=== PATIENT | female | born 1955 | race Caucasian/White ===

== ENCOUNTER → 2023-05-03 15:06 | Outpatient (CLI) | payer MEDICARE, SELFPAY ==
[2023-05-03 15:32] LABS: Microscopic, Urine URINE MICROSCOPIC (MICROSCOPIC)
[2023-05-03 16:07] LABS: Appearance,Urine SL CLOUDY (Clear); Bilirubin,Urine Negative (Negative); Blood, Urine TRACE-I (Negative); Color,Urine YELLOW (Yellow); Glucose,Urine (UA) 3+ (Negative); Ketones,Urine Negative (Negative); Leukocyte Esterase,Urine TRACE (Negative); Nitrate,Urine Negative (Negative); Protein,Urine Negative (Negative); Urobilinogen,Urine 0.2 EU/dl (0.2)
[2023-05-03 17:35] LABS: Bacteria,Urine Trace /lpf; RBC,Urine Occasional #/hpf (0-3); WBC,Urine TNTC #/hpf (0-3); Yeast,Urine 3+ /lpf
== END ==
PROVIDERS: PCP Internal Medicine Adolescent Medicine; Visit Provider Nurse Practitioner Family
DX: M54.50 Low back pain, unspecified (principal); R30.9 Painful micturition, unspecified
CPT/HCPCS: 81001; 87086

== ENCOUNTER 2023-05-29 10:37 | Outpatient (CLI) | payer MEDICARE, SELFPAY ==
[2023-05-29 10:52] LABS: Basophils # 0.1 K/mm3 (0-0.2); Basophils % 0.7 % (0.1-2.0); Eosinophils # 0.6 K/mm3 (0.0-0.4); Eosinophils % 3.4 % (0.1-12.0); Hematocrit 42.4 % (37.0-47.0); Lymphocytes # 2.3 K/mm3 (0.7-4.5); Lymphocytes % 14.4 % (10-50); Mean Corpuscular HGB Conc 30.7 g/dL (31.8-35.4); Mean Corpuscular Hemoglobin 28.4 pg (27.0-31.2); Mean Corpuscular Volume 92.5 fl (81-99); Mean Platelet Volume 8.5 fl (7.4-10.4); Monocytes # 0.7 K/mm3 (0.1-1.0); Monocytes % 4.4 % (1.7-9.3); Neutrophils # 12.5 K/mm3 (1.8-7.8); Neutrophils % 77.1 % (37.0-80.0); Platelet Count 310 K/mm3 (142-424); Red Blood Count 4.58 M/mm3 (4.20-5.40); Red Cell Distribution Width 15.4 % (11.5-17.5); White Blood Count 16.3 K/mm3 (4.8-10.8)
[2023-05-29 11:18] LABS: MANUAL DIFFERENTIAL MANUAL DIFFERENTIAL (MANUAL DIFF)
[2023-05-29 11:46] LABS: Chloride 103 mmol/L (98-107); Potassium 4.9 mmoL/L (3.5-5.1); Sodium 142 mmol/L (136-145)
[2023-05-29 11:49] LABS: Anion Gap 14.9 mEq/L (5-15); Blood Urea Nitrogen 24 mg/dl (7-17); Carbon Dioxide 29 mmol/L (22.0-30.0); Estimated Glomerular Filt Rate 55 ml/min (>60); GFR (African American) 67 ML/MIN (>60)
[2023-05-29 11:50] LABS: Calcium 8.7 mg/dl (8.4-10.2); Glucose 160 mg/dl (74-100)
[2023-05-29 13:44] LABS: Eosinophils % 3 % (0-3); Lymphocytes % 15 % (10-50); Monocytes % 3 % (2-9); Neutrophils % 77 % (42-76); Total Cells Counted 100
[2023-05-29 13:46] LABS: Platelet Estimate Normal; RBC Morphology Normal
== END 2023-05-29 23:59 ==
LOC: LAB.DROPOF 10:39
PROVIDERS: PCP Internal Medicine Adolescent Medicine; Visit Provider Internal Medicine Adolescent Medicine
DX: J44.1 Chronic obstructive pulmonary disease with (acute) exacerbation; I50.32 Chronic diastolic (congestive) heart failure
CPT/HCPCS: 80048; 85007; 85025

== ENCOUNTER 2023-08-01 15:20 | Emergency (ER) | payer MEDICARE, SELFPAY ==
[2023-08-01 15:21] VITALS: BP 128/86; PULSE 86; RESP 22; TEMP 36.9; O2SAT 97; BMI 56.6
--- NOTE | 2023-08-01 15:28 | ED_ITS ---
<Statement entered by Jefferson Prescott MD - 08/01/23 23:02> I was consulted by the J[facility], and we discussed the complexity of the problems being addressed. I approved the treatment and management plan for this patient's care in the emergency department, thus performing a substantive portion of the medical decision making. Jefferson Prescott MD, DANI, FACEP Discharge Plan Disposition Chief Complaint: Fall Referrals Follow up/Referrals: Provider,Referral, [Primary Care Provider] - See instructions Clinical Impressions Clinical Impression: Femur fracture, right Discharge ED Provider: Jefferson Prescott General Adult HPI General Chief complaint: Fall Stated complaint: fall Time Seen by Provider: 08/01/23 15:28 History of Present Illness HPI narrative: Patient presents after suffering a fall at her home. Patient was in her wheelchair trying to transition to her bed when she fell landing with her right leg and her hurdler's position underneath her. She could not arise. EMS was called to assist. Patient denies loss of consciousness trauma to the head chest pain chills hemoptysis hematochezia melena nausea vomit diarrhea however she does endorse increasing shortness of breath. Patient does have a history of COPD chronically on oxygen of 2 L. Related Data Allergies Allergy/AdvReac Type Severity Reaction Status Date / Time Penicillins Allergy Intermediate Verified 08/01/23 16:12 Sulfa (Sulfonamide Allergy Intermediate Verified 08/01/23 16:13 Antibiotics) [facility] Disclaimer: The information contained in this section may have been updated after the patient was seen, as this information can be updated by other users. Social History Smoking Status: Unknown if ever smoked alcohol intake: never current occupational status: retired Travel in the last 8 weeks: None ROS Obtained: Yes Systems reviewed as appropriate & no additional complaints except as documented Physical Exam General General appearance: alert and in no apparent distress Head Head exam: atraumatic and normal inspection Eye Eye exam: Present normal appearance, PERRL and EOMI ENT ENT exam: Present normal exam, normal oropharynx and mucous membranes moist Neck Neck exam: Present normal inspection, full ROM and trachea midline; Absent lymphadenopathy Chest Chest inspection: Present normal inspection and symmetric chest wall rise Respiratory Respiratory exam: Present normal lung sounds bilaterally; Absent accessory muscle use Cardiovascular Cardiovascular exam: Present regular rate, normal rhythm, normal heart sounds, +S1 and +S2 Abdominal Exam Abdominal exam: Present soft and normal bowel sounds; Absent tenderness, guarding or rebound Extremities Exam Extremities exam: Present normal inspection and full ROM Neurological Exam Neurological exam: Present alert, oriented X3 and CN II-XII intact Psychiatric Psychiatric exam: Present normal affect and normal mood Skin Skin exam: Present warm, dry and normal color Lymphatic Lymphatic Findings: no adenopathy Medical Decision Making Medical Records Medical records reviewed: Yes I reviewed the patient's medical records. Miguel Inquiry Pt receiving controlled substance: No Vital Signs: 08/01/23 15:21 08/01/23 16:00 Temperature 98.4 F Temperature Source Oral Pulse Rate 88 Pulse Rate [Right] 86 Respiratory Rate 22 20 Blood Pressure 111/62 Blood Pressure [Right Arm] 128/86 Blood Pressure Mean 75 Blood Pressure Mean [Right Arm] 100 02 Sat by Pulse Oximetry 97 94 L Oxygen Delivery Method Nasal Cannula Oxygen Flow Rate (LPM) 2 Lab Data Lab results reviewed: Yes I reviewed the patient's lab results. Lab Results 08/01/23 15:33: VBG pH 7.28 L, VBG pCO2 56.9 H, VBG pO2 37.5, VBG HCO3 26.3, VBG Total CO2 28.0 H, VBG O2 Saturation 65.0, VBG Base Excess -0.5, VBG Lactic Acid 2.5 H 08/01/23 15:40: Urine Color Yellow, Urine Appearance Clear, Urine pH 5.5, Ur Specific [place] 1.020, Urine Protein Negative, Urine Glucose (UA) 3+, Urine Ketones Negative, Urine Blood Negative, Urine Nitrate Negative, Urine Bilirubin Negative, Urine Urobilinogen 0.2, Ur Leukocyte Esterase Negative 08/01/23 15:45: WBC 15.8 H, RBC 4.44, Hgb 12.5, Hct 40.4, MCV 90.9, MCH 28.3, M CHC 31.1 L, RDW 15.0, Plt Count 356, MPV 9.3, Neut % (Auto) 88.9 H, Lymph % (Auto) 6.5 L, [place] % (Auto) 2.8, Eos % (Auto) 1.2, Baso % (Auto) 0.5, Neut # (Auto) 14.1 H, Lymph # (Auto) 1.0, [place] # (Auto) 0.4, Eos # (Auto) 0.2, Baso # (Auto) 0.1, Total Counted 100, Neutrophils % (Manual) 90 H, Lymphocytes % (Manual) 4 L, Monocytes % (Manual) 6, Platelet Estimate Normal, RBC Morphology Normal, PT 11.1, INR 1.03, D-Dimer 5.81 H, Sodium 138, Potassium 5.4 H, Chloride 103, Carbon Dioxide 29, Anion Gap 11.4, BUN 24 H, Creatinine 0.90, Estimated GFR 62, Est GFR ( Amer) 75, Glucose 122 H, Calcium 8.3 L, Total Bilirubin 0.7, AST 38 H, ALT 27, Alkaline Phosphatase 47, Total Protein 7.3, Albumin 3.7, Globulin 3.6 H, Albumin/Globulin Ratio 1.0 L 08/01/23 15:45 08/01/23 15:45 Orders (Tests/Meds): ED MEDICATIONS Discontinued Medications Generic Name Dose Route Start Last Admin Trade Name Freq PRN Reason Stop Dose Admin Acetaminophen 1,000 mg 08/01/23 15:29 08/01/23 16:25 Acetaminophen 1,000mg/100ml Vial IV 08/01/23 15:30 1,000 mg ONCE ONE Administration Albuterol/Ipratropium 3 ml 08/01/23 15:46 08/01/23 16:25 Ipratropium/Albuterol 3 Ml Neb IH 08/01/23 15:47 3 ml ONCE ONE Administration Ketorolac Tromethamine 15 mg 08/01/23 15:29 08/01/23 16:25 Ketorolac 30mg/Ml Vial IV 08/01/23 15:30 15 mg ONCE ONE Administration ORDERS Category Date Time Status CT abdomen pelvis wo con Stat Cat Scan 08/01/23 15:[address] femur RT wo con Stat Cat Scan 08/01/23 16:32 Completed CBC w/Auto Diff [Complete Blood Count Auto Diff] Stat Lab 08/01/23 15:45 Completed CMP [Comprehensive Metabolic Panel] Stat Lab 08/01/23 15:45 Completed D-Dimer Stat Lab 08/01/23 15:45 Completed INR [Prothrombin Time INR] Stat Lab 08/01/23 15:45 Completed Urinalysis-Acute [Urinalysis and Microscopic] Stat Lab 08/01/23 15:40 Results VBG [Venous Blood Gas] Stat RT 08/01/23 15:33 Completed Medical Decision Narrative: In summary patient is a 68-year-old female who presents to the emergency department for evaluation of a fall. Patient is hemodynamically stable upon arrival, afebrile satting at 93% on 2 L by nasal cannula. Physical exam is remarkable for a patient that is grossly obese with a BMI of 56 appears to be dyspneic however breath sounds are clear to auscultation bilaterally good air entry to the bases, chronic venous stasis changes to the distal bilateral lower extremities along with paronychial chronic infections around the toenails and tenderness to palpation and compression of the pelvis but no deformity noted. No deformity noted of the right lower extremity and she has good pulses and is neurovascularly intact distally. Differential diagnosis includes femur fracture, pelvic fracture, soft tissue or ligamentous injury, contusion etc. Initial workup will be conducted with hematologic labs CT scan of the pelvis and right femur. Initial interventions include lactated Ringer's, Toradol Tylenol. Initial workup reviewed by me shows a white count of 15.8 with an absolute neutrophil count of 14.1 and a platelet count of 356, INR of 1.03 with a D-dimer of 5.81, VBG of of pH of 7.28, and the remainder of her laboratory investigations are nonactionable. CT scan abdomen pelvis shows a displaced overriding distal femur fracture on the right. Given that the patient has a significant traumatic long bone fracture I discussed patient management with Dr. Myles at the [facility] who is graciously accepted the patient to the ER. Critical Care Critical Care Time Critical Care Time: Yes Attestation: On 08/01/23, the high probability of a clinically significant, sudden or life threatening deterioration of the following system(s) required my full and direct attention, intervention and personal management. The time I documented below is in addition to time spent performing reported procedures but includes the following listed in this critical care notation. Total Time Total Critical Care Time: 30
--- NOTE | 2023-08-01 15:29 | CT_ITS ---
PROCEDURE INFORMATION: Exam: CT Abdomen And Pelvis Without Contrast Exam date and time: 08/01/2023 3:44 PM Age: 68 years old Clinical indication: Other: Diarrhea; Additional info: Fall right hip pain, please scan to distal thigh TECHNIQUE: Imaging protocol: Computed tomography of the abdomen and pelvis without contrast. Radiation optimization: All CT scans at this facility use at least one of these dose optimization techniques: automated exposure control; mA and/or kV adjustment per patient size (includes targeted exams where dose is matched to clinical indication); or iterative reconstruction. COMPARISON: No relevant prior studies available. FINDINGS: Liver: Normal. No mass. Gallbladder and bile ducts: Gallbladder is surgically absent. Pancreas: Normal. No ductal dilation. Spleen: Normal. No splenomegaly. Adrenal glands: Normal. No mass. Kidneys and ureters: Small parenchymal stone in the right kidney. Single small calyceal stone in the left kidney. No obstructing ureteral stone or hydronephrosis. Stomach and bowel: Unremarkable. No obstruction. No mucosal thickening. Appendix: No evidence of appendicitis. Intraperitoneal space: Unremarkable. No free air. No significant fluid collection. Vasculature: Moderate atherosclerotic calcification throughout the aorta and iliac arteries. No evidence of aneurysm. Lymph nodes: Unremarkable. No enlarged lymph nodes. Urinary bladder: Hutchins catheter is present in the urinary bladder. Reproductive: Unremarkable as visualized. Bones/joints: Severe degenerative disc changes throughout the lower spine. Significant multilevel facet arthropathy. Grade 1 anterolisthesis of L4. No vertebral body compression or acute fracture. Mild degenerative changes of the sacroiliac joints. Soft tissues: Unremarkable. IMPRESSION: No acute abnormality evident. Chronic appearing findings as noted.
--- NOTE | 2023-08-01 15:44 | ECG_ITS ---
APPROVED REPORT Exam: Resting ECG HR:85 bpm ECG Measurements Heart Rate 85 AXES HI 168 P 55 QRSd 126 QRS -63 QT 364 T 81 QTc 406 Conclusion SINUS RHYTHM LEFT AXIS DEVIATION [QRS AXIS < -30] LEFT BUNDLE BRANCH BLOCK [120+ ms QRS DURATION, 80+ ms Q/S IN V1/V2, 85+ ms R IN I/aVL/V5/V6] Electronically signed by : TG TRUJILLO, 08/02/2023 03:26:04
[2023-08-01 16:00] VITALS: BP 111/62; PULSE 88; RESP 20; O2SAT 94
[2023-08-01 16:02] LABS: Basophils # 0.1 K/mm3 (0-0.2); Basophils % 0.5 % (0.1-2.0); Eosinophils # 0.2 K/mm3 (0.0-0.4); Eosinophils % 1.2 % (0.1-12.0); Hematocrit 40.4 % (37.0-47.0); Hemoglobin 12.5 g/dL (12.2-16.2); Lymphocytes % 6.5 % (10-50); Mean Corpuscular HGB Conc 31.1 g/dL (31.8-35.4); Mean Corpuscular Hemoglobin 28.3 pg (27.0-31.2); Mean Corpuscular Volume 90.9 fl (81-99); Mean Platelet Volume 9.3 fl (7.4-10.4); Monocytes # 0.4 K/mm3 (0.1-1.0); Monocytes % 2.8 % (1.7-9.3); Neutrophils # 14.1 K/mm3 (1.8-7.8); Neutrophils % 88.9 % (37.0-80.0); Platelet Count 356 K/mm3 (142-424); Red Blood Count 4.44 M/mm3 (4.20-5.40); White Blood Count 15.8 K/mm3 (4.8-10.8)
[2023-08-01 16:06] LABS: MANUAL DIFFERENTIAL MANUAL DIFFERENTIAL (MANUAL DIFF)
[2023-08-01 16:12] LABS: Lymphocytes % 4 % (10-50); Monocytes % 6 % (2-9); Neutrophils % 90 % (42-76); Total Cells Counted 100
[2023-08-01 16:13] LABS: Platelet Estimate Normal; RBC Morphology Normal
[2023-08-01 16:14] LABS: Alanine Aminotransferase 27 U/L (12-78); Albumin Level 3.7 g/dl (3.5-5.0); Alkaline Phosphatase 47 U/L (38-126); Anion Gap 11.4 mEq/L (5-15); Aspartate Amino Transferase 38 U/L (14-36); Bilirubin,Total 0.7 mg/dl (0.2-1.3); Blood Urea Nitrogen 24 mg/dl (7-17); Calcium 8.3 mg/dl (8.4-10.2); Carbon Dioxide 29 mmol/L (22.0-30.0); Chloride 103 mmol/L (98-107); Estimated Glomerular Filt Rate 62 ml/min (>60); GFR (African American) 75 ML/MIN (>60); Globulin 3.6 g/dL (1.3-3.2); Glucose 122 mg/dl (74-100); INR 1.03 (0.9-1.1); Potassium 5.4 mmoL/L (3.5-5.1); Prothrombin Time 11.1 seconds (10.1-12.5); Sodium 138 mmol/L (136-145); Total Protein,Serum 7.3 g/dl (6.3-8.2)
[2023-08-01 16:16] LABS: VBG Base Excess -0.5 mmol/L (-2.4-2.3); VBG HCO3 26.3 mmol/L (23-30); VBG PH 7.28 mmol/L (7.31-7.41); VBG PO2 37.5 mmol/L (28-40)
[2023-08-01 16:21] LABS: Lactate Venous 2.5 mmol/L (0.4-2.0); VBG PCO2 56.9 mmol/L (35-51)
[2023-08-01] MEDS: ACETAMINOPHEN 1,000MG/100ML VIAL 1000 MG IV (16:25)
[2023-08-01] MEDS: KETOROLAC 30MG/ML VIAL 15 MG IV (16:25)
[2023-08-01] MEDS: IPRATROPIUM/ALBUTEROL 3 ML NEB IH (16:25)
[2023-08-01 16:31] LABS: D-Dimer 5.81 ug/mL (0.0-0.5)
--- NOTE | 2023-08-01 16:32 | CT_ITS ---
PROCEDURE INFORMATION: Exam: CT Right Lower Extremity Without Contrast; Thigh Exam date and time: 08/01/2023 4:34 PM Age: 68 years old Clinical indication: Injury or trauma; Fall; Blunt trauma; Thigh or upper leg; Right TECHNIQUE: Imaging protocol: CT of the right lower extremity without contrast was performed. Exam focused on the thigh. Radiation optimization: All CT scans at this facility use at least one of these dose optimization techniques: automated exposure control; mA and/or kV adjustment per patient size (includes targeted exams where dose is matched to clinical indication); or iterative reconstruction. COMPARISON: CT ABDOMEN PELVIS WO CON 08/01/2023 3:44 PM FINDINGS: Bones/joints: There is an oblique fracture of the distal femoral diaphysis with posterior displacement of the distal fragment by approximately 1/2 shaft width as well as overriding fragments by approximately 5 cm. Fracture appears mildly comminuted. No intra-articular extension. No other acute fracture. Moderate tricompartmental osteoarthritis of the right knee noted. Soft tissues: Moderate deep soft tissue swelling about the fracture site. No significant masslike hematoma evident. Vasculature: Moderate atherosclerotic calcification throughout the femoral/popliteal artery. IMPRESSION: Displaced and overriding fracture of the distal right femoral diaphysis as described.
--- NOTE | 2023-08-01 16:39 | PC.NURSE ---
pt back from ct
[2023-08-01 17:05] LABS: Microscopic, Urine URINE MICROSCOPIC (MICROSCOPIC)
[2023-08-01 17:07] LABS: Appearance,Urine CLEAR (Clear); Bilirubin,Urine Negative (Negative); Blood, Urine Negative (Negative); Color,Urine YELLOW (Yellow); Glucose,Urine (UA) 3+ (Negative); Ketones,Urine Negative (Negative); Leukocyte Esterase,Urine Negative (Negative); Nitrate,Urine Negative (Negative); PH,Urine 5.5 (5.0-8.5); Protein,Urine Negative (Negative); Urobilinogen,Urine 0.2 EU/dl (0.2)
--- NOTE | 2023-08-01 17:17 | PC.NURSE ---
placed call to [facility] for transfer
--- NOTE | 2023-08-01 17:21 | PC.NURSE ---
[facility]
[2023-08-01 17:42] VITALS: BP 146/78; PULSE 76; RESP 20; TEMP 36.5; O2SAT 98
[2023-08-01 17:51] LABS: Squamous Epithelial Cell,Urine Occasional #/hpf (0-5)
[2023-08-01 20:20] LABS: Reflex Lactic Add Lactic Reflex
== END 2023-08-01 19:50 | disposition short-term general hospital (02) ==
PROVIDERS: Physician Assistant; Emergency Provider Student in an Organized Health Care Education/Training Program
DX: S72.351A Displaced comminuted fracture of shaft of right femur, initial encounter for closed fracture (principal); J44.9 Chronic obstructive pulmonary disease, unspecified; R06.02 Shortness of breath; W18.30XA Fall on same level, unspecified, initial encounter
CPT/HCPCS: 73700; 74176; 80053; 81001; 82803; 85007; 85025; 85378; 85610; 93005; 96374; 96375; 99285; J0131

== ENCOUNTER 2023-10-11 01:32 | Outpatient (CLI) | payer MEDICARE, SELFPAY ==
[2023-10-11 01:59] LABS: Microscopic, Urine URINE MICROSCOPIC (MICROSCOPIC)
[2023-10-11 02:02] LABS: Appearance,Urine CLEAR (Clear); Bilirubin,Urine Negative (Negative); Blood, Urine TRACE-I (Negative); Color,Urine YELLOW (Yellow); Glucose,Urine (UA) 3+ (Negative); Ketones,Urine TRACE (Negative); Leukocyte Esterase,Urine TRACE (Negative); Nitrate,Urine POSITIVE (Negative); Protein,Urine TRACE (Negative); Specific Gravity, Urine 1.015 (1.005-1.030); Urobilinogen,Urine 0.2 EU/dl (0.2)
[2023-10-11 02:14] LABS: Bacteria,Urine 1+ /lpf; WBC,Urine 50-100 #/hpf (0-3)
== END 2023-10-11 23:59 | disposition home or self-care (01) ==
LOC: LAB.DROPOF 01:36
PROVIDERS: PCP Internal Medicine Adolescent Medicine; Visit Provider Nurse Practitioner Family
DX: N39.0 Urinary tract infection, site not specified (principal); B96.89 Other specified bacterial agents as the cause of diseases classified elsewhere
CPT/HCPCS: 81001; 87086; 87088; 87186

== ENCOUNTER 2024-01-25 02:57 | Outpatient (CLI) | payer MEDICARE, SELFPAY ==
[2024-01-25 06:20] LABS: Microscopic, Urine URINE MICROSCOPIC (MICROSCOPIC)
[2024-01-25 06:26] LABS: Appearance,Urine CLEAR (Clear); Bilirubin,Urine Negative (Negative); Blood, Urine Negative (Negative); Color,Urine YELLOW (Yellow); Glucose,Urine (UA) 2+ (Negative); Ketones,Urine Negative (Negative); Leukocyte Esterase,Urine Negative (Negative); Nitrate,Urine POSITIVE (Negative); Protein,Urine Negative (Negative); Urobilinogen,Urine 0.2 EU/dl (0.2)
[2024-01-25 06:46] LABS: Bacteria,Urine 3+ /lpf; Squamous Epithelial Cell,Urine Occasional #/hpf (0-5)
== END 2024-01-25 23:59 | disposition home or self-care (01) ==
PROVIDERS: PCP Internal Medicine Adolescent Medicine; Visit Provider Nurse Practitioner Family
DX: R41.0 Disorientation, unspecified (principal); J44.9 Chronic obstructive pulmonary disease, unspecified; R13.10 Dysphagia, unspecified; N32.81 Overactive bladder; I10 Essential (primary) hypertension; R48.8 Other symbolic dysfunctions; E08.9 Diabetes mellitus due to underlying condition without complications; I50.32 Chronic diastolic (congestive) heart failure; I73.9 Peripheral vascular disease, unspecified; I87.2 Venous insufficiency (chronic) (peripheral)
CPT/HCPCS: 81001; 87086; 87088; 87186

== ENCOUNTER 2024-02-25 10:24 | Inpatient (IN) | payer MEDICARE, SELFPAY ==
[2024-02-25] VITALS (33 sets, daily range): BP systolic 65–141; BP diastolic 28–97; PULSE 55–105; RESP 16–24; TEMP 36.9–38.2; O2SAT 94–100; BMI 41.6; BMI 54.8; BMI 14.5; BMI 45.7
--- NOTE | 2024-02-25 10:28 | ECG_ITS ---
APPROVED REPORT Exam: Resting ECG HR:106 bpm ECG Measurements Heart Rate 106 AXES [place] 173 P 32 QRSd 119 QRS 270 QT 346 T 20 QTc 408 Conclusion SINUS TACHYCARDIA POSSIBLE RIGHT VENTRICULAR HYPERTROPHY [SOME/ALL OF: PROMINENT R IN V1, LATE TRANSITION, RAD, PETROS, SSS] POSSIBLE ANTERIOR MYOCARDIAL INFARCTION , OF INDETERMINATE AGE [30 ms Q WAVE IN V3/V4, OR R < 0.2 mV IN V4] Electronically signed by : ROSA MARIA MATUTE, 02/26/2024 23:01:30
[2024-02-25] MEDS: LACTATED RINGERS 1000ML 1,000 ML 999 ML IV ×2 (10:35→11:17)
--- NOTE | 2024-02-25 10:39 | HMH.EDGENADL ---
Discharge Plan Disposition Patient Disposition: Admitted Discharge ED Provider: John Silveira General Adult HPI General Chief complaint: Altered Mental Status Stated complaint: AMS Time Seen by Provider: 02/25/24 10:39 History of Present Illness HPI narrative: Patient is a 68-year-old female with reported history of COPD, presents altered, reportedly acutely, starting today. She was reportedly in her normal state of health prior to onset of symptoms. She woke up this morning reportedly in her normal state of health. Previous therapies prior to arrival included supplemental oxygen for hypoxemia and hypercarbia on end-tidal monitoring which were administered by EMS. No reported fall. Patient reportedly occasionally wear supplemental oxygen. Later history obtained by son over the phone who reports that she was short of breath and febrile yesterday. She was denying any chest pain, headache, or abdominal pain at that time. She does have reported history of DVT per son. Please note that above description of symptoms, in this electronic medical record under categorization of recalled from ER triage doctor by RN are reflective of an initial nursing assessment, however, is not reflective of my full history and physical exam that was personally taken and clarified. Consequentially, this preceding description of symptoms, which may include the patient's categorized chief complaint in the EMR, do not reflect my personal clinical impression, and the ultimate description of history of present illness and patient stated complaints should be deferred to this section of the note. Unless stated otherwise or congruent with this section of the note, additional signs, symptoms, or incongruence should be interpreted as inaccurate with my clinical impression. Related Data Home Medications ?Medication ?Instructions ?Recorded ?Confirmed acetaminophen 500 mg tablet 1,000 mg PO Q6H PRN PAIN/FEVER 02/25/24 02/25/24 albuterol sulfate 90 mcg/actuation 2 inh inhalation QID PRN SOA 02/25/24 02/25/24 breath activated powder inhaler apixaban 5 mg tablet (Eliquis) 5 mg PO BID HX EMBOLISM & 02/25/24 02/25/24 THROMBOSIS ascorbic acid (vitamin C) 500 mg 500 mg PO DAILY Supplement 02/25/24 02/25/24 tablet aspirin 81 mg chewable tablet 81 mg PO DAILY PVD 02/25/24 02/25/24 carvedilol 25 mg tablet 25 mg PO BID HTN 02/25/24 02/25/24 clonidine HCl 0.2 mg tablet 0.2 mg PO BID 02/25/24 02/25/24 cyanocobalamin (vitamin B-12) 100 100 mcg PO DAILY DEFICIENCY 02/25/24 02/25/24 mcg tablet dextran 70-hypromellose (PF) 0.1 1 drp ophthalmic (eye) QID 02/25/24 02/25/24 %-0.3 % eye drops in a dropperette SUPERIOR LIMBIC KARATITIS (Artificial Tears (PF)) docusate sodium 100 mg capsule 100 mg PO HS Constipation 02/25/24 02/25/24 empagliflozin 10 mg tablet 10 mg PO DAILY DM 02/25/24 02/25/24 (Jardiance) ergocalciferol (vitamin D2) 1,250 1,250 mcg PO WEEKLY 02/25/24 02/25/24 mcg (50,000 unit) capsule fluticasone 250 mcg-salmeterol 50 1 inh inhalation BID Copd 02/25/24 02/25/24 mcg/dose blistr powdr for inhalation (Wixela Inhub) furosemide 40 mg tablet 40 mg PO DAILY 02/25/24 02/25/24 ipratropium 0.5 mg-albuterol 3 mg 3 ml inhalation Q8H PRN 02/25/24 02/25/24 (2.5 mg base)/3 mL nebulization SOA/WHEEZING soln metformin 1,000 mg tablet 1,000 mg PO BID DM 02/25/24 02/25/24 omeprazole 20 mg capsule,delayed 20 mg PO DAILY GERD 02/25/24 02/25/24 release ondansetron HCl 4 mg tablet 4 mg PO Q6H PRN Nausea 02/25/24 02/25/24 sacubitril 24 mg-valsartan 26 mg 1 tab PO BID CHF 02/25/24 02/25/24 tablet (Entresto) spironolactone 50 mg tablet 50 mg PO DAILY CHF 02/25/24 02/25/24 tizanidine 2 mg capsule 2 mg PO Q8H PRN MUSCLE SPASMS 02/25/24 02/25/24 vibegron 75 mg tablet 75 mg PO DAILY OVERACTIVE BLADDER 02/25/24 02/25/24 Allergies Allergy/AdvReac Type Severity Reaction Status Date / Time Penicillins Allergy Intermediate Verified 08/01/23 16:12 Sulfa (Sulfonamide Allergy Intermediate Verified 08/01/23 16:13 Antibiotics) [facility] Disclaimer: The information contained in this section may have been updated after the patient was seen, as this information can be updated by other users. Medical History (Updated 02/25/24 @ 14:45 by Elis Mcgill, RN) Overactive bladder Morbid obesity due to excess calories Diabetes mellitus Congestive heart failure PVD (peripheral vascular disease) History of thrombosis History of embolism Venous insufficiency (chronic) (peripheral) Functional quadriplegia HTN (hypertension) Vitamin D deficiency COPD (chronic obstructive pulmonary disease) Shock On mechanically assisted ventilation Acute hypercapnic respiratory failure Family History (Updated 02/25/24 @ 14:46 by Elis Mcgill, RN) Other Unknown family medical history Social History (Updated 02/25/24 @ 14:50 by Elis Mcgill, PROSPER) Smoking Status: Unknown if ever smoked alcohol intake: never current occupational status: retired Travel in the last 8 weeks: None ROS Obtained: Yes other As per HPI Physical Exam General General appearance: lethargic Head Head exam: atraumatic and normocephalic Eye Eye exam: Present normal appearance Neck Neck exam: Present normal inspection Chest Chest inspection: Present normal inspection and symmetric chest wall rise Respiratory Respiratory exam: Present other (Hypoventilation, tachypnea) Cardiovascular Cardiovascular exam: Present normal rhythm and tachycardia Abdominal Exam Abdominal exam: Present soft Neurological Exam Neurological exam: Present alert and oriented X3 Psychiatric Psychiatric exam: Present other (Unable to assess) Skin Skin exam: Present warm and diaphoresis Medical Decision Making Medical Records Medical records reviewed: Yes I reviewed the patient's medical records. Screening: Per USPSTF and CDC recommendations, given the prevalence of disease in our region, it is our hospital?s policy to screen for HIV and viral Hepatitis for all patients aged 18 and over and those with ongoing risk factors. Miguel Inquiry Pt receiving controlled substance: No Vital Signs: 02/25/24 10:24 02/25/24 10:49 02/25/24 10:49 Temperature 100.8 F H Temperature Source Rectal Pulse Rate 97 H 97 H Pulse Rate [Apical] 105 H Respiratory Rate 16 Blood Pressure Blood Pressure [Right Arm] 102/58 L Blood Pressure Mean Blood Pressure Mean [Right Arm] 72 Blood Pressure Source [Right Arm] Automatic Cuff Blood Pressure Position [Right Arm] Sitting 02 Sat by Pulse Oximetry 94 L Oxygen Delivery Method Non-Rebreather 02/25/24 10:52 02/25/24 10:53 02/25/24 10:55 Temperature Temperature Source Pulse Rate 103 H 94 H 96 H Pulse Rate [Apical] Respiratory Rate 23 22 24 Blood Pressure 65/28 L 69/36 L 86/52 L Blood Pressure [Right Arm] Blood Pressure Mean 40 49 58 Blood Pressure Mean [Right Arm] Blood Pressure Source [Right Arm] Blood Pressure Position [Right Arm] 02 Sat by Pulse Oximetry Oxygen Delivery Method BiPAP BiPAP BiPAP 02/25/24 11:00 02/25/24 11:21 02/25/24 11:50 Temperature Temperature Source Pulse Rate 96 H 99 H Pulse Rate [Apical] Respiratory Rate 20 18 Blood Pressure 77/52 L 100/59 L Blood Pressure [Right Arm] Blood Pressure Mean 57 67 Blood Pressure Mean [Right Arm] Blood Pressure Source [Right Arm] Blood Pressure Position [Right Arm] 02 Sat by Pulse Oximetry 98 99 Oxygen Delivery Method BiPAP 02/25/24 12:01 02/25/24 12:31 02/25/24 13:00 Temperature Temperature Source Pulse Rate 100 H 99 H 86 Pulse Rate [Apical] Respiratory Rate Blood Pressure 99/46 L 90/55 L 96/60 L Blood Pressure [Right Arm] Blood Pressure Mean 59 66 70 Blood Pressure Mean [Right Arm] Blood Pressure Source [Right Arm] Blood Pressure Position [Right Arm] 02 Sat by Pulse Oximetry 98 100 Oxygen Delivery Method 02/25/24 13:15 02/25/24 13:30 Temperature Temperature Source Pulse Rate 78 Pulse Rate [Apical] Respiratory Rate 19 Blood Pressure 93/65 L Blood Pressure [Right Arm] Blood Pressure Mean 72 Blood Pressure Mean [Right Arm] Blood Pressure Source [Right Arm] Blood Pressure Position [Right Arm] 02 Sat by Pulse Oximetry 96 99 Oxygen Delivery Method Lab Data Lab Results 02/25/24 10:30: WBC 21.6 H*, RBC 4.76, Hgb 12.0 L, Hct 41.2, MCV 86.6, MCH 25.3 L, MCHC 29.2 L, RDW 17.2, Plt Count 466 H, MPV 8.0, Neut % (Auto) 90.8 H, Lymph % (Auto) 4.0 L, [place] % (Auto) 3.4, Eos % (Auto) 0.6, Baso % (Auto) 1.1, Neut # (Auto) 19.6 H, Lymph # (Auto) 0.9, [place] # (Auto) 0.7, Eos # (Auto) 0.1, Baso # (Auto) 0.2, Total Counted 100, Neutrophils % (Manual) 90 H, Lymphocytes % (Manual) 8 L, Monocytes % (Manual) 2, Platelet Estimate Slight increase, Hypochromasia 1+, PT 11.4, INR 1.02, Sodium 141, Potassium 4.8, Chloride 100, Carbon Dioxide 34 H, Anion Gap 11.8, BUN 17, Creatinine 1.00, Estimated Creat Clear 52, Estimated GFR 55 L, Est GFR ( Amer) 67, Glucose 262 H, Lactate 2.5 H, Calcium 8.9, Phosphorus 5.4 H, Magnesium 1.6, Total Bilirubin 0.4, AST 28, ALT 33, Alkaline Phosphatase 74, Total Creatine Kinase 46, Troponin I 0.03, NT-Pro-B Natriuret Pep 365 H, Total Protein 8.0, Albumin 3.8, Globulin 4.2 H, Albumin/Globulin Ratio 0.9 L, Salicylates < 1.0 L, Acetaminophen < 10 L, Plasma/Serum Alcohol < 10, Acetone Level None detected, HIV 1&2 Antibody Rapid Nonreactive 02/25/24 10:31: VBG pH 7.29 L, VBG pCO2 62.4 H, VBG pO2 167.4 H, VBG HCO3 29.3, VBG Total CO2 31.2 H, VBG O2 Saturation 99.2 H, VBG Base Excess 2.7 H, VBG Lactic Acid 3.4 H 02/25/24 10:42: Urine Color Yellow, Urine Appearance Clear, Urine pH 6.0, Ur Specific [place] 1.015, Urine Protein 1+ A, Urine Glucose (UA) Negative, Urine Ketones Negative, Urine Blood Negative, Urine Nitrate Negative, Urine Bilirubin Negative, Urine Urobilinogen 0.2, Ur Leukocyte Esterase Negative, Urine RBC Occasional, Urine WBC Occasional, Ur Squamous Epith Cells Occasional, Urine Bacteria 1+, Urine Opiates Screen Negative, Urine Methadone Screen Negative, Ur Barbituates Screen Negative, Ur Phencyclidine Scrn Negative, Ur Amphetamines Screen Negative, U Benzodiazepines Scrn Negative, Urine Cocaine Screen Negative, U Marijuana (THC) Screen Negative, SARS-CoV-2 (PCR) Not detected, Influenza A Untype (PCR) Not detected, Influenza Type B (PCR) Not detected 02/25/24 11:00: Blood Type O Positive, Antibody Screen Negative 02/25/24 11:18: Specimen Source A line, O2 % 50%, ABG pH 7.19 L*, ABG pCO2 88.6 H, ABG pO2 88.1, ABG HCO3 32.8 H, ABG Total CO2 35.5 H, ABG O2 Saturation 95, ABG Base Excess 4.5 H, Tidal Volume 20/8 02/25/24 10:30 02/25/24 10:30 Orders (Tests/Meds): ED MEDICATIONS Generic Name Dose Route Start Last Admin Trade Name Freq PRN Reason Stop Dose Admin Albuterol/Ipratropium 3 ml 02/25/24 18:00 Ipratropium/Albuterol 3 Ml Neb IH 03/26/24 17:59 Q6RT BOGDAN Docusate Sodium 10 ml 02/25/24 21:00 Docusate Sodium 10 Ml/Udc Udc PO 03/26/24 20:59 BID BOGDAN Fentanyl Citrate 12.5 mcg 02/25/24 14:00 Fentanyl 12.5mcg/0.25ml IV 03/26/24 13:59 [id number] PRN Achieve CPOT Score < 3 Norepinephrine/Dextrose 8 mg in 250 mls @ 3.75 mls/hr 02/25/24 12:15 02/25/24 13:28 Norepinephrine 8mg/250ml-D5w Premix IV 02/26/24 12:14 22 mcg/min .Q24H BOGDAN 41.25 mls/hr Infusion Protocol 2 MCG/MIN Fentanyl Citrate 1,000 mcg/ 100 mls @ 2 mls/hr 02/25/24 12:10 02/25/24 12:31 Sodium Chloride IV 02/26/24 12:09 20 mcg/hr .Q24H BOGDAN 2 mls/hr Titration Protocol 20 MCG/HR Norepinephrine Bitartrate 8 mg 252 mls @ 3.78 mls/hr 02/26/24 08:00 / Dextrose IV 03/27/24 07:59 .Q25H BOGDAN Protocol 2 MCG/MIN Propofol 100 mls @ 3.51 mls/hr 02/25/24 14:00 02/25/24 14:00 Diprivan 10mg/Ml 100ml Bottle IV 03/26/24 13:59 5 mcg/kg/min .Q24H BOGDAN 3.51 mls/hr Administration Protocol 5 MCG/KG/MIN Fentanyl Citrate 1,000 mcg/ 100 mls @ 2.5 mls/hr 02/25/24 21:00 Sodium Chloride IV 03/26/24 20:59 .Q24H BOGDAN Protocol 25 MCG/HR Cefepime HCl 2 gm/ Sodium 100 mls @ 200 mls/hr 02/25/24 14:15 02/25/24 14:39 Chloride IV 03/06/24 14:14 200 mls/hr Q12 BOGDAN Administration Insulin Human Lispro 0 unit 02/25/24 16:30 Humalog 100 Units/Ml 10ml Vial (Ssi) SQ 03/26/24 16:29 ACHS BOGDAN Protocol Pantoprazole Sodium 40 mg 02/25/24 21:00 Pantoprazole 40mg Vial IV 03/26/24 20:59 HS BOGDAN Sodium Chloride 10 ml 02/25/24 13:56 Sodium Chloride 0.9% 10ml Vial IV 03/26/24 13:55 NEEDED PRN dilute protonix Discontinued Medications Generic Name Dose Route Start Last Admin Trade Name Freq PRN Reason Stop Dose Admin Albuterol/Ipratropium 9 ml 02/25/24 10:35 02/25/24 10:40 Ipratropium/Albuterol 3 Ml Neb IH 02/25/24 10:36 9 ml ONCE ONE Administration Etomidate 35 mg 02/25/24 11:58 02/25/24 11:58 Etomidate 40mg/20ml Vial IV 02/25/24 11:59 35 mg ONCE ONE Administration Piperacillin Sod/Tazobactam 100 mls @ 200 mls/hr 02/25/24 11:30 02/25/24 14:30 Sod 4.5 gm/ Sodium Chloride IV 02/25/24 11:59 Not Given Q6H BOGDAN Lactated Ringer's 1,000 mls @ 999 mls/hr 02/25/24 11:17 02/25/24 11:17 Lactated Ringer's 1000 Ml Bag IV 02/25/24 12:17 999 mls/hr .Q1H1M ONE Administration Midazolam/Sodium Chloride 50 mg in 50 mls @ 3.175 mls/hr 02/25/24 12:15 02/25/24 12:36 Midazolam 50 Mg/50 Ml-0.9%Nacl IV 03/26/24 12:14 0.1 mg/kg/hr .[id number] BOGDAN 15.88 mls/hr Titration Protocol 0.02 MG/KG/HR Lactated Ringer's 1,000 mls @ 999 mls/hr 02/25/24 10:30 02/25/24 10:35 Lactated Ringer's 1000 Ml Bag IV 02/25/24 11:30 999 mls/hr .Q1H1M ONE Administration Iopamidol 150 ml 02/25/24 11:51 02/25/24 11:54 Iopamidol-370 (76%);100ml Bottle IV 02/25/24 11:52 150 ml ONCE ONE Administration Methylprednisolone Sodium Succinate 125 mg 02/25/24 12:19 02/25/24 12:55 Methylprednisolone Sod Succ 125mg Vial IV 02/25/24 12:20 125 mg ONCE ONE Administration Naloxone HCl 2 mg 02/25/24 10:37 02/25/24 10:40 Naloxone 2mg/2ml Syringe IV 02/25/24 10:38 2 mg ONCE ONE Administration Sodium Chloride 10 ml 02/25/24 11:51 02/25/24 11:54 Sodium Chloride 0.9% 10ml Syr (Rad Only) IV 02/25/24 11:52 10 ml ONCE ONE Administration Sodium Chloride 50 ml 02/25/24 11:51 02/25/24 11:53 0.9 % Sodium Chloride 50 Ml Vial IV 02/25/24 11:52 50 ml ONCE ONE Administration Succinylcholine Chloride 170 mg 02/25/24 11:59 02/25/24 11:59 Succinylcholine 20mg/Ml 10 Ml Mdv IV 02/25/24 12:00 170 mg ONCE ONE Administration ORDERS Category Date Time Status Type and Screen Stat BBK 02/25/24 11:[address] angio head Stat Cat Scan 02/25/24 10:[address] angio neck Stat Cat Scan 02/25/24 10:[address] head/brain wo con Stat Cat Scan 02/25/24 10:40 Completed CTA Chest [CT angio chest PE protocol] Stat Cat Scan 02/25/24 10:40 Completed Pulmonology Consult [Consult to Pulmonology] [CONS] Cons 02/25/24 12:47 Active Routine CXR --portable [XR chest portable] Stat Exams 02/25/24 12:02 Completed Chest XR -- portable [XR chest portable] Stat Exams 02/25/24 11:24 Completed Acetaminophen Stat Lab 02/25/24 10:30 Completed Acetone, Serum (Rapid) Stat Lab 02/25/24 10:30 Completed BNP [NT Pro Brain Natriuretic Pep.] Stat Lab 02/25/24 10:30 Completed CK [Creatine Kinase] Stat Lab 02/25/24 10:30 Completed CMP [Comprehensive Metabolic Panel] Stat Lab 02/25/24 10:30 Completed Complete Blood Count Auto Diff AMLAB Lab 02/26/24 06:00 Ordered Complete Blood Count Auto Diff Stat Lab 02/25/24 10:30 Completed Comprehensive Metabolic Panel AMLAB Lab 02/26/24 06:00 Ordered Drug Screen,Urine Stat Lab 02/25/24 10:42 Completed Ethanol [Ethyl Alcohol] Stat Lab 02/25/24 10:30 Completed HIV (1&2) Antibody Rapid Stat Lab 02/25/24 10:30 Completed Hep C Ab with Reflex to RNA Stat Lab 02/25/24 10:30 Received Lactic Acid Stat Lab 02/25/24 10:30 Completed MAG [Magnesium] Stat Lab 02/25/24 10:30 Completed Magnesium AMLAB Lab 02/26/24 06:00 Ordered PHOS [Phosphorous] Stat Lab 02/25/24 10:30 Completed PT INR [Prothrombin Time INR] Stat Lab 02/25/24 10:30 Completed Rapid PCR Covid and Flu A/B Stat Lab 02/25/24 10:42 Completed Salicylate Stat Lab 02/25/24 10:30 Completed Troponin I Q3H Lab 02/25/24 10:30 Completed Troponin I Q3H Lab 02/25/24 14:20 Completed Urinalysis and Microscopic Stat Lab 02/25/24 10:42 Completed Blood Culture Stat Micro 02/25/24 10:45 Received Sputum Culture & Gram Stain Stat Micro 02/25/24 12:05 Received Urine Culture Stat Micro 02/25/24 10:42 Received Arterial Blood Gas Routine RT 02/25/24 11:18 Completed VBG [Venous Blood Gas] Stat RT 02/25/24 10:31 Completed Medical Decision Narrative: Patient with history and exam per above presenting for evaluation of altered mental status Diagnoses considered include intracranial hemorrhage, stroke, sepsis, pulmonary embolism, bacteremia, no clinical evidence to suggest trauma, differential also includes ACS, symptomatic hypercarbia, among others ED workup and treatment included: ED MEDICATIONS Generic Name Dose Route Start Last Admin Trade Name Freq PRN Reason Stop Dose Admin Albuterol/Ipratropium 3 ml 02/25/24 18:00 Ipratropium/Albuterol 3 Ml Neb IH 03/26/24 17:59 Q6RT BOGDAN Docusate Sodium 10 ml 02/25/24 21:00 Docusate Sodium 10 Ml/Udc Udc PO 03/26/24 20:59 BID BOGDAN Fentanyl Citrate 12.5 mcg 02/25/24 14:00 Fentanyl 12.5mcg/0.25ml IV 03/26/24 13:59 [id number] PRN Achieve CPOT Score < 3 Norepinephrine/Dextrose 8 mg in 250 mls @ 3.75 mls/hr 02/25/24 12:15 02/25/24 13:28 Norepinephrine 8mg/250ml-D5w Premix IV 02/26/24 12:14 22 mcg/min .Q24H BOGDAN 41.25 mls/hr Infusion Protocol 2 MCG/MIN Fentanyl Citrate 1,000 mcg/ 100 mls @ 2 mls/hr 02/25/24 12:10 02/25/24 12:31 Sodium Chloride IV 02/26/24 12:09 20 mcg/hr .Q24H BOGDAN 2 mls/hr Titration Protocol 20 MCG/HR Norepinephrine Bitartrate 8 mg 252 mls @ 3.78 mls/hr 02/26/24 08:00 / Dextrose IV 03/27/24 07:59 .Q25H BOGDAN Protocol 2 MCG/MIN Propofol 100 mls @ 3.51 mls/hr 02/25/24 14:00 02/25/24 14:00 Diprivan 10mg/Ml 100ml Bottle IV 03/26/24 13:59 5 mcg/kg/min .Q24H BOGDAN 3.51 mls/hr Administration Protocol 5 MCG/KG/MIN Fentanyl Citrate 1,000 mcg/ 100 mls @ 2.5 mls/hr 02/25/24 21:00 Sodium Chloride IV 03/26/24 20:59 .Q24H BOGDAN Protocol 25 MCG/HR Cefepime HCl 2 gm/ Sodium 100 mls @ 200 mls/hr 02/25/24 14:15 02/25/24 14:39 Chloride IV 03/06/24 14:14 200 mls/hr Q12 BOGDAN Administration Insulin Human Lispro 0 unit 02/25/24 16:30 02/25/24 15:47 Humalog 100 Units/Ml 10ml Vial (Ssi) SQ 03/26/24 16:29 Not Given ACHS BOGDAN Protocol Pantoprazole Sodium 40 mg 02/25/24 21:00 Pantoprazole 40mg Vial IV 03/26/24 20:59 HS BOGDAN Sodium Chloride 10 ml 02/25/24 13:56 Sodium Chloride 0.9% 10ml Vial IV 03/26/24 13:55 NEEDED PRN dilute protonix Discontinued Medications Generic Name Dose Route Start Last Admin Trade Name Freq PRN Reason Stop Dose Admin Albuterol/Ipratropium 9 ml 02/25/24 10:35 02/25/24 10:40 Ipratropium/Albuterol 3 Ml Neb IH 02/25/24 10:36 9 ml ONCE ONE Administration Etomidate 35 mg 02/25/24 11:58 02/25/24 11:58 Etomidate 40mg/20ml Vial IV 02/25/24 11:59 35 mg ONCE ONE Administration Piperacillin Sod/Tazobactam 100 mls @ 200 mls/hr 02/25/24 11:30 02/25/24 14:30 Sod 4.5 gm/ Sodium Chloride IV 02/25/24 11:59 Not Given Q6H [facility] Lactated Ringer's 1,000 mls @ 999 mls/hr 02/25/24 11:17 02/25/24 11:17 Lactated Ringer's 1000 Ml Bag IV 02/25/24 12:17 999 mls/hr .Q1H1M ONE Administration Midazolam/Sodium Chloride 50 mg in 50 mls @ 3.175 mls/hr 02/25/24 12:15 02/25/24 12:36 Midazolam 50 Mg/50 Ml-0.9%Nacl IV 03/26/24 12:14 0.1 mg/kg/hr .[id number] [facility] 15.88 mls/hr Titration Protocol 0.02 MG/KG/HR Lactated Ringer's 1,000 mls @ 999 mls/hr 02/25/24 10:30 02/25/24 10:35 Lactated Ringer's 1000 Ml Bag IV 02/25/24 11:30 999 mls/hr .Q1H1M ONE Administration Iopamidol 150 ml 02/25/24 11:51 02/25/24 11:54 Iopamidol-370 (76%);100ml Bottle IV 02/25/24 11:52 150 ml ONCE ONE Administration Methylprednisolone Sodium Succinate 125 mg 02/25/24 12:19 02/25/24 12:55 Methylprednisolone Sod Succ 125mg Vial IV 02/25/24 12:20 125 mg ONCE ONE Administration Naloxone HCl 2 mg 02/25/24 10:37 02/25/24 10:40 Naloxone 2mg/2ml Syringe IV 02/25/24 10:38 2 mg ONCE ONE Administration Sodium Chloride 10 ml 02/25/24 11:51 02/25/24 11:54 Sodium Chloride 0.9% 10ml Syr (Rad Only) IV 02/25/24 11:52 10 ml ONCE ONE Administration Sodium Chloride 50 ml 02/25/24 11:51 02/25/24 11:53 0.9 % Sodium Chloride 50 Ml Vial IV 02/25/24 11:52 50 ml ONCE ONE Administration Succinylcholine Chloride 170 mg 02/25/24 11:59 02/25/24 11:59 Succinylcholine 20mg/Ml 10 Ml Mdv IV 02/25/24 12:00 170 mg ONCE ONE Administration ORDERS Category Date Time Status Type and Screen Stat BBK 02/25/24 11:[address] angio head Stat Cat Scan 02/25/24 10:[address] angio neck Stat Cat Scan 02/25/24 10:[address] head/brain wo con Stat Cat Scan 02/25/24 10:40 Completed CTA Chest [CT angio chest PE protocol] Stat Cat Scan 02/25/24 10:40 Completed Pulmonology Consult [Consult to Pulmonology] [CONS] Cons 02/25/24 12:47 Active Routine CXR --portable [XR chest portable] Stat Exams 02/25/24 12:02 Completed Chest XR -- portable [XR chest portable] Stat Exams 02/25/24 11:24 Completed Acetaminophen Stat Lab 02/25/24 10:30 Completed Acetone, Serum (Rapid) Stat Lab 02/25/24 10:30 Completed BNP [NT Pro Brain Natriuretic Pep.] Stat Lab 02/25/24 10:30 Completed CK [Creatine Kinase] Stat Lab 02/25/24 10:30 Completed CMP [Comprehensive Metabolic Panel] Stat Lab 02/25/24 10:30 Completed Complete Blood Count Auto Diff AMLAB Lab 02/26/24 06:00 Ordered Complete Blood Count Auto Diff Stat Lab 02/25/24 10:30 Completed Comprehensive Metabolic Panel AMLAB Lab 02/26/24 06:00 Ordered Drug Screen,Urine Stat Lab 02/25/24 10:42 Completed Ethanol [Ethyl Alcohol] Stat Lab 02/25/24 10:30 Completed HIV (1&2) Antibody Rapid Stat Lab 02/25/24 10:30 Completed Hep C Ab with Reflex to RNA Stat Lab 02/25/24 10:30 Received Lactic Acid Stat Lab 02/25/24 10:30 Completed MAG [Magnesium] Stat Lab 02/25/24 10:30 Completed Magnesium AMLAB Lab 02/26/24 06:00 Ordered PHOS [Phosphorous] Stat Lab 02/25/24 10:30 Completed PT INR [Prothrombin Time INR] Stat Lab 02/25/24 10:30 Completed Rapid PCR Covid and Flu A/B Stat Lab 02/25/24 10:42 Completed Salicylate Stat Lab 02/25/24 10:30 Completed Troponin I Q3H Lab 02/25/24 10:30 Completed Troponin I Q3H Lab 02/25/24 14:20 Completed Urinalysis and Microscopic Stat Lab 02/25/24 10:42 Completed Blood Culture Stat Micro 02/25/24 10:45 Received Sputum Culture & Gram Stain Stat Micro 02/25/24 12:05 Received Urine Culture Stat Micro 02/25/24 10:42 Received Arterial Blood Gas Routine RT 02/25/24 11:18 Completed VBG [Venous Blood Gas] Stat RT 02/25/24 10:31 Completed Labs were independently interpreted by me, significant for leukocytosis, respiratory acidosis, other labs pending at this time Imaging was independently visualized and interpreted by me, significant for findings suggestive of pneumonia Please refer to radiology report for full details. Patient was intubated for airway protection, difficulty ventilating, arterial line was placed. She will be admitted for further management she was accepted for admission by hospitalist. Procedures Intubation Mallampati Score:: Class II Time out performed: Yes sedative: Etomidate paralytic: Succinylcholine Laryngoscope: Chikis ET Tube Size: 7.5 ET Tube Uncuffed: No Tube Secured Location: lips Tube Placement Confirmation: visualized tube passing through cords and equal breath sounds bilaterally Patient Tolerated Procedure: no complications Arterial Line Time Out Performed: Yes Size (Gauge): 22 Technique Used: guide wire technique Post-Procedure: line sutured into place Patient Tolerated Procedure: well Complications: none Site: left Critical Care Critical Care Time Critical Care Time: Yes Attestation: On 02/25/24, the high probability of a clinically significant, sudden or life threatening deterioration of the following system(s) required my full and direct attention, intervention and personal management. The time I documented below is in addition to time spent performing reported procedures but includes the following listed in this critical care notation. Total Time Total Critical Care Time: 60
[2024-02-25] MEDS: IPRATROPIUM/ALBUTEROL 3 ML NEB 9 ML IH (10:40)
[2024-02-25] MEDS: NALOXONE 2MG/2ML SYRINGE 2 MG IV (10:40)
--- NOTE | 2024-02-25 10:40 | PC.NURSE ---
RT at BS to place pt on Bipap
--- NOTE | 2024-02-25 10:40 | CT_ITS ---
FINAL REPORT CLINICAL HISTORY: ams, respiratory failure FINDINGS: Axial images of the head were obtained without contrast. Coronal reformatted images were also obtained. This study was performed with techniques to keep radiation doses as low as reasonably achievable (ALARA). Individualized dose reduction techniques using automated exposure control or adjustment of mA and/or kV according to the patient''s size were employed. There is generalized age-appropriate atrophy. Periventricular low-attenuation areas are seen consistent with moderate chronic ischemic changes. There is no evidence of intracranial hemorrhage or mass. There is no evidence of acute infarct. There is no evidence of shift of the midline structures. No skull abnormality is seen on the bone window images. IMPRESSION: Atrophy and moderate periventricular chronic ischemic changes. No acute intracranial abnormality identified. Authenticated and ERN
--- NOTE | 2024-02-25 10:40 | CT_ITS ---
FINAL REPORT CLINICAL HISTORY: acute respiratory failure FINDINGS: Thin section axial CT images of the chest were obtained with contrast. 3D reformatted images were also obtained. This study was performed with techniques to keep radiation doses as low as reasonably achievable (ALARA). Individualized dose reduction techniques using automated exposure control or adjustment of mA and/or kV according to the patient''s size were employed. Many of the images are degraded by motion artifact. There is no evidence of pulmonary embolism. There is no evidence of thoracic aortic aneurysm or dissection. There is no evidence of mediastinal or hilar mass or adenopathy. Cardiomegaly is noted. Bilateral lower lobe pulmonary opacities are seen, favor atelectasis over pneumonia. Note is made of multiple small bilateral pulmonary nodules with a nonspecific appearance. There is a part solid nodule in the posterior left upper lobe that measures 5 mm. No significant pleural effusion is identified. The bony thorax appears intact. Limited images of the upper abdomen reveal bilateral adrenal gland enlargement which may represent adenomas or hyperplasia. Postoperative changes are seen from cholecystectomy. A small bilateral renal cysts are present. IMPRESSION: No evidence of pulmonary embolism. Bilateral lower lobe pulmonary opacities, favor atelectasis over pneumonia. Small nonspecific pulmonary nodules which may be inflammatory or neoplastic. These could be further evaluated with follow-up CT in 6 months. Authenticated and ERN
[2024-02-25 10:41] LABS: Basophils # 0.2 K/mm3 (0-0.2); Basophils % 1.1 % (0.1-2.0); Eosinophils # 0.1 K/mm3 (0.0-0.4); Eosinophils % 0.6 % (0.1-12.0); Hematocrit 41.2 % (37.0-47.0); Lymphocytes # 0.9 K/mm3 (0.7-4.5); Mean Corpuscular HGB Conc 29.2 g/dL (31.8-35.4); Mean Corpuscular Hemoglobin 25.3 pg (27.0-31.2); Mean Corpuscular Volume 86.6 fl (81-99); Monocytes # 0.7 K/mm3 (0.1-1.0); Monocytes % 3.4 % (1.7-9.3); Neutrophils # 19.6 K/mm3 (1.8-7.8); Neutrophils % 90.8 % (37.0-80.0); Platelet Count 466 K/mm3 (142-424); Red Blood Count 4.76 M/mm3 (4.20-5.40); Red Cell Distribution Width 17.2 % (11.5-17.5); White Blood Count 21.6 K/mm3 (4.8-10.8)
--- NOTE | 2024-02-25 10:41 | CT_ITS ---
FINAL REPORT TECHNIQUE: Thin section axial CT with IV contrast supplemented with multiplanar reconstruction under CT angiogram protocol. 3-D reconstructions were performed. This study was performed with techniques to keep radiation doses as low as reasonably achievable (ALARA). Individualized dose reduction techniques using automated exposure control or adjustment of mA and/or kV according to the patient''s size were employed. CLINICAL HISTORY: ams FINDINGS: No aneurysm is seen. Major intracranial vessels are patent without significant stenosis. No major branch occlusion is identified. IMPRESSION: No evidence of significant stenosis or major branch occlusion. Authenticated and ERN
--- NOTE | 2024-02-25 10:41 | CT_ITS ---
FINAL REPORT TECHNIQUE: Thin section axial CT with IV contrast supplemented with multiplanar reconstruction under CT angiogram protocol. This study was performed with techniques to keep radiation doses as low as reasonably achievable (ALARA). Individualized dose reduction techniques using automated exposure control or adjustment of mA and/or kV according to the patient''s size were employed. NASCET criteria was utilized during interpretation. CLINICAL HISTORY: ams FINDINGS: Aortic arch: Arch shows no significant narrowing. Great vessel origins are widely patent. Right carotid: No significant stenosis is seen of the cervical common or internal carotid artery. Mild calcified plaque is seen at the carotid bulb. Left carotid: No significant stenosis is seen of the cervical common or internal carotid artery. Mild calcified plaque is seen at the carotid bulb. Vertebral: The vertebral arteries are codominant. No significant stenosis is present. Note is made of bilateral thyroid nodules. IMPRESSION: No evidence of significant stenosis or major branch occlusion. Authenticated and ERN
[2024-02-25 10:44] LABS: MANUAL DIFFERENTIAL MANUAL DIFFERENTIAL (MANUAL DIFF)
[2024-02-25 10:45] LABS: VBG Base Excess 2.7 mmol/L (-2.4-2.3); VBG HCO3 29.3 mmol/L (23-30); VBG Oxygen Saturation 99.2 % (50-70); VBG PH 7.29 mmol/L (7.31-7.41); VBG PO2 167.4 mmol/L (28-40); VBG Total CO2 31.2 mmol/L (23-27)
[2024-02-25 10:47] LABS: Lactate Venous 3.4 mmol/L (0.4-2.0); VBG PCO2 62.4 mmol/L (35-51)
[2024-02-25 10:49] LABS: Albumin Level 3.8 g/dl (3.5-5.0); Chloride 100 mmol/L (98-107); Potassium 4.8 mmoL/L (3.5-5.1); Sodium 141 mmol/L (136-145)
[2024-02-25 10:50] LABS: Coronavirus 19, PCR Not Detected (NotDetected); Influenza A, PCR Not Detected (NotDetected); Influenza B, PCR Not Detected (NotDetected); Microscopic, Urine URINE MICROSCOPIC (MICROSCOPIC)
--- NOTE | 2024-02-25 10:50 | PC.NURSE ---
Martha from [facility] called VBG results. Reported to Dr. Silveira.
[2024-02-25 10:52] LABS: Alanine Aminotransferase 33 U/L (12-78); Albumin/Globulin Ratio 0.9 (1.1-1.8); Alkaline Phosphatase 74 U/L (38-126); Anion Gap 11.8 mEq/L (5-15); Aspartate Amino Transferase 28 U/L (14-36); Bilirubin,Total 0.4 mg/dl (0.2-1.3); Blood Urea Nitrogen 17 mg/dl (7-17); Carbon Dioxide 34 mmol/L (22.0-30.0); Creatinine Clearance Estimated 52 mL/min (50-200); Estimated Glomerular Filt Rate 55 ml/min (>60); GFR (African American) 67 ML/MIN (>60); Globulin 4.2 g/dL (1.3-3.2)
[2024-02-25 10:53] LABS: Calcium 8.9 mg/dl (8.4-10.2); Glucose 262 mg/dl (74-100)
[2024-02-25 10:57] LABS: Lactic Acid 2.5 mmol/L (0.7-2.1)
[2024-02-25 11:01] LABS: INR 1.02 (0.9-1.1); Prothrombin Time 11.4 seconds (10.1-12.5)
[2024-02-25 11:02] LABS: Appearance,Urine CLEAR (Clear); Bilirubin,Urine Negative (Negative); Blood, Urine Negative (Negative); Color,Urine YELLOW (Yellow); Glucose,Urine (UA) Negative (Negative); Ketones,Urine Negative (Negative); Leukocyte Esterase,Urine Negative (Negative); Nitrate,Urine Negative (Negative); Protein,Urine 1+ (Negative); Specific Gravity, Urine 1.015 (1.005-1.030); Urobilinogen,Urine 0.2 EU/dl (0.2)
--- NOTE | 2024-02-25 11:03 | PC.NURSE ---
Dr. Silveira at to place art line
[2024-02-25 11:04] LABS: Creatine Kinase 46 U/L (30-135); Magnesium 1.6 mg/dl (1.6-2.3)
[2024-02-25 11:05] LABS: Phosphorous 5.4 mg/dl (2.5-4.5)
[2024-02-25 11:07] LABS: Acetaminophen < 10 ug/ml (10-30); Ethyl Alcohol < 10 mg/dl (0-10); Salicylate < 1.0 mg/dL (2.0-20.0)
[2024-02-25 11:15] LABS: NT Pro Brain Natriuretic Pep. 365 pg/mL (0-125)
[2024-02-25 11:16] LABS: Barbiturates Screen,Urine Negative ng/ml (<200)
[2024-02-25 11:17] LABS: Troponin I 0.03 ng/ml (0.00-0.034)
[2024-02-25 11:17] LABS: Amphetamine/Metha Screen,Urine Negative ng/ml (<1000); Benzodiazepines Screen,Urine Negative ng/ml (<200); RBC,Urine Occasional #/hpf (0-3); WBC,Urine Occasional #/hpf (0-3)
[2024-02-25 11:18] LABS: Bacteria,Urine 1+ /lpf; Cannabinoid Screen,Urine Negative ng/ml (<50); Cocaine Screen,Urine Negative ng/ml (<300); Squamous Epithelial Cell,Urine Occasional #/hpf (0-5)
[2024-02-25 11:19] LABS: Methadone Screen,Urine Negative ng/ml (<300)
[2024-02-25 11:20] LABS: ABG Base Excess 4.5 mmol/L (-2.4-2.3); ABG HCO3 32.8 mmhg (22.0-26.0); ABG Oxygen Saturation 95 % (90-100); ABG PO2 88.1 mmhg (80-100); ABG TCO2 35.5 mmhg (23-27)
[2024-02-25 11:20] LABS: Opiate Screen,Urine Negative ng/ml (<300); Phencyclidine Screen,Urine Negative ng/ml (<25)
[2024-02-25 11:21] LABS: Oxygen 50% %; Source A LINE; Tidal Volume 20/8
[2024-02-25 11:22] LABS: ABG PCO2 88.6 mmhg (35.0-45.0); ABG PH 7.19 mmol/L (7.35-7.45)
--- NOTE | 2024-02-25 11:24 | XR_ITS ---
FINAL REPORT CLINICAL HISTORY: unresponsive FINDINGS: A single portable view of the chest was obtained. Borderline cardiomegaly is noted. The pulmonary vascularity is within normal limits. There are mild bibasilar pulmonary opacities that may represent atelectasis or pneumonia. No significant pleural effusion is identified. The bony thorax is intact. IMPRESSION: Mild bibasilar pulmonary opacities may represent atelectasis or pneumonia. Authenticated and ERN
--- NOTE | 2024-02-25 11:25 | PC.NURSE ---
Spoke with pts son at this time. Pt son stated his mother doesnt have a DRN or living will and would want everything done as far as interventions.
--- NOTE | 2024-02-25 11:28 | PC.NURSE ---
speaking with pt son on the phone at this time
--- NOTE | 2024-02-25 11:32 | PC.NURSE ---
spoke with MD about zosyn order and pt allergies to PCN , wants to give the zosyn.
[2024-02-25 11:43] LABS: Hypochromasia 1+; Lymphocytes % 8 % (10-50); Monocytes % 2 % (2-9); Neutrophils % 90 % (42-76); Total Cells Counted 100
[2024-02-25 11:44] LABS: Platelet Estimate Slight Increase
[2024-02-25] MEDS: 0.9 % SODIUM CHLORIDE 50 ML VIAL IV (11:53)
[2024-02-25] MEDS: IOPAMIDOL-370 (76%);100ML BOTTLE 150 ML IV (11:54)
[2024-02-25] MEDS: SODIUM CHLORIDE 0.9% 10ML SYR (RAD ONLY) 10 ML IV (11:54)
[2024-02-25] MEDS: ETOMIDATE 40MG/20ML VIAL 35 MG IV (11:58)
[2024-02-25] MEDS: SUCCINYLCHOLINE 20MG/ML 10 ML MDV 170 MG IV (11:59)
--- NOTE | 2024-02-25 12:02 | XR_ITS ---
FINAL REPORT CLINICAL HISTORY: tube placement confirmation COMPARISON: 40 minutes prior FINDINGS: A single portable view of the chest was obtained. There has been interval placement of an endotracheal tube with its tip in the mid thoracic trachea. The heart is enlarged with mild pulmonary vascular congestion. The mediastinum is within normal limits. There are persistent bibasilar opacities which likely represent atelectasis or pneumonia. The bony thorax is intact. IMPRESSION: Endotracheal tube tip in the mid thoracic trachea. Persistent bibasilar opacities, likely atelectasis or pneumonia. Reviewed, Interpreted and Dictated by Joseph Lerma III, MD Transcribed by Era Jaramillo Authenticated and [facility]
[2024-02-25 12:05] LABS: Acetone, Serum (Rapid) None Detected (None Detect)
[2024-02-25] MEDS: MIDAZOLAM HCL IN 0.9 % NACL/PF 50 MG/50 ML PLAST..BAG IV (12:19)
[2024-02-25] MEDS: FENTANYL CITRATE/PF 1,000 MCG in 0.9 % SODIUM CHLORIDE 80 ML 1 MCG IV (12:20)
[2024-02-25] MEDS: NOREPINEPHRINE BITARTRATE/D5W 8 MG/250 ML PLAST..BAG 15 MG IV (12:24)
--- NOTE | 2024-02-25 12:44 | PC.NURSE ---
Dr. Silveira speaking with Dr. Green
--- NOTE | 2024-02-25 12:50 | P.HP_ITS ---
History of Present Illness *Admission Date: 02/25/24 *Reason for visit:: Unresponsive at long-term *History of present illness: Ms. Newton is a 68-year-old female who resides at [facility]. She is brought to the ER via EMS due to concern for being unresponsive at her nurs ing home. Patient has a history of COPD, hypertension, diabetes, blood clots. On arrival to the long-term, EMS stated the patient was unresponsive and had an elevated end-tidal CO2. Also found to be hypoxic. No reported trauma. Occasionally wears oxygen at the long-term per report. Unable to obtain any history from patient. On arrival to the ER, found to be in hypercapnic and hypoxemic respiratory failure. Blood pressure soft. Was unresponsive to BiPAP. Necessitated intubation due to inability to produce significant tidal volumes on noninvasive positive pressure ventilation. After intubation, patient became frankly hypotensive. Meeting criteria for septic shock with her leukocytosis, for possible pneumonia, tachycardia, hypotension not responsive to fluids. Initiated on norepinephrine. Medicine consulted for admission. Upon arrival to the floor, patient was evaluated. Had a bradycardic episode upon transfer from her stretcher to ICU bed. EKG obtained, personally reviewed showing sinus bradycardia with inferior lead T wave inversions. Initial troponin obtained, less than 0.03. Patient's blood pressure showing some improvement on norepinephrine. Currently sedated on fentanyl and Versed, will transition to propofol for ICU. Pulmonology consulted to assist with care. [facility] Disclaimer: The information contained in this section may have been updated after the patient was seen, as this information can be updated by other users. Medical History Overactive bladder Morbid obesity due to excess calories Diabetes mellitus Congestive heart failure PVD (peripheral vascular disease) History of thrombosis History of embolism Venous insufficiency (chronic) (peripheral) Functional quadriplegia HTN (hypertension) Vitamin D deficiency COPD (chronic obstructive pulmonary disease) Shock On mechanically assisted ventilation Acute hypercapnic respiratory failure Family History Other Unknown family medical history Social History Smoking Status: Unknown if ever smoked alcohol intake: never current occupational status: retired Travel in the last 8 weeks: None Review of Systems Review of Systems Review of systems:: unable to obtain Meds Home Medications and Allergies Home Medications ?Medication ?Instructions ?Recorded ?Confirmed ?Type acetaminophen 500 mg tablet 1,000 mg PO Q6H PRN PAIN/FEVER 02/25/24 02/25/24 History albuterol sulfate 90 mcg/actuation 2 inh inhalation QID PRN SOA 02/25/24 02/25/24 History breath activated powder inhaler apixaban 5 mg tablet (Eliquis) 5 mg PO BID HX EMBOLISM & 02/25/24 02/25/24 History THROMBOSIS ascorbic acid (vitamin C) 500 mg 500 mg PO DAILY Supplement 02/25/24 02/25/24 History tablet aspirin 81 mg chewable tablet 81 mg PO DAILY PVD 02/25/24 02/25/24 History carvedilol 25 mg tablet 25 mg PO BID HTN 02/25/24 02/25/24 History clonidine HCl 0.2 mg tablet 0.2 mg PO BID 02/25/24 02/25/24 History cyanocobalamin (vitamin B-12) 100 100 mcg PO DAILY DEFICIENCY 02/25/24 02/25/24 History mcg tablet dextran 70-hypromellose (PF) 0.1 1 drp ophthalmic (eye) QID 02/25/24 02/25/24 History %-0.3 % eye drops in a dropperette SUPERIOR LIMBIC KARATITIS (Artificial Tears (PF)) docusate sodium 100 mg capsule 100 mg PO HS Constipation 02/25/24 02/25/24 History empagliflozin 10 mg tablet 10 mg PO DAILY DM 02/25/24 02/25/24 History (Jardiance) ergocalciferol (vitamin D2) 1,250 1,250 mcg PO WEEKLY 02/25/24 02/25/24 History mcg (50,000 unit) capsule fluticasone 250 mcg-salmeterol 50 1 inh inhalation BID Copd 02/25/24 02/25/24 History mcg/dose blistr powdr for inhalation (Wixela Inhub) furosemide 40 mg tablet 40 mg PO DAILY 02/25/24 02/25/24 History ipratropium 0.5 mg-albuterol 3 mg 3 ml inhalation Q8H PRN 02/25/24 02/25/24 History (2.5 mg base)/3 mL nebulization SOA/WHEEZING soln metformin 1,000 mg tablet 1,000 mg PO BID DM 02/25/24 02/25/24 History omeprazole 20 mg capsule,delayed 20 mg PO DAILY GERD 02/25/24 02/25/24 History release ondansetron HCl 4 mg tablet 4 mg PO Q6H PRN Nausea 02/25/24 02/25/24 History sacubitril 24 mg-valsartan 26 mg 1 tab PO BID CHF 02/25/24 02/25/24 History tablet (Entresto) spironolactone 50 mg tablet 50 mg PO DAILY CHF 02/25/24 02/25/24 History tizanidine 2 mg capsule 2 mg PO Q8H PRN MUSCLE SPASMS 02/25/24 02/25/24 History vibegron 75 mg tablet 75 mg PO DAILY OVERACTIVE BLADDER 02/25/24 02/25/24 History New Prescriptions to Start Prescriptions: Allergies Allergy/AdvReac Type Severity Reaction Status Date / Time Penicillins Allergy Intermediate Verified 08/01/23 16:12 Sulfa (Sulfonamide Allergy Intermediate Verified 08/01/23 16:13 Antibiotics) Exam Data for Last 24 hours Vital signs and Labs for Last 24 Hours: Pulse Resp BP O2 Del Method FiO2 96 H 20 77/52 L BiPAP 50 02/25/24 11:00 02/25/24 11:00 02/25/24 11:00 02/25/24 11:00 02/25/24 10:49 Laboratory Results - last 24 hr 02/25/24 10:30: WBC 21.6 H*, RBC 4.76, Hgb 12.0 L, Hct 41.2, MCV 86.6, MCH 25.3 L, MCHC 29.2 L, RDW 17.2, Plt Count 466 H, MPV 8.0, Neut % (Auto) 90.8 H, Lymph % (Auto) 4.0 L, [place] % (Auto) 3.4, Eos % (Auto) 0.6, Baso % (Auto) 1.1, Neut # (Auto) 19.6 H, Lymph # (Auto) 0.9, [place] # (Auto) 0.7, Eos # (Auto) 0.1, Baso # (Auto) 0.2, Total Counted 100, Neutrophils % (Manual) 90 H, Lymphocytes % (Manual) 8 L, Monocytes % (Manual) 2, Platelet Estimate Slight increase, Hypochromasia 1+, PT 11.4, INR 1.02, Sodium 141, Potassium 4.8, Chloride 100, Carbon Dioxide 34 H, Anion Gap 11.8, BUN 17, Creatinine 1.00, Estimated Creat Clear 52, Estimated GFR 55 L, Est GFR ( Amer) 67, Glucose 262 H, Lactate 2.5 H, Calcium 8.9, Phosphorus 5.4 H, Magnesium 1.6, Total Bilirubin 0.4, AST 28, ALT 33, Alkaline Phosphatase 74, Total Creatine Kinase 46, Troponin I 0.03, NT-Pro-B Natriuret Pep 365 H, Total Protein 8.0, Albumin 3.8, Globulin 4.2 H, Albumin/Globulin Ratio 0.9 L, Salicylates < 1.0 L, Acetaminophen < 10 L, Plasma/Serum Alcohol < 10, Acetone Level None detected 02/25/24 10:31: VBG pH 7.29 L, VBG pCO2 62.4 H, VBG pO2 167.4 H, VBG HCO3 29.3, VBG Total CO2 31.2 H, VBG O2 Saturation 99.2 H, VBG Base Excess 2.7 H, VBG Lactic Acid 3.4 H 02/25/24 10:42: Urine Color Yellow, Urine Appearance Clear, Urine pH 6.0, Ur Specific [place] 1.015, Urine Protein 1+ A, Urine Glucose (UA) Negative, Urine Ketones Negative, Urine Blood Negative, Urine Nitrate Negative, Urine Bilirubin Negative, Urine Urobilinogen 0.2, Ur Leukocyte Esterase Negative, Urine RBC Occasional, Urine WBC Occasional, Ur Squamous Epith Cells Occasional, Urine Bacteria 1+, Urine Opiates Screen Negative, Urine Methadone Screen Negative, Ur Barbituates Screen Negative, Ur Phencyclidine Scrn Negative, Ur Amphetamines Screen Negative, U Benzodiazepines Scrn Negative, Urine Cocaine Screen Negative, U Marijuana (THC) Screen Negative, SARS-CoV-2 (PCR) Not detected, Influenza A Untype (PCR) Not detected, Influenza Type B (PCR) Not detected 02/25/24 11:00: Blood Type O Positive, Antibody Screen Negative 02/25/24 11:18: Specimen Source A line, O2 % 50%, ABG pH 7.19 L*, ABG pCO2 88.6 H, ABG pO2 88.1, ABG HCO3 32.8 H, ABG Total CO2 35.5 H, ABG O2 Saturation 95, ABG Base Excess 4.5 H, Tidal Volume 20/8 I & O for Last 24 hours: Intake & Output 02/22/24 02/23/24 02/24/24 02/25/24 23:59 23:59 23:59 23:59 Intake Total 4.575 / 4.575 Balance 4.575 / 4.575 Weight 117 kg Constitutional Constitutional: moderate distress, morbidly obese, chronically ill appearing and obtunded *Routine HEENT Exam Head: Present normocephalic Eye: Present EOMI ENT: Present mucous membranes moist Comments: ET tube in place *Routine Neck Exam Neck: Present supple; Absent lymphadenopathy *Routine Respiratory Exam Respiratory: Present patient mechanically ventilated; Absent crackles *Routine Cardiovascular Exam Cardiovascular: Present RRR *Routine Abdominal Exam Abdominal: Present soft and normoactive bowel sounds; Absent tenderness *Routine Rectal Exam Rectal:: deferred *Routine Genitalia Exam Genitalia:: normal female *Routine Extremities Exam Extremities: Present edema (Trace bilateral lower extremity); Absent cyanosis or clubbing Comments: Healing stasis ulcer right ramos *Routine Skin Exam Skin: Present intact, warm and wounds (See extremity exam); Absent rash *Routine Neurological Exam Neurological: Present altered mental status Comments: Patient sedated and intubated. Minor spontaneous movements. Assessment and Plan *Assessment and plan (1) Septic shock: Status: Acute Category: Medical Code(s): A41.9 - Sepsis, unspecified organism; R65.21 - Severe sepsis with septic shock (2) Acute hypercapnic respiratory failure: Status: Acute Category: Medical Code(s): J96.02 - Acute respiratory failure with hypercapnia (3) On mechanically assisted ventilation: Status: Acute Category: Medical Code(s): Z99.11 - Dependence on respirator [ventilator] status (4) COPD (chronic obstructive pulmonary disease): Status: Acute Category: Medical Code(s): J44.9 - Chronic obstructive pulmonary disease, unspecified (5) HTN (hypertension): Status: Acute Category: Medical Code(s): I10 - Essential (primary) hypertension (6) Congestive heart failure: Status: Acute Category: Medical Code(s): I50.9 - Heart failure, unspecified (7) Diabetes mellitus: Status: Acute Category: Medical Code(s): E11.9 - Type 2 diabetes mellitus without complications (8) Morbid obesity due to excess calories: Status: Acute Category: Medical Code(s): E66.01 - Morbid (severe) obesity due to excess calories (9) Overactive bladder: Status: Acute Category: Medical Code(s): N32.81 - Overactive bladder Plan 68-year-old female who presented to the ER from her long-term after being found unresponsive and hypoxic. On presentation, and hypercapnic respiratory failure with septic shock. Intubated in the ER. Admitted to the ICU for further management. Discussed case with ER physician, request admission for mechanical ventilation management, treatment of septic shock, continued hemodynamic stability support. I agreed to admit for further management. Patient's condition tenuous, necessitating ICU level of care. Problems addressed as follows: Septic shock -Blood pressure remained low with MAP less than 65 after receiving sepsis bolus (3 L). Initiated on norepinephrine with goal MAP greater than 65 -White count of 21,000, patient tachycardic, presumed pneumonia versus other infection. -Blood cultures and urine cultures pending - Initial lactate elevated at 3.4 -Urinalysis relatively unremarkable with negative nitrite, leuk esterase, 1+ bacteria. And only occasional white cells -Toxicology negative for Tylenol, opiates, benzos. -Negative for COVID and flu -Chest imaging with lower lobe consolidation concerning for atelectasis versus pneumonia - Kidney function normal at this time with BUN 17, creatinine 1. Glucose elevated on arrival at 262. Hypercapnic and hypoxemic respiratory failure -Necessitating enervation in the ER. Currently on assist-control with tidal volume of 440, PEEP of 12, respiratory rate 20, FiO2 35%. Showing some improvement in blood gas. Initial pCO2 of 88 with pH of 7.19. -Pulmonology consulted to assist with care. Discussed case with cover cutter, recommends continuing analgo-sedation with propofol and fentanyl -NG placed. -Pantoprazole 40 mg nightly for GI prophylaxis -Elevate head of bed greater than 30 degrees -Home apixaban 5 mg twice daily -DuoNebs every 6 hours scheduled -Will attempt spontaneous breathing trial in the morning. Daily x-ray. Morning ABG ordered - Initiate on empiric vancomycin and Zosyn. 4.5 gm every 6 hours for Zosyn Hypertension: In the setting of hypotension and shock, holding home clonidine, carvedilol, aspirin, Jardiance, Entresto, spironolactone Docusate liquid daily Diabetic: A1c pending. Continue sliding scale insulin with fingersticks every 6 hours Repeat CBC, CMP, magnesium ordered for this evening and in the morning. Electrolyte replacement per protocol. Full code ICU/Critical care attestation This patient is critically ill with 45 minutes devoted solely to this patient managing life/organ supporting interventions that required physician assessment. This includes time spent making adjustments in ventilator settings, IV fluid administration, titration of pressors, adjustments of medications, discussion of patient with consultants and other care providers as well as updating patient and/or family (if patient by virtue of his/her condition is unable to participate in decision making). This does not include time spent performing separately billed procedures. Time is not concurrent with that of other providers.
[2024-02-25] MEDS: METHYLPREDNISOLONE SOD SUCC 125MG VIAL 125 MG IV (12:55)
[2024-02-25] MEDS: NOREPINEPHRINE BITARTRATE/D5W 8 MG/250 ML PLAST..BAG 37.5 MG IV (12:59)
--- NOTE | 2024-02-25 13:08 | PC.NURSE ---
1040 PT PLACED ON BIPAP 1045 MOTA PLACED 1105 ART LINE TO LEFT WRIST BY DR MATUTE 1120 LR FLUID BOLUS STARTED PER VERBAL ORDER OF DR MATUTE FOR HYPOTENSION 1122 XR AT BEDSIDE [address] 1155 FAMILY, PT'S SON UPDATED ON PT BY PROSPER TANNER. SON STATES PT IS FULL CODE 1200 PT INTUBATED 22 AT TEETH, 7.5 ET TUBE 1206 CXR FOR ET TUBE PLACEMENT
--- NOTE | 2024-02-25 13:20 | PC.NURSE ---
REPORT CALLED TO PROSPER ANTONIO
[2024-02-25 13:24] LABS: ABG Base Excess 2.9 mmol/L (-2.4-2.3); ABG HCO3 30.1 mmhg (22.0-26.0); ABG Oxygen Saturation 99 % (90-100); ABG PH 7.26 mmol/L (7.35-7.45); ABG PO2 132.2 mmhg (80-100); ABG TCO2 32.2 mmhg (23-27)
--- NOTE | 2024-02-25 13:51 | ECG_ITS ---
APPROVED REPORT Exam: Resting ECG HR:54 bpm ECG Measurements Heart Rate 54 AXES FL 156 P 19 QRSd 115 QRS -60 QT 384 T -19 QTc 371 Conclusion SINUS BRADYCARDIA LOW QRS VOLTAGE IN PRECORDIAL LEADS [QRS DEFLECTION < 1.0 mV IN CHEST LEADS] INFERIOR MYOCARDIAL INFARCTION , OF INDETERMINATE AGE [40+ ms Q WAVE AND/OR ST/T ABNORMALITY IN II/aVF] ABNORMAL ECG INTERPRETATION BASED ON A DEFAULT AGE OF 40 YEARS UNCONFIRMED REPORT Electronically signed by : Joshua Don MD 02/26/2024 08:15:28
--- NOTE | 2024-02-25 13:54 | P.CONS_ITS ---
History of Present Illness History of present illness: Ms. Hurt is a 68-year-old female senior care resident presented with altered mentation admitted presented to the ER patient found to be in hypoxic hypercarbic respiratory failure and septic shock needing intubation mechanical ventilatory support on vasopressor support. Much of the history is obtained from chart review. [facility] Disclaimer: The information contained in this section may have been updated after the patient was seen, as this information can be updated by other users. Medical History (Updated 02/25/24 @ 14:45 by Elis Mcgill, PROSPER) Overactive bladder Morbid obesity due to excess calories Diabetes mellitus Congestive heart failure PVD (peripheral vascular disease) History of thrombosis History of embolism Venous insufficiency (chronic) (peripheral) Functional quadriplegia HTN (hypertension) Vitamin D deficiency COPD (chronic obstructive pulmonary disease) Shock On mechanically assisted ventilation Acute hypercapnic respiratory failure Family History (Updated 02/25/24 @ 14:46 by Elis Mcgill RN) Other Unknown family medical history Social History (Updated 02/25/24 @ 14:50 by Elis Mcgill RN) Smoking Status: Unknown if ever smoked alcohol intake: never current occupational status: retired Travel in the last 8 weeks: None Review of Systems Review of Systems Review of systems:: unable to obtain Review of systems (narrative): Intubated and sedated Pulmonology Exam Inpatient Vital signs and Labs for Last 24 Hours: Temp Pulse Resp BP Pulse Ox O2 Del Method FiO2 98.6 F 78 18 92/59 L 99 Mechanical Ventilation 100 02/25/24 13:33 02/25/24 13:33 02/25/24 13:33 02/25/24 13:33 02/25/24 13:30 02/25/24 13:33 02/25/24 11:50 Laboratory Results - last 24 hr 02/25/24 10:30: WBC 21.6 H*, RBC 4.76, Hgb 12.0 L, Hct 41.2, MCV 86.6, MCH 25.3 L, MCHC 29.2 L, RDW 17.2, Plt Count 466 H, MPV 8.0, Neut % (Auto) 90.8 H, Lymph % (Auto) 4.0 L, Hooker % (Auto) 3.4, Eos % (Auto) 0.6, Baso % (Auto) 1.1, Neut # (Auto) 19.6 H, Lymph # (Auto) 0.9, Hooker # (Auto) 0.7, Eos # (Auto) 0.1, Baso # (Auto) 0.2, Total Counted 100, Neutrophils % (Manual) 90 H, Lymphocytes % (Manual) 8 L, Monocytes % (Manual) 2, Platelet Estimate Slight increase, Hypochromasia 1+, PT 11.4, INR 1.02, Sodium 141, Potassium 4.8, Chloride 100, C arbon Dioxide 34 H, Anion Gap 11.8, BUN 17, Creatinine 1.00, Estimated Creat Clear 52, Estimated GFR 55 L, Est GFR ( Amer) 67, Glucose 262 H, Lactate 2.5 H, Calcium 8.9, Phosphorus 5.4 H, Magnesium 1.6, Total Bilirubin 0.4, AST 28, ALT 33, Alkaline Phosphatase 74, Total Creatine Kinase 46, Troponin I 0.03, NT-Pro-B Natriuret Pep 365 H, Total Protein 8.0, Albumin 3.8, Globulin 4.2 H, A lbumin/Globulin Ratio 0.9 L, Salicylates < 1.0 L, Acetaminophen < 10 L, Plasma/Serum Alcohol < 10, Acetone Level None detected 02/25/24 10:31: VBG pH 7.29 L, VBG pCO2 62.4 H, VBG pO2 167.4 H, VBG HCO3 29.3, VBG Total CO2 31.2 H, VBG O2 Saturation 99.2 H, VBG Base Excess 2.7 H, VBG Lactic Acid 3.4 H 02/25/24 10:42: Urine Color Yellow, Urine Appearance Clear, Urine pH 6.0, Ur Specific [place] 1.015, Urine Protein 1+ A, Urine Glucose (UA) Negative, Urine Ketones Negative, Urine Blood Negative, Urine Nitrate Negative, Urine Bilirubin Negative, Urine Urobilinogen 0.2, Ur Leukocyte Esterase Negative, Urine RBC Occasional, Urine WBC Occasional, Ur Squamous Epith Cells Occasional, Urine Bacteria 1+, Urine Opiates Screen Negative, Urine Methadone Screen Negative, Ur Barbituates Screen Negative, Ur Phencyclidine Scrn Negative, Ur Amphetamines Screen Negative, U Benzodiazepines Scrn Negative, Urine Cocaine Screen Negative, U Marijuana (THC) Screen Negative, SARS-CoV-2 (PCR) Not detected, Influenza A Untype (PCR) Not detected, Influenza Type B (PCR) Not detected 02/25/24 11:00: Blood Type O Positive, Antibody Screen Negative 02/25/24 11:18: Specimen Source A line, O2 % 50%, ABG pH 7.19 L*, ABG pCO2 88.6 H, ABG pO2 88.1, ABG HCO3 32.8 H, ABG Total CO2 35.5 H, ABG O2 Saturation 95, A BG Base Excess 4.5 H, Tidal Volume 20/8 I & O for Labs for Last 24 Hours: Intake & Output 02/22/24 02/23/24 02/24/24 02/25/24 23:59 23:59 23:59 23:59 Intake Total 30.200 / 30.200 Balance 30.200 / 30.200 Weight 257 lb 15.053 oz Constitutional: Present severe distress Comment:: Intubated and Sedated Head: Present normocephalic and atraumatic Neck: Present normal inspection and trachea midline Respiratory: Present patient mechanically ventilated, respiratory distress, rhonchi and diminished air movement; Absent wheezes or able to speak in complete sentences Cardiac: Present S1/S2 and Tachycardia GI: Present soft; Absent distention or tenderness Skin: Present intact; Absent cyanosis Neuro: Absent alert, awake or oriented x 3 Extremities: Present edema; Absent normal inspection, clubbing or cyanosis Comment:: RLE Ulcer Psychiatric: Present unable to assess Meds Home Medications and Allergies Home Medications ?Medication ?Instructions ?Recorded ?Confirmed ?Type acetaminophen 500 mg tablet 1,000 mg PO Q6H PRN PAIN/FEVER 02/25/24 02/25/24 History albuterol sulfate 90 mcg/actuation 2 inh inhalation QID PRN SOA 02/25/24 02/25/24 History breath activated powder inhaler apixaban 5 mg tablet (Eliquis) 5 mg PO BID HX EMBOLISM & 02/25/24 02/25/24 History THROMBOSIS ascorbic acid (vitamin C) 500 mg 500 mg PO DAILY Supplement 02/25/24 02/25/24 History tablet aspirin 81 mg chewable tablet 81 mg PO DAILY PVD 02/25/24 02/25/24 History carvedilol 25 mg tablet 25 mg PO BID HTN 02/25/24 02/25/24 History clonidine HCl 0.2 mg tablet 0.2 mg PO BID 02/25/24 02/25/24 History cyanocobalamin (vitamin B-12) 100 100 mcg PO DAILY DEFICIENCY 02/25/24 02/25/24 History mcg tablet dextran 70-hypromellose (PF) 0.1 1 drp ophthalmic (eye) QID 02/25/24 02/25/24 History %-0.3 % eye drops in a dropperette SUPERIOR LIMBIC KARATITIS (Artificial Tears (PF)) docusate sodium 100 mg capsule 100 mg PO HS Constipation 02/25/24 02/25/24 History empagliflozin 10 mg tablet 10 mg PO DAILY DM 02/25/24 02/25/24 History (Jardiance) ergocalciferol (vitamin D2) 1,250 1,250 mcg PO WEEKLY 02/25/24 02/25/24 History mcg (50,000 unit) capsule fluticasone 250 mcg-salmeterol 50 1 inh inhalation BID Copd 02/25/24 02/25/24 History mcg/dose blistr powdr for inhalation (Wixela Inhub) furosemide 40 mg tablet 40 mg PO DAILY 02/25/24 02/25/24 History ipratropium 0.5 mg-albuterol 3 mg 3 ml inhalation Q8H PRN 02/25/24 02/25/24 History (2.5 mg base)/3 mL nebulization SOA/WHEEZING soln metformin 1,000 mg tablet 1,000 mg PO BID DM 02/25/24 02/25/24 History omeprazole 20 mg capsule,delayed 20 mg PO DAILY GERD 02/25/24 02/25/24 History release ondansetron HCl 4 mg tablet 4 mg PO Q6H PRN Nausea 02/25/24 02/25/24 History sacubitril 24 mg-valsartan 26 mg 1 tab PO BID CHF 02/25/24 02/25/24 History tablet (Entresto) spironolactone 50 mg tablet 50 mg PO DAILY CHF 02/25/24 02/25/24 History tizanidine 2 mg capsule 2 mg PO Q8H PRN MUSCLE SPASMS 02/25/24 02/25/24 History vibegron 75 mg tablet 75 mg PO DAILY OVERACTIVE BLADDER 02/25/24 02/25/24 History New Prescriptions to Start Prescriptions: Allergies Allergy/AdvReac Type Severity Reaction Status Date / Time Penicillins Allergy Intermediate Verified 08/01/23 16:12 Sulfa (Sulfonamide Allergy Intermediate Verified 08/01/23 16:13 Antibiotics) Results Laboratory Findings 02/25/24 10:30 02/25/24 10:30 ABG ABG pH 7.19 mmol/L (7.35-7.45) L* 02/25/24 11:18 ABG pCO2 88.6 mmhg (35.0-45.0) H 02/25/24 11:18 ABG pO2 88.1 mmhg (80-100) 02/25/24 11:18 ABG O2 Saturation 95 % (90-100) 02/25/24 11:18 PT/INR, D-dimer PT 11.4 seconds (10.1-12.5) 02/25/24 10:30 INR 1.02 (0.9-1.1) 02/25/24 10:30 Abnormal lab findings: Abnormal Labs 02/25/24 02/25/24 02/25/24 10:30 10:31 10:42 WBC 21.6 H* Hgb 12.0 L MCH 25.3 L MCHC 29.2 L Plt Count 466 H Neut % (Auto) 90.8 H Lymph % (Auto) 4.0 L Neut # (Auto) 19.6 H Neutrophils % (Manual) 90 H Lymphocytes % (Manual) 8 L ABG pH ABG pCO2 ABG HCO3 ABG Total CO2 ABG Base Excess VBG pH 7.29 L VBG pCO2 62.4 H VBG pO2 167.4 H VBG Total CO2 31.2 H VBG O2 Saturation 99.2 H VBG Base Excess 2.7 H VBG Lactic Acid 3.4 H Carbon Dioxide 34 H Estimated GFR 55 L Glucose 262 H Lactate 2.5 H Phosphorus 5.4 H NT-Pro-B Natriuret Pep 365 H Globulin 4.2 H Albumin/Globulin Ratio 0.9 L Urine Protein 1+ A Salicylates < 1.0 L Acetaminophen < 10 L 02/25/24 11:18 WBC Hgb MCH MCHC Plt Count Neut % (Auto) Lymph % (Auto) Neut # (Auto) Neutrophils % (Manual) Lymphocytes % (Manual) ABG pH 7.19 L* ABG pCO2 88.6 H ABG HCO3 32.8 H ABG Total CO2 35.5 H ABG Base Excess 4.5 H VBG pH VBG pCO2 VBG pO2 VBG Total CO2 VBG O2 Saturation VBG Base Excess VBG Lactic Acid Carbon Dioxide Estimated GFR Glucose Lactate Phosphorus NT-Pro-B Natriuret Pep Globulin Albumin/Globulin Ratio Urine Protein Salicylates Acetaminophen Assessment and Plan *Assessment and plan (1) Acute hypercapnic respiratory failure: Status: Acute Category: Medical Code(s): J96.02 - Acute respiratory failure with hypercapnia (2) On mechanically assisted ventilation: Status: Acute Category: Medical Code(s): Z99.11 - Dependence on respirator [ventilator] status (3) Shock: Status: Acute Category: Medical Code(s): R57.9 - Shock, unspecified Plan Ms. Hurt is a 68-year-old female senior care resident presented with altered mentation admitted presented to the ER patient found to be in hypoxic hypercarbic respiratory failure and septic shock needing intubation mechanical ventilatory support on vasopressor support. Much of the history is obtained from chart review. Received 3 L sepsis bolus in the ER prior to initiation of vasopressors CTA upon admission no evidence of pulmonary embolism. Prominent mild right minimal airspace disease right greater than left likely from atelectasis. No dense consolidative changes noted. CT head upon admission no acute intracranial abnormality. ABG upon admission hypercarbic respiratory failure. Recent history of UTI secondary to E. coli, pansensitive. Plan: Continue on elbow sedation on propofol and fentanyl. Light sedation. Continue mechanical ventilatory support currently on PEEP of 12 FiO2 of 35%, tidal volume of 440 and a rate of 22. Follow-up with ABG in 2 hours. End-tidal recording at 38-42. DuoNebs every 6 hours scheduled Continue vancomycin and cefepime pending blood and tracheal aspirate culture results. Neutrophilic predominant leukocytosis. Low-grade temp 100.8 upon admission Nasal MRSA PCR and respiratory viral PCR Follow with echocardiogram. Continue vasopressor support to maintain MAP goal of 65 and above. Currently norepinephrine of 14 mcg Abdomen soft distended. Renally dose medications. Monitor urine output. MAP greater than 65 - Continue mechanical ventilatory support - Continue AnalgoSedation with Propofol and Fentanyl with CPOT gal less than or euqal to 2 and RASS goal of to 2 (No need for deep sedation) - VAP bundle Recommend elevate head of the bed at 30 to 45 degrees Recommend oral care with chlorhexidne Recommend GI ulcer prophylaxis - Famotidine 20mg IV BID Recommend chemical DVT prophylaxis Total critical care time spent on this patient is 35 minutes managing acute hypoxic respiratory failure needing mechanical ventilation. This time spent include reviewing test results including interpreting chest x-rays, labs and arterial blood gas, optimizing the ventilator settings,formulating plan of care, discussing the plan of care with the team and the nursing staff.
[2024-02-25] MEDS: propofoL 100 ML 3.51 MG IV (14:00)
--- NOTE | 2024-02-25 14:05 | CA_ITS ---
APPROVED REPORT EXAM: Comprehensive 2D, Doppler, and color-flow Echocardiogram Case Management Associate: JULIANNE Castillo, RVS Ht: 5 ft 3 in Wt: 257lbs BSA: 2.15 BP: 124/65 mmHg Rhythm: Bradycardia Indications: Septic shock, Repiratory failure, Anemia- Hgb 12 Echo Enhancing Agent Comments: Extremely limited apical windows. No contrast was available at time of exam. 2D Dimensions LVDd 4.99 cm LVEF (Visual) 39.10 % LVDs 4.04 cm M-Mode Dimensions RVDd 3.78 cm (0.9-2.6) LA Diam 4.72 cm (1.9-4.0) LVDd 4.26 cm (3.5-5.7) LVDs 3.17 cm (3.5-5.7) IVSd 1.13 cm (0.6-1.1) PWd 1.33 cm (0.6-1.1) EF (Teich) 50.80% EPSs 0.65 cm FS 25.60% EDV (Teich) 81.30 mL TAPSE 1.82 (<1.7) ESV (Teich) 40.00 mL LV Diastology E Decel Time 233 (160-240 msec) E/A Ratio 0.80 Aortic Valve AO Peak GR. 6.40 mmHg Mitral Valve MV A Velocity 79.0 (40-130 cm/s) E/A Ratio 0.80 Tricuspid Valve TR P. Velocity 213.00 cm/s RAP Estimate 10.00 mmHg RVSP 28.20 mmHg Left Ventricle The left ventricle is normal size. The left ventricular systolic function is normal. The left ventricular ejection fraction is within the normal range. There is increased LV wall thickness. There is normal LV segmental wall motion. Diastolic function is indeterminate. LVEF is 60%. Right Ventricle Right ventricle is moderately dilated. Right ventricle is moderately hypokinetic. Atria The left atrium size is normal. The right atrium size is normal. The interatrial septum is not well-visualized. Aortic Valve The aortic valve is mildly thickened. There is no aortic valvular stenosis. No aortic regurgitation is present. Mitral Valve The mitral valve is normal in structure. No evidence of mitral valve stenosis. Trace mitral regurgitation. Tricuspid Valve The tricuspid valve leaflets are thin and pliable. Mild tricuspid regurgitation. RVSP is 25-30 mmHg. Pulmonic Valve The pulmonary valve is normal in structure. Trace pulmonic regurgitation. Great Vessels The aortic root is normal in size. The ascending aorta is not well-visualized. IVC is normal in size and collapses >50% with inspiration. Pericardium There is no pericardial effusion. Other Information Study Quality: Technically Difficult Conclusion Technically difficult study due to poor acoustic windows. Normal LV systolic function. Moderate RV dilation with moderate reduction in RV function. Mild TR. Electronically signed by : Madeline Olivia MD 02/26/2024 00:04:31
[2024-02-25] MEDS: CEFEPIME HCL 2 GM in 0.9 % SODIUM CHLORIDE 100 ML IV ×2 (14:39→22:03)
[2024-02-25 14:42] LABS: Oxygen 75 %; PEEP 10; Source A-LINE; Tidal Volume 420; Vent Rate 18
[2024-02-25 14:43] LABS: ABG PCO2 69.2 mmhg (35.0-45.0); Lactate Arterial 2.9 mmol/L (0.4-2.0)
[2024-02-25 14:46] LABS: Reflex Lactic Add Lactic Reflex
[2024-02-25 14:53] LABS: HIV (1&2) Antibody Rapid NONREACTIVE (NONREACTIVE)
[2024-02-25 15:10] LABS: Lactic Acid Follow Up (RFLX 1) 2.1 mmol/L (0.7-2.1)
--- NOTE | 2024-02-25 15:14 | [facility].PHAINT1 ---
Pharmacy Intervention Comments: Home medications verified using MAR from [facility].
[2024-02-25 15:22] LABS: Troponin I 0.06 ng/ml (0.00-0.034)
[2024-02-25 16:06] LABS: POC Glucose,Bedside 193 (70-110)
--- NOTE | 2024-02-25 16:31 | PC.WOUNDNOTE ---
ulcer 2 in to RLE
[2024-02-25 17:10] LABS: Reflex Lactic (2 hrs) Add Lactic Reflex
[2024-02-25 17:14] LABS: Adenovirus,PCR Not Detected (NotDetected); Bordetella Pertussis Not Detected (NotDetected); Chlamydophila Pneumoniae, PCR Not Detected (NotDetected); Coronavirus 19, PCR Not Detected (NotDetected); Coronavirus 229E Not Detected (NotDetected); Coronavirus NL63 Not Detected (NotDetected); Coronavirus OC43 Not Detected (NotDetected); Coronovirus HKU1,PCR Not Detected (NotDetected); Human Metapneumovirus Not Detected (NotDetected); Influenza A, PCR Not Detected (NotDetected); Influenza AH1, 2009 Not Detected (NotDetected); Influenza AH1, PCR Not Detected (NotDetected); Influenza AH3,PCR Not Detected (NotDetected); Influenza B, PCR Not Detected (NotDetected); Mycoplasma Pneumoniae, PCR Not Detected (NotDetected); Parainfluenza 1, PCR Not Detected (NotDetected); Parainfluenza 2, PCR Not Detected (NotDetected); Parainfluenza 3, PCR Not Detected (NotDetected); Parainfluenza 4, PCR Not Detected (NotDetected); Respiratory Syncytial Virus Not Detected (NotDetected); Rhinovirus/Enterovirus Not Detected (NotDetected)
[2024-02-25 17:19] LABS: ABG Base Excess 3.5 mmol/L (-2.4-2.3); ABG HCO3 28.6 mmhg (22.0-26.0); ABG Oxygen Saturation 97 % (90-100); ABG PCO2 49.7 mmhg (35.0-45.0); ABG PH 7.38 mmol/L (7.35-7.45); ABG PO2 87.6 mmhg (80-100); ABG TCO2 30.1 mmhg (23-27)
[2024-02-25 17:20] LABS: Allen's Test Non Applicable; Oxygen 35 %; PEEP 12; Source ART LINE; Tidal Volume 440; Vent Rate 20
--- NOTE | 2024-02-25 17:21 | EXP.SEPSISRE ---
[facility] Tissue Perfusion Eval Sepsis Re-Evaluation Performed: Yes Date Performed: 02/25/24 Time Performed: 13:45
[2024-02-25 18:08] LABS: Albumin Level 3.8 g/dl (3.5-5.0); Chloride 102 mmol/L (98-107); Lactic Acid Follow up (RFLX 2) 1.5 mmol/L (0.7-2.1); Potassium 4.9 mmoL/L (3.5-5.1); Sodium 140 mmol/L (136-145)
[2024-02-25 18:11] LABS: Alanine Aminotransferase 26 U/L (12-78); Alkaline Phosphatase 69 U/L (38-126); Anion Gap 13.9 mEq/L (5-15); Aspartate Amino Transferase 28 U/L (14-36); Bilirubin,Total 0.5 mg/dl (0.2-1.3); Blood Urea Nitrogen 21 mg/dl (7-17); Carbon Dioxide 29 mmol/L (22.0-30.0); Creatinine Clearance Estimated 98 mL/min (50-200); Estimated Glomerular Filt Rate 62 ml/min (>60); GFR (African American) 75 ML/MIN (>60); Globulin 3.9 g/dL (1.3-3.2); Total Protein,Serum 7.7 g/dl (6.3-8.2)
[2024-02-25 18:12] LABS: Calcium 8.9 mg/dl (8.4-10.2); Glucose 200 mg/dl (74-100)
[2024-02-25] MEDS: IPRATROPIUM/ALBUTEROL 3 ML NEB IH ×2 (18:27→23:22)
[2024-02-25 18:28] LABS: Hemoglobin A1C 6.4 % (4.0-6.0)
[2024-02-25 18:40] LABS: Thyroid Stimulating Hormone 0.58 uIU/mL (0.465-4.68)
[2024-02-25] MEDS: PANTOPRAZOLE 40MG VIAL 40 MG IV (20:28)
[2024-02-25] MEDS: APIXABAN 5MG TABLET 5 MG PO (20:28)
[2024-02-25] MEDS: SODIUM CHLORIDE 0.9% 10ML VIAL 10 ML IV (20:28)
[2024-02-25] MEDS: NOREPINEPHRINE BITARTRATE 8 MG in DEXTROSE 5 % IN WATER 250 ML 3.78 MG IV (20:55)
[2024-02-25] MEDS: NOREPINEPHRINE BITARTRATE/D5W 8 MG/250 ML PLAST..BAG 18.75 MG IV (21:00)
--- NOTE | 2024-02-25 21:02 | PC.NURSE ---
Documenting RN went to hang new Norepi gtt; however, the gtt for titration was discontinued and a new Norepi order was placed. This new order was incorrect and did not allow for RN to document any titration. New and correct order placed for appropriate titration documentation.
[2024-02-25] MEDS: propofoL 100 ML 10.53 MG IV (21:20)
[2024-02-25] MEDS: DOCUSATE SODIUM 10 ML/UDC UDC PO (21:58)
[2024-02-26] VITALS (37 sets, daily range): BP systolic 102–141; BP diastolic 51–69; PULSE 68–100; RESP 14–30; TEMP 36.8–37.9; O2SAT 94–100; BMI 45.8
[2024-02-26 00:08] LABS: POC Glucose,Bedside 149 (70-110)
--- NOTE | 2024-02-26 01:12 | PC.NURSE ---
Patient noted to have 7-beat run of V-tach on tele. Strip printed and placed to paper chart. Night TITLE CURATOR notified. STAT BMP and Mag ordered. Patient NAD otherwise, VSS.
[2024-02-26 01:16] LABS: Anion Gap 7.4 mEq/L (5-15); Blood Urea Nitrogen 25 mg/dl (7-17); Calcium 8.6 mg/dl (8.4-10.2); Carbon Dioxide 32 mmol/L (22.0-30.0); Chloride 104 mmol/L (98-107); Creatinine Clearance Estimated 48 mL/min (50-200); Estimated Glomerular Filt Rate 62 ml/min (>60); GFR (African American) 75 ML/MIN (>60); Glucose 168 mg/dl (74-100); Magnesium 1.5 mg/dl (1.6-2.3); Potassium 4.4 mmoL/L (3.5-5.1); Sodium 139 mmol/L (136-145)
[2024-02-26] MEDS: MAGNESIUM SULFATE IN WATER 2 GM/50 ML PIGGYBACK IV ×2 (01:28→02:14)
--- NOTE | 2024-02-26 04:34 | PC.NURSE ---
Patient has no acute change since shift change. She remains on the vent at AC, tV440, RR 22, FiO2 35%, PEEP 12 and tolerating well. Her sedation medications and Norepi are infusing per MAR. The Arterial line placed to her left radial artery is patent and transparent dressing is c/d/i providing adequate wave form on the monitor. Oral care performed q2 hours. Turning performed q2 hours. Patient is scoring -3 to -2 on RASS with 0 for CPOTs. Adequate urinary output via grossman. Otherwise, patient is NAD, VSS. ICU care continued.
[2024-02-26] MEDS: propofoL 100 ML 10.53 MG IV (05:00)
[2024-02-26 05:32] LABS: POC Glucose,Bedside 139 (70-110)
--- NOTE | 2024-02-26 06:00 | XR_ITS ---
PROCEDURE INFORMATION: Exam: XR Chest Exam date and time: 02/26/2024 6:13 AM Age: 68 years old Clinical indication: Device placement; Ett placement (vent status); Additional info: Intubated TECHNIQUE: Imaging protocol: Radiologic exam of the chest. Views: 1 view. COMPARISON: CR XR CHEST PORTABLE 02/25/2024 11:59 AM FINDINGS: Tubes, catheters and devices: NG tube is noted at least to the level of the distal esophagus but not well visualized at the level of the stomach potentially related to superimposed soft tissues of the abdomen. Lungs: The patient is rotated. The endotracheal tube tip is 4.5 cm above the duane. Interval increased bibasilar airspace disease. Pleural spaces: No pleural effusion. No pneumothorax. Heart/Mediastinum: Cardiac silhouette enlargement. Bones/joints: Within normal limits. IMPRESSION: 1. Interval increased bibasilar airspace disease, atelectasis or infection. 2. Cardiac silhouette enlargement. 3. Suboptimal delineation of the distal segment of the NG tube. Correlation with an abdominal radiographs recommended to verify NG tube position.
[2024-02-26] MEDS: IPRATROPIUM/ALBUTEROL 3 ML NEB IH ×4 (06:10→23:41)
[2024-02-26] MEDS: NOREPINEPHRINE BITARTRATE/D5W 8 MG/250 ML PLAST..BAG 24.38 MG IV (06:23)
[2024-02-26 06:42] LABS: ABG Base Excess 2.6 mmol/L (-2.4-2.3); ABG Oxygen Saturation 96 % (90-100); ABG PCO2 42.4 mmhg (35.0-45.0); ABG PH 7.42 mmol/L (7.35-7.45); ABG PO2 79.7 mmhg (80-100); ABG TCO2 28.3 mmhg (23-27)
[2024-02-26 06:44] LABS: Albumin Level 3.5 g/dl (3.5-5.0); Chloride 101 mmol/L (98-107)
[2024-02-26 06:45] LABS: Potassium 4.2 mmoL/L (3.5-5.1); Sodium 141 mmol/L (136-145)
[2024-02-26 06:47] LABS: Alanine Aminotransferase 25 U/L (12-78); Albumin/Globulin Ratio 0.9 (1.1-1.8); Alkaline Phosphatase 65 U/L (38-126); Anion Gap 12.2 mEq/L (5-15); Aspartate Amino Transferase 23 U/L (14-36); Basophils # 0.1 K/mm3 (0-0.2); Basophils % 0.4 % (0.1-2.0); Bilirubin,Total 0.3 mg/dl (0.2-1.3); Blood Urea Nitrogen 26 mg/dl (7-17); Calcium 8.9 mg/dl (8.4-10.2); Carbon Dioxide 32 mmol/L (22.0-30.0); Creatinine Clearance Estimated 48 mL/min (50-200); Estimated Glomerular Filt Rate 55 ml/min (>60); GFR (African American) 67 ML/MIN (>60); Globulin 3.8 g/dL (1.3-3.2); Glucose 144 mg/dl (74-100); Hematocrit 36.8 % (37.0-47.0); Hemoglobin 11.7 g/dL (12.2-16.2); Lymphocytes # 1.9 K/mm3 (0.7-4.5); Lymphocytes % 10.6 % (10-50); Mean Corpuscular HGB Conc 31.8 g/dL (31.8-35.4); Mean Corpuscular Hemoglobin 25.9 pg (27.0-31.2); Mean Corpuscular Volume 81.6 fl (81-99); Mean Platelet Volume 8.6 fl (7.4-10.4); Monocytes # 1.4 K/mm3 (0.1-1.0); Monocytes % 8.1 % (1.7-9.3); Neutrophils # 14.4 K/mm3 (1.8-7.8); Neutrophils % 80.9 % (37.0-80.0); Platelet Count 497 K/mm3 (142-424); Red Blood Count 4.52 M/mm3 (4.20-5.40); Red Cell Distribution Width 17.2 % (11.5-17.5); Total Protein,Serum 7.3 g/dl (6.3-8.2); White Blood Count 17.8 K/mm3 (4.8-10.8)
[2024-02-26 06:47] LABS: Oxygen 35 %; PEEP 10; Tidal Volume 440; Vent Rate 20
[2024-02-26 06:48] LABS: Magnesium 2.9 mg/dl (1.6-2.3)
[2024-02-26 06:56] LABS: MANUAL DIFFERENTIAL MANUAL DIFFERENTIAL (MANUAL DIFF)
[2024-02-26 07:24] LABS: Lymphocytes % 13 % (10-50); Monocytes % 8 % (2-9); Neutrophils % 78 % (42-76); Total Cells Counted 100
[2024-02-26 07:25] LABS: Anisocytosis 1+; Hypochromasia 2+; Platelet Estimate Slight Increase; Polychromasia 1+
[2024-02-26] MEDS: propofoL 100 ML 35.1 MG IV (07:32)
--- NOTE | 2024-02-26 07:42 | SW/DCPLANNER ---
Addendum entered by Myesha Roberts 02/28/24 10:31: I have updated Amanda that patient will be ready for discharge over the weekend pending no setbacks. Addendum entered by Myesha Roberts 02/28/24 09:24: Updated patient information has been faxed to Amanda w/ [facility]. Original Note: Patient currently resides at [facility] level of care. I will continue to follow up w/ Amanda at [facility] until patient is medically stable for discharge. Discharge date is unknown at this time.
[2024-02-26] MEDS: CEFEPIME HCL 2 GM in 0.9 % SODIUM CHLORIDE 100 ML IV ×2 (09:18→20:54)
[2024-02-26] MEDS: APIXABAN 5MG TABLET 5 MG PO (09:18)
[2024-02-26] MEDS: DOCUSATE SODIUM 10 ML/UDC UDC PO (09:25)
--- NOTE | 2024-02-26 09:39 | P.PN_ITS ---
Subjective *Date: 02/28/24 *Time: 13:00 Interval history: No acute respiratory events overnight. Pulmonology Exam Inpatient Vital signs and Labs for Last 24 Hours: Temp Pulse Resp BP Pulse Ox O2 Del Method FiO2 99.1 F 74 20 124/64 97 Mechanical Ventilation 35 02/26/24 08:00 02/26/24 08:00 02/26/24 09:20 02/26/24 08:00 02/26/24 09:20 02/26/24 08:00 02/26/24 09:20 Laboratory Results - last 24 hr 02/25/24 10:30: WBC 21.6 H*, RBC 4.76, Hgb 12.0 L, Hct 41.2, MCV 86.6, MCH 25.3 L, MCHC 29.2 L, RDW 17.2, Plt Count 466 H, MPV 8.0, Neut % (Auto) 90.8 H, Lymph % (Auto) 4.0 L, [place] % (Auto) 3.4, Eos % (Auto) 0.6, Baso % (Auto) 1.1, Neut # (Auto) 19.6 H, Lymph # (Auto) 0.9, [place] # (Auto) 0.7, Eos # (Auto) 0.1, Baso # (Auto) 0.2, Total Counted 100, Neutrophils % (Manual) 90 H, Lymphocytes % (Manual) 8 L, Monocytes % (Manual) 2, Platelet Estimate Slight increase, Hypochromasia 1+, PT 11.4, INR 1.02, Sodium 141, Potassium 4.8, Chloride 100, Carbon Dioxide 34 H, Anion Gap 11.8, BUN 17, Creatinine 1.00, Estimated Creat Clear 52, Estimated GFR 55 L, Est GFR ( Amer) 67, Glucose 262 H, Lactate 2.5 H, Calcium 8.9, Phosphorus 5.4 H, Magnesium 1.6, Total Bilirubin 0.4, AST 28, ALT 33, Alkaline Phosphatase 74, Total Creatine Kinase 46, Troponin I 0.03, NT-Pro-B Natriuret Pep 365 H, Total Protein 8.0, Albumin 3.8, Globulin 4.2 H, Albumin/Globulin Ratio 0.9 L, Salicylates < 1.0 L, Acetaminophen < 10 L, Plasma/Serum Alcohol < 10, Acetone Level None detected, HIV 1&2 Antibody Rapid Nonreactive 02/25/24 10:31: VBG pH 7.29 L, VBG pCO2 62.4 H, VBG pO2 167.4 H, VBG HCO3 29.3, VBG Total CO2 31.2 H, VBG O2 Saturation 99.2 H, VBG Base Excess 2.7 H, VBG Lactic Acid 3.4 H 02/25/24 10:42: Urine Color Yellow, Urine Appearance Clear, Urine pH 6.0, Ur Specific [place] 1.015, Urine Protein 1+ A, Urine Glucose (UA) Negative, Urine Ketones Negative, Urine Blood Negative, Urine Nitrate Negative, Urine Bilirubin Negative, Urine Urobilinogen 0.2, Ur Leukocyte Esterase Negative, Urine RBC Occasional, Urine WBC Occasional, Ur Squamous Epith Cells Occasional, Urine Bacteria 1+, Urine Opiates Screen Negative, Urine Methadone Screen Negative, Ur Barbituates Screen Negative, Ur Phencyclidine Scrn Negative, Ur Amphetamines Screen Negative, U Benzodiazepines Scrn Negative, Urine Cocaine Screen Negative, U Marijuana (THC) Screen Negative, SARS-CoV-2 (PCR) Not detected, Influenza A Untype (PCR) Not detected, Influenza Type B (PCR) Not detected 02/25/24 11:00: Blood Type O Positive, Antibody Screen Negative 02/25/24 11:18: Specimen Source A line, O2 % 50%, ABG pH 7.19 L*, ABG pCO2 88.6 H, ABG pO2 88.1, ABG HCO3 32.8 H, ABG Total CO2 35.5 H, ABG O2 Saturation 95, ABG Base Excess 4.5 H, Tidal Volume 20/8 02/25/24 13:21: Specimen Source A-line, O2 % 75, ABG pH 7.26 L, ABG pCO2 69.2 H, ABG pO2 132.2 H, ABG HCO3 30.1 H, ABG Total CO2 32.2 H, ABG O2 Saturation 99, ABG Base Excess 2.9 H, Alberto Test N/a, ABG Lactate 2.9 H, Vent Rate 18, Tidal Volume 420, PEEP 10 02/25/24 14:20: Troponin I 0.06 H 02/25/24 15:45: POC Glucose 193 H 02/25/24 17:07: Chlamy pneumoniae PCR Not detected, Adenovirus (PCR) Not detected, B. pertussis DNA (PCR) Not detected, Coronavirus OC43 (PCR) Not detected, Coronavirus HKU1 (PCR) Not detected, Coronavirus 229E (PCR) Not detected, SARS-CoV-2 (PCR) Not detected, Coronavirus NL63 (PCR) Not detected, Human Metapneumovir PCR Not detected, Influenza A (H1) PCR Not detected, Influ A (H1N1/09) PCR Not detected, Influenza A (H3) PCR Not detected, Influenza Type A (PCR) Not detected, Influenza Type B (PCR) Not detected, M. pneumoniae (PCR) Not detected, Parainfluenza 1 (PCR) Not detected, Parainfluenza 2 (PCR) Not detected, Parainfluenza 3 (PCR) Not detected, Parainfluenza 4 (PCR) Not detected, RSV (PCR) Not detected, Entero/Rhino (PCR) Not detected 02/25/24 17:18: Specimen Source Art line, O2 % 35, ABG pH 7.38, ABG pCO2 49.7 H, ABG pO2 87.6, ABG HCO3 28.6 H, ABG Total CO2 30.1 H, ABG O2 Saturation 97, ABG Base Excess 3.5 H, Alberto Test Non applicable, Vent Rate 20, Tidal Volume 440, PEEP 12 02/25/24 17:37: Sodium 140, Potassium 4.9, Chloride 102, Carbon Dioxide 29, Anion Gap 13.9, BUN 21 H, Creatinine 0.90, Estimated Creat Clear 98, Estimated GFR 62, Est GFR ( Amer) 75, Glucose 200 H D, Hemoglobin A1c 6.4 H, Lactate 1.5, Calcium 8.9, Total Bilirubin 0.5, AST 28, ALT 26, Alkaline Phosphatase 69, Total Protein 7.7, Albumin 3.8, Globulin 3.9 H, Albumin/Globulin Ratio 1.0 L, TSH 0.58 02/25/24 20:23: POC Glucose 149 H 02/25/24 : Lactate 2.1 02/26/24 01:01: Sodium 139, Potassium 4.4, Chloride 104, Carbon Dioxide 32 H, Anion Gap 7.4, BUN 25 H, Creatinine 0.90, Estimated Creat Clear 48, Estimated GFR 62, Est GFR ( Amer) 75, Glucose 168 H, Calcium 8.6, Magnesium 1.5 L 02/26/24 05:20: WBC 17.8 H, RBC 4.52, Hgb 11.7 L, Hct 36.8 L, MCV 81.6, MCH 25.9 L, MCHC 31.8, RDW 17.2, Plt Count 497 H, MPV 8.6, Neut % (Auto) 80.9 H, Lymph % (Auto) 10.6, [place] % (Auto) 8.1, Eos % (Auto) 0.0 L, Baso % (Auto) 0.4, Neut # (Auto) 14.4 H, Lymph # (Auto) 1.9, [place] # (Auto) 1.4 H, Eos # (Auto) 0.0, Baso # (Auto) 0.1, Total Counted 100, Neutrophils % (Manual) 78 H, Lymphocytes % (Manual) 13, Monocytes % (Manual) 8, Basophils % (Manual) 1.0, Platelet Estimate Slight increase, Polychromasia 1+, Hypochromasia 2+, Anisocytosis 1+, Sodium 141, Potassium 4.2, Chloride 101, Carbon Dioxide 32 H, Anion Gap 12.2, BUN 26 H, Creatinine 1.00, Estimated Creat Clear 48, Estimated GFR 55 L, Est GFR ( Amer) 67, Glucose 144 H, Calcium 8.9, Magnesium 2.9 H D, Total Bilirubin 0.3, AST 23, ALT 25, Alkaline Phosphatase 65, Total Protein 7.3, Albumin 3.5, Globulin 3.8 H, Albumin/Globulin Ratio 0.9 L 02/26/24 05:24: POC Glucose 139 H 02/26/24 06:00: Specimen Source a line, O2 % 35, ABG pH 7.42, ABG pCO2 42.4, ABG pO2 79.7 L, ABG HCO3 27.0 H, ABG Total CO2 28.3 H, ABG O2 Saturation 96, ABG Base Excess 2.6 H, Vent Rate 20, Tidal Volume 440, PEEP 10 Temp Pulse Resp BP Pulse Ox O2 Del Method FiO2 98.6 F 78 18 92/59 L 99 Mechanical Ventilation 100 02/25/24 13:33 02/25/24 13:33 02/25/24 13:33 02/25/24 13:33 02/25/24 13:30 02/25/24 13:33 02/25/24 11:50 Laboratory Results - last 24 hr 02/25/24 10:30: WBC 21.6 H*, RBC 4.76, Hgb 12.0 L, Hct 41.2, MCV 86.6, MCH 25.3 L, MCHC 29.2 L, RDW 17.2, Plt Count 466 H, MPV 8.0, Neut % (Auto) 90.8 H, Lymph % (Auto) 4.0 L, [place] % (Auto) 3.4, Eos % (Auto) 0.6, Baso % (Auto) 1.1, Neut # (Auto) 19.6 H, Lymph # (Auto) 0.9, [place] # (Auto) 0.7, Eos # (Auto) 0.1, Baso # (Auto) 0.2, Total Counted 100, Neutrophils % (Manual) 90 H, Lymphocytes % (Manual) 8 L, Monocytes % (Manual) 2, Platelet Estimate Slight increase, Hypochromasia 1+, PT 11.4, INR 1.02, Sodium 141, Potassium 4.8, Chloride 100, Carbon Dioxide 34 H, Anion Gap 11.8, BUN 17, Creatinine 1.00, Estimated Creat Clear 52, Estimated GFR 55 L, Est GFR ( Amer) 67, Glucose 262 H, Lactate 2.5 H, Calcium 8.9, Phosphorus 5.4 H, Magnesium 1.6, Total Bilirubin 0.4, AST 28, ALT 33, Alkaline Phosphatase 74, Total Creatine Kinase 46, Troponin I 0.03, NT-Pro-B Natriuret Pep 365 H, Total Protein 8.0, Albumin 3.8, Globulin 4.2 H, Albumin/Globulin Ratio 0.9 L, Salicylates < 1.0 L, Acetaminophen < 10 L, Plasma/Serum Alcohol < 10, Acetone Level None detected 02/25/24 10:31: VBG pH 7.29 L, VBG pCO2 62.4 H, VBG pO2 167.4 H, VBG HCO3 29.3, VBG Total CO2 31.2 H, VBG O2 Saturation 99.2 H, VBG Base Excess 2.7 H, VBG Lactic Acid 3.4 H 02/25/24 10:42: Urine Color Yellow, Urine Appearance Clear, Urine pH 6.0, Ur Specific [place] 1.015, Urine Protein 1+ A, Urine Glucose (UA) Negative, Urine Ketones Negative, Urine Blood Negative, Urine Nitrate Negative, Urine Bilirubin Negative, Urine Urobilinogen 0.2, Ur Leukocyte Esterase Negative, Urine RBC Occasional, Urine WBC Occasional, Ur Squamous Epith Cells Occasional, Urine Bacteria 1+, Urine Opiates Screen Negative, Urine Methadone Screen Negative, Ur Barbituates Screen Negative, Ur Phencyclidine Scrn Negative, Ur Amphetamines Screen Negative, U Benzodiazepines Scrn Negative, Urine Cocaine Screen Negative, U Marijuana (THC) Screen Negative, SARS-CoV-2 (PCR) Not detected, Influenza A Untype (PCR) Not detected, Influenza Type B (PCR) Not detected 02/25/24 11:00: Blood Type O Positive, Antibody Screen Negative 02/25/24 11:18: Specimen Source A line, O2 % 50%, ABG pH 7.19 L*, ABG pCO2 88.6 H, ABG pO2 88.1, ABG HCO3 32.8 H, ABG Total CO2 35.5 H, ABG O2 Saturation 95, ABG Base Excess 4.5 H, Tidal Volume 20/8 I & O for Labs for Last 24 Hours: Intake & Output 02/23/24 02/24/24 02/25/24 02/26/24 23:59 23:59 23:59 23:59 Intake Total 2609.102 / 2609.102 457.708 / 457.708 Output Total 1040 / 1105 400 / 400 Balance 1569.102 / 1504.102 57.708 / 57.708 Weight 275 lb 275 lb 5.718 oz Intake & Output 02/22/24 02/23/24 02/24/24 02/25/24 23:59 23:59 23:59 23:59 Intake Total 30.200 / 30.200 Balance 30.200 / 30.200 Weight 257 lb 15.053 oz Microbiology Reports for the Last 24 Hours: Microbiology 02/25/24 10:42 Urine,Catheterized Urine Culture - Preliminary Gram Negative Rods 02/25/24 12:05 Sputum - Endotracheal Tube Aspirate Gram Stain - Final Constitutional: Present severe distress Comment:: Intubated and Sedated Head: Present normocephalic and atraumatic Neck: Present normal inspection and trachea midline Respiratory: Present patient mechanically ventilated, respiratory distress, rhonchi, diminished air movement and able to speak in complete sentences; Absent wheezes Cardiac: Present S1/S2 and Tachycardia GI: Present soft; Absent distention or tenderness Skin: Present intact; Absent cyanosis Neuro: Present awake; Absent alert or oriented x 3 Extremities: Present edema; Absent normal inspection, clubbing or cyanosis Comment:: RLE Ulcer Psychiatric: Present normal affect Assessment and Plan *Assessment and plan (1) Acute hypercapnic respiratory failure: Status: Acute Category: Medical Code(s): J96.02 - Acute respiratory failure with hypercapnia (2) On mechanically assisted ventilation: Status: Resolved Category: Medical Code(s): Z99.11 - Dependence on respirator [ventilator] status (3) Shock: Status: Acute Category: Medical Code(s): R57.9 - Shock, unspecified Plan Ms. Hurt is a 68-year-old female half-way resident presented with altered mentation admitted presented to the ER patient found to be in hypoxic hypercarbic respiratory failure and septic shock needing intubation mechanical ventilatory support on vasopressor support. Much of the history is obtained f rom chart review. Received 3 L sepsis bolus in the ER prior to initiation of vasopressors CTA upon admission no evidence of pulmonary embolism. Prominent mild right minimal airspace disease right greater than left likely from atelectasis. No dense consolidative changes noted. CT head upon admission no acute intracranial abnormality. ABG upon admission hypercarbic respiratory failure. Prior history of UTI secondary to E. coli and procidentia sensitive to cefepime Comprehensive respiratory viral PCR panel negative. Blood and sputum cultures pending. Urine culture showing gram-negative rods. Echocardiogram increased LV thickness. EF at 60%. RV moderately dilated and moderately hypokinetic. Improving vasopressor requirements. Extubated to BiPap 02/26/24 and eventually weaned to nasal cannula. Interval update: No acute respiratory vents overnight. Tolerating nasal cannula well. Continue to receive cefepime. Urine cultures growing E. coli sensitive to ceftriaxone. Blood cultures growing staph epi, Sommer gene positive. Repeat blood cultures no growth. Concern for aspiration/choking event this morning. Chest x-ray severely rotated however did not show any new airspace disease. Oxygen requirements temporarily increased however weaned back to 1 to 2 L. Plan: -Trelegy 100 inhaler. DuoNebs 4 times daily as needed. Will follow with an outpatient to perform PFT testing. Treatment possible pulmonary etiology on long-term inhaler therapy plan for next -Continue nasal cannula oxygen supplementation to maintain O2 saturation goal of 90% and above -Antibiotics can be weaned to cefdinir from pulmonary standpoint to complete a total of 5-day course. 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 Patient on BiPAP on 02/27/2024 night. No follow-up ABG noted for review. Will obtain daytime morning ABG off BiPAP before deciding on whether patient needing NIV or not upon discharge as patient noted to have hypercarbic respiratory failure needing extubation to BiPAP. She is also at high risk for sleep apnea. # Thank you for involving pulmonary in this patient care. Will continue to follow.
--- NOTE | 2024-02-26 09:42 | P.PN_ITS ---
Subjective *Date: 02/26/24 *Time: 11:07 Interval history: No acute respiratory vents overnight. Improving respiratory and hemodynamic status. Pulmonology Exam Inpatient Vital signs and Labs for Last 24 Hours: Temp Pulse Resp BP Pulse Ox O2 Del Method FiO2 99.1 F 74 20 124/64 97 Mechanical Ventilation 35 02/26/24 08:00 02/26/24 08:00 02/26/24 09:20 02/26/24 08:00 02/26/24 09:20 02/26/24 08:00 02/26/24 09:20 Laboratory Results - last 24 hr 02/25/24 10:30: WBC 21.6 H*, RBC 4.76, Hgb 12.0 L, Hct 41.2, MCV 86.6, MCH 25.3 L, MCHC 29.2 L, RDW 17.2, Plt Count 466 H, MPV 8.0, Neut % (Auto) 90.8 H, Lymph % (Auto) 4.0 L, [place] % (Auto) 3.4, Eos % (Auto) 0.6, Baso % (Auto) 1.1, Neut # (Auto) 19.6 H, Lymph # (Auto) 0.9, [place] # (Auto) 0.7, Eos # (Auto) 0.1, Baso # (Auto) 0.2, Total Counted 100, Neutrophils % (Manual) 90 H, Lymphocytes % (Manual) 8 L, Monocytes % (Manual) 2, Platelet Estimate Slight increase, Hypochromasia 1+, PT 11.4, INR 1.02, Sodium 141, Potassium 4.8, Chloride 100, Carbon Dioxide 34 H, Anion Gap 11.8, BUN 17, Creatinine 1.00, Estimated Creat Clear 52, Estimated GFR 55 L, Est GFR ( Amer) 67, Glucose 262 H, Lactate 2.5 H, Calcium 8.9, Phosphorus 5.4 H, Magnesium 1.6, Total Bilirubin 0.4, AST 28, ALT 33, Alkaline Phosphatase 74, Total Creatine Kinase 46, Troponin I 0.03, NT-Pro-B Natriuret Pep 365 H, Total Protein 8.0, Albumin 3.8, Globulin 4.2 H, Albumin/Globulin Ratio 0.9 L, Salicylates < 1.0 L, Acetaminophen < 10 L, Plasma/Serum Alcohol < 10, Acetone Level None detected, HIV 1&2 Antibody Rapid Nonreactive 02/25/24 10:31: VBG pH 7.29 L, VBG pCO2 62.4 H, VBG pO2 167.4 H, VBG HCO3 29.3, VBG Total CO2 31.2 H, VBG O2 Saturation 99.2 H, VBG Base Excess 2.7 H, VBG L actic Acid 3.4 H 02/25/24 10:42: Urine Color Yellow, Urine Appearance Clear, Urine pH 6.0, Ur Specific [place] 1.015, Urine Protein 1+ A, Urine Glucose (UA) Negative, Urine Ketones Negative, Urine Blood Negative, Urine Nitrate Negative, Urine Bilirubin Negative, Urine Urobilinogen 0.2, Ur Leukocyte Esterase Negative, Urine RBC Occasional, Urine WBC Occasional, Ur Squamous Epith Cells Occasional, Urine Bacteria 1+, Urine Opiates Screen Negative, Urine Methadone Screen Negative, Ur Barbituates Screen Negative, Ur Phencyclidine Scrn Negative, Ur Amphetamines Screen Negative, U Benzodiazepines Scrn Negative, Urine Cocaine Screen Negative, U Marijuana (THC) Screen Negative, SARS-CoV-2 (PCR) Not detected, Influenza A Untype (PCR) Not detected, Influenza Type B (PCR) Not detected 02/25/24 11:00: Blood Type O Positive, Antibody Screen Negative 02/25/24 11:18: Specimen Source A line, O2 % 50%, ABG pH 7.19 L*, ABG pCO2 88.6 H, ABG pO2 88.1, ABG HCO3 32.8 H, ABG Total CO2 35.5 H, ABG O2 Saturation 95, ABG Base Excess 4.5 H, Tidal Volume 20/8 02/25/24 13:21: Specimen Source A-line, O2 % 75, ABG pH 7.26 L, ABG pCO2 69.2 H, ABG pO2 132.2 H, ABG HCO3 30.1 H, ABG Total CO2 32.2 H, ABG O2 Saturation 99, ABG Base Excess 2.9 H, Alberto Test N/a, ABG Lactate 2.9 H, Vent Rate 18, Tidal Volume 420, PEEP 10 02/25/24 14:20: Troponin I 0.06 H 02/25/24 15:45: POC Glucose 193 H 02/25/24 17:07: Chlamy pneumoniae PCR Not detected, Adenovirus (PCR) Not detected, B. pertussis DNA (PCR) Not detected, Coronavirus OC43 (PCR) Not detected, Coronavirus HKU1 (PCR) Not detected, Coronavirus 229E (PCR) Not detected, SARS-CoV-2 (PCR) Not detected, Coronavirus NL63 (PCR) Not detected, Human Metapneumovir PCR Not detected, Influenza A (H1) PCR Not detected, Influ A (H1N1/09) PCR Not detected, Influenza A (H3) PCR Not detected, Influenza Type A (PCR) Not detected, Influenza Type B (PCR) Not detected, M. pneumoniae (PCR) Not detected, Parainfluenza 1 (PCR) Not detected, Parainfluenza 2 (PCR) Not detected, Parainfluenza 3 (PCR) Not detected, Parainfluenza 4 (PCR) Not detected, RSV (PCR) Not detected, Entero/Rhino (PCR) Not detected 02/25/24 17:18: Specimen Source Art line, O2 % 35, ABG pH 7.38, ABG pCO2 49.7 H, ABG pO2 87.6, ABG HCO3 28.6 H, ABG Total CO2 30.1 H, ABG O2 Saturation 97, ABG Base Excess 3.5 H, Alberto Test Non applicable, Vent Rate 20, Tidal Volume 440, PEEP 12 02/25/24 17:37: Sodium 140, Potassium 4.9, Chloride 102, Carbon Dioxide 29, Anion Gap 13.9, BUN 21 H, Creatinine 0.90, Estimated Creat Clear 98, Estimated GFR 62, Est GFR ( Amer) 75, Glucose 200 H D, Hemoglobin A1c 6.4 H, Lactate 1.5, Calcium 8.9, Total Bilirubin 0.5, AST 28, ALT 26, Alkaline Phosph atase 69, Total Protein 7.7, Albumin 3.8, Globulin 3.9 H, Albumin/Globulin Ratio 1.0 L, TSH 0.58 02/25/24 20:23: POC Glucose 149 H 02/25/24 : Lactate 2.1 02/26/24 01:01: Sodium 139, Potassium 4.4, Chloride 104, Carbon Dioxide 32 H, Anion Gap 7.4, BUN 25 H, Creatinine 0.90, Estimated Creat Clear 48, Estimated GFR 62, Est GFR ( Amer) 75, Glucose 168 H, Calcium 8.6, Magnesium 1.5 L 02/26/24 05:20: WBC 17.8 H, RBC 4.52, Hgb 11.7 L, Hct 36.8 L, MCV 81.6, MCH 25.9 L, MCHC 31.8, RDW 17.2, Plt Count 497 H, MPV 8.6, Neut % (Auto) 80.9 H, Lymph % (Auto) 10.6, [place] % (Auto) 8.1, Eos % (Auto) 0.0 L, Baso % (Auto) 0.4, Neut # (Auto) 14.4 H, Lymph # (Auto) 1.9, [place] # (Auto) 1.4 H, Eos # (Auto) 0.0, Baso # (Auto) 0.1, Total Counted 100, Neutrophils % (Manual) 78 H, Lymphocytes % (Manual) 13, Monocytes % (Manual) 8, Basophils % (Manual) 1.0, Platelet Estimate Slight increase, Polychromasia 1+, Hypochromasia 2+, Anisocytosis 1+, Sodium 141, Potassium 4.2, Chloride 101, Carbon Dioxide 32 H, Anion Gap 12.2, BUN 26 H, Creatinine 1.00, Estimated Creat Clear 48, Estimated GFR 55 L, Est GFR ( Amer) 67, Glucose 144 H, Calcium 8.9, Magnesium 2.9 H D, Total Bilirubin 0.3, AST 23, ALT 25, Alkaline Phosphatase 65, Total Protein 7.3, Albumin 3.5, Globulin 3.8 H, Albumin/Globulin Ratio 0.9 L 02/26/24 05:24: POC Glucose 139 H 02/26/24 06:00: Specimen Source a line, O2 % 35, ABG pH 7.42, ABG pCO2 42.4, ABG pO2 79.7 L, ABG HCO3 27.0 H, ABG Total CO2 28.3 H, ABG O2 Saturation 96, ABG Base Excess 2.6 H, Vent Rate 20, Tidal Volume 440, PEEP 10 Temp Pulse Resp BP Pulse Ox O2 Del Method FiO2 98.6 F 78 18 92/59 L 99 Mechanical Ventilation 100 02/25/24 13:33 02/25/24 13:33 02/25/24 13:33 02/25/24 13:33 02/25/24 13:30 02/25/24 13:33 02/25/24 11:50 Laboratory Results - last 24 hr 02/25/24 10:30: WBC 21.6 H*, RBC 4.76, Hgb 12.0 L, Hct 41.2, MCV 86.6, MCH 25.3 L, MCHC 29.2 L, RDW 17.2, Plt Count 466 H, MPV 8.0, Neut % (Auto) 90.8 H, Lymph % (Auto) 4.0 L, [place] % (Auto) 3.4, Eos % (Auto) 0.6, Baso % (Auto) 1.1, Neut # (Auto) 19.6 H, Lymph # (Auto) 0.9, [place] # (Auto) 0.7, Eos # (Auto) 0.1, Baso # (Auto) 0.2, Total Counted 100, Neutrophils % (Manual) 90 H, Lymphocytes % (Manual) 8 L, Monocytes % (Manual) 2, Platelet Estimate Slight increase, Hypochromasia 1+, PT 11.4, INR 1.02, Sodium 141, Potassium 4.8, Chloride 100, Carbon Dioxide 34 H, Anion Gap 11.8, BUN 17, Creatinine 1.00, Estimated Creat Clear 52, Estimated GFR 55 L, Est GFR ( Amer) 67, Glucose 262 H, Lactate 2.5 H, Calcium 8.9, Phosphorus 5.4 H, Magnesium 1.6, Total Bilirubin 0.4, AST 28, ALT 33, Alkaline Phosphatase 74, Total Creatine Kinase 46, Troponin I 0.03, NT-Pro-B Natriuret Pep 365 H, Total Protein 8.0, Albumin 3.8, Globulin 4.2 H, Albumin/Globulin Ratio 0.9 L, Salicylates < 1.0 L, Acetaminophen < 10 L, Plasma/Serum Alcohol < 10, Acetone Level None detected 02/25/24 10:31: VBG pH 7.29 L, VBG pCO2 62.4 H, VBG pO2 167.4 H, VBG HCO3 29.3, VBG Total CO2 31.2 H, VBG O2 Saturation 99.2 H, VBG Base Excess 2.7 H, VBG Lactic Acid 3.4 H 02/25/24 10:42: Urine Color Yellow, Urine Appearance Clear, Urine pH 6.0, Ur Specific [place] 1.015, Urine Protein 1+ A, Urine Glucose (UA) Negative, Urine Ketones Negative, Urine Blood Negative, Urine Nitrate Negative, Urine Bilirubin Negative, Urine Urobilinogen 0.2, Ur Leukocyte Esterase Negative, Urine RBC Occasional, Urine WBC Occasional, Ur Squamous Epith Cells Occasional, Urine B acteria 1+, Urine Opiates Screen Negative, Urine Methadone Screen Negative, Ur Barbituates Screen Negative, Ur Phencyclidine Scrn Negative, Ur Amphetamines Screen Negative, U Benzodiazepines Scrn Negative, Urine Cocaine Screen Negative, U Marijuana (THC) Screen Negative, SARS-CoV-2 (PCR) Not detected, Influenza A Untype (PCR) Not detected, Influenza Type B (PCR) Not detected 02/25/24 11:00: Blood Type O Positive, Antibody Screen Negative 02/25/24 11:18: Specimen Source A line, O2 % 50%, ABG pH 7.19 L*, ABG pCO2 88.6 H, ABG pO2 88.1, ABG HCO3 32.8 H, ABG Total CO2 35.5 H, ABG O2 Saturation 95, ABG Base Excess 4.5 H, Tidal Volume 20/8 I & O for Labs for Last 24 Hours: Intake & Output 02/23/24 02/24/24 02/25/24 02/26/24 23:59 23:59 23:59 23:59 Intake Total 2609.102 / 2609.102 457.708 / 457.708 Output Total 1040 / 1105 400 / 400 Balance 1569.102 / 1504.102 57.708 / 57.708 Weight 275 lb 275 lb 5.718 oz Intake & Output 02/22/24 02/23/24 02/24/24 02/25/24 23:59 23:59 23:59 23:59 Intake Total 30.200 / 30.200 Balance 30.200 / 30.200 Weight 257 lb 15.053 oz Microbiology Reports for the Last 24 Hours: Microbiology 02/25/24 10:42 Urine,Catheterized Urine Culture - Preliminary Gram Negative Rods 02/25/24 12:05 Sputum - Endotracheal Tube Aspirate Gram Stain - Final Constitutional: Present severe distress Comment:: Intubated and Sedated Head: Present normocephalic and atraumatic Neck: Present normal inspection and trachea midline Respiratory: Present patient mechanically ventilated, respiratory distress, rhonchi and diminished air movement; Absent wheezes or able to speak in complete sentences Cardiac: Present S1/S2 and Tachycardia GI: Present soft; Absent distention or tenderness Skin: Present intact; Absent cyanosis Neuro: Absent alert, awake or oriented x 3 Extremities: Present edema; Absent normal inspection, clubbing or cyanosis Comment:: RLE Ulcer Psychiatric: Present unable to assess Assessment and Plan *Assessment and plan (1) Acute hypercapnic respiratory failure: Status: Acute Category: Medical Code(s): J96.02 - Acute respiratory failure with hypercapnia (2) On mechanically assisted ventilation: Status: Acute Category: Medical Code(s): Z99.11 - Dependence on respirator [ventilator] status (3) Shock: Status: Acute Category: Medical Code(s): R57.9 - Shock, unspecified Plan Ms. Hurt is a 68-year-old female residential resident presented with altered mentation admitted presented to the ER patient found to be in hypoxic hypercarbic respiratory failure and septic shock needing intubation mechanical ventilatory support on vasopressor support. Much of the history is obtained from chart review. Received 3 L sepsis bolus in the ER prior to initiation of vasopressors CTA upon admission no evidence of pulmonary embolism. Prominent mild right minimal airspace disease right greater than left likely from atelectasis. No dense consolidative changes noted. CT head upon admission no acute intracranial abnormality. ABG upon admission hypercarbic respiratory failure. Prior history of UTI secondary to E. coli and procidentia sensitive to cefepime Interval update: No acute respiratory vents overnight. Improving leukocytosis. Improving vent support. Chest x-ray from today worsening vascular congestion. Acute consolidative changes. Concerning right lower lobe infiltrate. Comprehensive respiratory viral PCR panel negative. Blood and sputum cultures pending. Urine culture showing gram-negative rods. Echocardiogram increased LV thickness. EF at 60%. RV moderately dilated and moderately hypokinetic. Improving vasopressor requirements. Plan: Continue on elbow sedation on propofol and fentanyl. Wean sedation to facilitate SBT. Continue mechanical ventilatory support currently on PEEP of 10 FiO2 of 35%, tidal volume of 440 and a rate of 20. ABG from this morning reviewed no evidence of hypoxic/hypercarbic respiratory failure. Sedation and perform SBT Respiratory viral PCR panel negative DuoNebs every 6 hours scheduled Continue vancomycin and cefepime pending blood and tracheal aspirate culture results. Nasal MRSA PCR Follow with echocardiogram. Continue vasopressor support to maintain MAP goal of 65 and above. Abdomen soft distended. Renally dose medications. Monitor urine output. MAP greater than 65 - Continue mechanical ventilatory support - Continue AnalgoSedation with Propofol and Fentanyl with CPOT gal less than or euqal to 2 and RASS goal of to 2 (No need for deep sedation) - VAP bundle Recommend elevate head of the bed at 30 to 45 degrees Recommend oral care with chlorhexidne Recommend GI ulcer prophylaxis - Famotidine 20mg IV BID Recommend chemical DVT prophylaxis Total critical care time spent on this patient is 35 minutes managing acute hypoxic respiratory failure needing mechanical ventilation. This time spent include reviewing test results including interpreting chest x-rays, labs and arterial blood gas, optimizing the ventilator settings,formulating plan of care, discussing the plan of care with the team and the nursing staff.
[2024-02-26] MEDS: propofoL 100 ML 17.55 MG IV (10:01)
--- NOTE | 2024-02-26 10:13 | PC.NURSE ---
Sedation currently being weaned on pt for SBT trial.
[2024-02-26 10:14] LABS: HCV Ab Non Reactive (Non Reactive)
--- NOTE | 2024-02-26 10:57 | [facility].PTWOUND ---
Rehab Inpt Wound Evaluation Rehab IP Wound Evaluation Start: 02/25/24 17:21 Freq: ONCE Status: Active Protocol: Document 02/26/24 09:40 LASHELL (Rec: 02/26/24 10:56 PHOMIRLANDE [id number]) Rehab PT Wound Assessment Subjective Subjective 68-year-old female who resides at [facility]. She is brought to the ER via EMS due to concern for being unresponsive at her half-way. Patient has a history of COPD, hypertension, diabetes, blood clots, PVD. Found to be in septic shock and resp failure. She presents with a pre-existing wound to the R lateral lower leg upon adm. Wound Right Lower Lateral Leg Wound Type uhnknown etiology Is This a Chronic Wound Yes Wound Length (cm) 3.3 Wound Width (cm) 3.2 Wound Depth (cm) 0.1 Wound Bed Appearance Beefy Red,Yellow Wound Margins Description Well Defined Surrounding Tissue Appearance [place] Wound Drainage Description Serous Drainage Amount Small Drainage Odor No Odor Wound Topical Solution/Irrigant Saline Irrigant Primary Dressing Composite Comment bordered foam Wound Debridement Method Gauze,Mechanical Wound Debridement Amount of Tissue None Removed Dressing Change Patient Tolerance Tolerated Well Plan/Recommendation Comment Pt remains sedated at this time. Wound appears healthy and is appropriately covered. No current needs for sharp, selective debridement at this time. Eval Complexity Eval Charge Codes 16392 - High Complexity PHYSICIAN CERTIFICATION: I certify the specified therapy services for Gabriela Newton are required, authorized, and reviewed every 30 days.
[2024-02-26] MEDS: FUROSEMIDE 40MG/4ML VIAL 40 MG IV (11:38)
[2024-02-26 11:50] LABS: ABG Base Excess 2.9 mmol/L (-2.4-2.3); ABG HCO3 28.4 mmhg (22.0-26.0); ABG Oxygen Saturation 95 % (90-100); ABG PH 7.36 mmol/L (7.35-7.45); ABG PO2 81.5 mmhg (80-100); ABG TCO2 29.9 mmhg (23-27)
[2024-02-26 11:54] LABS: Oxygen 35 %; PEEP 5; Pressure Support 10; Source A-LINE
[2024-02-26 11:55] LABS: ABG PCO2 51.7 mmhg (35.0-45.0)
[2024-02-26 12:57] LABS: POC Glucose,Bedside 129 (70-110)
--- NOTE | 2024-02-26 13:43 | PC.NURSE ---
Pt extubated at 1325 and placed on Bipap 30% 02/01. Pt tolerating well. Pt remains off Levophed gtt. VS currently stable. Call light within reach. Safety measures in place.
[2024-02-26] MEDS: BACITRACIN ZINC OINT 30GM TUBE TP ×2 (14:41→20:54)
[2024-02-26 16:22] LABS: ABG Base Excess 7.2 mmol/L (-2.4-2.3); ABG Oxygen Saturation 94 % (90-100); ABG PCO2 44.6 mmhg (35.0-45.0); ABG PH 7.46 mmol/L (7.35-7.45); ABG PO2 72.3 mmhg (80-100); ABG TCO2 32.4 mmhg (23-27)
[2024-02-26 16:24] LABS: Oxygen 30 %; PEEP BIPAP 16/8; Source A-LINE; Vent Rate 20
[2024-02-26 18:31] LABS: POC Glucose,Bedside 107 (70-110)
--- NOTE | 2024-02-26 18:38 | EXP.ACUTE.PN ---
Subjective *Date: 02/26/24 *Time: 18:38 Interval history: Patient extubated this morning after rounds. Did well with weaning sedation. Extubated to BiPAP. Afebrile. Hemodynamically stable. Off of pressors. Appears to potentially be neurologically intact Medical Exam Vital signs and Labs for Last 24 Hours: Vital Signs Temp Pulse Pulse Resp BP Pulse Ox O2 Del Method 02/26/24 18:26 90 02/26/24 18:26 93 H 02/26/24 18:26 98 BiPAP 02/26/24 18:26 02/26/24 18:00 84 22 119/51 L 96 BiPAP 02/26/24 17:00 BiPAP 02/26/24 17:00 98 H 20 139/64 96 BiPAP 02/26/24 16:00 BiPAP 02/26/24 16:00 100 H 22 141/64 H 96 BiPAP 02/26/24 16:00 100 H 02/26/24 15:00 98 H 22 138/65 96 BiPAP 02/26/24 15:00 BiPAP 02/26/24 14:00 98 H 20 140/63 97 BiPAP 02/26/24 13:32 02/26/24 13:31 96 02/26/24 13:00 91 H 20 129/62 94 L Mechanical Ventilation 02/26/24 12:56 89 17 129/58 L 95 Mechanical Ventilation 02/26/24 12:53 Mechanical Ventilation 02/26/24 12:00 90 02/26/24 12:00 98.6 F 02/26/24 12:00 98.3 F 95 H 17 131/63 96 Mechanical Ventilation 02/26/24 11:58 95 Mechanical Ventilation 02/26/24 11:14 90 02/26/24 11:14 90 02/26/24 11:00 96 H 24 134/57 L 96 Mechanical Ventilation 02/26/24 10:55 Mechanical Ventilation 02/26/24 10:45 28 H 99 02/26/24 10:00 78 20 118/68 97 Mechanical Ventilation 02/26/24 09:20 20 97 02/26/24 09:00 Mechanical Ventilation 02/26/24 09:00 76 20 119/63 97 Mechanical Ventilation 02/26/24 08:00 70 02/26/24 08:00 99.1 F 74 20 124/64 96 Mechanical Ventilation 02/26/24 08:00 96 Mechanical Ventilation 02/26/24 07:00 73 20 126/65 97 Mechanical Ventilation 02/26/24 06:07 70 02/26/24 06:07 71 02/26/24 06:07 20 97 02/26/24 06:00 70 20 102/60 L 100 Mechanical Ventilation 02/26/24 05:00 68 20 106/61 L 97 Mechanical Ventilation 02/26/24 04:22 02/26/24 04:00 70 02/26/24 04:00 20 02/26/24 04:00 98.2 F 75 20 109/64 L 96 Mechanical Ventilation 02/26/24 03:00 72 20 111/60 97 Mechanical Ventilation 02/26/24 02:08 02/26/24 02:00 75 20 108/60 L 97 Mechanical Ventilation 02/26/24 01:00 82 20 126/68 97 Mechanical Ventilation 02/26/24 00:10 20 02/26/24 00:09 77 02/26/24 00:00 70 02/26/24 00:00 20 02/26/24 00:00 98.6 F 70 20 122/65 98 Mechanical Ventilation 02/25/24 23:00 69 20 116/58 L 98 Mechanical Ventilation 02/25/24 22:30 66 20 109/65 L 98 Mechanical Ventilation 02/25/24 22:22 20 02/25/24 22:06 70 20 104/97 L 98 Mechanical Ventilation 02/25/24 22:03 69 20 79/63 L 99 Mechanical Ventilation 02/25/24 22:00 63 20 79/68 L 99 Mechanical Ventilation 02/25/24 21:00 69 20 100/61 L 98 Mechanical Ventilation 02/25/24 20:30 73 20 111/69 96 Mechanical Ventilation 02/25/24 20:00 80 02/25/24 20:00 20 97 Mechanical Ventilation 02/25/24 20:00 77 20 104/56 L 97 Mechanical Ventilation 02/25/24 19:30 98.6 F 77 18 108/64 L 97 Mechanical Ventilation 02/25/24 19:16 20 02/25/24 19:15 55 L 02/25/24 18:55 Mechanical Ventilation 02/25/24 18:51 77 22 125/66 98 Mechanical Ventilation FiO2 02/26/24 18:26 02/26/24 18:26 02/26/24 18:26 30 02/26/24 18:26 30 02/26/24 18:00 02/26/24 17:00 02/26/24 17:00 02/26/24 16:00 02/26/24 16:00 02/26/24 16:00 02/26/24 15:00 02/26/24 15:00 02/26/24 14:00 02/26/24 13:32 30 02/26/24 13:31 02/26/24 13:00 02/26/24 12:56 02/26/24 12:53 02/26/24 12:00 02/26/24 12:00 02/26/24 12:00 02/26/24 11:58 02/26/24 11:14 02/26/24 11:14 02/26/24 11:00 02/26/24 10:55 02/26/24 10:45 35 02/26/24 10:00 02/26/24 09:20 35 02/26/24 09:00 02/26/24 09:00 35 02/26/24 08:00 02/26/24 08:00 35 02/26/24 08:00 35 02/26/24 07:00 35 02/26/24 06:07 02/26/24 06:07 02/26/24 06:07 02/26/24 06:00 35 02/26/24 05:00 35 02/26/24 04:22 35 02/26/24 04:00 02/26/24 04:00 02/26/24 04:00 35 02/26/24 03:00 35 02/26/24 02:08 35 02/26/24 02:00 35 02/26/24 01:00 35 02/26/24 00:10 35 02/26/24 00:09 02/26/24 00:00 02/26/24 00:00 02/26/24 00:00 35 02/25/24 23:00 35 02/25/24 22:30 35 02/25/24 22:22 35 02/25/24 22:06 35 02/25/24 22:03 35 02/25/24 22:00 35 02/25/24 21:00 35 02/25/24 20:30 35 02/25/24 20:00 02/25/24 20:00 35 02/25/24 20:00 35 02/25/24 19:30 35 02/25/24 19:16 35 02/25/24 19:15 02/25/24 18:55 02/25/24 18:51 Intake and Output 02/26/24 02/26/24 02/26/24 07:59 15:59 23:59 Intake Total 409.354 / 809.209 399.855 / 809.209 Output Total 325 / 1700 1215 / 1700 160 / 1700 Balance 84.354 / -890.791 -815.145 / -890.791 -160 / -890.791 Intake: Intake, Oral Amount 0 / 0 Intake, Total IV Amount 409.354 / 809.209 399.855 / 809.209 Cefepime HCl 2 gm In 0.9 % 200 / 200 Sodium Chloride 100 ml @ 200 mls/hr IV Q12 [facility] Rx#:[id number] Magnesium Sulfate in Water 2 gm 100 / 100 In 50 ml @ 50 mls/hr IV ONCE ONE Rx#:[id number] Output: Output, Urine Amount (Catheter) 325 / 1700 1215 / 1700 160 / 1700 Hutchins 325 / 1700 1215 / 1700 160 / 1700 Other: Number of Unmeasured Voids 0 0 Weight 124.9 kg 124.9 kg Patient Weight 02/26/24 23:59 Weight 124.9 kg Laboratory Results - last 24 hr 02/25/24 10:30: Hepatitis C Antibody Non reactive 02/25/24 17:07: Chlamy pneumoniae PCR Not detected, Adenovirus (PCR) Not detected, B. pertussis DNA (PCR) Not detected, Coronavirus OC43 (PCR) Not detected, Coronavirus HKU1 (PCR) Not detected, Coronavirus 229E (PCR) Not detected, SARS-CoV-2 (PCR) Not detected, Coronavirus NL63 (PCR) Not detected, Human Metapneumovir PCR Not detected, Influenza A (H1) PCR Not detected, Influ A (H1N1/09) PCR Not detected, Influenza A (H3) PCR Not detected, Influenza Type A (PCR) Not detected, Influenza Type B (PCR) Not detected, M. pneumoniae (PCR) Not detected, Parainfluenza 1 (PCR) Not detected, Parainfluenza 2 (PCR) Not detected, Parainfluenza 3 (PCR) Not detected, Parainfluenza 4 (PCR) Not detected, RSV (PCR) Not detected, Entero/Rhino (PCR) Not detected 02/25/24 17:37: TSH 0.58 02/25/24 20:23: POC Glucose 149 H 02/26/24 01:01: Sodium 139, Potassium 4.4, Chloride 104, Carbon Dioxide 32 H, Anion Gap 7.4, BUN 25 H, Creatinine 0.90, Estimated Creat Clear 48, Estimated GFR 62, Est GFR ( Amer) 75, Glucose 168 H, Calcium 8.6, Magnesium 1.5 L 02/26/24 05:20: WBC 17.8 H, RBC 4.52, Hgb 11.7 L, Hct 36.8 L, MCV 81.6, MCH 25.9 L, MCHC 31.8, RDW 17.2, Plt Count 497 H, MPV 8.6, Neut % (Auto) 80.9 H, Lymph % (Auto) 10.6, [place] % (Auto) 8.1, Eos % (Auto) 0.0 L, Baso % (Auto) 0.4, Neut # (Auto) 14.4 H, Lymph # (Auto) 1.9, [place] # (Auto) 1.4 H, Eos # (Auto) 0.0, Baso # (Auto) 0.1, Total Counted 100, Neutrophils % (Manual) 78 H, Lymphocytes % (Manual) 13, Monocytes % (Manual) 8, Basophils % (Manual) 1.0, Platelet Estimate Slight increase, Polychromasia 1+, Hypochromasia 2+, Anisocytosis 1+, Sodium 141, Potassium 4.2, Chloride 101, Carbon Dioxide 32 H, Anion Gap 12.2, BUN 26 H, Creatinine 1.00, Estimated Creat Clear 48, Estimated GFR 55 L, Est GFR ( Amer) 67, Glucose 144 H, Calcium 8.9, Magnesium 2.9 H D, Total Bilirubin 0.3, AST 23, ALT 25, Alkaline Phosphatase 65, Total Protein 7.3, Albumin 3.5, Globulin 3.8 H, Albumin/Globulin Ratio 0.9 L 02/26/24 05:24: POC Glucose 139 H 02/26/24 06:00: Specimen Source a line, O2 % 35, ABG pH 7.42, ABG pCO2 42.4, ABG pO2 79.7 L, ABG HCO3 27.0 H, ABG Total CO2 28.3 H, ABG O2 Saturation 96, ABG Base Excess 2.6 H, Vent Rate 20, Tidal Volume 440, PEEP 10 02/26/24 10:47: POC Glucose 129 H 02/26/24 11:37: Specimen Source A-line, O2 % 35, ABG pH 7.36, ABG pCO2 51.7 H, ABG pO2 81.5, ABG HCO3 28.4 H, ABG Total CO2 29.9 H, ABG O2 Saturation 95, ABG Base Excess 2.9 H, Alberto Test N/a, PEEP 5 02/26/24 16:20: Specimen Source A-line, O2 % 30, ABG pH 7.46 H, ABG pCO2 44.6, ABG pO2 72.3 L, ABG HCO3 31.0 H, ABG Total CO2 32.4 H, ABG O2 Saturation 94, ABG Base Excess 7.2 H, Alberto Test N/a, Vent Rate 20, PEEP Bipap 16/8 02/26/24 18:12: POC Glucose 107 I & O for Labs for Last 24 Hours: Intake & Output 02/23/24 02/24/24 02/25/24 02/26/24 23:59 23:59 23:59 23:59 Intake Total 2609.102 / 2609.102 809.209 / 809.209 Output Total 1040 / 1105 1700 / 1700 Balance 1569.102 / 1504.102 -890.791 / -890.791 Weight 124.738 kg 124.9 kg Microbiology Reports for the Last 24 Hours: Microbiology 02/25/24 10:30 Blood Blood Culture - Preliminary 02/25/24 10:45 Blood Blood Culture - Preliminary NO GROWTH AFTER 24 HOURS 02/25/24 10:42 Urine,Catheterized Urine Culture - Preliminary Gram Negative Rods 02/25/24 12:05 Sputum - Endotracheal Tube Aspirate Gram Stain - Final Constitutional: Present mild distress, morbidly obese, chronically ill appearing and cooperative Head: Present atraumatic and normocephalic ENT: Present normal exam Comment:: Small skin tear left cheek Respiratory: Present accessory muscle use and prolonged expiratory phase; Absent rhonchi, wheezes or crackles Cardiac: Present Reg Rate and Rhythm GI: Present soft and normal bowel sounds; Absent distention or tenderness Extremities: Present normal inspection, full ROM and edema (Trace in bilateral lower extremities, stasis changes in legs) Skin: Present intact and rash; Absent erythema Neuro: Present Grossly Intact, alert, awake and moves all extremities Assessment and Plan *Assessment and plan (1) Septic shock: Status: Acute Category: Medical Code(s): A41.9 - Sepsis, unspecified organism; R65.21 - Severe sepsis with septic shock (2) Acute hypercapnic respiratory failure: Status: Acute Category: Medical Code(s): J96.02 - Acute respiratory failure with hypercapnia (3) Pneumonia: Status: Acute Category: Medical Code(s): J18.9 - Pneumonia, unspecified organism (4) On mechanically assisted ventilation: Status: Resolved Category: Medical Code(s): Z99.11 - Dependence on respirator [ventilator] status (5) COPD (chronic obstructive pulmonary disease): Status: Acute Category: Medical Code(s): J44.9 - Chronic obstructive pulmonary disease, unspecified (6) HTN (hypertension): Status: Acute Category: Medical Code(s): I10 - Essential (primary) hypertension (7) Congestive heart failure: Status: Acute Category: Medical Code(s): I50.9 - Heart failure, unspecified (8) Diabetes mellitus: Status: Acute Category: Medical Code(s): E11.9 - Type 2 diabetes mellitus without complications (9) Morbid obesity due to excess calories: Status: Acute Category: Medical Code(s): E66.01 - Morbid (severe) obesity due to excess calories (10) Overactive bladder: Status: Acute Category: Medical Code(s): N32.81 - Overactive bladder Plan 68-year-old female who presented to the ER from her [place] [facility] after being found unresponsive and hypoxic. On presentation, and hypercapnic respiratory failure with septic shock. Intubated in the ER. Admitted to the ICU for further management. Discussed case with ER physician, request admission for mechanical ventilation management, treatment of septic shock, continued hemodynamic stability support. I agreed to admit for further management. Patient showing improvement this morning. Blood pressure improving. Passing SBT. Extubated after rounds this morning. De-escalate to stepdown level of care. Continues to require inpatient management. Problems addressed as follows: Septic shock -Blood pressure normalizing, off of norepinephrine today. -Source of infection so far appears to be urine. Possible pneumonia and lower lung fong. -White count down from 21-17.8. -Blood cultures and urine cultures pending -Kidney function still normal with BUN 26, creatinine 1. Electrolytes with magnesium 2.9, potassium 4.2. Hemoglobin with mild anemia of 11.7. Hypercapnic and hypoxemic respiratory failure Lower lobe pneumonia - Pantoprazole 40 mg nightly -Home apixaban 5 mg twice daily - Discussed case with pulmonology today, patient able to wean sedation. Tolerating SBT. Extubated after rounds. - will continue vancomycin and cefepime pending blood and tracheal aspirates. -Respiratory viral panel negative -Continue DuoNebs every 6 hours -Morning blood gas normalized with normal pH of 7.42 pCO2 of 42 -Echo pending -Per my review of chest imaging today, has increased opacification in lower lobes. Suspicious for pneumonia. You: Urine growing gram-negative rods. Will continue cefepime as above. White count showing improvement at 17.8. Repeat CBC, CMP, magnesium ordered for the morning Hypertension: In the setting of hypotension and shock, holding home clonidine, carvedilol, aspirin, Jardiance, Entresto, spironolactone; reevaluate resuming tomorrow if blood pressure remains stable. Off of norepinephrine today Docusate liquid daily Diabetic: A1c 6.4. Continue sliding scale insulin with fingersticks every 6 hours Full code N.p.o. pending swallow eval Continue home apixaban 5 mg twice daily
[2024-02-26] MEDS: ACETAMINOPHEN 650MG SUPPOSITORY 650 MG RC (20:03)
[2024-02-26] MEDS: SODIUM CHLORIDE 0.9% 10ML VIAL 10 ML IV (20:55)
[2024-02-26] MEDS: PANTOPRAZOLE 40MG VIAL 40 MG IV (20:55)
[2024-02-26 21:12] LABS: POC Glucose,Bedside 104 (70-110)
[2024-02-27] VITALS (20 sets, daily range): BP systolic 105–148; BP diastolic 61–81; PULSE 79–90; RESP 14–20; TEMP 36.6–37.1; O2SAT 91–98; BMI 43.7; BMI 43.8
--- NOTE | 2024-02-27 01:12 | PC.NURSE ---
pt placed on 3L NC. Per Derek Arnold, keep O2 sat > 90%, and place pt back on bipap if sats decrease or pt has difficulty breathing.
--- NOTE | 2024-02-27 02:23 | PC.NURSE ---
O2 sat 99% on 3L NC. Pt weaned to 2L NC at this time.
[2024-02-27] MEDS: IPRATROPIUM/ALBUTEROL 3 ML NEB IH ×3 (06:01→18:14)
[2024-02-27 06:32] LABS: ABG Base Excess 8.2 mmol/L (-2.4-2.3); ABG HCO3 31.9 mmhg (22.0-26.0); ABG Oxygen Saturation 90 % (90-100); ABG PCO2 45.1 mmhg (35.0-45.0); ABG PH 7.47 mmol/L (7.35-7.45); ABG PO2 62.4 mmhg (80-100); ABG TCO2 33.2 mmhg (23-27)
[2024-02-27 06:34] LABS: Oxygen 2LPM %; Source A LINE
[2024-02-27 06:38] LABS: Basophils # 0.2 K/mm3 (0-0.2); Basophils % 1.6 % (0.1-2.0); Eosinophils # 0.2 K/mm3 (0.0-0.4); Eosinophils % 1.6 % (0.1-12.0); Hematocrit 33.3 % (37.0-47.0); Hemoglobin 10.3 g/dL (12.2-16.2); Lymphocytes # 2.4 K/mm3 (0.7-4.5); Lymphocytes % 20.5 % (10-50); Mean Corpuscular HGB Conc 31.1 g/dL (31.8-35.4); Mean Corpuscular Hemoglobin 25.3 pg (27.0-31.2); Mean Corpuscular Volume 81.4 fl (81-99); Mean Platelet Volume 8.1 fl (7.4-10.4); Monocytes % 8.4 % (1.7-9.3); Neutrophils % 67.9 % (37.0-80.0); Platelet Count 336 K/mm3 (142-424); Red Blood Count 4.09 M/mm3 (4.20-5.40); Red Cell Distribution Width 17.2 % (11.5-17.5); White Blood Count 11.8 K/mm3 (4.8-10.8)
[2024-02-27 06:46] LABS: POC Glucose,Bedside 91 (70-110)
[2024-02-27 06:46] LABS: Chloride 103 mmol/L (98-107); Sodium 141 mmol/L (136-145)
[2024-02-27 06:47] LABS: Potassium 3.7 mmoL/L (3.5-5.1)
[2024-02-27 06:49] LABS: Alanine Aminotransferase 20 U/L (12-78); Alkaline Phosphatase 52 U/L (38-126); Anion Gap 6.7 mEq/L (5-15); Aspartate Amino Transferase 30 U/L (14-36); Bilirubin,Total 0.4 mg/dl (0.2-1.3); Blood Urea Nitrogen 29 mg/dl (7-17); Carbon Dioxide 35 mmol/L (22.0-30.0); Creatinine Clearance Estimated 46 mL/min (50-200); Estimated Glomerular Filt Rate 83 ml/min (>60); GFR (African American) 100 ML/MIN (>60); Globulin 3.1 g/dL (1.3-3.2); Total Protein,Serum 6.1 g/dl (6.3-8.2)
[2024-02-27 06:50] LABS: Calcium 8.5 mg/dl (8.4-10.2); Glucose 90 mg/dl (74-100); Magnesium 2.2 mg/dl (1.6-2.3)
[2024-02-27] MEDS: CEFEPIME HCL 2 GM in 0.9 % SODIUM CHLORIDE 100 ML IV ×2 (08:19→21:30)
[2024-02-27] MEDS: BACITRACIN ZINC OINT 30GM TUBE TP ×3 (08:19→21:17)
--- NOTE | 2024-02-27 08:24 | P.PN_ITS ---
Subjective *Date: 02/27/24 *Time: 18:43 Interval history: Patient more alert today. Oriented to self. Has no recollection of event. Afebrile. Weaned to 2 L nasal cannula. A-fib overnight. Skin for Mountain Dew. Speech evaluating today. Blood pressure improving at 138/79 Medical Exam Vital signs and Labs for Last 24 Hours: Vital Signs Temp Pulse Pulse Resp BP Pulse Ox O2 Del Method 02/27/24 08:00 90 02/27/24 07:00 81 20 137/67 97 Nasal Cannula 02/27/24 06:57 Nasal Cannula 02/27/24 06:02 84 02/27/24 06:02 79 02/27/24 06:02 98 Nasal Cannula 02/27/24 06:00 86 18 133/61 97 Nasal Cannula 02/27/24 05:00 82 14 127/65 96 Nasal Cannula 02/27/24 05:00 BiPAP 02/27/24 04:00 80 02/27/24 04:00 98.5 F 02/27/24 04:00 89 17 134/71 97 Nasal Cannula 02/27/24 04:00 Nasal Cannula 02/27/24 03:00 83 15 115/67 98 Nasal Cannula 02/27/24 03:00 Nasal Cannula 02/27/24 02:00 84 17 117/67 98 Nasal Cannula 02/27/24 01:00 90 16 130/73 94 L Nasal Cannula 02/27/24 01:00 Nasal Cannula 02/27/24 00:00 90 02/27/24 00:00 88 14 105/63 L 96 BiPAP 02/26/24 23:41 88 02/26/24 23:41 91 H 02/26/24 23:00 86 20 121/59 L 96 BiPAP 02/26/24 23:00 BiPAP 02/26/24 22:06 02/26/24 22:00 100 H 14 116/56 L 97 BiPAP 02/26/24 21:00 BiPAP 02/26/24 21:00 99.5 F 81 20 123/66 100 BiPAP 02/26/24 20:00 100 H 02/26/24 20:00 100.3 F H 85 19 129/69 95 BiPAP 02/26/24 19:00 BiPAP 02/26/24 19:00 98 H 20 134/52 L 99 BiPAP 02/26/24 18:26 90 02/26/24 18:26 93 H 02/26/24 18:26 98 BiPAP 02/26/24 18:26 02/26/24 18:00 84 22 119/51 L 96 BiPAP 02/26/24 17:00 BiPAP 02/26/24 17:00 98 H 20 139/64 96 BiPAP 02/26/24 16:00 BiPAP 02/26/24 16:00 100 H 22 141/64 H 96 BiPAP 02/26/24 16:00 100 H 02/26/24 15:00 98 H 22 138/65 96 BiPAP 02/26/24 15:00 BiPAP 02/26/24 14:00 98 H 20 140/63 97 BiPAP 02/26/24 13:32 02/26/24 13:31 96 02/26/24 13:00 91 H 20 129/62 94 L Mechanical Ventilation 02/26/24 12:56 89 17 129/58 L 95 Mechanical Ventilation 02/26/24 12:53 Mechanical Ventilation 02/26/24 12:00 90 02/26/24 12:00 98.6 F 02/26/24 12:00 98.3 F 95 H 17 131/63 96 Mechanical Ventilation 02/26/24 11:58 95 Mechanical Ventilation 02/26/24 11:14 90 02/26/24 11:14 90 02/26/24 11:00 96 H 24 134/57 L 96 Mechanical Ventilation 02/26/24 10:55 Mechanical Ventilation 02/26/24 10:45 28 H 99 02/26/24 10:00 78 20 118/68 97 Mechanical Ventilation 02/26/24 09:20 20 97 02/26/24 09:00 Mechanical Ventilation 02/26/24 09:00 76 20 119/63 97 Mechanical Ventilation O2 Flow Rate FiO2 02/27/24 08:00 02/27/24 07:00 2 02/27/24 06:57 2 02/27/24 06:02 02/27/24 06:02 02/27/24 06:02 2 02/27/24 06:00 2 02/27/24 05:00 2 02/27/24 05:00 02/27/24 04:00 02/27/24 04:00 02/27/24 04:00 2 02/27/24 04:00 2 02/27/24 03:00 2 02/27/24 03:00 2 02/27/24 02:00 3 02/27/24 01:00 3 02/27/24 01:00 3 02/27/24 00:00 02/27/24 00:00 30 02/26/24 23:41 02/26/24 23:41 02/26/24 23:00 30 02/26/24 23:00 02/26/24 22:06 30 02/26/24 22:00 30 02/26/24 21:00 02/26/24 21:00 30 02/26/24 20:00 02/26/24 20:00 30 02/26/24 19:00 02/26/24 19:00 02/26/24 18:26 02/26/24 18:26 02/26/24 18:26 30 02/26/24 18:26 30 02/26/24 18:00 02/26/24 17:00 02/26/24 17:00 02/26/24 16:00 02/26/24 16:00 02/26/24 16:00 02/26/24 15:00 02/26/24 15:00 02/26/24 14:00 02/26/24 13:32 30 02/26/24 13:31 02/26/24 13:00 02/26/24 12:56 02/26/24 12:53 02/26/24 12:00 02/26/24 12:00 02/26/24 12:00 02/26/24 11:58 02/26/24 11:14 02/26/24 11:14 02/26/24 11:00 02/26/24 10:55 02/26/24 10:45 35 02/26/24 10:00 02/26/24 09:20 35 02/26/24 09:00 02/26/24 09:00 35 Intake and Output 02/26/24 02/27/24 02/27/24 23:59 07:59 15:59 Intake Total 200 / 1009.209 Output Total 750 / 2320 800 / 800 Balance -550 / -1310.791 -800 / -800 Intake: Intake, Total IV Amount 200 / 500 Cefepime HCl 2 gm In 0.9 % 200 / 400 Sodium Chloride 100 ml @ 200 mls/hr IV Q12 [facility] Rx#:[id number] Output: Output, Urine Amount 430 / 460 625 / 625 Output, Urine Amount (Catheter) 320 / 1860 175 / 175 Hutchins 320 / 1860 175 / 175 Other: Number of Unmeasured Voids 0 0 Weight 119.096 kg Patient Weight 02/27/24 23:59 Weight 119.096 kg Laboratory Results - last 24 hr 02/25/24 10:30: Hepatitis C Antibody Non reactive 02/26/24 10:47: POC Glucose 129 H 02/26/24 11:37: Specimen Source A-line, O2 % 35, ABG pH 7.36, ABG pCO2 51.7 H, ABG pO2 81.5, ABG HCO3 28.4 H, ABG Total CO2 29.9 H, ABG O2 Saturation 95, ABG Base Excess 2.9 H, Alberto Test N/a, PEEP 5 02/26/24 16:20: Specimen Source A-line, O2 % 30, ABG pH 7.46 H, ABG pCO2 44.6, ABG pO2 72.3 L, ABG HCO3 31.0 H, ABG Total CO2 32.4 H, ABG O2 Saturation 94, ABG Base Excess 7.2 H, Alberto Test N/a, Vent Rate 20, PEEP Bipap 02/0102/26/24 18:12: POC Glucose 107 02/26/24 20:59: POC Glucose 104 02/27/24 06:15: WBC 11.8 H D, RBC 4.09 L, Hgb 10.3 L, Hct 33.3 L, MCV 81.4, MCH 25.3 L, MCHC 31.1 L, RDW 17.2, Plt Count 336 D, MPV 8.1, Neut % (Auto) 67.9, Lymph % (Auto) 20.5, [place] % (Auto) 8.4, Eos % (Auto) 1.6, Baso % (Auto) 1.6, Neut # (Auto) 8.0 H, Lymph # (Auto) 2.4, [place] # (Auto) 1.0, Eos # (Auto) 0.2, Baso # (Auto) 0.2, Sodium 141, Potassium 3.7, Chloride 103, Carbon Dioxide 35 H, Anion Gap 6.7, BUN 29 H, Creatinine 0.70 D, Estimated Creat Clear 46, Estimated GFR 83, Est GFR ( Amer) 100 D, Glucose 90, Calcium 8.5, Magnesium 2.2 D , Total Bilirubin 0.4, AST 30 D, ALT 20, Alkaline Phosphatase 52, Total Protein 6.1 L, Albumin 3.0 L D, Globulin 3.1, Albumin/Globulin Ratio 1.0 L 02/27/24 06:19: POC Glucose 91 02/27/24 06:26: Specimen Source A line, O2 % 2lpm, ABG pH 7.47 H, ABG pCO2 45.1 H, ABG pO2 62.4 L, ABG HCO3 31.9 H, ABG Total CO2 33.2 H, ABG O2 Saturation 90, ABG Base Excess 8.2 H I & O for Labs for Last 24 Hours: Intake & Output 02/24/24 02/25/24 02/26/24 02/27/24 23:59 23:59 23:59 23:59 Intake Total 2609.102 / 2609.102 1009.209 / 1009.209 Output Total 1040 / 1105 2290 / 2320 800 / 800 Balance 1569.102 / 1504.102 -1280.791 / -1310.791 -800 / -800 Weight 124.738 kg 124.9 kg 119.096 kg Microbiology Reports for the Last 24 Hours: Microbiology 02/25/24 10:30 Blood Blood Culture - Preliminary 02/25/24 10:45 Blood Blood Culture - Preliminary NO GROWTH AFTER 24 HOURS 02/25/24 10:42 Urine,Catheterized Urine Culture - Preliminary Gram Negative Rods Constitutional: Present mild distress, morbidly obese, chronically ill appearing and cooperative Head: Present atraumatic and normocephalic ENT: Present normal exam Comment:: Small skin tear left cheek Respiratory: Present accessory muscle use and prolonged expiratory phase; Absent rhonchi, wheezes or crackles Cardiac: Present Reg Rate and Rhythm GI: Present soft and normal bowel sounds; Absent distention or tenderness Extremities: Present normal inspection, full ROM and edema (Trace in bilateral lower extremities, stasis changes in legs) Skin: Present intact and rash; Absent erythema Neuro: Present Grossly Intact, alert, awake and moves all extremities Assessment and Plan *Assessment and plan (1) Septic shock: Status: Resolved Category: Medical Code(s): A41.9 - Sepsis, unspecified organism; R65.21 - Severe sepsis with septic shock (2) Acute hypercapnic respiratory failure: Status: Acute Category: Medical Code(s): J96.02 - Acute respiratory failure with hypercapnia (3) Pneumonia: Status: Acute Category: Medical Code(s): J18.9 - Pneumonia, unspecified organism (4) On mechanically assisted ventilation: Status: Resolved Category: Medical Code(s): Z99.11 - Dependence on respirator [ventilator] status (5) COPD (chronic obstructive pulmonary disease): Status: Acute Category: Medical Code(s): J44.9 - Chronic obstructive pulmonary disease, unspecified (6) HTN (hypertension): Status: Acute Category: Medical Code(s): I10 - Essential (primary) hypertension (7) Congestive heart failure: Status: Acute Category: Medical Code(s): I50.9 - Heart failure, unspecified (8) Diabetes mellitus: Status: Acute Category: Medical Code(s): E11.9 - Type 2 diabetes mellitus without complications (9) Morbid obesity due to excess calories: Status: Acute Category: Medical Code(s): E66.01 - Morbid (severe) obesity due to excess calories (10) Overactive bladder: Status: Acute Category: Medical Code(s): N32.81 - Overactive bladder Plan 68-year-old female who presented to the ER from her [facility] after being found unresponsive and hypoxic. On presentation, and hypercapnic respiratory failure with septic shock. Intubated in the ER. Admitted to the ICU for further management. Discussed case with ER physician, request admission for mechanical ventilation management, treatment of septic shock, continued hemodynamic stability support. I agreed to admit for further management. Extubated 02/25. Patient showing improvement this morning with ability to wean oxygen. Interacting with staff. Blood pressure improving. Continues to require inpatient management. Therapy and speech evaluating today. Problems addressed as follows: Septic shock -Blood pressure normalizing, continue to hold blood pressure medications. -Source of infection so far appears to be urine versus pneumonia - White count improving at 11.8. Hemoglobin low at 10.3 consistent with anemia. No signs of bleeding. -Blood cultures and urine cultures pending -Kidney function electrolytes normal with BUN 29, creatinine 0.7. Hypercapnic and hypoxemic respiratory failure Lower lobe pneumonia - Pantoprazole 40 mg nightly -Home apixaban 5 mg twice daily - Wore BiPAP overnight. Blood gas shows ABG pH of 7.47. pCO2 45. Continues to necessitate supplemental oxygen with PaO2 of 62. - will continue vancomycin and cefepime pending blood and tracheal aspirates. -Respiratory viral panel negative -Continue DuoNebs every 6 hours - Echo with normal LV function. Moderate reduction in RV function. - Continue Lasix 40 mg IV daily. UTI: Urine growing gram-negative rods. Will continue cefepime as above. White count showing improvement at 17.8. Repeat CBC, CMP, magnesium ordered for the morning Hypertension: In the setting of hypotension and shock, holding home clonidine, carvedilol, aspirin, Jardiance, Entresto, spironolactone; reevaluate resuming tomorrow if blood pressure remains stable. Docusate liquid daily Diabetic: A1c 6.4. Continue sliding scale insulin with fingersticks every 6 hours Discussed case with speech, recommend modified diet. Reevaluate for possible modified barium swallow tomorrow. Patient also needs her dentures in place to assist with mastication. Full code N.p.o. pending swallow eval Continue home apixaban 5 mg twice daily
[2024-02-27] MEDS: FUROSEMIDE 40MG/4ML VIAL 40 MG IV (09:23)
--- NOTE | 2024-02-27 11:30 | PC.NURSE ---
this rn removed patient's art line from L wrist and held pressure for 10 minutes. no bleeding noted. cap refill <3 seconds. +2 radial pulse noted. aseptic technique used. cleansed site and applied 4x4s and tegaderm. pt tolerated well.
[2024-02-27 11:57] LABS: POC Glucose,Bedside 88 (70-110)
--- NOTE | 2024-02-27 14:00 | HMH.PTEV ---
Physical Therapy Evaluation Rehab PT IP Evaluation Start: 02/27/24 11:40 Freq: ONCE Status: Active Protocol: Document 02/27/24 13:54 ISABEL (Rec: 02/27/24 13:58 ISABEL [id number]) Subjective/History History History Per H&P: Ms. Newton is a 68- year-old female who resides at [facility]. She is brought to the ER via EMS due to concern for being unresponsive at her [facility]. Patient has a history of COPD, hypertension, diabetes, blood clots. On arrival to the [facility], EMS stated the patient was unresponsive and had an elevated end-tidal CO2. Also found to be hypoxic. No reported trauma. Occasionally wears oxygen at the ch[facility] per report. Unable to obtain any history from patient. On arrival to the ER , found to be in hypercapnic and hypoxemic respiratory failure. Blood pressure soft. Was unresponsive to BiPAP. Necessitated intubation due to inability to produce significant tidal volumes on noninvasive positive pressure ventilation. After intubation , patient became frankly hypotensive. Meeting criteria for septic shock with her leukocytosis, for possible pneumonia, tachycardia, hypotension not responsive to fluids. Initiated on norepinephrine. Medicine consulted for admission. Upon arrival to the floor, patient was evaluated. Had a bradycardic episode upon transfer from her stretcher to ICU bed. EKG obtained, personally reviewed showing sinus bradycardia with inferior lead T wave inversions. Initial troponin obtained, less than 0.03. Patient's blood pressure showing some improvement on norepinephrine. Currently sedated on fentanyl and Versed , will transition to propofol for ICU. Pulmonology consulted to assist with care. Subjective Subjective Pt reports she lives at [facility]. Pt usually IND with dressing but required assistance with bathing. Pt reports she used a RW and w/c for mobility. Pt pleasantly agreeable to mobility assessment. New diagnosis of cancer in past 12 No months? Rehab PT IP Eval Objective Appearance Patient Behavior Appropriate,Cooperative Patient Orientation Person Difficulty following instructions none Speech Pattern Clear Ambulation Patient Able to Ambulate No Balance Ability to Arise Unable Sitting Balance Steady, safe Standing Balance Unsteady Transfers Bed Transfer Ability Moderate x 2 (50% assist) Sit to Stand Bed Transfer Ability Moderate x 2 (50% assist) Rehab PT IP prob,goals,plan Problems Date of Evaluation: 02/27/24 PT IP Problems Bed Mobility,Transfers,Gait, Balance,Self care,Safety Rehab Potential Rehab Potential Good Plan PT Intervention Plan Bed Mobility,Transfers,Gait, Balance,Self care,Safety, Therapeutic Exercise Other Intervention Plan 1-2 times PT Plan Frequency Daily Duration LOS Discharge Goals Bed Transfer Ability Moderate x 1 (50% assist) Sit to Stand Chair Transfer Ability Moderate x 1 (50% assist) Discharge Plan PT Discharge Plan Initial physical therapy evaluation performed. Patient presents below baseline at this time in functional mobility, transfers, and strength. Pt's mobility limited by weakness and c/o dizziness. Pt required 2- person assist for bed mobility and a STS transition. PT recommending short-term rehabilitation stay upon d/c from [facility]. Pt would benefit from skilled PT while at [facility] to prevent further functional decline and maximize safety with mobility. Eval Complexity Eval Charge Codes 58905 - Moderate Complexity PHYSICIAN CERTIFICATION: I certify the specified therapy services for Gabriela Newton are required, authorized, and reviewed every 30 days.
--- NOTE | 2024-02-27 14:24 | HMH.OTEV ---
OT Inpatient Evaluation Rehab OT IP Evaluation Start: 02/27/24 11:40 Freq: ONCE Status: Active Protocol: Document 02/27/24 14:18 [facility] (Rec: 02/27/24 14:24 [facility] [id number]) Rehab OT IP Assessment Subjective History Pt oriented x 2 on arrival. Pt agreeable to engage in therapy evaluation. Pt admitted for septic shock and respiratory failure. Per H&P: Ms. Newton is a 68- year-old female who resides at [facility]. She is brought to the ER via EMS due to concern for being unresponsive at her senior living. Patient has a history of COPD, hypertension, diabetes, blood clots. On arrival to the senior living, EMS stated the patient was unresponsive and had an elevated end-tidal CO2. Also found to be hypoxic. No reported trauma. Occasionally wears oxygen at the senior living per report. Unable to obtain any history from patient. On arrival to the ER , found to be in hypercapnic and hypoxemic respiratory failure. Blood pressure soft. Was unresponsive to BiPAP. Necessitated intubation due to inability to produce significant tidal volumes on noninvasive positive pressure ventilation. After intubation , patient became frankly hypotensive. Meeting criteria for septic shock with her leukocytosis, for possible pneumonia, tachycardia, hypotension not responsive to fluids. Initiated on norepinephrine. Medicine consulted for admission. Upon arrival to the floor, patient was evaluated. Had a bradycardic episode upon transfer from her stretcher to ICU bed. EKG obtained, personally reviewed showing sinus bradycardia with inferior lead T wave inversions. Initial troponin obtained, less than 0.03. Patient's blood pressure showing some improvement on norepinephrine. Currently sedated on fentanyl and Versed , will transition to propofol for ICU. Pulmonology consulted to assist with care. Subjective Pt reports she lives at [facility]. Pt usually IND with dressing but required assistance with bathing. Pt reports she used a RW and w/c for functional transfers. Pt dependent upon staff for completion of all IADLs. Objective Patient Orientation Person,Birthday Right Upper Extremity Gross ROM Min Limitation <25% Left Upper Extremity Gross ROM Min Limitation <25% Shoulder ROM Limitations Muscle Weakness Elbow ROM Limitations Muscle Weakness Wrist Limitations of Range of Motion Muscle Weakness Bed Mobility bed mobility-scooting,bed mobility - supine/sit,bed mobility - rolling Assist Level Moderate x 2 (50% assist) Transfer Training Sit/Stand Transfer Assist Level Moderate x 2 (50% assist) Rehab OT IP prob,goals,plan Problems Date of Evaluation: 02/27/24 OT IP Problems Bed Mobility,Transfers,Balance ,Self care,Safety Rehab Potential Rehab Potential Good Equipment Needs Assistive Devices Rolling / Wheeled Walker Plan OT intervention Plan Bed Mobility,Transfers,Balance ,Self care,Safety,Therapeutic Exercise OT Plan Frequency Daily Duration LOS Discharge Goals Bed Mobility Ability Assistance x1 Sit to Stand Chair Transfer Ability Moderate x 1 (50% assist) Chair Transfer Ability Moderate x 1 (50% assist) Chair Transfer Technique Sit to/from Ambulatory Chair Transfer Assistive Devices Rolling Walker Lower Body Dressing Ability Moderate Assistance Upper Body Dressing Ability Minimal Assistance Bathing Ability Moderate Assistance Performing Toilet Hygiene Ability Moderate Assistance Overall Commode/Toilet Transfer Ability Moderate Assistance Commode/Toilet Transfer Technique Sit to/from Ambulatory Commode/Toilet Transfer Assistive Grab Bars Devices Oral Care Assist Minimal Assistance Decrease in Endurance Yes Discharge Plan OT Discharge Plan Initial occupational therapy evaluation performed. Patient presents below baseline at this time in functional transfers, ADL independence, and strength. Pt's functional ability limited by weakness and c/o dizziness. Pt required 2-person assist for bed mobility and a STS transition. OT recommending short-term rehabilitation stay upon d/c from [facility]. Pt would benefit from skilled PT while at [facility] to prevent further functional decline and maximize safety and independence. Eval Complexity Eval Charge Codes 17858 - Moderate Complexity PHYSICIAN CERTIFICATION: I certify the specified therapy services for Gabriela Newton are required, authorized, and reviewed every 30 days.
--- NOTE | 2024-02-27 14:25 | PC.NURSE ---
lab called and said nasal swab is MRSA positive. Dr Green notified.
--- NOTE | 2024-02-27 16:42 | HMH.SLDYSPHA ---
Speech & Language Evaluation Speech/Language Dysphagia Evaluation Start: 02/27/24 15:54 Freq: ONCE Status: Active Protocol: Document 02/27/24 15:55 BAYRON (Rec: 02/27/24 16:42 ECLFranchisee Gladiator Laptop) Co-signed By ST Lauren Dysphagia Assess/Goals/Plan Assessment Date of Evaluation: 02/27/24 Evaluation Type Initial Certification Assessment/Problems post-extubation protocol Does Patient Qualify for Service Yes Qualify/Failure Comment Based on clinical observations made throughout bedside clinical swallow evaluation and nursing/pt interview, further speech services are warranted for diet texture/ tolerance analysis. Recommendations PHYSICIAN CERTIFICATION: The specified therapy services are required, authorized, and reviewed every 30 days. Pt will be seen # times/week 1 for # weeks 4 Diet Recommendations Mechanical Soft Liquid Type Recommendations Normal/Thin SL Swallow Guidelines Alt bite w/sip thru meal,High aspiration risk,Standard Aspiration Prec.,Eat at slow rate Dysphagia Swallow Precautions/Strategies Sitting Upright (90 deg), Double Swallow,Small Bites and Sips,Alternate Liquids/Solids Plan Anticipate reaching STG in # weeks 2 Anticipate reaching LTG in # weeks 4 Pt/Guardian verbally ack understanding Yes of dx/prognosis/goals Pt/Guardian verbally ack understanding Yes of/consent to tx prog G -code Required No STG-Other Comment/Non-Specific Pt will demonstrate tolerance of recommended diet texture and consistency across structured therapeutic trials 4/5 opportunities in a tx session. Electric Motor Controls Assembler Goals Diet Mechanical soft with Liquids Thin Liquids Education Instructions provided BENEFITS ADVISOR discussed clinical observations made throughout bedside CSE, diet recommendations, and aspiration precautions/ compensatory strategies with pt and nursing, each of which expressed understanding. Pt/Caregiver able to recall information Able to recall/restate Reinforcement needed No Speech & Language HPI History Present Illness Description of Patient Problem BENEFITS ADVISOR pulled the following information from pt's H&P and chest x-ray: Ms. Newton is a 68-year-old female who resides at [facility]. She is brought to the ER via EMS due to concern for being unresponsive at her long term. Patient has a history of COPD, hypertension, diabetes, blood clots. On arrival to the long term, EMS stated the patient was unresponsive and had an elevated end-tidal CO2. Also found to be hypoxic. No reported trauma. Occasionally wears oxygen at the long term per report. Unable to obtain any history from patient. On arrival to the ER , found to be in hypercapnic and hypoxemic respiratory failure. Blood pressure soft. Was unresponsive to BiPAP. Necessitated intubation due to inability to produce significant tidal volumes on noninvasive positive pressure ventilation. After intubation , patient became frankly hypotensive. Meeting criteria for septic shock with her leukocytosis, for possible pneumonia, tachycardia, hypotension not responsive to fluids. Initiated on norepinephrine. Medicine consulted for admission. Upon arrival to the floor, patient was evaluated. Had a bradycardic episode upon transfer from her stretcher to ICU bed. EKG obtained, personally reviewed showing sinus bradycardia with inferior lead T wave inversions. Initial troponin obtained, less than 0.03. Patient's blood pressure showing some improvement on norepinephrine. Currently sedated on fentanyl and Versed , will transition to propofol for ICU. Pulmonology consulted to assist with care. Chest X-ray: IMPRESSION: 1. Interval increased bibasilar airspace disease, atelectasis or infection. 2. Cardiac silhouette enlargement. 3. Suboptimal delineation of the distal segment of the NG tube. Correlation with an abdominal radiographs recommended to verify NG tube position. Intubated 02/24, Extubated at 13:25 Pt/Caregiver Concerns During patient interview, pt reported no prior difficulties or concerns regarding swallowing. She states she tolerated diet and medications well prior to admission. Rehab Services Assessed Speech therapy Is this evaluation r/t stroke? No Therapy History Seen by other SL therapists No General Information General Current Food Consistancy NPO Dentition Edentulous Oxygen Status Nasal Cannula Facial Symmetry Symmetrical Patient Orientation Person,Place,Time,Situation Ability to Follow Directions Excellent Communication Ability No Impairment Dysphagia:Food Presentation Evaluation Food Type Pureed,Mechanical Soft,Regular ,Liquid,Pudding Normal/Thin Liquid Response Coughing after swallow,Clears throat,Wet voice,Excessive saliva/mucous Pudding Consistency Liquid Response Residual on tongue Dysphagia Evaluation Regular Food Difficulty chewing Behavior Response Dysphagia Evaluation Summary Pt was seen sitting upright in her bed this afternoon for a clinical bedside swallow evaluation. She was A&O x4 and BENEFITS ADVISOR provided extensive oral care prior to administering bolus consistencies for evaluation. She appeared to be edentulous and reports not being compliant with dentures during meals. Bolus presentations given include thin liquid (water) via open cup and straw, pudding, puree (applesauce), mechanical soft (cookie), and regular (anson cracker). All bolus presentations were administered x2+ to assess for consistency and fatigue. Pt demonstrated overt s/sx of aspiration on 2 trials of thin liquids. On first trial of thin liquid via open cup adminstration, pt exhibited wet vocal quality and a throat clear. BENEFITS ADVISOR had pt complete subsequent swallow. Pt was observed to have lingual residue during pudding trial. Pt demonstrated prolonged mastication and manipulation of bolus on regular trial d/t pt's dentition. Pt was adamant on trialing regular food ( anson cracker) despite dentition and stated she eats regular food consistencies at home without dentures. At end of CSE, BENEFITS ADVISOR administered thin liquid via straw and pt demonstrated wet vocal quality , choking, and decreasing O2 sats to 87. BENEFITS ADVISOR had pt do deep breathing exercises to improve O2. It is to be noted, BENEFITS ADVISOR recommended trials to stop at mechanical soft status given edentulous status. BENEFITS ADVISOR recommends mechanical soft diet/thin liquids using small sips, double swallow, sitting upright during and 30-60 minutes after eating, and alternating bites and sips. BENEFITS ADVISOR will f/u for diet texture/ tolerance analysis given observations made with regular solid trial during CSE to determine if MBSS will be necessary. Stroke Dysphagia Assessment PHYSICIAN CERTIFICATION: I certify the specified therapy services for Gabriela Newton are required, authorized, and reviewed every 30 days.
--- NOTE | 2024-02-27 17:50 | PC.NURSE ---
68 YEAR OLD FEMALE, A&O TO NAME AND BIRTHDAY, STRUGGLES WITH YEAR AND PLACE AT TIMES, PT HAS TOLERATED 2L NC WELL THROUGHOUT SHIFT, DIMINISHED LUNG SOUNDS NOTED THROUGHOUT, NO COUGH NOTED, RESPIRATIONS REGULAR AND UNLABORED. NONPITTING EDEMA NOTED TO BLE. HEART RATE REGULAR. +1 PULSES NOTED THROUGHOUT. HAND GEOSCIENCE TECHNICIAN EQUAL. PROVIDED PT WITH AN INCENTIVE SPIROMEETER. EDUCATED PATIENT ON HOW TO USE IT. 1250 BEST NOTED FOR PT. ENCOURAGED TO USE 10 TIMES EVERY HOUR WHILE AWAKE. PT HAD A MOTA CATH AT BEGINNING OF SHIFT AND IT WAS REMOVED AROUND 10:30. PT HASN'T VOIDED YET. BLADDER SCAN PERFORMED AND [address] BLADDER. [address] LEE AWARE. NO NEW ORDERS WERE GIVEN. PER SPEECH, PT IS ALLOWED TO HAVE MECHANICAL SOFT, THIN LIQUID DIET. PLAN TO POSSIBLY DO MODIFIED SWALLOW EVAL TOMORROW PER SPEECH. PT IS IN CONTACT [facility] FOR POSITIVE MRSA NASAL SWAB. BED ALARM ON TO PROMOTE SAFETY. PT HAS BEEN TURNED 2 HOURS TO PREVENT SKIN BREAKDOWN. PT REFUSED TO BE TURNED ONCE. NO BM NOTED. ACTIVE BOWEL SOUNDS HEARD THIS AFTERNOON IN ALL 4 QUADRANTS. SOFT AND NONTENDER. PT TOLERATED EATING SUPPER WELL. NO ISSUES NOTED. FSBS ACHS. PT RECEIVED CEFEPIME ONCE THIS SHIFT AND TOLERATED WELL. PT HAD AN ART LINE IN PLACE TO L WRIST THIS MORNING AND IT WAS REMOVED AROUND 10:30. DRESSING IN PLACE. CDI. CAP REFILL <3 SECONDS. BED IN LOWEST POSITION. CALL LIGHT WITHIN REACH. VSS. PT STATES SHE FEELS MUCH BETTER. NO QUESTIONS OR CONCERNS VOICED FROM HER.
[2024-02-27] MEDS: APIXABAN 5MG TABLET 5 MG PO (21:17)
[2024-02-27] MEDS: SODIUM CHLORIDE 0.9% 10ML VIAL 10 ML IV (21:17)
[2024-02-27] MEDS: PANTOPRAZOLE 40MG VIAL 40 MG IV (21:17)
[2024-02-27] MEDS: DOCUSATE SODIUM 10 ML/UDC UDC PO (21:17)
[2024-02-27 21:31] LABS: POC Glucose,Bedside 82 (70-110)
--- NOTE | 2024-02-27 22:05 | PC.NURSE ---
Pt vomited x2, and c/o nausea. Contacted VIVIEN Maki at this time. orders for zofran and promethazine
--- NOTE | 2024-02-27 22:10 | EXP.EVENT.NO ---
Per nursing patient vomited x 1 have added Zofran as needed and if not effective also low-dose Phenergan IV added
[2024-02-27] MEDS: ONDANSETRON 4MG/2ML VIAL 4 MG IV (22:13)
[2024-02-28] VITALS (9 sets, daily range): BP systolic 124–149; BP diastolic 60–76; PULSE 70–100; RESP 16–22; TEMP 36–37.1; O2SAT 87–98; BMI 94.2
[2024-02-28] MEDS: IPRATROPIUM/ALBUTEROL 3 ML NEB IH ×2 (00:01→06:44)
[2024-02-28 05:53] LABS: POC Glucose,Bedside 104 (70-110)
[2024-02-28 06:31] LABS: Magnesium 2.1 mg/dl (1.6-2.3)
[2024-02-28 06:44] LABS: Albumin Level 3.1 g/dl (3.5-5.0); Chloride 102 mmol/L (98-107); Sodium 141 mmol/L (136-145)
[2024-02-28 06:47] LABS: Alanine Aminotransferase 28 U/L (12-78); Albumin/Globulin Ratio 0.9 (1.1-1.8); Alkaline Phosphatase 58 U/L (38-126); Aspartate Amino Transferase 37 U/L (14-36); Bilirubin,Total 0.4 mg/dl (0.2-1.3); Blood Urea Nitrogen 20 mg/dl (7-17); Carbon Dioxide 37 mmol/L (22.0-30.0); Creatinine Clearance Estimated 46 mL/min (50-200); Estimated Glomerular Filt Rate 83 ml/min (>60); GFR (African American) 100 ML/MIN (>60); Globulin 3.3 g/dL (1.3-3.2); Total Protein,Serum 6.4 g/dl (6.3-8.2)
[2024-02-28 06:48] LABS: Calcium 8.6 mg/dl (8.4-10.2); Glucose 98 mg/dl (74-100)
[2024-02-28 06:56] LABS: Basophils # 0.1 K/mm3 (0-0.2); Eosinophils # 0.5 K/mm3 (0.0-0.4); Eosinophils % 4.5 % (0.1-12.0); Hemoglobin 10.9 g/dL (12.2-16.2); Lymphocytes # 2.7 K/mm3 (0.7-4.5); Lymphocytes % 24.5 % (10-50); Mean Corpuscular HGB Conc 30.1 g/dL (31.8-35.4); Mean Corpuscular Hemoglobin 24.9 pg (27.0-31.2); Mean Corpuscular Volume 82.6 fl (81-99); Mean Platelet Volume 9.9 fl (7.4-10.4); Monocytes # 0.8 K/mm3 (0.1-1.0); Monocytes % 6.8 % (1.7-9.3); Neutrophils # 6.9 K/mm3 (1.8-7.8); Neutrophils % 63.2 % (37.0-80.0); Platelet Count 254 K/mm3 (142-424); Red Blood Count 4.36 M/mm3 (4.20-5.40); Red Cell Distribution Width 17.1 % (11.5-17.5); White Blood Count 10.9 K/mm3 (4.8-10.8)
--- NOTE | 2024-02-28 08:07 | EXP.PHA.PN ---
Subjective *Date: 02/28/24 *Time: 08:07 Medical Exam Vital signs and Labs for Last 24 Hours: Vital Signs Temp Pulse Pulse Resp BP Pulse Ox O2 Del Method 02/28/24 07:56 96.8 F L 02/28/24 06:51 Nasal Cannula 02/28/24 06:44 72 02/28/24 06:44 72 02/28/24 06:44 98 Nasal Cannula 02/28/24 05:00 Nasal Cannula 02/28/24 04:00 82 02/28/24 04:00 98.0 F 02/28/24 03:00 Nasal Cannula 02/28/24 01:00 Nasal Cannula 02/28/24 00:00 72 02/28/24 00:00 98.0 F 76 20 149/76 H 94 L Nasal Cannula 02/28/24 00:00 75 02/28/24 00:00 74 02/28/24 00:00 93 L Nasal Cannula 02/27/24 23:00 Nasal Cannula 02/27/24 21:00 Nasal Cannula 02/27/24 20:00 85 02/27/24 20:00 91 L Nasal Cannula 02/27/24 20:00 98.2 F 02/27/24 18:45 Nasal Cannula 02/27/24 18:14 85 02/27/24 18:14 85 02/27/24 18:14 92 L Nasal Cannula 02/27/24 17:10 Nasal Cannula 02/27/24 16:00 89 20 138/79 91 L Nasal Cannula 02/27/24 16:00 90 02/27/24 16:00 98.8 F 02/27/24 15:55 Nasal Cannula 02/27/24 15:10 Nasal Cannula 02/27/24 13:05 Nasal Cannula 02/27/24 13:00 98.8 F 82 16 145/77 H 95 Nasal Cannula 02/27/24 12:00 90 02/27/24 12:00 84 14 145/77 H 97 Nasal Cannula 02/27/24 11:15 Nasal Cannula 02/27/24 11:11 85 02/27/24 11:11 82 02/27/24 11:11 98 Nasal Cannula 02/27/24 11:00 83 16 129/69 98 Nasal Cannula 02/27/24 10:00 86 18 146/81 H 98 Nasal Cannula 02/27/24 09:15 Nasal Cannula 02/27/24 09:00 87 18 142/72 H 97 Nasal Cannula 02/27/24 08:10 98 Nasal Cannula O2 Flow Rate 02/28/24 07:56 02/28/24 06:51 2 02/28/24 06:44 02/28/24 06:44 02/28/24 06:44 2 02/28/24 05:00 2 02/28/24 04:00 02/28/24 04:00 02/28/24 03:00 2 02/28/24 01:00 2 02/28/24 00:00 02/28/24 00:00 2 02/28/24 00:00 02/28/24 00:00 02/28/24 00:00 2 02/27/24 23:00 2 02/27/24 21:00 1 02/27/24 20:00 02/27/24 20:00 1 02/27/24 20:00 02/27/24 18:45 2 02/27/24 18:14 02/27/24 18:14 02/27/24 18:14 2 02/27/24 17:10 2 02/27/24 16:00 2 02/27/24 16:00 02/27/24 16:00 02/27/24 15:55 02/27/24 15:10 2 02/27/24 13:05 2 02/27/24 13:00 2 02/27/24 12:00 02/27/24 12:00 2 02/27/24 11:15 2 02/27/24 11:11 02/27/24 11:11 02/27/24 11:11 2 02/27/24 11:00 2 02/27/24 10:00 2 02/27/24 09:15 2 02/27/24 09:00 2 02/27/24 08:10 2 Intake and Output 02/27/24 02/28/24 02/28/24 23:59 07:59 15:59 Intake Total 360 / 459 Output Total 525 / 2575 250 / 250 Balance -165 / -2116 -250 / -250 Intake: Intake, Oral Amount 360 / 360 Output: Output, Urine Amount 525 / 2400 250 / 250 Other: Number of Unmeasured Voids 1 Number of Bowel Movements 1 Weight 256.6 kg Patient Weight 02/28/24 23:59 Weight 256.6 kg Laboratory Results - last 24 hr 02/27/24 11:46: POC Glucose 88 02/27/24 21:14: POC Glucose 82 02/28/24 05:29: WBC 10.9 H, RBC 4.36, Hgb 10.9 L, Hct 36.0 L, MCV 82.6, MCH 24.9 L, MCHC 30.1 L, RDW 17.1, Plt Count 254, MPV 9.9, Neut % (Auto) 63.2, Lymph % (Auto) 24.5, Pima % (Auto) 6.8, Eos % (Auto) 4.5, Baso % (Auto) 1.0, Neut # (Auto) 6.9, Lymph # (Auto) 2.7, Pima # (Auto) 0.8, Eos # (Auto) 0.5 H, Baso # (Auto) 0.1, Sodium 141, Potassium 4.0, Chloride 102, Carbon Dioxide 37 H, Anion Gap 6.0, BUN 20 H D, Creatinine 0.70, Estimated Creat Clear 46, Estimated GFR 83, Est GFR ( Amer) 100, Glucose 98, Calcium 8.6, Magnesium 2.1, Total Bilirubin 0.4, AST 37 H, ALT 28 D, Alkaline Phosphatase 58, Total Protein 6.4, Albumin 3.1 L, Globulin 3.3 H, Albumin/Globulin Ratio 0.9 L 02/28/24 05:36: POC Glucose 104 I & O for Labs for Last 24 Hours: Intake & Output 02/25/24 02/26/24 02/27/24 02/28/24 23:59 23:59 23:59 23:59 Intake Total 2609.102 / 2609.102 1009.209 / 1009.209 459 / 459 Output Total 1040 / 1105 2290 / 2320 2575 / 2575 250 / 250 Balance 1569.102 / 1504.102 -1280.791 / -1310.791 -2116 / -2116 -250 / -250 Weight 124.738 kg 124.9 kg 119.096 kg 256.6 kg Microbiology Reports for the Last 24 Hours: Microbiology 02/25/24 17:07 Nose - Nasal MRSA Culture - Final 02/25/24 10:30 Blood Blood Culture - Preliminary 02/25/24 12:05 Sputum - Endotracheal Tube Aspirate - Final Not Reportable 02/25/24 12:05 Sputum - Endotracheal Tube Aspirate - Final Not Reportable 02/25/24 12:05 Sputum - Endotracheal Tube Aspirate - Final Not Reportable 02/25/24 12:05 Sputum - Endotracheal Tube Aspirate - Final Not Reportable 02/25/24 12:05 Sputum - Endotracheal Tube Aspirate - Final Not Reportable 02/25/24 12:05 Sputum - Endotracheal Tube Aspirate Gram Stain - Final 02/25/24 12:05 Sputum - Endotracheal Tube Aspirate Sputum Culture - Final 02/25/24 10:45 Blood Blood Culture - Preliminary NO GROWTH AFTER 48 HOURS 02/25/24 10:42 Urine,Catheterized Urine Culture - Final Escherichia coli The patient's infection will respond to the chosen ABx?: Yes Is the patient receiving the right drug, dose, and route?: Yes Could a more targeted ABx be ordered?: No (ECOLI IN URINE-SENS TO CEFEPIME. WBC DECREASED, AFEBRILE.)
[2024-02-28] MEDS: CEFEPIME HCL 2 GM in 0.9 % SODIUM CHLORIDE 100 ML IV ×2 (08:45→20:20)
[2024-02-28] MEDS: FUROSEMIDE 40MG/4ML VIAL 40 MG IV (08:45)
[2024-02-28] MEDS: DOCUSATE SODIUM 10 ML/UDC UDC PO ×2 (08:45→20:20)
[2024-02-28] MEDS: APIXABAN 5MG TABLET 5 MG PO ×2 (08:45→20:20)
[2024-02-28] MEDS: BACITRACIN ZINC OINT 30GM TUBE TP ×3 (08:52→20:20)
--- NOTE | 2024-02-28 09:27 | XR_ITS ---
FINAL REPORT CLINICAL HISTORY: possible aspiration COMPARISON: 02/26/2024 FINDINGS: A single portable view of the chest was obtained. The patient is rotated to the right. The endotracheal tube has been removed. The heart is enlarged and there is mild pulmonary vascular congestion. The mediastinum is within normal limits. There are persistent but partially improved bibasilar opacities consistent with atelectasis or pneumonia. The bony thorax is intact. IMPRESSION: Partially improved bibasilar opacities. Reviewed, Interpreted and Dictated by Joseph Lerma III, MD Transcribed by Era Jaramillo Authenticated and [facility]
--- NOTE | 2024-02-28 09:30 | FL_ITS ---
FINAL REPORT CLINICAL HISTORY: aspiration risk 3.48 min 40.10 mGy dap: 652.04 uGym FINDINGS: MODIFIED BARIUM SWALLOW History: Dysphagia. FINDINGS: Fluoroscopy was provided for the speech pathologist to evaluate the swallowing mechanism. The patient was given several different consistencies of barium while the swallow was visualized fluoroscopically. The report of the speech pathologist should be consulted prior to making dietary decisions. Fluoro time: 3 minutes 48 seconds DAP: 652.04 uGy.m2 Radiation exposure in Reference air Kerma: 40.10 mGy. IMPRESSION: Modified barium swallow under fluoroscopic guidance. Please see the report of the speech pathologist for more detail. Films reviewed, interpreted and dictated by Dr. Asif. Transcribed by Luca Sanchez PA-C. Reviewed, Interpreted and Dictated by Ar Asif MD Transcribed by SAMUEL Mallory Authenticated and [facility]
--- NOTE | 2024-02-28 10:57 | EXP.PHA.CONS ---
Pharmacy Consult Date: 02/28/24 Time: 10:57 Referring provider: DR. LEE Reason for Consult:: VANCOMYCIN DOSING Allergies Allergy/AdvReac Type Severity Reaction Status Date / Time Penicillins Allergy Intermediate Verified 08/01/23 16:12 Sulfa (Sulfonamide Allergy Intermediate Verified 08/01/23 16:13 Antibiotics) Home Medications ?Medication ?Instructions ?Recorded ?Confirmed ?Type acetaminophen 500 mg tablet 1,000 mg PO Q6H PRN PAIN/FEVER 02/25/24 02/25/24 History albuterol sulfate 90 mcg/actuation 2 inh inhalation QID PRN SOA 02/25/24 02/25/24 History breath activated powder inhaler apixaban 5 mg tablet (Eliquis) 5 mg PO BID HX EMBOLISM & 02/25/24 02/25/24 History THROMBOSIS ascorbic acid (vitamin C) 500 mg 500 mg PO DAILY Supplement 02/25/24 02/25/24 History tablet aspirin 81 mg chewable tablet 81 mg PO DAILY PVD 02/25/24 02/25/24 History carvedilol 25 mg tablet 25 mg PO BID HTN 02/25/24 02/25/24 History clonidine HCl 0.2 mg tablet 0.2 mg PO BID 02/25/24 02/25/24 History cyanocobalamin (vitamin B-12) 100 100 mcg PO DAILY DEFICIENCY 02/25/24 02/25/24 History mcg tablet dextran 70-hypromellose (PF) 0.1 1 drp ophthalmic (eye) QID 02/25/24 02/25/24 History %-0.3 % eye drops in a dropperette SUPERIOR LIMBIC KARATITIS (Artificial Tears (PF)) docusate sodium 100 mg capsule 100 mg PO HS Constipation 02/25/24 02/25/24 History empagliflozin 10 mg tablet 10 mg PO DAILY DM 02/25/24 02/25/24 History (Jardiance) ergocalciferol (vitamin D2) 1,250 1,250 mcg PO WEEKLY 02/25/24 02/25/24 History mcg (50,000 unit) capsule fluticasone 250 mcg-salmeterol 50 1 inh inhalation BID Copd 02/25/24 02/25/24 History mcg/dose blistr powdr for inhalation (Wixela Inhub) furosemide 40 mg tablet 40 mg PO DAILY 02/25/24 02/25/24 History ipratropium 0.5 mg-albuterol 3 mg 3 ml inhalation Q8H PRN 02/25/24 02/25/24 History (2.5 mg base)/3 mL nebulization SOA/WHEEZING soln metformin 1,000 mg tablet 1,000 mg PO BID DM 02/25/24 02/25/24 History omeprazole 20 mg capsule,delayed 20 mg PO DAILY GERD 02/25/24 02/25/24 History release ondansetron HCl 4 mg tablet 4 mg PO Q6H PRN Nausea 02/25/24 02/25/24 History sacubitril 24 mg-valsartan 26 mg 1 tab PO BID CHF 02/25/24 02/25/24 History tablet (Entresto) spironolactone 50 mg tablet 50 mg PO DAILY CHF 02/25/24 02/25/24 History tizanidine 2 mg capsule 2 mg PO Q8H PRN MUSCLE SPASMS 02/25/24 02/25/24 History vibegron 75 mg tablet 75 mg PO DAILY OVERACTIVE BLADDER 02/25/24 02/25/24 History New Prescriptions to Start Prescriptions: Height: 1.65 m Weight: 256.6 kg Laboratory Results:: Laboratory Results - last 24 hr 02/27/24 11:46: POC Glucose 88 02/27/24 21:14: POC Glucose 82 02/28/24 05:29: WBC 10.9 H, RBC 4.36, Hgb 10.9 L, Hct 36.0 L, MCV 82.6, MCH 24.9 L, MCHC 30.1 L, RDW 17.1, Plt Count 254, MPV 9.9, Neut % (Auto) 63.2, Lymph % (Auto) 24.5, [place] % (Auto) 6.8, Eos % (Auto) 4.5, Baso % (Auto) 1.0, Neut # (Auto) 6.9, Lymph # (Auto) 2.7, [place] # (Auto) 0.8, Eos # (Auto) 0.5 H, Baso # (Auto) 0.1, Sodium 141, Potassium 4.0, Chloride 102, Carbon Dioxide 37 H, Anion Gap 6.0, BUN 20 H D, Creatinine 0.70, Estimated Creat Clear 46, Estimated GFR 83, Est GFR ( Amer) 100, Glucose 98, Calcium 8.6, Magnesium 2.1, Total Bilirubin 0.4, AST 37 H, ALT 28 D, Alkaline Phosphatase 58, Total Protein 6.4, Albumin 3.1 L, Globulin 3.3 H, Albumin/Globulin Ratio 0.9 L 02/28/24 05:36: POC Glucose 104 Medical History: Medical History (Updated 02/27/24 @ 18:44 by Feliz Lee MD) Overactive bladder Morbid obesity due to excess calories Diabetes mellitus Congestive heart failure PVD (peripheral vascular disease) History of thrombosis History of embolism Venous insufficiency (chronic) (peripheral) Functional quadriplegia HTN (hypertension) Vitamin D deficiency COPD (chronic obstructive pulmonary disease) Shock On mechanically assisted ventilation Acute hypercapnic respiratory failure Assessment and Plan Assessment and plan all Dx Assessment and Plan for all problems:: Pharmacokinetic dosing service Objective: Patient: Floor: Age: 68 yo Serum creatinine: 1 mg/dL Height: 65.0 Inches Weight (kg): 114 Assessment: IBW (kg): 57.00 Dosing wt(kg): 114 Estimated Creatinine clearance (ml/min): 47.8 CRCL method: Cockcroft and Gault using ibw(default). Drug selected: Vancomycin Loading dose (mg): 0 Vd (liters): 91.2 (factor used: 0.8 L/kg) Obed (hr-1): 0.044 Half life (hrs): 15.75 Recommended dose: 2250 mg Interval: 24 hrs Infusion time (hrs): 2.0 Predicted peak (mcg/mL): 36.2 Predicted trough (mcg/mL): 13.75 Total body weight is being used for vancomycin dosing. Recommendations: Give Vancomycin 2250 mg q 24 hrs with an expected Cpeak of 36.2 mcg/ml and an expected Ctrough of 13.75 mcg/ml ----Vanco only - ignore for aminoglycosides----- CLvanco= 4.01 L/hr AUC 0-24 /MARGOT Data: MARGOT 0.5 mcg/mL: AUC/MARGOT: 1122.2 MARGOT 1.0 mcg/mL: AUC/MARGOT: 561.1 --------- MARGOT 1.5 mcg/mL: AUC/MARGOT: 374.1 MARGOT 2.0 mcg/mL: AUC/MARGOT: 280.5 Signature:
[2024-02-28] MEDS: BARIUM SULFATE(LIQUID E-Z-PAQUE);355ML BOTTLE 355 ML PO (11:41)
[2024-02-28] MEDS: FLUTICASONE/UMECLIDIN/VILANTER 100/62.5/25MCG INHALER 1 PUFF IH (11:41)
[2024-02-28] MEDS: VANCOMYCIN HCL 2,250 MG in 0.9 % SODIUM CHLORIDE 250 ML 125 MG IV (11:54)
--- NOTE | 2024-02-28 12:45 | P.PN_ITS ---
Subjective *Date: 02/28/24 *Time: 13:53 Interval history: Had an episode this morning of some choking. Required increasing oxygen to 4 L. Able to wean back down to 1 L over the course the morning. Taken for modified barium swallow. Remains afebrile. No omar emesis. Interactive on exam. Medical Exam Vital signs and Labs for Last 24 Hours: Vital Signs Temp Pulse Pulse Resp BP Pulse Ox O2 Del Method 02/28/24 12:00 98.2 F 81 22 126/69 91 L Nasal Cannula 02/28/24 09:00 Nasal Cannula 02/28/24 08:00 Nasal Cannula 02/28/24 07:56 96.8 F L 02/28/24 06:51 Nasal Cannula 02/28/24 06:44 72 02/28/24 06:44 72 02/28/24 06:44 98 Nasal Cannula 02/28/24 05:00 Nasal Cannula 02/28/24 04:00 82 02/28/24 04:00 98.0 F 02/28/24 03:00 Nasal Cannula 02/28/24 01:00 Nasal Cannula 02/28/24 00:00 72 02/28/24 00:00 98.0 F 76 20 149/76 H 94 L Nasal Cannula 02/28/24 00:00 75 02/28/24 00:00 74 02/28/24 00:00 93 L Nasal Cannula 02/27/24 23:00 Nasal Cannula 02/27/24 21:00 Nasal Cannula 02/27/24 20:00 85 02/27/24 20:00 91 L Nasal Cannula 02/27/24 20:00 98.2 F 02/27/24 18:45 Nasal Cannula 02/27/24 18:14 85 02/27/24 18:14 85 02/27/24 18:14 92 L Nasal Cannula 02/27/24 17:10 Nasal Cannula 02/27/24 16:00 89 20 138/79 91 L Nasal Cannula 02/27/24 16:00 90 02/27/24 16:00 98.8 F 02/27/24 15:55 Nasal Cannula 02/27/24 15:10 Nasal Cannula 02/27/24 13:05 Nasal Cannula 02/27/24 13:00 98.8 F 82 16 145/77 H 95 Nasal Cannula O2 Flow Rate 02/28/24 12:00 1 02/28/24 09:00 2 02/28/24 08:00 2 02/28/24 07:56 02/28/24 06:51 2 02/28/24 06:44 02/28/24 06:44 02/28/24 06:44 2 02/28/24 05:00 2 02/28/24 04:00 02/28/24 04:00 02/28/24 03:00 2 02/28/24 01:00 2 02/28/24 00:00 02/28/24 00:00 2 02/28/24 00:00 02/28/24 00:00 02/28/24 00:00 2 02/27/24 23:00 2 02/27/24 21:00 1 02/27/24 20:00 02/27/24 20:00 1 02/27/24 20:00 02/27/24 18:45 2 02/27/24 18:14 02/27/24 18:14 02/27/24 18:14 2 02/27/24 17:10 2 02/27/24 16:00 2 02/27/24 16:00 02/27/24 16:00 02/27/24 15:55 02/27/24 15:10 2 02/27/24 13:05 2 02/27/24 13:00 2 Intake and Output 02/27/24 02/28/24 02/28/24 23:59 07:59 15:59 Intake Total 360 / 459 150 / 150 Output Total 525 / 2575 250 / 251 1 251 Balance -165 / -2116 -250 / -101 149 / -101 Intake: Intake, Oral Amount 360 / 360 150 / 150 Output: Output, Urine Amount 525 / 2400 250 / 251 1 251 Other: Number of Unmeasured Voids 1 550 Number of Bowel Movements 1 Weight 256.6 kg 256.6 kg Patient Weight 02/28/24 23:59 Weight 256.6 kg Laboratory Results - last 24 hr 02/27/24 21:14: POC Glucose 82 02/28/24 05:29: WBC 10.9 H, RBC 4.36, Hgb 10.9 L, Hct 36.0 L, MCV 82.6, MCH 24.9 L, MCHC 30.1 L, RDW 17.1, Plt Count 254, MPV 9.9, Neut % (Auto) 63.2, Lymph % (Auto) 24.5, [place] % (Auto) 6.8, Eos % (Auto) 4.5, Baso % (Auto) 1.0, Neut # (Auto) 6.9, Lymph # (Auto) 2.7, [place] # (Auto) 0.8, Eos # (Auto) 0.5 H, Baso # (Auto) 0.1, Sodium 141, Potassium 4.0, Chloride 102, Carbon Dioxide 37 H, Anion Gap 6.0, BUN 20 H D, Creatinine 0.70, Estimated Creat Clear 46, Estimated GFR 83, Est GFR ( Amer) 100, Glucose 98, Calcium 8.6, Magnesium 2.1, Total Bilirubin 0.4, AST 37 H, ALT 28 D, Alkaline Phosphatase 58, Total Protein 6.4, Albumin 3.1 L, Globulin 3.3 H, Albumin/Globulin Ratio 0.9 L 02/28/24 05:36: POC Glucose 104 I & O for Labs for Last 24 Hours: Intake & Output 02/25/24 02/26/24 02/27/24 02/28/24 23:59 23:59 23:59 23:59 Intake Total 2609.102 / 2609.102 1009.209 / 1009.209 459 / 459 150 / 150 Output Total 1040 / 1105 2290 / 2320 2575 / 2575 251 / 251 Balance 1569.102 / 1504.102 -1280.791 / -1310.791 -2116 / -2116 -101 / -101 Weight 124.738 kg 124.9 kg 119.096 kg 256.6 kg Microbiology Reports for the Last 24 Hours: Microbiology 02/25/24 10:30 Blood Blood Culture - Preliminary Staphylococcus capitis 02/25/24 17:07 Nose - Nasal MRSA Culture - Final 02/25/24 12:05 Sputum - Endotracheal Tube Aspirate - Final Not Reportable 02/25/24 12:05 Sputum - Endotracheal Tube Aspirate - Final Not Reportable 02/25/24 12:05 Sputum - Endotracheal Tube Aspirate - Final Not Reportable 02/25/24 12:05 Sputum - Endotracheal Tube Aspirate - Final Not Reportable 02/25/24 12:05 Sputum - Endotracheal Tube Aspirate - Final Not Reportable 02/25/24 12:05 Sputum - Endotracheal Tube Aspirate Gram Stain - Final 02/25/24 12:05 Sputum - Endotracheal Tube Aspirate Sputum Culture - Final 02/25/24 10:45 Blood Blood Culture - Preliminary NO GROWTH AFTER 48 HOURS 02/25/24 10:42 Urine,Catheterized Urine Culture - Final Escherichia coli Constitutional: Present mild distress, morbidly obese, chronically ill appearing and cooperative Head: Present atraumatic and normocephalic ENT: Present normal exam Comment:: Small skin tear left cheek Respiratory: Present accessory muscle use and prolonged expiratory phase; Absent rhonchi, wheezes or crackles Cardiac: Present Reg Rate and Rhythm GI: Present soft and normal bowel sounds; Absent distention or tenderness Extremities: Present normal inspection, full ROM and edema (Trace in bilateral lower extremities, stasis changes in legs) Skin: Present intact and rash; Absent erythema Neuro: Present Grossly Intact, alert, awake and moves all extremities Assessment and Plan *Assessment and plan (1) Septic shock: Status: Resolved Category: Medical Code(s): A41.9 - Sepsis, unspecified organism; R65.21 - Severe sepsis with septic shock (2) Acute hypercapnic respiratory failure: Status: Acute Category: Medical Code(s): J96.02 - Acute respiratory failure with hypercapnia (3) Pneumonia: Status: Acute Category: Medical Code(s): J18.9 - Pneumonia, unspecified organism (4) On mechanically assisted ventilation: Status: Resolved Category: Medical Code(s): Z99.11 - Dependence on respirator [ventilator] status (5) COPD (chronic obstructive pulmonary disease): Status: Acute Category: Medical Code(s): J44.9 - Chronic obstructive pulmonary disease, unspecified (6) HTN (hypertension): Status: Acute Category: Medical Code(s): I10 - Essential (primary) hypertension (7) Congestive heart failure: Status: Acute Category: Medical Code(s): I50.9 - Heart failure, unspecified (8) Diabetes mellitus: Status: Acute Category: Medical Code(s): E11.9 - Type 2 diabetes mellitus without complications (9) Morbid obesity due to excess calories: Status: Acute Category: Medical Code(s): E66.01 - Morbid (severe) obesity due to excess calories (10) Overactive bladder: Status: Acute Category: Medical Code(s): N32.81 - Overactive bladder Plan 68-year-old female who [facility] after being found unresponsive and hypoxic. On presentation, and hypercapnic respiratory failure with septic shock. Intubated in the ER. Admitted to the ICU for further management. Discussed case with ER physician, request admission for mechanical ventilation management, treatment of septic shock, continued hemodynamic stability support. I agreed to admit for further management. Extubated 02/25. Patient showing improvement this morning with ability to wean oxygen. Interacting with staff. Blood pressure remains normal. Continues to require inpatient management today. Therapy and speech working with patient. Problems addressed as follows: Septic shock, resolved -Blood pressure normalizing, continue to hold blood pressure medications. -Source of infection so far appears to be urine versus pneumonia -White count normalized to 10.9. No signs of bleeding. Hemoglobin 10.9. - Kidney function electrolytes normal with BUN 20, creatinine 0.7. Hypercapnic and hypoxemic respiratory failure Lower lobe pneumonia - Pantoprazole 40 mg nightly -Home apixaban 5 mg twice daily -Continue supplemental oxygen as needed for goal sats greater 90%. - will continue vancomycin and cefepime pending blood and tracheal aspirates. -Continue DuoNebs every 6 hours - Echo with normal LV function. Moderate reduction in RV function. - Continue Lasix 40 mg IV daily. UTI: Urine growing E. coli, sensitive to cephalosporins. Will continue cefepime as above. Repeat CBC, CMP, magnesium ordered for the morning Hypertension: In the setting of hypotension and shock, holding home clonidine, carvedilol, aspirin, Jardiance, Entresto, spironolactone; reevaluate resuming tomorrow if blood pressure remains stable. Docusate liquid daily Diabetic: A1c 6.4. Continue sliding scale insulin with fingersticks every 6 hours Discussed case with speech, modified barium performed today. No omar aspiration. Having food pooling in vallecula. Recommend modified diet. See note for full details. Full code Modified diet apixaban 5 mg twice daily
[2024-02-28 13:40] LABS: POC Glucose,Bedside 110 (70-110)
--- NOTE | 2024-02-28 14:48 | HMH.SLMBS2 ---
Speech & Language Evaluation Speech/Language Mod Barium Swallow Start: 02/28/24 09:30 Freq: ONCE Status: Complete Protocol: Document 02/28/24 14:35 LANI (Rec: 02/28/24 14:48 LANI Laptop) General Information General Current Food Consistancy Mechanical Soft,Thin Liquids Dentition Edentulous Oxygen Status Nasal Cannula Patient Orientation Person,Place,Time Ability to Follow Directions Good Communication Ability No Impairment MBS Recommendations Diet Dietary Recommendations Mechanical Soft,Chopped Meats, Thin Liquids Treatment/Strategies Strategy/Precaution Recommend Sitting Upright (90 deg),Chin Tuck,Double Swallow,Small Bites and Sips,Alternate Liquids/Solids Mod Barium Swallow Impressions Summary and Impressions Oral Phase Impression Mild Impairment Oral Phase Summary Mild to Moderate impairment at the oral preparatory and oral transit phase of the swallow 2' prolonged mastication and manipulation of presented bolus, as well as notable scattered loss throughout the oral cavity and under the tongue with solid trials. Pt was observed to have residuals on tongue following trials of pudding/puree and both MS and regular solid trials. Pharyngeal Phase Impression Moderate Impairment Pharyngeal Phase Summary Moderate impairment of the pharyngeal phase of the swallow. Pt exhibits delayed swallow times with premature spillage resulting in A/P spills. Pt has trace residuals noted in the vallecular space across all presented trials during the MBSS. Pt exhibited no s/sxs of aspiration throughout the instrumental assessment. However, with regular solids, given patient' s prolonged mastication time combined with delayed swallow, in relation to her premature spillage and the A/P spills created pooling of regular solid trials in vallecula in which she required multiple swallows with implementation of a chin tuck to clear. Overall, when instructed to complete double effortful swallow and a chin tuck with solids, she is able to tolerate. Given her nonpreference to wearing dentures during meal and difficulty with mastication safest recommended diet continues to be mechanical soft with thin liquids at this time. Speech/Language MBS Assessment/Goals/Plan Assessment Date of Evaluation: 02/28/24 Evaluation Type Initial Certification Assessment/Problems concerns for aspiration per MD order Does Patient Qualify for Service No Qualify/Failure Comment Based on results of instrumental assessment of swallow (MBSS), no further skilled speech therapy services are warranted at this time. [employer]QUIPMENT MECH[employer]IC will f/u as needed. Recommendations PHYSICIAN CERTIFICATION: The specified therapy services are required, authorized, and reviewed every 30 days. SL Swallow Guidelines Alt bite w/sip thru meal,High aspiration risk Dysphagia Swallow Precautions/Strategies Sitting Upright (90 deg),Chin Tuck,Double Swallow,Small Bites and Sips,Alternate Liquids/Solids Plan Pt/Guardian verbally ack understanding Yes of dx/prognosis/goals G -code Required No Education Instructions provided Discussed results of MBSS, diet recommendations, aspiration risks/precautions, and compensatory strategies with pt, nursing, and MD all of which expressed understanding. Pt/Caregiver able to recall information Able to recall/restate Reinforcement needed No Mod Barium Swallow Setup Exam Setup Radiologist Joseph Lerma Level of Consciousness Awake,Alert,Appropriate, Follows Commands Mod Barium Swallow-Lat View Textures Lateral View Food Presentation Thin Liquid via Cup,Thin Liquid via Straw,Pureed Food- Thin,Mech. Soft Food- Regular, Barium Tablet,Regular Food, Pudding Oral Phase Labial Closure No Impairment (WFL) Bolus Formation Pooling L/R Minimal Impairment Bolus Formation under Tongue Moderate Impairment Bolus Formation Scattered Loss Moderate Impairment Mastication Rotary Chew Mild Impairment Mastication Munching Mild Impairment Mastication Lateralization Mild Impairment Lingual Movement Mild Impairment Residue Clearing Moderate Impairment Pharyngeal Phase A/P Lingual Propulsion Spills Moderate Impairment Swallow Response Delay Moderate Impairment Base of Tongue Mild Impairment Epiglottic Coverage Mild Impairment Laryngeal Elevation Mild Impairment Vallecular Retention Clearing Moderate Impairment Pharyn. Wall Residue Clearing Minimal Impairment Piriform Sinus Retention Minimal Impairment Aspiration? No Silent aspiration? No Mod Barium Swallow-AP View Performed Mod Barium Swallow A/P View Test Not Applicable/Performed PHYSICIAN CERTIFICATION: I certify the specified therapy services for Gabriela Newton are required, authorized, and reviewed every 30 days.
[2024-02-28 16:09] LABS: POC Glucose,Bedside 143 (70-110)
[2024-02-28] MEDS: PANTOPRAZOLE 40MG VIAL 40 MG IV (20:21)
[2024-02-28] MEDS: SODIUM CHLORIDE 0.9% 10ML VIAL 10 ML IV (20:21)
[2024-02-28 20:48] LABS: POC Glucose,Bedside 110 (70-110)
[2024-02-29] VITALS: BP 121/68; PULSE 77; PULSE 83; RESP 18; TEMP 36.9; O2SAT 95
[2024-02-29 04:00] VITALS: BP 120/67; PULSE 74; PULSE 78; RESP 17; TEMP 36.7; O2SAT 98; BMI 42.0
[2024-02-29 05:44] LABS: POC Glucose,Bedside 109 (70-110)
[2024-02-29 07:12] LABS: Albumin Level 3.2 g/dl (3.5-5.0); Chloride 102 mmol/L (98-107); Potassium 3.7 mmoL/L (3.5-5.1); Sodium 141 mmol/L (136-145)
[2024-02-29 07:15] LABS: Alanine Aminotransferase 31 U/L (12-78); Albumin/Globulin Ratio 0.9 (1.1-1.8); Alkaline Phosphatase 64 U/L (38-126); Anion Gap 4.7 mEq/L (5-15); Aspartate Amino Transferase 33 U/L (14-36); Bilirubin,Total 0.4 mg/dl (0.2-1.3); Blood Urea Nitrogen 16 mg/dl (7-17); Carbon Dioxide 38 mmol/L (22.0-30.0); Creatinine Clearance Estimated 46 mL/min (50-200); Estimated Glomerular Filt Rate 99 ml/min (>60); GFR (African American) 120 ML/MIN (>60); Globulin 3.5 g/dL (1.3-3.2); Total Protein,Serum 6.7 g/dl (6.3-8.2)
[2024-02-29 07:16] LABS: Calcium 8.6 mg/dl (8.4-10.2); Glucose 139 mg/dl (74-100)
[2024-02-29 07:27] LABS: Basophils # 0.2 K/mm3 (0-0.2); Basophils % 1.3 % (0.1-2.0); Eosinophils # 0.6 K/mm3 (0.0-0.4); Eosinophils % 5.4 % (0.1-12.0); Hematocrit 34.4 % (37.0-47.0); Hemoglobin 10.5 g/dL (12.2-16.2); Lymphocytes # 2.8 K/mm3 (0.7-4.5); Lymphocytes % 25.4 % (10-50); Mean Corpuscular HGB Conc 30.6 g/dL (31.8-35.4); Mean Corpuscular Hemoglobin 25.6 pg (27.0-31.2); Mean Corpuscular Volume 83.7 fl (81-99); Mean Platelet Volume 8.8 fl (7.4-10.4); Monocytes # 0.6 K/mm3 (0.1-1.0); Monocytes % 5.3 % (1.7-9.3); Neutrophils % 62.5 % (37.0-80.0); Platelet Count 271 K/mm3 (142-424); Red Blood Count 4.11 M/mm3 (4.20-5.40); Red Cell Distribution Width 17.1 % (11.5-17.5); White Blood Count 11.1 K/mm3 (4.8-10.8)
[2024-02-29 08:00] VITALS: BP 161/77; PULSE 80; PULSE 87; RESP 19; TEMP 36.7; O2SAT 96
--- NOTE | 2024-02-29 08:14 | P.DS_ITS ---
General Admission date:: 02/25/24 Discharge date: 02/29/24 HPI HPI HPI: Ms. Newton is a 68-year-old female who resides at [facility]. She is brought to the ER via EMS due to concern for being unresponsive at her residential. Patient has a history of COPD, hypertension, diabetes, blood clots. On arrival to the residential, EMS stated the patient was unresponsive and had an elevated end-tidal CO2. Also found to be hypoxic. No reported trauma. Occasionally wears oxygen at the residential per report. Unable to obtain any history from patient. On arrival to the ER, found to be in hyperc apnic and hypoxemic respiratory failure. Blood pressure soft. Was unresponsive to BiPAP. Necessitated intubation due to inability to produce significant tidal volumes on noninvasive positive pressure ventilation. After intubation, patient became frankly hypotensive. Meeting criteria for septic shock with her leukocytosis, for possible pneumonia, tachycardia, hypotension not responsive to fluids. Initiated on norepinephrine. Medicine consulted for admission. Upon arrival to the floor, patient was evaluated. Had a bradycardic episode upon transfer from her stretcher to ICU bed. EKG obtained, personally reviewed showing sinus bradycardia with inferior lead T wave inversions. Initial troponin obtained, less than 0.03. Patient's blood pressure showing some improvement on norepinephrine. Currently sedated on fentanyl and Versed, will transition to propofol for ICU. Pulmonology consulted to assist with care. Hospital Course Hospital Course Hospital Course: 68-year-old female who presented to the ER from her residential after being found unresponsive and hypoxic. On presentation, and hypercapnic respiratory failure with septic shock. Intubated in the ER. Admitted to the ICU for further management. Discussed case with ER physician, request admission for mechanical ventilation management, treatment of septic shock, continued hemodynamic stability support. I agreed to admit for further management. Extubated 02/25. Patient showing gradual treatment. Urine growing E. coli. Improved to the point she stable to discharge back to her residential for further management. Problems addressed as follows: Septic shock, resolved -Presented with hypotension and sepsis. Patient was initially on Levophed. Showed improvement over the first 24 hours and was able to gradually wean off Levophed. Blood pressure medications have been held since admission. Workup for infection has shown concern for UTI as well as pneumonia. White count normalized from 21 to approximately 11. Hemoglobin showing anemia but stable. No fever in over 48 hours prior to discharge. Kidney function has normalized. Shock has overall resolved. Was intubated on arrival due to hypercapnic failure and septic shock. Showed good improvement and response to vent. Able to wean sedation and vent for extubation on 02/25. Has done well since with ability to wean supplemental oxygen. Improved O2 sats during the day, able to be on room air for short periods of time. Recommend continuing to wean at nursing facility. 2 L oxygen at night as needed and during the day. Hypercapnic and hypoxemic respiratory failure Lower lobe pneumonia -Presented with hypercapnic respiratory failure necessitating intubation. Chest imaging concerning for edema versus pneumonia. Initiated on broad-spectrum antibiotics. Gradually weaned based on urine culture and nasal MRSA swab. Will complete 7-day course with doxycycline. Continue 100 mg orally twice daily. Weaned to baseline oxygen. Echo obtained during admission showing normal LV function with moderate reduction in RV function. Has been tolerating Lasix 40 mg IV daily. Continue p.o. Lasix daily. Continue DuoNebs every 6 hours. Continue home apixaban 5 mg twice daily. -Of note was evaluated by speech due to concern for aspiration risk and choking. Patient has difficulty swallowing but does not have omar aspiration. See their notes for full details. Speech recommended modified diet after her modified barium swallow. Having pooling on the vallecula but no omar aspiration. -Hypercapnia resolved. UTI: Urine growing E. coli, sensitive to cephalosporins and tetracycline. Treated with cefepime during admission. Antibiotics switched to doxycycline to complete course for coverage of respiratory source as well as above. Stable to discharge back to nursing facility for further management. Hypertension: In the setting of hypotension and shock, held home clonidine, carvedilol, aspirin, Jardiance, Entresto, spironolactone; adjustments made to medication regimen. See med rec for full details. Diabetic: A1c 6.4. Sliding scale insulin during admission. Resume Jardiance and metformin upon discharge. Total time spent on discharge 38 minutes in counseling, documentation, chart review, and direct care with patient. Exam Data for Last 24 hours Vital signs and Labs for Last 24 Hours: Temp Pulse Resp BP Pulse Ox O2 Del Method O2 Flow Rate 98.1 F 78 17 120/67 98 Nasal Cannula 3 02/29/24 04:00 02/29/24 04:00 02/29/24 04:00 02/29/24 04:00 02/29/24 04:00 02/29/24 07:00 02/29/24 07:00 FiO2 2 02/27/24 06:00 Laboratory Results - last 24 hr 02/28/24 10:47: POC Glucose 110 02/28/24 16:02: POC Glucose 143 H 02/28/24 20:23: POC Glucose 110 02/29/24 05:30: POC Glucose 109 02/29/24 06:35: WBC 11.1 H, RBC 4.11 L, Hgb 10.5 L, Hct 34.4 L, MCV 83.7, MCH 25.6 L, MCHC 30.6 L, RDW 17.1, Plt Count 271, MPV 8.8, Neut % (Auto) 62.5, Lymph % (Auto) 25.4, Sharkey % (Auto) 5.3, Eos % (Auto) 5.4, Baso % (Auto) 1.3, Neut # (Auto) 7.0, Lymph # (Auto) 2.8, Sharkey # (Auto) 0.6, Eos # (Auto) 0.6 H, Baso # (Auto) 0.2, Sodium 141, Potassium 3.7, Chloride 102, Carbon Dioxide 38 H, Anion Gap 4.7 L, BUN 16, Creatinine 0.60, Estimated Creat Clear 46, Estimated GFR 99, Est GFR ( Amer) 120, Glucose 139 H, Calcium 8.6, Total Bilirubin 0.4, AST 33, ALT 31, Alkaline Phosphatase 64, Total Protein 6.7, Albumin 3.2 L, Globulin 3.5 H, Albumin/Globulin Ratio 0.9 L I & O for Last 24 hours: Intake & Output 02/26/24 02/27/24 02/28/24 02/29/24 23:59 23:59 23:59 23:59 Intake Total 1009.209 / 1009.209 459 / 459 990 / 990 Output Total 2290 / 2320 2575 / 2575 401 / 801 500 / 500 Balance -1280.791 / -1310.791 -2116 / -2116 589 / 189 -500 / -500 Weight 124.9 kg 119.096 kg 256.6 kg 114.419 kg Microbiology Reports for the Last 24 Hours: Microbiology 02/25/24 10:30 Blood Blood Culture - Preliminary Staphylococcus capitis Constitutional Constitutional: no acute distress, morbidly obese, chronically ill appearing and cooperative *Routine HEENT Exam Head: Present normocephalic Eye: Present EOMI and PERRL ENT: Present mucous membranes moist Comments: 2 cm by half centimeter skin tear left cheek. *Routine Neck Exam Neck: Present supple; Absent lymphadenopathy *Routine Respiratory Exam Respiratory: Present CTA bilaterally and prolonged expiratory phase; Absent rhonchi, wheezes or crackles *Routine Cardiovascular Exam Cardiovascular: Present RRR *Routine Abdominal Exam Abdominal: Present soft and normoactive bowel sounds; Absent tenderness *Routine Rectal Exam Patient deferred: visual exam *Routine Exam Patient deferred: external exam *Routine Extremities Exam Extremities: Present edema (Trace lower extremity); Absent cyanosis or clubbing *Routine Skin Exam Skin: Present intact and warm; Absent rash Comments: Wound right lateral ramos *Routine Neurological Exam Neurological: Present alert, oriented X3 and moving all extremities; Absent altered mental status Results Data Completed and Pending Labs on day of discharge: Labs from last 24 hours 02/29/24 02/29/24 02/28/24 06:35 05:30 20:23 WBC 11.1 H RBC 4.11 L Hgb 10.5 L Hct 34.4 L MCV 83.7 MCH 25.6 L MCHC 30.6 L RDW 17.1 Plt Count 271 MPV 8.8 Neut % (Auto) 62.5 Lymph % (Auto) 25.4 Sharkey % (Auto) 5.3 Eos % (Auto) 5.4 Baso % (Auto) 1.3 Neut # (Auto) 7.0 Lymph # (Auto) 2.8 Sharkey # (Auto) 0.6 Eos # (Auto) 0.6 H Baso # (Auto) 0.2 Sodium 141 Potassium 3.7 Chloride 102 Carbon Dioxide 38 H Anion Gap 4.7 L BUN 16 Creatinine 0.60 Estimated Creat Clear 46 Estimated GFR 99 Est GFR ( Amer) 120 Glucose 139 H POC Glucose 109 110 Calcium 8.6 Total Bilirubin 0.4 AST 33 ALT 31 Alkaline Phosphatase 64 Total Protein 6.7 Albumin 3.2 L Globulin 3.5 H Albumin/Globulin Ratio 0.9 L 02/28/24 02/28/24 16:02 10:47 WBC RBC Hgb Hct MCV MCH MCHC RDW Plt Count MPV Neut % (Auto) Lymph % (Auto) Sharkey % (Auto) Eos % (Auto) Baso % (Auto) Neut # (Auto) Lymph # (Auto) Sharkey # (Auto) Eos # (Auto) Baso # (Auto) Sodium Potassium Chloride Carbon Dioxide Anion Gap BUN Creatinine Estimated Creat Clear Estimated GFR Est GFR ( Amer) Glucose POC Glucose 143 H 110 Calcium Total Bilirubin AST ALT Alkaline Phosphatase Total Protein Albumin Globulin Albumin/Globulin Ratio Preliminary micro results at discharge 02/25/24 10:30 Blood Culture - Preliminary Blood Staphylococcus capitis 02/25/24 10:45 Blood Culture - Preliminary Blood NO GROWTH AFTER 48 HOURS DS: Diagnosis Discharge Diagnosis (1) Septic shock: Status: Resolved Code(s): A41.9 - Sepsis, unspecified organism; R65.21 - Severe sepsis with septic shock (2) Acute hypercapnic respiratory failure: Status: Acute Code(s): J96.02 - Acute respiratory failure with hypercapnia (3) Pneumonia: Status: Acute Code(s): J18.9 - Pneumonia, unspecified organism (4) On mechanically assisted ventilation: Status: Resolved Code(s): Z99.11 - Dependence on respirator [ventilator] status (5) COPD (chronic obstructive pulmonary disease): Status: Acute Code(s): J44.9 - Chronic obstructive pulmonary disease, unspecified (6) HTN (hypertension): Status: Acute Code(s): I10 - Essential (primary) hypertension (7) Congestive heart failure: Status: Acute Code(s): I50.9 - Heart failure, unspecified (8) Diabetes mellitus: Status: Acute Code(s): E11.9 - Type 2 diabetes mellitus without complications (9) Morbid obesity due to excess calories: Status: Acute Code(s): E66.01 - Morbid (severe) obesity due to excess calories (10) Overactive bladder: Status: Acute Code(s): N32.81 - Overactive bladder Meds Home Medications and Allergies Home Medications ?Medication ?Instructions ?Recorded ?Confirmed ?Type acetaminophen 500 mg tablet 1,000 mg PO Q6H PRN PAIN/FEVER 02/25/24 02/25/24 History albuterol sulfate 90 mcg/actuation 2 inh inhalation QID PRN SOA 02/25/24 02/25/24 History breath activated powder inhaler apixaban 5 mg tablet (Eliquis) 5 mg PO BID HX EMBOLISM & 02/25/24 02/25/24 History THROMBOSIS ascorbic acid (vitamin C) 500 mg 500 mg PO DAILY Supplement 02/25/24 02/25/24 History tablet aspirin 81 mg chewable tablet 81 mg PO DAILY PVD 02/25/24 02/25/24 History carvedilol 25 mg tablet 25 mg PO BID HTN 02/25/24 02/25/24 History cyanocobalamin (vitamin B-12) 100 100 mcg PO DAILY DEFICIENCY 02/25/24 02/25/24 History mcg tablet dextran 70-hypromellose (PF) 0.1 1 drp ophthalmic (eye) QID 02/25/24 02/25/24 History %-0.3 % eye drops in a dropperette SUPERIOR LIMBIC KARATITIS (Artificial Tears (PF)) docusate sodium 100 mg capsule 100 mg PO HS Constipation 02/25/24 02/25/24 History empagliflozin 10 mg tablet 10 mg PO DAILY DM 02/25/24 02/25/24 History (Jardiance) ergocalciferol (vitamin D2) 1,250 1,250 mcg PO WEEKLY 02/25/24 02/25/24 History mcg (50,000 unit) capsule furosemide 40 mg tablet 40 mg PO DAILY 02/25/24 02/25/24 History metformin 1,000 mg tablet 1,000 mg PO BID DM 02/25/24 02/25/24 History omeprazole 20 mg capsule,delayed 20 mg PO DAILY GERD 02/25/24 02/25/24 History release ondansetron HCl 4 mg tablet 4 mg PO Q6H PRN Nausea 02/25/24 02/25/24 History sacubitril 24 mg-valsartan 26 mg 1 tab PO BID CHF 02/25/24 02/25/24 History tablet (Entresto) spironolactone 50 mg tablet 50 mg PO DAILY CHF 02/25/24 02/25/24 History tizanidine 2 mg capsule 2 mg PO Q8H PRN MUSCLE SPASMS 02/25/24 02/25/24 History vibegron 75 mg tablet 75 mg PO DAILY OVERACTIVE BLADDER 02/25/24 02/25/24 History bacitracin 500 unit/gram topical 1 applic topical TID 10 days #30 02/29/24 Rx ointment grams doxycycline hyclate 100 mg tablet 100 mg PO BID 3 days #6 tabs 02/29/24 Rx fluticasone fur. 100 mcg-umeclid 1 inh inhalation DAILY 30 days #60 02/29/24 Rx 62.5 mcg-vilant 25 mcg ea inhalat.powder (Trelegy Ellipta) ipratropium 0.5 mg-albuterol 3 mg 3 ml inhalation Q6H PRN 02/29/24 02/25/24 Rx (2.5 mg base)/3 mL nebulization SOA/WHEEZING 30 days #0 mL soln New Prescriptions to Start Prescriptions: bacpradeepacin NormaFeliz doxycycline hyclate Feliz Green [id number] [Trelegy Ellipta] Feliz Green Allergies Allergy/AdvReac Type Severity Reaction Status Date / Time Penicillins Allergy Intermediate Verified 08/01/23 16:12 Sulfa (Sulfonamide Allergy Intermediate Verified 08/01/23 16:13 Antibiotics) Discharge Plan Disposition Patient Disposition: er Intermediate Care Fac Condition: Fair Follow up Plan Follow up with: Reji De Los Santos MD [Physician] - Enter time for follow up Prescriptions/Medication Reconciliation: New bacitracin 500 unit/gram Ointment 1 applic topical TID 10 Days Qty: 30 0RF Trelegy Ellipta 100-62.5-25 mcg Blister With Device 1 inh inhalation DAILY 30 Days Qty: 60 0RF doxycycline hyclate 100 mg Tablet 100 mg PO BID 3 Days Qty: 6 0RF Continued furosemide 40 mg tablet 40 mg PO DAILY ergocalciferol (vitamin D2) 1,250 mcg (50,000 unit) capsule 1,250 mcg PO WEEKLY cyanocobalamin (vitamin B-12) 100 mcg Tablet 100 mcg PO DAILY ondansetron HCl 4 mg Tablet 4 mg PO Q6H PRN (Reason: Nausea) acetaminophen 500 mg Tablet 1,000 mg PO Q6H PRN (Reason: PAIN/FEVER) ascorbic acid (vitamin C) 500 mg Tablet 500 mg PO DAILY metformin 1,000 mg Tablet 1,000 mg PO BID docusate sodium 100 mg Capsule 100 mg PO HS omeprazole 20 mg Capsule,Delayed Release(Dr/Ec) 20 mg PO DAILY aspirin 81 mg Tablet,Chewable 81 mg PO DAILY spironolactone 50 mg Tablet 50 mg PO DAILY tizanidine 2 mg Capsule 2 mg PO Q8H PRN (Reason: MUSCLE SPASMS) Artificial Tears (PF) 0.1-0.3 % Dropperette 1 drp OPHTHALMIC (EYE) QID Eliquis 5 mg Tablet 5 mg PO BID Jardiance 10 mg Tablet 10 mg PO DAILY albuterol sulfate 90 mcg/actuation Aerosol Powdr Breath Activated 2 inh INHALATION QID PRN (Reason: SOA) Entresto 24-26 mg Tablet 1 tab PO BID vibegron 75 mg Tablet 75 mg PO DAILY Changed ipratropium-albuterol 0.5 mg-3 mg(2.5 mg base)/3 mL Solution For Nebulization 3 ml INHALATION Q6H PRN (Reason: SOA/WHEEZING) 30 Days Qty: 0 0RF Held carvedilol 25 mg Tablet 25 mg PO BID Hold Instructions: Pending improvement in blood pressure on evaluation at residential Rx Instructions: must administer with a meal/food Discontinued clonidine HCl 0.2 mg tablet 0.2 mg PO BID fluticasone propion-salmeterol [Wixela Inhub] 250-50 mcg/dose Blister With Device 1 inh INHALATION BID Problem Reconciliation Problems Reviewed?: Yes Patient Discharge Instructions ACTIVITY: Continue current activity and Up with assistance DIET: continue same diet Patient Instructions: Ventilator-Associated Pneumonia, DI for Respiratory Failure, Catheter-Associated Urinary Tract Infection Print Language: [place] Providers Primary Care Provider: Provider,Referral Admit Provider: Feliz Green Attending Provider: Feliz Green
[2024-02-29] MEDS: FLUTICASONE/UMECLIDIN/VILANTER 100/62.5/25MCG INHALER 1 PUFF IH (08:21)
[2024-02-29 08:22] VITALS: O2SAT 97
--- NOTE | 2024-02-29 08:31 | PC.NURSE ---
let nurse know about b/p
[2024-02-29] MEDS: BACITRACIN ZINC OINT 30GM TUBE TP (09:58)
[2024-02-29] MEDS: DOCUSATE SODIUM 10 ML/UDC UDC PO (09:58)
[2024-02-29] MEDS: FUROSEMIDE 40MG/4ML VIAL 40 MG IV (09:59)
[2024-02-29] MEDS: DOXYCYCLINE HYCL 100 MG TABLET PO (09:59)
[2024-02-29] MEDS: APIXABAN 5MG TABLET 5 MG PO (09:59)
--- NOTE | 2024-02-29 11:05 | PC.NURSE ---
notified family that pt eould be going back to the group home
== END 2024-02-29 11:55 | DRG 871 ==
LOC: ER 10:38 → 2ND 12:58
PROVIDERS: Internal Medicine Pulmonary Disease; Admitting Provider Internal Medicine Adolescent Medicine; Emergency Provider Emergency Medicine; Visit Provider Internal Medicine Adolescent Medicine
DX: A41.9 Sepsis, unspecified organism (principal); J18.9 Pneumonia, unspecified organism; R65.21 Severe sepsis with septic shock; J96.92 Respiratory failure, unspecified with hypercapnia; J96.91 Respiratory failure, unspecified with hypoxia; J44.0 Chronic obstructive pulmonary disease with (acute) lower respiratory infection; Z68.41 Body mass index [BMI] 40.0-44.9, adult; N39.0 Urinary tract infection, site not specified; I11.0 Hypertensive heart disease with heart failure; I50.9 Heart failure, unspecified; E11.9 Type 2 diabetes mellitus without complications; E66.01 Morbid (severe) obesity due to excess calories; B96.20 Unspecified Escherichia coli [E. coli] as the cause of diseases classified elsewhere; N32.81 Overactive bladder
CPT/HCPCS: 36415; 70371; 70450; 70496; 70498; 71045; 71275; 80048; 80053; 80307; 80320; 80329; 81001; 82009; 82550; 82803; 82962; 83036; 83605; 83735; 83880; 84100; 84443; 84484; 85007; 85025; 85027; 85610; 86803; 86850; 87040; 87070; 87077; 87081; 87086; 87088; 87186; 87205; 87265; 87389; 87486; 87581; 87632; 87635; 87636; 92610; 92611; 93005; 93306; 94002; 94003; 94640; 94660; 94761; 97162; 97166; 97530; 99291; G0480; J0330; J1940; J2310; J2405; J2704; J2919; J3010; J3370; J3475; J7060; J7120; J7620; Q9967

== ENCOUNTER 2024-05-13 17:57 | Inpatient (IN) | payer MEDICARE, MEDICAID, SELFPAY ==
[2024-05-13 17:57] VITALS: BP 100/83; PULSE 86; RESP 24; TEMP 37.4; O2SAT 95; BMI 53.1
--- NOTE | 2024-05-13 18:23 | CT_ITS ---
PROCEDURE INFORMATION: Exam: CT Head Without Contrast Exam date and time: 05/13/2024 7:25 PM Age: 69 years old Clinical indication: Altered mental status/memory loss; Additional info: AMS TECHNIQUE: Imaging protocol: Computed tomography of the head without contrast. Radiation optimization: All CT scans at this facility use at least one of these dose optimization techniques: automated exposure control; mA and/or kV adjustment per patient size (includes targeted exams where dose is matched to clinical indication); or iterative reconstruction. COMPARISON: 1. CT ANGIO HEAD 02/25/2024 11:[address] HEAD/BRAIN WO CON 02/25/2024 11:41 AM FINDINGS: Brain: No intracranial hemorrhage. Generalized atrophic changes of the ventricles and subarachnoid spaces. Mhlhouwi-[id number] chronic small-vessel ischemic changes noted. No mass, mass effect or midline shift. Intracranial atherosclerotic changes are noted. 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 Cerebral ventricles: See Brain finding. Paranasal sinuses: Visualized sinuses are unremarkable. No fluid levels. Mastoid air cells: Interval development of opacification of left mastoid air cells in the left middle ear cavity. Bones: Unremarkable. No acute fracture. Soft tissues: Unremarkable. IMPRESSION: 1. Interval development of opacified left mastoid air cells and middle ear cavity suggesting kaiden mastoiditis of uncertain acuity. 2. Otherwise stable noncontrast CT brain with chronic changes as detailed above. No acute intracranial abnormality.
--- NOTE | 2024-05-13 18:23 | XR_ITS ---
PROCEDURE INFORMATION: Exam: XR Chest Exam date and time: 05/13/2024 6:35 PM Age: 69 years old Clinical indication: Shortness of breath; Additional info: AMS, resp failure TECHNIQUE: Imaging protocol: Radiologic exam of the chest. Views: 1 view. COMPARISON: 1. CR XR CHEST PORTABLE 02/28/2024 9:34 AM 2. CR XR CHEST PORTABLE 02/25/2024 11:59 AM FINDINGS: Lungs: Possible left basilar retrocardiac opacity. Lungs are otherwise clear. Pleural spaces: Unremarkable. No pleural effusion. No pneumothorax. Heart/Mediastinum: Heart size upper normal allowing for low lung volume portable technique. Bones/joints: Unremarkable. IMPRESSION: Left retrocardiac opacity may be summation shadows and atelectasis but developing infiltrate or consolidation cannot be excluded. Advise follow-up PA and lateral view of the chest for further assessment.
--- NOTE | 2024-05-13 18:32 | ECG_ITS ---
APPROVED REPORT Exam: Resting ECG HR:83 bpm ECG Measurements Heart Rate 83 AXES QRSd 125 QRS -67 QT 354 T 26 QTc 394 Conclusion UNCERTAIN REGULAR RHYTHM LEFT AXIS DEVIATION [QRS AXIS < -30] MODERATE INTRAVENTRICULAR CONDUCTION DELAY [110+ ms QRS DURATION] MODERATE ST DEPRESSION [0.05+ mV ST DEPRESSION] No STEMI Electronically signed by : TG TRUJILLO, 05/13/2024 22:34:28
[2024-05-13 18:35] LABS: Basophils % 0.4 % (0.1-2.0); Eosinophils % 1.3 % (0.1-12.0); Hematocrit 39.7 % (37.0-47.0); Hemoglobin 11.4 g/dL (12.2-16.2); Lymphocytes % 6.8 % (10-50); Mean Corpuscular HGB Conc 28.7 g/dL (31.8-35.4); Mean Corpuscular Hemoglobin 24.1 pg (27.0-31.2); Mean Corpuscular Volume 83.9 fl (81-99); Mean Platelet Volume 12.2 fl (7.4-10.4); Monocytes % 3.3 % (1.7-9.3); Neutrophils % 87.6 % (37.0-80.0); Platelet Count 304 K/mm3 (142-424); Red Blood Count 4.73 M/mm3 (4.20-5.40); Red Cell Distribution Width 16.5 % (11.5-17.5); White Blood Count 31.6 K/mm3 (4.8-10.8)
[2024-05-13 18:36] LABS: Basophils # 0.1 K/mm3 (0-0.2); Eosinophils # 0.4 K/mm3 (0.0-0.4); Lymphocytes # 2.2 K/mm3 (0.7-4.5); MANUAL DIFFERENTIAL MANUAL DIFFERENTIAL (MANUAL DIFF); Monocytes # 1.1 K/mm3 (0.1-1.0); Neutrophils # 27.7 K/mm3 (1.8-7.8)
[2024-05-13 18:38] LABS: Alanine Aminotransferase 20 U/L (12-78); Albumin Level 3.8 g/dl (3.5-5.0); Alkaline Phosphatase 65 U/L (38-126); Aspartate Amino Transferase 35 U/L (14-36); Bilirubin,Total 0.5 mg/dl (0.2-1.3); Blood Urea Nitrogen 29 mg/dl (7-17); Calcium 9.1 mg/dl (8.4-10.2); Carbon Dioxide 36 mmol/L (22.0-30.0); Chloride 100 mmol/L (98-107); Estimated Glomerular Filt Rate 55 ml/min (>60); GFR (African American) 66 ML/MIN (>60); Globulin 3.7 g/dL (1.3-3.2); Glucose 112 mg/dl (74-100); Sodium 142 mmol/L (136-145); Total Protein,Serum 7.5 g/dl (6.3-8.2)
[2024-05-13 18:38] LABS: Microscopic, Urine URINE MICROSCOPIC (MICROSCOPIC)
[2024-05-13 18:39] LABS: Anion Gap 11.4 mEq/L (5-15); Potassium 5.4 mmoL/L (3.5-5.1)
[2024-05-13 18:41] LABS: Appearance,Urine SL CLOUDY (Clear); Bilirubin,Urine Negative (Negative); Blood, Urine Negative (Negative); Color,Urine YELLOW (Yellow); Glucose,Urine (UA) 2+ (Negative); Ketones,Urine Negative (Negative); Leukocyte Esterase,Urine 1+ (Negative); Nitrate,Urine Negative (Negative); Protein,Urine Negative (Negative); Urobilinogen,Urine 0.2 EU/dl (0.2)
[2024-05-13] MEDS: IPRATROPIUM/ALBUTEROL 3 ML NEB 9 ML IH (18:41)
--- NOTE | 2024-05-13 18:42 | CT_ITS ---
PROCEDURE INFORMATION: Exam: CTA Chest With Contrast Exam date and time: 05/13/2024 7:30 PM Age: 69 years old Clinical indication: Fever; Additional info: Fever, sepsis unknown origin, resp failure TECHNIQUE: Imaging protocol: Computed tomographic angiography of the chest with contrast. Exam focused on the arteries. 3D rendering (Not supervised by radiologist): MIP and/or 3D reconstructed images were created by the technologist. Radiation optimization: All CT scans at this facility use at least one of these dose optimization techniques: automated exposure control; mA and/or kV adjustment per patient size (includes targeted exams where dose is matched to clinical indication); or iterative reconstruction. Contrast material: ISO 370; Contrast volume: 80 ml; Contrast route: INTRAVENOUS (IV); COMPARISON: CT ANGIO CHEST PE PROTOCOL 02/25/2024 11:47 AM FINDINGS: Pulmonary arteries: There is heterogeneous contrast attenuation of visualized pulmonary arteries, more pronounced in the subsegmental vessels and likely related to contrast bolus. This limits the detection of pulmonary emboli in the small and peripheral pulmonary arterial branches. As seen, no large or central pulmonary emboli. Aorta: The aorta demonstrates moderate atherosclerotic calcification. There is no evidence of an aortic aneurysm. The ascending thoracic aorta is at the upper limits of normal measuring 4 x 3.9 cm. The aortic arch measures 2.8 cm. The descending thoracic aorta measures 3 cm. No dissection. Other arteries: There is minor stenosis involving the origin of the left vertebral artery. Thyroid: There are a few thyroid nodules bilaterally suggestive of multinodular goiter. This can be further evaluated with ultrasound the patient's condition permits. Lungs: Lung volumes are mildly diminished. Nonspecific bibasilar streaky opacities suggest atelectasis or parenchymal scarring. Nonspecific mild right basilar opacities are consistent with atelectasis, edema, or pneumonia. There is a 3 mm subpleural nodule in the right upper lobe seen on series 1003, image 104. Pleural spaces: There are no pleural effusions. There is no evidence of pneumothorax. Heart: The heart is mildly enlarged. There is no evidence of pericardial fluid collections. Coronary arteries: There is moderate atherosclerotic calcification of the coronary arteries. Lymph nodes: There is no evidence of pathologic adenopathy. Diaphragm: A small hiatal hernia is present. There is mild elevation of the right hemidiaphragm. Intraperitoneal space: Findings within the upper abdomen are described in the associated CT of the abdomen and pelvis report from the same date and time. Please reference that report for additional information. Bones/joints: The thoracic spine demonstrates moderate degenerative changes at multiple levels. There is no evidence of acute fracture. Soft tissues: No significant soft tissue edema. IMPRESSION: 1. Heterogeneous contrast attenuation of visualized pulmonary arteries limits the detection of pulmonary emboli in the small and peripheral pulmonary arterial branches. As seen, no large or central pulmonary emboli. 2. Mild cardiomegaly. 3. Mild bibasilar streaky opacities suggest atelectasis or parenchymal scarring. 4. Nonspecific mild right basilar opacities suggestive of atelectasis, edema, or pneumonia. 5. A few thyroid nodules bilaterally suggestive of multinodular goiter which can be further evaluated with ultrasound on a nonemergent basis when the patient's condition permits. 6. 2 small pulmonary nodules. For patients at low risk (minimal or absent history of smoking and of other known risk factors), no routine follow-up is indicated. For patients at high risk (history of smoking or of other known risk factors), consider optional CT Chest at 12 months. (Reference: Nayeli) References: Mariahholelia Patiño, et al. Guidelines for Management of Incidental Pulmonary Nodules Detected on CT Images: From the Fleischner Society 2017. Radiology. 2017;284(1):228-243. COMMENTS: Consistent with the [employer]'s Incidental Findings Committee white paper (J Am Natalee Radiol 2015): In patients aged 35 years and older with an incidental thyroid nodule equal to or greater than 1.[address], MRI or extrathyroidal US, further evaluation with dedicated thyroid US is recommended for patients with normal life expectancy and without comorbidities. For smaller nodules without suspicious features, no further evaluation or follow up is recommended.
--- NOTE | 2024-05-13 18:42 | CT_ITS ---
PROCEDURE INFORMATION: Exam: CT Abdomen And Pelvis With Contrast Exam date and time: 05/13/2024 7:30 PM Age: 69 years old Clinical indication: Fever; Additional info: Fever, sepsis unknown origin, resp failure TECHNIQUE: Imaging protocol: Computed tomography of the abdomen and pelvis with contrast. 3D rendering (Not supervised by radiologist): MIP and/or 3D reconstructed images were created by the technologist. Radiation optimization: All CT scans at this facility use at least one of these dose optimization techniques: automated exposure control; mA and/or kV adjustment per patient size (includes targeted exams where dose is matched to clinical indication); or iterative reconstruction. Contrast material: ISOVUE; Contrast volume: 80 ml; Contrast route: IV; COMPARISON: CT ABDOMEN PELVIS WO CON 08/01/2023 3:44 PM FINDINGS: Diaphragm: There is mild elevation of the right hemidiaphragm. Liver: There is mild enlargement of the liver. The liver measures 20.6 cm in CC dimension. There is a subcentimeter focal liver hypodensity in the left hepatic lobe that cannot be further characterized on the current examination, likely stable from prior exam, best seen on series 4, image 25.. Gallbladder and biliary ducts: There has been a cholecystectomy. Pancreas: Normal. No ductal dilation. Spleen: A splenic calcifications suggest prior granulomatous disease. No splenomegaly. Adrenal glands: Bilateral adrenal nodularity is stable dating back to 08/01/2023 likely reflecting adenomatous change. Kidneys and ureters: There are a few tiny nonobstructing bilateral renal collecting system calcifications. There is a 2.5 cm inferomedial right renal cyst. There are scattered areas of mild renal cortical scarring/thinning bilaterally. There are a few tiny bilateral renal hypodensities which are too small to accurately characterize. Statistically, these may be cysts. No follow-up imaging required unless clinical parameters dictate otherwise. There is mild bilateral nonspecific inflammatory perinephric stranding. Stomach and bowel: The colon is normal. The stomach and duodenum are within range of normal.Unopacified loops of small bowel within range of normal. Appendix: No evidence of appendicitis. Intraperitoneal space: No evidence of intraperitoneal free air. No significant free fluid. Vasculature: The aorta and iliac arteries demonstrate moderate atherosclerotic calcification. No significant renal artery stenosis bilaterally. No significant celiac artery stenosis. 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 There is mild aneurysmal dilatation of the abdominal aorta, originating below the level of the renal artery origins and terminating above the level of the aortic bifurcation measuring approximately 3 x 2.5 cm. Lymph nodes: There is no evidence of pathologic adenopathy. Urinary bladder: The bladder is decompressed. Reproductive: The uterus is normal. The left ovary is normal. The right ovary is normal. Bones/joints: The thoracolumbar spine demonstrates moderate to severe there degenerative changes at multiple levels. There is grade 1 anterior spondylolisthesis of L4 on L5. There is slight retrolisthesis of L5 on S1. There are mild degenerative changes of the hip joints. There are mild degenerative changes of the sacroiliac joints. Incompletely visualized are postoperative changes involving the right proximal femur. Soft tissues: Evaluation of soft tissues is limited due to incomplete inclusion of portions of the soft tissues due to patient body habitus. Areas of fat density with peripheral rim soft tissue involving the posterior subcutaneous soft tissues bilaterally is stable and likely reflects fat necrosis. Other findings: Findings within the lower chest are described in the associated CT of the chest report from the same date and time. Please reference that report for additional information. IMPRESSION: 1. Mild aneurysmal dilatation of the infrarenal abdominal aorta measuring approximately 3 x 2.5 cm. 2. Mild hepatomegaly. 3. Stable bilateral adrenal gland fullness which may reflect adenomatous change. 4. A few tiny nonobstructing renal collecting system calcifications. 4. Nonspecific [id number]-[id number] perinephric fat stranding. 5. Incompletely characterized subcentimeter focal liver hypointensity. In a low-risk patient, this is most likely to be benign and no further follow-up is recommended. In a high-risk patient, follow-up MRI in 3-6 months is recommended (or earlier if warranted by the patient's specific clinical circumstances). (Reference: Patrick) COMMENTS: Consistent with the [employer]'s Incidental Findings Committee white paper (J [employer] Natalee Radiol 2018): Any incidental renal lesion less than 1 cm or classified as too small to characterize, or any incidental cystic renal lesion characterized as simple-appearing, is likely benign. No follow-up imaging is recommended for these lesions per consensus recommendations based on imaging criteria. REFERENCES: Patrick HEREDIA, et al. Management of Incidental Liver Lesions on CT: A White Paper of the ACR Incidental Findings Committee. J Am Natalee Radiol. 2017;14(11):8221-7495.
[2024-05-13 18:43] LABS: VBG Base Excess 6.8 mmol/L (-2.4-2.3); VBG Oxygen Saturation 49.5 % (50-70); VBG PH 7.31 mmol/L (7.31-7.41); VBG PO2 27.7 mmol/L (28-40); VBG Total CO2 35.1 mmol/L (23-27)
[2024-05-13 18:43] LABS: D-Dimer 1.11 ug/mL (0.0-0.5)
[2024-05-13 18:45] LABS: Lactate Venous 2.7 mmol/L (0.4-2.0); VBG PCO2 66.8 mmol/L (35-51)
--- NOTE | 2024-05-13 18:47 | PC.NURSE ---
IV PLACED VIA US BY DR [email or web address]
[2024-05-13 18:48] LABS: Coronavirus 19, PCR Not Detected (NotDetected); Influenza A, PCR Not Detected (NotDetected); Influenza B, PCR Not Detected (NotDetected)
[2024-05-13] MEDS: METHYLPREDNISOLONE SOD SUCC 125MG VIAL 125 MG IV (18:51)
[2024-05-13 18:52] LABS: Amphetamine/Metha Screen,Urine Negative ng/ml (<1000); Barbiturates Screen,Urine Negative ng/ml (<200)
[2024-05-13 18:52] LABS: NT Pro Brain Natriuretic Pep. 112 pg/mL (0-125)
[2024-05-13] MEDS: 0.9 % SODIUM CHLORIDE 1000ML 1,000 ML 999 ML IV (18:52)
[2024-05-13] MEDS: PIPERACILLIN/TAZO 3.375 GM in 0.9 % SODIUM CHLORIDE 50 ML IV (18:52)
[2024-05-13 18:53] LABS: Benzodiazepines Screen,Urine Negative ng/ml (<200); Cannabinoid Screen,Urine Negative ng/ml (<50)
[2024-05-13 18:54] LABS: Cocaine Screen,Urine Negative ng/ml (<300)
[2024-05-13 18:55] LABS: Methadone Screen,Urine Negative ng/ml (<300); Opiate Screen,Urine Negative ng/ml (<300)
[2024-05-13 18:56] LABS: Troponin I < 0.01 ng/ml (0.00-0.034)
[2024-05-13 18:56] LABS: Phencyclidine Screen,Urine Negative ng/ml (<25)
[2024-05-13 18:58] LABS: Bacteria,Urine Trace /lpf
[2024-05-13 19:04] LABS: Eosinophils % 1 % (0-3); Lymphocytes % 7 % (10-50); Monocytes % 4 % (2-9); Neutrophils % 82 % (42-76); Platelet Estimate Normal; RBC Morphology Normal; Total Cells Counted 100
--- NOTE | 2024-05-13 19:05 | ED_ITS ---
Discharge Plan Disposition Patient Disposition: Admitted Clinical Impressions Clinical Impression: Acute on chronic respiratory failure with hypoxia and hypercapnia, Acute exacerbation of chronic obstructive pulmonary disease, Sepsis due to pneumonia, Lung nodule, Liver nodule, Thyroid nodule, AAA (abdominal aortic aneurysm) Discharge ED Provider: Iris Coy General Adult HPI General Chief complaint: Altered Mental Status Stated complaint: Weakness Time Seen by Provider: 05/13/24 18:01 Mode of Arrival: EMS Source of Information: EMS Limitations: Altered Mental Status Description of Symptoms (Recalled from ER Triage Doc. by RN): PT SENT FROM [facility] FOR DECREASED O2 SAT, ALTERED MENTAL STATUS AND JERKING OF ARMS. PT FOUND DIFFICULT TO AROUSE AT MEAL TIME. PT O2 SAT 84-87% ON BASELINE 3L/NC. PT ARRIVES SOMNOLENT BUT AROUSABLE TO VOICE. History of Present Illness HPI narrative: This patient is a 69-year-old female with a history of morbid obesity, CRISSY, COPD on 3 L nasal cannula at baseline, hypertension, CHF, and prior admission for sepsis secondary to pneumonia/UTI plus respiratory failure presented to the emergency department by EMS from nursing facility with concern for altered mental status. According to the nursing facility, they brought her her tray for dinner this evening and she was lethargic. She also had low O2 saturation. Given this, they called EMS. EMS notes that she was satting 84% on her home 3 L nasal cannula. EMS notes that they have seen her like this in the past, and she has been found to have hypercapnic respiratory failure. Patient states that she feels very bad but otherwise does not contribute to history. Related Data Home Medications ?Medication ?Instructions ?Recorded ?Confirmed acetaminophen 500 mg tablet 1,000 mg PO Q6H PRN PAIN/FEVER 02/25/24 02/25/24 albuterol sulfate 90 mcg/actuation 2 inh inhalation QID PRN SOA 02/25/24 02/25/24 breath activated powder inhaler apixaban 5 mg tablet (Eliquis) 5 mg PO BID HX EMBOLISM & 02/25/24 02/25/24 THROMBOSIS ascorbic acid (vitamin C) 500 mg 500 mg PO DAILY Supplement 02/25/24 02/25/24 tablet aspirin 81 mg chewable tablet 81 mg PO DAILY PVD 02/25/24 02/25/24 carvedilol 25 mg tablet 25 mg PO BID HTN 02/25/24 02/25/24 cyanocobalamin (vitamin B-12) 100 100 mcg PO DAILY DEFICIENCY 02/25/24 02/25/24 mcg tablet dextran 70-hypromellose (PF) 0.1 1 drp ophthalmic (eye) QID 02/25/24 02/25/24 %-0.3 % eye drops in a dropperette SUPERIOR LIMBIC KARATITIS (Artificial Tears (PF)) docusate sodium 100 mg capsule 100 mg PO HS Constipation 02/25/24 02/25/24 empagliflozin 10 mg tablet 10 mg PO DAILY DM 02/25/24 02/25/24 (Jardiance) ergocalciferol (vitamin D2) 1,250 1,250 mcg PO WEEKLY 02/25/24 02/25/24 mcg (50,000 unit) capsule furosemide 40 mg tablet 40 mg PO DAILY 02/25/24 02/25/24 metformin 1,000 mg tablet 1,000 mg PO BID DM 02/25/24 02/25/24 omeprazole 20 mg capsule,delayed 20 mg PO DAILY GERD 02/25/24 02/25/24 release ondansetron HCl 4 mg tablet 4 mg PO Q6H PRN Nausea 02/25/24 02/25/24 sacubitril 24 mg-valsartan 26 mg 1 tab PO BID CHF 02/25/24 02/25/24 tablet (Entresto) spironolactone 50 mg tablet 50 mg PO DAILY CHF 02/25/24 02/25/24 tizanidine 2 mg capsule 2 mg PO Q8H PRN MUSCLE SPASMS 02/25/24 02/25/24 vibegron 75 mg tablet 75 mg PO DAILY OVERACTIVE BLADDER 02/25/24 02/25/24 Previous Rx's ?Medication ?Instructions ?Recorded bacitracin 500 unit/gram topical 1 applic topical TID 10 days #30 02/29/24 ointment grams doxycycline hyclate 100 mg tablet 100 mg PO BID 3 days #6 tabs 02/29/24 fluticasone fur. 100 mcg-umeclid 1 inh inhalation DAILY 30 days #60 02/29/24 62.5 mcg-vilant 25 mcg ea inhalat.powder (Trelegy Ellipta) ipratropium 0.5 mg-albuterol 3 mg 3 ml inhalation Q6H PRN 02/29/24 (2.5 mg base)/3 mL nebulization SOA/WHEEZING 30 days #0 mL soln Allergies Allergy/AdvReac Type Severity Reaction Status Date / Time Penicillins Allergy Intermediate Verified 08/01/23 16:12 Sulfa (Sulfonamide Allergy Intermediate Verified 08/01/23 16:13 Antibiotics) [facility] Disclaimer: The information contained in this section may have been updated after the patient was seen, as this information can be updated by other users. Medical History Femur fracture, right Overactive bladder Morbid obesity due to excess calories Diabetes mellitus Congestive heart failure PVD (peripheral vascular disease) History of thrombosis History of embolism Venous insufficiency (chronic) (peripheral) Functional quadriplegia HTN (hypertension) Vitamin D deficiency COPD (chronic obstructive pulmonary disease) Shock On mechanically assisted ventilation Acute hypercapnic respiratory failure Family History Other Unknown family medical history Social History Smoking Status: Unknown if ever smoked alcohol intake: never current occupational status: retired Travel in the last 8 weeks: None Other Medical History Have you received the Flu Vaccine for this season: No Have you received the Pneumonia Vaccine: No ROS Obtained: Yes unobtainable due to mental status Physical Exam General General appearance: lethargic and obese Comment: Lethargic but arouses to voice and repetitive stimuli. Obese with obesity hypoventilation. Head Head exam: atraumatic Eye Eye exam: Present normal appearance, PERRL and EOMI ENT ENT exam: Present mucous membranes dry Neck Neck exam: Present normal inspection, full ROM and trachea midline Chest Chest inspection: Present normal inspection and symmetric chest wall rise; Absent tenderness Respiratory Respiratory exam: Present wheezes, prolonged expiratory phase and other (Wheezes, rhonchi, prolonged expiratory phase. Obesity hypoventilation) Cardiovascular Cardiovascular exam: Present regular rate and normal rhythm Abdominal Exam Abdominal exam: Present soft; Absent distention, tenderness, guarding or rebound Extremities Exam Extremities exam: Present normal inspection; Absent tenderness or edema Neurological Exam Neurological exam: Absent alert or oriented X3 Expanded Neurological Exam Coma scale eye opening: To voice Coma scale motor response: Obeys commands Coma scale verbal response: Confused Coma scale total: 13 Psychiatric Psychiatric exam: Present normal affect and normal mood Skin Skin exam: Present warm and dry Medical Decision Making Medical Records Screening: Per USPSTF and CDC recommendations, given the prevalence of disease in our region, it is our hospital?s policy to screen for HIV and viral Hepatitis for all patients aged 18 and over and those with ongoing risk factors. Miguel Inquiry Pt receiving controlled substance: No Vital Signs: 05/13/24 17:57 05/13/24 21:26 Temperature 99.3 F 98.1 F Temperature Source Oral Pulse Rate 73 Pulse Rate [Apical] 86 Respiratory Rate 24 16 Blood Pressure 119/71 Blood Pressure [Left Arm] 100/83 L Blood Pressure Mean [Left Arm] 88 Blood Pressure Source [Left Arm] Automatic Cuff Blood Pressure Position [Left Arm] Sitting 02 Sat by Pulse Oximetry 95 Oxygen Delivery Method Nasal Cannula BiPAP Oxygen Flow Rate (LPM) 3 Lab Data Lab Results 05/13/24 18:14: WBC 31.6 H*, RBC 4.73, Hgb 11.4 L, Hct 39.7, MCV 83.9, MCH 24.1 L, MCHC 28.7 L, RDW 16.5, Plt Count 304, MPV 12.2 H, Neut % (Auto) 87.6 H, Lymph % (Auto) 6.8 L, [place] % (Auto) 3.3, Eos % (Auto) 1.3, Baso % (Auto) 0.4, Neut # (Auto) 27.7 H, Lymph # (Auto) 2.2, [place] # (Auto) 1.1 H, Eos # (Auto) 0.4, Baso # (Auto) 0.1, Total Counted 100, Neutrophils % (Manual) 82 H, Band Neutrophils % 6.0, Lymphocytes % (Manual) 7 L, Monocytes % (Manual) 4, Eosinophils % (Manual) 1, Platelet Estimate Normal, RBC Morphology Normal, D-Dimer 1.11 H, Sodium 142, Potassium 5.4 H, Chloride 100, Carbon Dioxide 36 H, Anion Gap 11.4, BUN 29 H, Creatinine 1.00, Estimated GFR 55 L, Est GFR ( Amer) 66, Glucose 112 H, Calcium 9.1, Total Bilirubin 0.5, AST 35, ALT 20, Alkaline Phosphatase 65, Troponin I < 0.01, NT-Pro-B Natriuret Pep 112, Total Protein 7.5, Albumin 3.8, G lobulin 3.7 H, Albumin/Globulin Ratio 1.0 L 05/13/24 18:30: VBG pH 7.31, VBG pCO2 66.8 H, VBG pO2 27.7 L, VBG HCO3 33.0 H, V BG Total CO2 35.1 H, VBG O2 Saturation 49.5 L, VBG Base Excess 6.8 H, VBG Lactic Acid 2.7 H 05/13/24 18:32: Urine Color Yellow, Urine Appearance Sl cloudy, Urine pH 6.0, Ur Specific [place] 1.020, Urine Protein Negative, Urine Glucose (UA) 2+, Urine Ketones Negative, Urine Blood Negative, Urine Nitrate Negative, Urine Bilirubin Negative, Urine Urobilinogen 0.2, Ur Leukocyte Esterase 1+ A, Urine RBC None, Urine WBC 5-10, Ur Squamous Epith Cells 3-5, Urine Bacteria Trace, Urine Opiates Screen Negative, Urine Methadone Screen Negative, Ur Barbituates Screen Negative, Ur Phencyclidine Scrn Negative, Ur Amphetamines Screen Negative, U Benzodiazepines Scrn Negative, Urine Cocaine Screen Negative, U Marijuana (THC) Screen Negative 05/13/24 18:41: SARS-CoV-2 (PCR) Not detected, Influenza A Untype (PCR) Not detected, Influenza Type B (PCR) Not detected 05/13/24 18:56: Ammonia < 9 L 05/13/24 20:14: Troponin I < 0.01 05/13/24 20:21: VBG pH 7.32, VBG pCO2 59.8 H, VBG pO2 31.1, VBG HCO3 30.0, VBG Total CO2 31.9 H, VBG O2 Saturation 57.2, VBG Base Excess 3.9 H, VBG Lactic Acid 2.0 05/13/24 22:08: Lactate 2.2 H 05/13/24 18:14 05/13/24 18:14 Orders (Tests/Meds): ED MEDICATIONS Generic Name Dose Route Start Last Admin Trade Name Freq PRN Reason Stop Dose Admin Acetaminophen 650 mg 05/13/24 21:42 Acetaminophen 325mg Tab PO 06/12/24 21:41 Q4HP PRN Fever or Mild Pain (1-3) Al Hydrox/Mg Hydrox/Simethicone 30 ml 05/13/24 21:42 Aluminum/Magnesium/Simethicone 30ml Udc PO 06/12/24 21:41 QIDP PRN Dyspepsia Albuterol Sulfate 2.5 mg 05/13/24 21:41 Albuterol 0.083% 2.5 Mg/3 Ml [facility] 06/12/24 21:40 Q4HP PRN Shortness Of Breath Albuterol/Ipratropium 3 ml 05/14/24 00:00 Ipratropium/Albuterol 3 Ml [facility] 06/13/24 00:00 Q6RT [facility] Doxycycline Hyclate 100 mg 05/13/24 22:00 Doxycycline Hycl 100 Mg Tablet PO 05/18/24 21:59 Q12H [facility] Enoxaparin Sodium 40 mg 05/14/24 09:00 Enoxaparin 40mg/0.4ml Syringe SUBCUT 06/13/24 08:59 DAILY [facility] Cefepime HCl 1 gm/ Sodium 50 mls @ 100 mls/hr 05/13/24 22:00 Chloride IV 05/20/24 21:59 Q12H [facility] Methylprednisolone Sodium Succinate 40 mg 05/13/24 21:45 Methylprednisolone Sod Succ 40mg Vial IV 05/15/24 13:46 Q8H [facility] Miscellaneous 1 each 05/13/24 18:45 05/13/24 20:06 Vancomycin Consult Request NOTAPPLIC 06/12/24 18:44 1 each CONSULT PHARMACY [facility] Administration Morphine Sulfate 2 mg 05/13/24 21:42 Morphine 2mg/Ml Syringe IV 06/12/24 21:41 Q4HP PRN Moderate Pain (4-6) Morphine Sulfate 4 mg 05/13/24 21:42 Morphine 4mg/Ml Syringe IV 06/12/24 21:41 Q4HP PRN Severe Pain (7-10) Nicotine 21 mg 05/13/24 21:42 Nicotine 21mg/24hr Patch TD 06/12/24 21:41 DAILYP PRN Nicotine Cravings Ondansetron HCl 4 mg 05/13/24 21:42 Ondansetron 4mg/2ml Vial IV 06/12/24 21:41 Q8HP PRN Nausea Sodium Chloride 3 ml 05/13/24 21:48 Sodium Chloride 3% 15ml [facility] 06/12/24 21:47 ONCE PRN INDUCE SPUTUM COLLECTION Discontinued Medications Generic Name Dose Route Start Last Admin Trade Name Freq PRN Reason Stop Dose Admin Albuterol/Ipratropium 9 ml 05/13/24 18:23 05/13/24 18:41 Ipratropium/Albuterol 3 Ml Neb IH 05/13/24 18:24 9 ml ONCE ONE Administration Sodium Chloride 1,000 mls @ 999 mls/hr 05/13/24 18:42 05/13/24 18:52 Sod Chlor 0.9% 1000ml Bag IV 05/13/24 19:42 999 mls/hr .Q1H1M ONE Administration Piperacillin Sod/Tazobactam 50 mls @ 100 mls/hr 05/13/24 18:42 05/13/24 18:52 Sod 3.375 gm/ Sodium Chloride IV 05/13/24 19:11 100 mls/hr ONCE ONE Administration Vancomycin HCl 2,500 mg/ 500 mls @ 250 mls/hr 05/13/24 19:15 05/13/24 19:45 Sodium Chloride IV 05/13/24 21:14 250 mls/hr ONCE ONE Administration Iopamidol 80 ml 05/13/24 19:38 05/13/24 19:39 Iopamidol-370 (76%);100ml Bottle IV 05/13/24 19:39 80 ml ONCE ONE Administration Methylprednisolone Sodium Succinate 125 mg 05/13/24 18:26 05/13/24 18:51 Methylprednisolone Sod Succ 125mg Vial IV 05/13/24 18:27 125 mg ONCE ONE Administration Sodium Chloride 10 ml 05/13/24 19:38 05/13/24 19:39 Sodium Chloride 0.9% 10ml Syr (Rad Only) IV 05/13/24 19:39 10 ml ONCE ONE Administration Sodium Chloride 50 ml 05/13/24 19:38 05/13/24 19:39 0.9 % Sodium Chloride 50 Ml Vial IV 05/13/24 19:39 50 ml ONCE ONE Administration ORDERS Category Date Time Status CT abdomen pelvis w con Stat Cat Scan 05/13/24 18:[address] angio chest PE protocol Stat Cat Scan 05/13/24 18:[address] head/brain wo con Stat Cat Scan 05/13/24 18:23 Completed CXR --portable [XR chest portable] Stat Exams 05/13/24 18:23 Completed XR chest portable Routine Exams 05/14/24 06:00 Ordered Ammonia Stat Lab 05/13/24 18:56 Completed BNP [NT Pro Brain Natriuretic Pep.] Stat Lab 05/13/24 18:14 Completed Basic Metabolic Panel AMLAB Lab 05/14/24 06:00 Ordered Basic Metabolic Panel AMLAB Lab 05/15/24 06:00 Ordered Basic Metabolic Panel AMLAB Lab 05/16/24 06:00 Ordered Complete Blood Count Auto Diff AMLAB Lab 05/14/24 06:00 Ordered Complete Blood Count Auto Diff AMLAB Lab 05/15/24 06:00 Ordered Complete Blood Count Auto Diff AMLAB Lab 05/16/24 06:00 Ordered Complete Blood Count Auto Diff Stat Lab 05/13/24 18:14 Completed Comprehensive Metabolic Panel Stat Lab 05/13/24 18:14 Completed D-Dimer Stat Lab 05/13/24 18:14 Completed Full Resp Panel w/COVID ([facility]) Routine Lab 05/13/24 21:48 Ordered Lactic Acid Follow Up (RFLX 1) Stat Lab 05/13/24 22:08 Completed Magnesium AMLAB Lab 05/14/24 06:00 Ordered Magnesium AMLAB Lab 05/15/24 06:00 Ordered Magnesium AMLAB Lab 05/16/24 06:00 Ordered Rapid PCR Covid and Flu A/B Stat Lab 05/13/24 18:41 Completed Rapid PCR Covid and Flu A/B Stat Lab 05/13/24 18:44 Stop Req Trop I [Troponin I] Stat Lab 05/13/24 18:14 Completed Troponin I Q3H Lab 05/13/24 20:14 Completed Troponin I Q3H Lab 05/14/24 00:30 Ordered Troponin I Q6H Lab 05/14/24 01:00 Ordered Troponin I Q6H Lab 05/14/24 07:00 Ordered UA [Urinalysis and Microscopic] Stat Lab 05/13/24 18:32 Completed UDS [Drug Screen,Urine] Stat Lab 05/13/24 18:32 Completed Blood Culture Stat Micro 05/13/24 18:24 Received Sputum Culture & Gram Stain Routine Micro 05/13/24 21:48 Ordered Urine Culture Stat Micro 05/13/24 18:32 Received ABG [Arterial Blood Gas] Timed RT 05/14/24 01:00 Ordered VBG [Venous Blood Gas] Stat RT 05/13/24 18:30 Completed VBG [Venous Blood Gas] Timed RT 05/13/24 20:21 Completed ECG Data Tracing #1: I reviewed this ECG and interpreted as documented below: Motion artifact secondary to respiratory effort limits study, but appears to be sinus rhythm with a ventricular rate of 83 bpm. Left axis deviation with intraventricular conduction delay. It does not appear to be significantly different from prior EKG within limitations of the study. No acute STEMI. ECG initial impression date: 05/13/24 ECG initial impression time: 18:36 Medical Decision Narrative: In summary, this patient is a 69-year-old female presenting to the Emergency Department for evaluation of altered mental status. Differential diagnoses considered include but are not limited to hypercapnic respiratory failure, sepsis, UTI, CVA, intracranial hemorrhage, FRANCISCO. Ruling out the most morbid conditions drove assessment. It should be noted patient's history includes obesity, hypertension, COPD, CHF, type 2 diabetes, chronic respiratory failure which are not at goal therapy. This complicates all aspects of care by increasing patient's risk for morbidity. I reviewed patient's past medical records and noted recent admission for similar presentation and was found to be septic secondary to UTI and pneumonia as well as with hypercapnic respiratory failure. She was intubated at that time. On exam, the patient is lethargic but arouses to voice. She does follow commands. No gross focal neurologic deficits but the patient is generally weak with a GCS of 13. Given that this was related to hypercapnic respiratory failure last night, made the decision to put her on BiPAP early as well as administer DuoNebs x 3, methylprednisolone. On multiple subsequent reassessments, she was tolerating BiPAP well with very good oxygen saturations. Will plan to repeat VBG to monitor. workup included evaluation to evaluate for infectious, metabolic, cardiac causes of symptoms. Also obtain CT scan of the head, chest, and abdomen for broad evaluation for sepsis workup. Patient arrives with borderline fever, tachycardia, tachypnea and respiratory failure concerning for sepsis initially. She was not given sepsis bolus given history of heart failure, but I did start with a liter bolus of IV fluids. I independently interpreted x-ray prior to the radiologist read and noted possible pneumonia. Please see their read for final interpretation. Labs were obtained that demonstrated significant leukocytosis greater than 30,000. Patient also has a chronic compensated respiratory acidosis. She has mild hyperkalemia without significant EKG changes. Lactic is elevated. Urine is possibly concerning for infection with urine culture sent and pending. Blood cultures also sent and pending. Overall, workup concerning for sepsis. Patient was not given full sepsis bolus given obesity as well as history of CHF, but she was given 1 L bolus of IV fluids. CT PE was ordered given elevated D-dimer. I also ordered CT abdomen given sepsis of unknown origin, as patient is not a reliable historian based on her current mental status. CT head without contrast not concerning for any acute pathology. Patient has multiple incidental findings including thyroid nodules, lung nodules, liver nodule, AAA. Looks like she does have pneumonia. On reassessment, patient doing well on BiPAP. She continues to be lethargic but does still arouse to voice and repetitive stimuli. Repeat gas was obtained which demonstrated improved respiratory acidosis. Vitals are reassuring on cardiac telemetry on multiple subsequent reassessments. For her sepsis, I gave her broad-spectrum antibiotics with IV vancomycin and Zosyn. Overall, at this time I feel the patient is appropriate for admission for sepsis secondary to pneumonia/UTI, acute on chronic respiratory failure, altered mental status. Procedures Miscellaneous Procedure Procedure Performed: Ultrasound Guided IV Line Placement PROCEDURE NOTE: IV Placement under Ultrasound Guidance Performed by: Iris Coy indication: [IV access required. Multiple attempts at peripheral IV placement were made by the nursing staff without success] Procedure: The area was prepped in the usual fashion. The [R] cephalic was cannulated with a 18 gauge angiocath with use of dynamic ultrasound to identify the vein. The patient tolerated the procedure well. Complications: [none] Critical Care Critical Care Time Critical Care Time: Yes Attestation: On 05/13/24, the high probability of a clinically significant, sudden or life threatening deterioration of the following system(s) required my full and direct attention, intervention and personal management. The time I documented below is in addition to time spent performing reported procedures but includes the following listed in this critical care notation. Total Time Total Critical Care Time: 40
[2024-05-13 19:13] LABS: Ammonia < 9 umol/L (9-30)
--- NOTE | 2024-05-13 19:35 | PC.NURSE ---
[facility]anc verified by [facility]
[2024-05-13] MEDS: SODIUM CHLORIDE 0.9% 10ML SYR (RAD ONLY) 10 ML IV (19:39)
[2024-05-13] MEDS: IOPAMIDOL-370 (76%);100ML BOTTLE 80 ML IV (19:39)
[2024-05-13] MEDS: 0.9 % SODIUM CHLORIDE 50 ML VIAL IV (19:39)
[2024-05-13] MEDS: VANCOMYCIN HCL 2,500 MG in 0.9 % SODIUM CHLORIDE 500 ML 250 MG IV (19:45)
[2024-05-13 19:52] VITALS: RESP 18; RESP 19
[2024-05-13] MEDS: VANCOMYCIN CONSULT REQUEST 1 EACH NOTAPPLIC (20:06)
[2024-05-13 20:26] LABS: VBG Base Excess 3.9 mmol/L (-2.4-2.3); VBG Oxygen Saturation 57.2 % (50-70); VBG PH 7.32 mmol/L (7.31-7.41); VBG PO2 31.1 mmol/L (28-40); VBG Total CO2 31.9 mmol/L (23-27)
[2024-05-13 20:29] LABS: VBG PCO2 59.8 mmol/L (35-51)
[2024-05-13 21:03] LABS: Troponin I < 0.01 ng/ml (0.00-0.034)
--- NOTE | 2024-05-13 21:25 | PC.NURSE ---
attempted to call report, nurse reports she would call me back
[2024-05-13 21:26] VITALS: BP 119/71; PULSE 73; RESP 16; TEMP 36.7; O2SAT 98
--- NOTE | 2024-05-13 21:45 | PC.NURSE ---
Report recieved from [facility] at this time.
[2024-05-13 22:00] VITALS: BP 127/76; PULSE 75; RESP 18; RESP 21; TEMP 36.7; O2SAT 92
[2024-05-13 22:02] LABS: Reflex Lactic Add Lactic Reflex
--- NOTE | 2024-05-13 22:06 | P.HP_ITS ---
History of Present Illness *Admission Date: 05/13/24 *Reason for visit:: Lethargy, SOB, low oxygen saturation *History of present illness: 69-year-old with past medical history of AAA, COPD on 3 L oxygen at baseline, CHF, hypertension, diabetes. Patient presents from halfway complaining of lethargy, SOB, and low O2 sat. Patient admitted for acute on chronic respiratory failure. Patient hypoxic in emergency room with O2 sat 84% on room air. Patient extremely lethargic on BiPAP during my interview with patient, and unable to answer simple questions without difficulty. Patient seen previously at this institution, and required previous intubation. At halfway, patient reportedly extremely lethargic and hypoxic and sent to emergency room via EMS. Denies chest pain, abdominal pain, known sick contacts. Unable to characterize for shortness of breath/dyspnea secondary to respiratory distress concerns. Patient's VBG improved after 2 hours observation in emergency room. pH 7.31 - >7.32, pCO2 66.8 ->59.8, LA 2.7->2.0. WBC 31.6. [facility] Disclaimer: The information contained in this section may have been updated after the patient was seen, as this information can be updated by other users. Medical History Femur fracture, right Overactive bladder Morbid obesity due to excess calories Diabetes mellitus Congestive heart failure PVD (peripheral vascular disease) History of thrombosis History of embolism Venous insufficiency (chronic) (peripheral) Functional quadriplegia HTN (hypertension) Vitamin D deficiency COPD (chronic obstructive pulmonary disease) Shock On mechanically assisted ventilation Acute hypercapnic respiratory failure Family History Other Unknown family medical history Social History Smoking Status: Unknown if ever smoked alcohol intake: never current occupational status: retired Travel in the last 8 weeks: None Other Medical History Have you received the Flu Vaccine for this season: No Have you received the Pneumonia Vaccine: No Review of Systems Review of Systems Review of systems:: pertinent systems reviewed and negative unless documented below Constitutional Constitutional: Reports system reviewed and no additional complaints, except as documented Meds Home Medications and Allergies Home Medications ?Medication ?Instructions ?Recorded ?Confirmed ?Type acetaminophen 500 mg tablet 1,000 mg PO Q6H PRN PAIN/FEVER 02/25/24 02/25/24 History albuterol sulfate 90 mcg/actuation 2 inh inhalation QID PRN SOA 02/25/24 02/25/24 History breath activated powder inhaler apixaban 5 mg tablet (Eliquis) 5 mg PO BID HX EMBOLISM & 02/25/24 02/25/24 History THROMBOSIS ascorbic acid (vitamin C) 500 mg 500 mg PO DAILY Supplement 02/25/24 02/25/24 History tablet aspirin 81 mg chewable tablet 81 mg PO DAILY PVD 02/25/24 02/25/24 History carvedilol 25 mg tablet 25 mg PO BID HTN 02/25/24 02/25/24 History cyanocobalamin (vitamin B-12) 100 100 mcg PO DAILY DEFICIENCY 02/25/24 02/25/24 History mcg tablet dextran 70-hypromellose (PF) 0.1 1 drp ophthalmic (eye) QID 02/25/24 02/25/24 History %-0.3 % eye drops in a dropperette SUPERIOR LIMBIC KARATITIS (Artificial Tears (PF)) docusate sodium 100 mg capsule 100 mg PO HS Constipation 02/25/24 02/25/24 History empagliflozin 10 mg tablet 10 mg PO DAILY DM 02/25/24 02/25/24 History (Jardiance) ergocalciferol (vitamin D2) 1,250 1,250 mcg PO WEEKLY 02/25/24 02/25/24 History mcg (50,000 unit) capsule furosemide 40 mg tablet 40 mg PO DAILY 02/25/24 02/25/24 History metformin 1,000 mg tablet 1,000 mg PO BID DM 02/25/24 02/25/24 History omeprazole 20 mg capsule,delayed 20 mg PO DAILY GERD 02/25/24 02/25/24 History release ondansetron HCl 4 mg tablet 4 mg PO Q6H PRN Nausea 02/25/24 02/25/24 History sacubitril 24 mg-valsartan 26 mg 1 tab PO BID CHF 02/25/24 02/25/24 History tablet (Entresto) spironolactone 50 mg tablet 50 mg PO DAILY CHF 02/25/24 02/25/24 History tizanidine 2 mg capsule 2 mg PO Q8H PRN MUSCLE SPASMS 02/25/24 02/25/24 History vibegron 75 mg tablet 75 mg PO DAILY OVERACTIVE BLADDER 02/25/24 02/25/24 History bacitracin 500 unit/gram topical 1 applic topical TID 10 days #30 02/29/24 Rx ointment grams doxycycline hyclate 100 mg tablet 100 mg PO BID 3 days #6 tabs 02/29/24 Rx fluticasone fur. 100 mcg-umeclid 1 inh inhalation DAILY 30 days #60 02/29/24 Rx 62.5 mcg-vilant 25 mcg ea inhalat.powder (Trelegy Ellipta) ipratropium 0.5 mg-albuterol 3 mg 3 ml inhalation Q6H PRN 02/29/24 02/25/24 Rx (2.5 mg base)/3 mL nebulization SOA/WHEEZING 30 days #0 mL soln New Prescriptions to Start Prescriptions: Allergies Allergy/AdvReac Type Severity Reaction Status Date / Time Penicillins Allergy Intermediate Verified 08/01/23 16:12 Sulfa (Sulfonamide Allergy Intermediate Verified 08/01/23 16:13 Antibiotics) Exam Data for Last 24 hours Vital signs and Labs for Last 24 Hours: Temp Pulse Resp BP Pulse Ox O2 Del Method O2 Flow Rate 98.1 F 73 16 119/71 95 BiPAP 3 05/13/24 21:26 05/13/24 21:26 05/13/24 21:26 05/13/24 21:26 05/13/24 17:57 05/13/24 21:26 05/13/24 17:57 FiO2 45 05/13/24 19:52 Laboratory Results - last 24 hr 05/13/24 18:14: WBC 31.6 H*, RBC 4.73, Hgb 11.4 L, Hct 39.7, MCV 83.9, MCH 24.1 L, MCHC 28.7 L, RDW 16.5, Plt Count 304, MPV 12.2 H, Neut % (Auto) 87.6 H, Lymph % (Auto) 6.8 L, [place] % (Auto) 3.3, Eos % (Auto) 1.3, Baso % (Auto) 0.4, Neut # (Auto) 27.7 H, Lymph # (Auto) 2.2, [place] # (Auto) 1.1 H, Eos # (Auto) 0.4, Baso # (Auto) 0.1, Total Counted 100, Neutrophils % (Manual) 82 H, Band Neutrophils % 6.0, Lymphocytes % (Manual) 7 L, Monocytes % (Manual) 4, Eosinophils % (Manual) 1, Platelet Estimate Normal, RBC Morphology Normal, D-Dimer 1.11 H, Sodium 142, Potassium 5.4 H, Chloride 100, Carbon Dioxide 36 H, Anion Gap 11.4, BUN 29 H, Creatinine 1.00, Estimated GFR 55 L, Est GFR ( Amer) 66, Glucose 112 H, Calcium 9.1, Total Bilirubin 0.5, AST 35, ALT 20, Alkaline Phosphatase 65, Troponin I < 0.01, NT-Pro-B Natriuret Pep 112, Total Protein 7.5, Albumin 3.8, Globulin 3.7 H, Albumin/Globulin Ratio 1.0 L 05/13/24 18:30: VBG pH 7.31, VBG pCO2 66.8 H, VBG pO2 27.7 L, VBG HCO3 33.0 H, VBG Total CO2 35.1 H, VBG O2 Saturation 49.5 L, VBG Base Excess 6.8 H, VBG Lactic Acid 2.7 H 05/13/24 18:32: Urine Color Yellow, Urine Appearance Sl cloudy, Urine pH 6.0, Ur Specific [place] 1.020, Urine Protein Negative, Urine Glucose (UA) 2+, Urine Ketones Negative, Urine Blood Negative, Urine Nitrate Negative, Urine Bilirubin Negative, Urine Urobilinogen 0.2, Ur Leukocyte Esterase 1+ A, Urine RBC None, Urine WBC 5-10, Ur Squamous Epith Cells 3-5, Urine Bacteria Trace, Urine Opiates Screen Negative, Urine Methadone Screen Negative, Ur Barbituates Screen Negative, Ur Phencyclidine Scrn Negative, Ur Amphetamines Screen Negative, U Benzodiazepines Scrn Negative, Urine Cocaine Screen Negative, U Marijuana (THC) Screen Negative 05/13/24 18:41: SARS-CoV-2 (PCR) Not detected, Influenza A Untype (PCR) Not detected, Influenza Type B (PCR) Not detected 05/13/24 18:56: Ammonia < 9 L 05/13/24 20:14: Troponin I < 0.01 05/13/24 20:21: VBG pH 7.32, VBG pCO2 59.8 H, VBG pO2 31.1, VBG HCO3 30.0, VBG Total CO2 31.9 H, VBG O2 Saturation 57.2, VBG Base Excess 3.9 H, VBG Lactic Acid 2.0 I & O for Last 24 hours: Intake & Output 05/10/24 05/11/24 05/12/24 05/13/24 23:59 23:59 23:59 23:59 Weight 136.078 kg Constitutional Constitutional: mild distress *Routine HEENT Exam Head: Present normocephalic Eye: Present EOMI and normal accommodation ENT: Present mucous membranes moist *Routine Neck Exam Neck: Present supple and full ROM *Routine Respiratory Exam Respiratory: Present decreased breath sounds, respiratory distress, wheezes and distant breath sounds *Routine Cardiovascular Exam Cardiovascular: Present RRR, Normal S1 and Normal S2 *Routine Abdominal Exam Abdominal: Present soft and normoactive bowel sounds *Routine Rectal Exam Rectal:: deferred *Routine Genitalia Exam Genitalia:: deferred *Routine Extremities Exam Extremities: Present normal capillary refill; Absent full ROM *Routine Skin Exam Skin: Present intact and warm *Routine Neurological Exam Neurological: Present alert and oriented X3 Assessment and Plan *Assessment and plan (1) Acute exacerbation of chronic obstructive pulmonary disease: Status: Acute Category: Medical Code(s): J44.1 - Chronic obstructive pulmonary disease with (acute) exacerbation (2) Acute on chronic respiratory failure with hypoxia and hypercapnia: Status: Acute Category: Medical Code(s): J96.21 - Acute and chronic respiratory failure with hypoxia; J96.22 - Acute and chronic respiratory failure with hypercapnia (3) AAA (abdominal aortic aneurysm): Status: Acute Category: Medical Code(s): I71.40 - Abdominal aortic aneurysm, without rupture, unspecified (4) HTN (hypertension): Status: Acute Category: Medical Code(s): I10 - Essential (primary) hypertension (5) Congestive heart failure: Status: Acute Category: Medical Code(s): I50.9 - Heart failure, unspecified (6) Diabetes mellitus: Status: Acute Category: Medical Code(s): E11.9 - Type 2 diabetes mellitus without complications (7) Morbid obesity due to excess calories: Status: Acute Category: Medical Code(s): E66.01 - Morbid (severe) obesity due to excess calories (8) Overactive bladder: Status: Acute Category: Medical Code(s): N32.81 - Overactive bladder (9) Acute hypercapnic respiratory failure: Status: Acute Category: Medical Code(s): J96.02 - Acute respiratory failure with hypercapnia Plan 69-year-old with past medical history of AAA, COPD, CHF, hypertension, diabetes. Patient presents from halfway complaining of lethargy, SOB, and low O2 sat. patient admitted for acute on chronic respiratory failure. Problems as listed below: Imaging/labwork reviewed at time of admission: ? CTA chest: No PE, cardiomegaly, bibasilar atelectasis, right bibasilar opacity ?CT abdomen/pelvis: Infrarenal abdominal aortic aneurysm 3 x 2.5 cm, hepatomegaly. Perinephritic fat stranding ?CT brain: Questionable mastoiditis ?WBC 31.6, Hgb 11.4, platelets 304, NA 142, K5.4, CL 100, serum bicarb 36, BUN 29, CR 1, GLU 112, transaminases within normal limits ?Trop<0.01-> 0.01, BNP 112 ?Ammonia<9, nasopharyngeal influenza/COVID-negative, UDS negative ?VBG after 2 hours BiPAP pH 7.31 ->7.32, pCO2 66.8 ->59.8, LA 2.7->2.0 ?I will repeat ABG, BMP, mag, CBC with differential in AM. I will also check procalcitonin at time of admission. Acute on chronic respiratory failure secondary to COPD exacerbation: ? DuoNebs 3 mL inhaled Q6 while awake, albuterol 2.5 mg inhaled every 4 as needed shortness of breath, incentive spirometer every 2 hours while awake, Solu-Medrol 40 IV every 8, I ordered respiratory panel and sputum culture. Blood cultures ordered by emergency room. Nasopharyngeal influenza/COVID- negative in emergency room. Cefepime 1 g IV every 12, doxycycline 100 mg IV every 12. Recheck ABG in AM. Morphine 2 mg IV every 4 as needed moderate pain. Morphine 4 mg IV every 4 as needed severe pain. No pulmonary embolus noted on CTA chest. Questionable mastoiditis: Incidental finding noted on CT brain. Antibiotics as listed above and COPD exacerbation section. Will initially maintain IV vancomycin 1 g IV every 12 then pharmacy to dose, but consider DC if respiratory panel negative for MRSA. CHF not in exacerbation: ?Reviewed 02/25/2024 echocardiogram noting normal LV function with diastolic dysfunction. Patient does not appear to show signs of decompensated heart failure. Continue home Entresto 1 tab p.o. twice daily, Coreg 25 mg p.o. twice daily, aspirin 81 mg p.o. daily, spironolactone 50 mg p.o. daily. Serial troponins during hospitalization. First 2 sets of troponins in emergency room negative. Hypertension: As above in CHF section. Diabetes: Check hemoglobin A1c during hospitalization. [id number] glucose 109 overnight, and glucose on BMP 112. Hold metformin and continue Jardiance 10 mg p.o. daily. Sign scale insulin ACHS Accu-Cheks. MDM [place]: High, patient suffering from acute on chronic respiratory failure which poses threat to life and bodily function. Data: High, see above. I spoke with the emergency room provider and we agreed that patient required admission for acute on chronic respiratory distress that failed ER management. Risk: High, given respiratory distress on BiPAP I admitted patient to ICU. Low threshold to innovate patient if patient shows signs of clinical deterioration. Prescription drug management as noted above including IV morphine. 35 minutes total critical care time spent on patient by Dr. Peña 05/13/2024
--- NOTE | 2024-05-13 22:18 | PC.NURSE ---
Patient arrived to floor via stretcher from ED at 22:13.
[2024-05-13 22:28] LABS: Lactic Acid Follow Up (RFLX 1) 2.2 mmol/L (0.7-2.1)
[2024-05-13 23:00] VITALS: BP 124/79; PULSE 71; RESP 20; O2SAT 95
[2024-05-13 23:30] VITALS: PULSE 70
[2024-05-13] MEDS: METHYLPREDNISOLONE SOD SUCC 40MG VIAL 40 MG IV (23:38)
[2024-05-13] MEDS: CEFEPIME HCL 1 GM in 0.9 % SODIUM CHLORIDE 50 ML IV (23:38)
[2024-05-14] VITALS (17 sets, daily range): BP systolic 108–134; BP diastolic 49–75; PULSE 65–95; RESP 16–22; TEMP 36.7–37.3; O2SAT 91–99; BMI 53.1
[2024-05-14 00:12] LABS: Reflex Lactic (2 hrs) Add Lactic Reflex
[2024-05-14] MEDS: IPRATROPIUM/ALBUTEROL 3 ML NEB IH ×4 (00:25→18:33)
[2024-05-14] MEDS: DOXYCYCLINE HYCLATE 100 MG in 0.9 % SODIUM CHLORIDE 250 ML 166.667 MG IV ×2 (00:35→12:50)
[2024-05-14 00:53] LABS: Lactic Acid Follow up (RFLX 2) 1.1 mmol/L (0.7-2.1)
[2024-05-14 01:10] LABS: Procalcitonin 0.086 ng/mL (0.0-2.0); Troponin I < 0.01 ng/ml (0.00-0.034)
[2024-05-14 02:46] LABS: Adenovirus,PCR Not Detected (NotDetected); Bordetella Pertussis Not Detected (NotDetected); Chlamydophila Pneumoniae, PCR Not Detected (NotDetected); Coronavirus 19, PCR Not Detected (NotDetected); Coronavirus 229E Not Detected (NotDetected); Coronavirus NL63 Not Detected (NotDetected); Coronavirus OC43 Not Detected (NotDetected); Coronovirus HKU1,PCR Not Detected (NotDetected); Human Metapneumovirus Not Detected (NotDetected); Influenza A, PCR Not Detected (NotDetected); Influenza AH1, 2009 Not Detected (NotDetected); Influenza AH1, PCR Not Detected (NotDetected); Influenza AH3,PCR Not Detected (NotDetected); Influenza B, PCR Not Detected (NotDetected); Mycoplasma Pneumoniae, PCR Not Detected (NotDetected); Parainfluenza 1, PCR Not Detected (NotDetected); Parainfluenza 2, PCR Not Detected (NotDetected); Parainfluenza 3, PCR Not Detected (NotDetected); Parainfluenza 4, PCR Not Detected (NotDetected); Respiratory Syncytial Virus Not Detected (NotDetected); Rhinovirus/Enterovirus Not Detected (NotDetected)
[2024-05-14 05:38] LABS: POC Glucose,Bedside 197 (70-110)
[2024-05-14] MEDS: humaLOG 100 UNITS/ML 10ML VIAL (SSI) SUBCUT ×3 (05:57→21:27)
[2024-05-14] MEDS: METHYLPREDNISOLONE SOD SUCC 40MG VIAL 40 MG IV ×3 (05:57→21:27)
--- NOTE | 2024-05-14 06:00 | XR_ITS ---
PROCEDURE INFORMATION: Exam: XR Chest Exam date and time: 05/14/2024 5:51 AM Age: 69 years old Clinical indication: Shortness of breath; Additional info: Eval resp distress TECHNIQUE: Imaging protocol: Radiologic exam of the chest. Views: 1 view. COMPARISON: CT ANGIO CHEST PE PROTOCOL 05/13/2024 7:30 PM FINDINGS: Lungs: Minimal opacity in the left base may represent atelectasis or pneumonia.. Pleural spaces: Unremarkable. No pleural effusion. No pneumothorax. Heart/Mediastinum: Cardiomegaly Bones/joints: Unremarkable. Other findings: Patient is rotated to the right IMPRESSION: Minimal opacity in the left base may represent atelectasis or pneumonia..
[2024-05-14 06:54] LABS: Chloride 107 mmol/L (98-107); Sodium 139 mmol/L (136-145)
[2024-05-14 06:55] LABS: Potassium 5.1 mmoL/L (3.5-5.1)
[2024-05-14 06:58] LABS: Anion Gap 6.1 mEq/L (5-15); Blood Urea Nitrogen 26 mg/dl (7-17); Calcium 8.9 mg/dl (8.4-10.2); Carbon Dioxide 31 mmol/L (22.0-30.0); Creatinine Clearance Estimated 41 mL/min (50-200); Estimated Glomerular Filt Rate 62 ml/min (>60); GFR (African American) 75 ML/MIN (>60); Glucose 172 mg/dl (74-100); Magnesium 2.2 mg/dl (1.6-2.3)
[2024-05-14 07:30] LABS: Troponin I < 0.01 ng/ml (0.00-0.034)
--- NOTE | 2024-05-14 07:37 | P.CONPHA_ITS ---
Pharmacy Consult Date: 05/14/24 Time: 07:37 Referring provider: DR. DIAZ Reason for Consult:: VANCOMYCIN DOSING Allergies Allergy/AdvReac Type Severity Reaction Status Date / Time Penicillins Allergy Intermediate Verified 08/01/23 16:12 Sulfa (Sulfonamide Allergy Intermediate Verified 08/01/23 16:13 Antibiotics) Home Medications ?Medication ?Instructions ?Recorded ?Confirmed ?Type acetaminophen 500 mg tablet 1,000 mg PO Q6H PRN PAIN/FEVER 02/25/24 05/14/24 History albuterol sulfate 90 mcg/actuation 2 inh inhalation QID PRN SOA 02/25/24 05/14/24 History breath activated powder inhaler apixaban 5 mg tablet (Eliquis) 5 mg PO BID HX EMBOLISM & 02/25/24 05/14/24 History THROMBOSIS ascorbic acid (vitamin C) 500 mg 500 mg PO DAILY Supplement 02/25/24 05/14/24 History tablet aspirin 81 mg chewable tablet 81 mg PO DAILY PVD 02/25/24 05/14/24 History carvedilol 25 mg tablet 25 mg PO BID HTN 02/25/24 05/14/24 History cyanocobalamin (vitamin B-12) 100 100 mcg PO DAILY DEFICIENCY 02/25/24 05/14/24 History mcg tablet dextran 70-hypromellose (PF) 0.1 1 drp ophthalmic (eye) QID 02/25/24 05/14/24 History %-0.3 % eye drops in a dropperette SUPERIOR LIMBIC KARATITIS (Artificial Tears (PF)) docusate sodium 100 mg capsule 100 mg PO HS Constipation 02/25/24 05/14/24 History empagliflozin 10 mg tablet 10 mg PO DAILY DM 02/25/24 05/14/24 History (Jardiance) ergocalciferol (vitamin D2) 1,250 1,250 mcg PO WEEKLY 02/25/24 05/14/24 History mcg (50,000 unit) capsule furosemide 40 mg tablet 40 mg PO DAILY 02/25/24 05/14/24 History metformin 1,000 mg tablet 1,000 mg PO BID DM 02/25/24 05/14/24 History omeprazole 20 mg capsule,delayed 20 mg PO DAILY GERD 02/25/24 05/14/24 History release ondansetron HCl 4 mg tablet 4 mg PO Q6H PRN Nausea 02/25/24 05/14/24 History sacubitril 24 mg-valsartan 26 mg 1 tab PO BID CHF 02/25/24 05/14/24 History tablet (Entresto) spironolactone 50 mg tablet 50 mg PO DAILY CHF 02/25/24 05/14/24 History tizanidine 2 mg capsule 2 mg PO Q8H PRN MUSCLE SPASMS 02/25/24 05/14/24 History vibegron 75 mg tablet 75 mg PO DAILY OVERACTIVE BLADDER 02/25/24 05/14/24 History fluticasone fur. 100 mcg-umeclid 1 inh inhalation DAILY 30 days #60 02/29/24 05/14/24 Rx 62.5 mcg-vilant 25 mcg ea inhalat.powder (Trelegy Ellipta) ipratropium 0.5 mg-albuterol 3 mg 3 ml inhalation Q6H PRN 02/29/24 05/14/24 Rx (2.5 mg base)/3 mL nebulization SOA/WHEEZING 30 days #0 mL soln New Prescriptions to Start Prescriptions: Height: 1.6 m Weight: 136 kg Laboratory Results:: Laboratory Results - last 24 hr 05/13/24 18:14: WBC 31.6 H*, RBC 4.73, Hgb 11.4 L, Hct 39.7, MCV 83.9, MCH 24.1 L, MCHC 28.7 L, RDW 16.5, Plt Count 304, MPV 12.2 H, Neut % (Auto) 87.6 H, Lymph % (Auto) 6.8 L, [place] % (Auto) 3.3, Eos % (Auto) 1.3, Baso % (Auto) 0.4, Neut # (Auto) 27.7 H, Lymph # (Auto) 2.2, [place] # (Auto) 1.1 H, Eos # (Auto) 0.4, Baso # (Auto) 0.1, Total Counted 100, Neutrophils % (Manual) 82 H, Band Neutrophils % 6.0, Lymphocytes % (Manual) 7 L, Monocytes % (Manual) 4, Eosinophils % (Manual) 1, Platelet Estimate Normal, RBC Morphology Normal, D-Dimer 1.11 H, Sodium 142, Potassium 5.4 H, Chloride 100, Carbon Dioxide 36 H, Anion Gap 11.4, BUN 29 H, Creatinine 1.00, Estimated GFR 55 L, Est GFR ( Amer) 66, Glucose 112 H, Calcium 9.1, Total Bilirubin 0.5, AST 35, ALT 20, Alkaline Phosphatase 65, Troponin I < 0.01, NT-Pro-B Natriuret Pep 112, Total Protein 7.5, Albumin 3.8, Globulin 3.7 H, Albumin/Globulin Ratio 1.0 L 05/13/24 18:30: VBG pH 7.31, VBG pCO2 66.8 H, VBG pO2 27.7 L, VBG HCO3 33.0 H, VBG Total CO2 35.1 H, VBG O2 Saturation 49.5 L, VBG Base Excess 6.8 H, VBG Lactic Acid 2.7 H 05/13/24 18:32: Urine Color Yellow, Urine Appearance Sl cloudy, Urine pH 6.0, Ur Specific [place] 1.020, Urine Protein Negative, Urine Glucose (UA) 2+, Urine Ketones Negative, Urine Blood Negative, Urine Nitrate Negative, Urine Bilirubin Negative, Urine Urobilinogen 0.2, Ur Leukocyte Esterase 1+ A, Urine RBC None, Urine WBC 5-10, Ur Squamous Epith Cells 3-5, Urine Bacteria Trace, Urine Opiates Screen Negative, Urine Methadone Screen Negative, Ur Barbituates Screen Negative, Ur Phencyclidine Scrn Negative, Ur Amphetamines Screen Negative, U Benzodiazepines Scrn Negative, Urine Cocaine Screen Negative, U Marijuana (THC) Screen Negative 05/13/24 18:41: Chlamy pneumoniae PCR Not detected, Adenovirus (PCR) Not detected, B. pertussis DNA (PCR) Not detected, Coronavirus OC43 (PCR) Not detected, Coronavirus HKU1 (PCR) Not detected, Coronavirus 229E (PCR) Not detected, SARS-CoV-2 (PCR) Not detected 05/13/24 18:41: SARS-CoV-2 (PCR) Not detected, Coronavirus NL63 (PCR) Not detected, Human Metapneumovir PCR Not detected, Influenza A (H1) PCR Not detected, Influ A (H1N1/09) PCR Not detected, Influenza A (H3) PCR Not detected, Influenza Type A (PCR) Not detected, Influenza A Untype (PCR) Not detected, Influenza Type B (PCR) Not detected 05/13/24 18:41: Influenza Type B (PCR) Not detected, M. pneumoniae (PCR) Not detected, Parainfluenza 1 (PCR) Not detected, Parainfluenza 2 (PCR) Not dete cted, Parainfluenza 3 (PCR) Not detected, Parainfluenza 4 (PCR) Not detected, RSV (PCR) Not detected, Entero/Rhino (PCR) Not detected 05/13/24 18:56: Ammonia < 9 L 05/13/24 20:14: Troponin I < 0.01 05/13/24 20:21: VBG pH 7.32, VBG pCO2 59.8 H, VBG pO2 31.1, VBG HCO3 30.0, VBG Total CO2 31.9 H, VBG O2 Saturation 57.2, VBG Base Excess 3.9 H, VBG Lactic Acid 2.0 05/13/24 22:08: Lactate 2.2 H 05/14/24 00:30: Lactate 1.1, Troponin I < 0.01, Procalcitonin 0.086 05/14/24 05:31: POC Glucose 197 H 05/14/24 05:40: Sodium 139, Potassium 5.1, Chloride 107, Carbon Dioxide 31 H, Anion Gap 6.1, BUN 26 H, Creatinine 0.90, Estimated Creat Clear 41, Estimated GFR 62, Est GFR ( Amer) 75, Glucose 172 H D, Calcium 8.9, Magnesium 2.2, Troponin I < 0.01 Medical History: Medical History (Updated 05/13/24 @ 21:04 by Iris Coy DO) Femur fracture, right Overactive bladder Morbid obesity due to excess calories Diabetes mellitus Congestive heart failure PVD (peripheral vascular disease) History of thrombosis History of embolism Venous insufficiency (chronic) (peripheral) Functional quadriplegia HTN (hypertension) Vitamin D deficiency COPD (chronic obstructive pulmonary disease) Shock On mechanically assisted ventilation Acute hypercapnic respiratory failure Assessment and Plan Assessment and plan all Dx Assessment and Plan for all problems:: Pharmacokinetic dosing service Objective: Patient: Floor: Age: 69 yo Serum creatinine: 0.90 mg/dL Height: 63.0 Inches Weight (kg): 136 Assessment: IBW (kg): 52.40 Dosing wt(kg): 136 Estimated Creatinine clearance (ml/min): 48.1 CRCL method: Cockcroft and Gault using ibw(default). Drug selected: Vancomycin Loading dose (mg): Vd (liters): 108.8 (factor used: 0.8 L/kg) Obed (hr-1): 0.044 Half life (hrs): 15.75 CLvanco=?? 4.787 L/hr Recommended dose: 2000 mg Interval: 18 hrs Infusion time (hrs): 2.0 Predicted peak (mcg/mL): 32.2 Predicted trough (mcg/mL): 15.93 Total body weight is being used for vancomycin dosing. Recommendations: Give Vancomycin 2000 mg q 18 hrs with an expected Cpeak of 32.2 mcg/ml and an expected Ctrough of 15.93 mcg/ml AUC 0-24 /MARGOT Data: MARGOT 0.5 mcg/mL:?? AUC/MARGOT:? 1114.1 MARGOT 1.0 mcg/mL:?? AUC/MARGOT:? 557.1 --------- MARGOT 1.5 mcg/mL:?? AUC/MARGOT:? 371.4 MARGOT 2.0 mcg/mL:?? AUC/MARGOT:? 278.5 Thank you for the consult, will continue to follow. -BRUCE FERGUSON, CADEND
[2024-05-14 07:49] LABS: Hemoglobin 10.7 g/dL (12.2-16.2); Red Blood Count 4.48 M/mm3 (4.20-5.40); White Blood Count 22.9 K/mm3 (4.8-10.8)
[2024-05-14 07:50] LABS: Hematocrit 37.4 % (37.0-47.0); Mean Corpuscular HGB Conc 28.6 g/dL (31.8-35.4); Mean Corpuscular Hemoglobin 23.9 pg (27.0-31.2); Mean Corpuscular Volume 83.5 fl (81-99); Mean Platelet Volume 11.8 fl (7.4-10.4); Platelet Count 220 K/mm3 (142-424); Red Cell Distribution Width 16.8 % (11.5-17.5)
[2024-05-14 07:51] LABS: Basophils % 0.2 % (0.1-2.0); Lymphocytes # 1.4 K/mm3 (0.7-4.5); Lymphocytes % 6.1 % (10-50); Monocytes # 0.1 K/mm3 (0.1-1.0); Monocytes % 0.4 % (1.7-9.3); Neutrophils # 21.3 K/mm3 (1.8-7.8); Neutrophils % 92.8 % (37.0-80.0)
[2024-05-14 07:52] LABS: MANUAL DIFFERENTIAL MANUAL DIFFERENTIAL (MANUAL DIFF)
--- NOTE | 2024-05-14 08:41 | P.CONPHA_ITS ---
Pharmacy Intervention Comments: MEDICATION RECONCILIATION COMPLETED ON PATIENT USING MAR FROM [facility]. -BRUCE FERGUSON, CADEND
--- NOTE | 2024-05-14 08:41 | HMH.PHAINT1 ---
Pharmacy Intervention Comments: MEDICATION RECONCILIATION COMPLETED ON PATIENT USING MAR FROM [facility]. -BRUCE FERGUSON, CADEND
[2024-05-14 08:50] LABS: ABG Base Excess 5.3 mmol/L (-2.4-2.3); ABG HCO3 30.6 mmhg (22.0-26.0); ABG Oxygen Saturation 98 % (90-100); ABG PH 7.37 mmol/L (7.35-7.45); ABG PO2 101.5 mmhg (80-100); ABG TCO2 32.3 mmhg (23-27); Oxygen 45% Bipap 18/8 %
[2024-05-14 08:51] LABS: Allen's Test Acceptable; Source Right Radial; Vent Rate 18
[2024-05-14 08:52] LABS: ABG PCO2 54.2 mmhg (35.0-45.0)
[2024-05-14] MEDS: SACUBITRIL/VALSARTAN 24-26MG TABLET 1 EACH PO ×2 (09:22→21:27)
[2024-05-14] MEDS: CARVEDILOL 25MG TABLET 25 MG PO ×2 (09:22→21:27)
[2024-05-14] MEDS: ASCORBIC ACID 500MG TAB 500 MG PO (09:22)
[2024-05-14] MEDS: FUROSEMIDE 40 MG TABLET PO (09:22)
[2024-05-14] MEDS: ASPIRIN 81MG CHEWABLE TABLET 81 MG PO (09:22)
[2024-05-14] MEDS: EMPAGLIFLOZIN 10MG TABLET 10 MG PO (09:22)
[2024-05-14] MEDS: ENOXAPARIN 60MG/0.6ML SYRINGE 60 MG SUBCUT ×2 (09:23→21:27)
[2024-05-14] MEDS: SPIRONOLACTONE 25MG TABLET 50 MG PO (09:23)
[2024-05-14 10:21] LABS: Eosinophils % 1 % (0-3); Lymphocytes % 4 % (10-50); Neutrophils % 95 % (42-76); Total Cells Counted 100
[2024-05-14 10:25] LABS: Hypochromasia 3+; Platelet Estimate Normal
[2024-05-14] MEDS: SODIUM CHLORIDE 3% 15ML NEB 3 ML IH (11:03)
[2024-05-14] MEDS: CEFEPIME HCL 2 GM in 0.9 % SODIUM CHLORIDE 100 ML IV ×2 (11:10→23:56)
[2024-05-14 11:33] LABS: Hemoglobin A1C 6.3 % (4.0-6.0)
--- NOTE | 2024-05-14 12:18 | SW/DCPLANNER ---
Addendum entered by Brianna Kaur RN 05/17/24 11:57: Amanda states patient will be skilled when returns to [place]. Addendum entered by Brianna Kaur RN 05/15/24 12:20: Sent update to Amanda. Possible DC over the weekend. Original Note: Patient resides at [facility] level of care. When medically stable is able to return there per Amanda. PROSPER Mayes
[2024-05-14] MEDS: VANCOMYCIN HCL 2,000 MG in 0.9 % SODIUM CHLORIDE 250 ML 125 MG IV (14:41)
--- NOTE | 2024-05-14 15:14 | P.PN_ITS ---
Subjective *Date: 05/14/24 *Time: 22:54 Interval history: More alert this morning. Blood gas is better. Off BiPAP on rounds. On 3 L nasal cannula oxygen. This appears to be her baseline oxygen. Still quite weak. Afebrile. No nausea or vomiting. Medical Exam Vital signs and Labs for Last 24 Hours: Vital Signs Temp Pulse Pulse Resp BP BP Pulse Ox 05/14/24 15:00 05/14/24 13:00 05/14/24 12:00 70 05/14/24 12:00 98.4 F 95 H 16 108/49 L 94 L 05/14/24 11:03 82 05/14/24 11:00 05/14/24 11:00 82 05/14/24 11:00 85 05/14/24 11:00 93 L 05/14/24 10:00 69 18 114/64 92 L 05/14/24 09:00 05/14/24 08:00 70 05/14/24 08:00 65 18 113/69 96 05/14/24 07:41 65 96 05/14/24 06:01 68 05/14/24 06:01 70 05/14/24 06:01 99 05/14/24 06:01 05/14/24 06:00 69 18 126/75 98 05/14/24 05:00 05/14/24 04:00 99.1 F 05/14/24 04:00 70 05/14/24 04:00 70 22 115/68 98 05/14/24 03:00 70 22 120/69 98 05/14/24 03:00 05/14/24 02:00 78 22 124/70 97 05/14/24 02:00 05/14/24 01:00 70 20 121/74 96 05/14/24 01:00 05/14/24 00:55 75 05/14/24 00:55 74 05/14/24 00:00 69 18 122/70 97 05/14/24 00:00 70 05/13/24 23:30 70 05/13/24 23:00 71 20 124/79 95 05/13/24 23:00 05/13/24 22:00 05/13/24 22:00 98.1 F 75 18 127/76 92 L 05/13/24 21:26 98.1 F 73 16 119/71 05/13/24 19:52 05/13/24 17:57 99.3 F 86 24 100/83 L 95 O2 Del Method O2 Flow Rate FiO2 05/14/24 15:00 Nasal Cannula 3 05/14/24 13:00 Nasal Cannula 3 05/14/24 12:00 05/14/24 12:00 Nasal Cannula 05/14/24 11:03 05/14/24 11:00 Nasal Cannula 3 05/14/24 11:00 05/14/24 11:00 05/14/24 11:00 Nasal Cannula 3 05/14/24 10:00 Nasal Cannula 3 05/14/24 09:00 Nasal Cannula 3 05/14/24 08:00 05/14/24 08:00 BiPAP 05/14/24 07:41 BiPAP 05/14/24 06:01 05/14/24 06:01 05/14/24 06:01 BiPAP 45 05/14/24 06:01 45 05/14/24 06:00 BiPAP 05/14/24 05:00 BiPAP 05/14/24 04:00 05/14/24 04:00 05/14/24 04:00 BiPAP 05/14/24 03:00 BiPAP 05/14/24 03:00 BiPAP 05/14/24 02:00 BiPAP 05/14/24 02:00 45 05/14/24 01:00 BiPAP 05/14/24 01:00 BiPAP 05/14/24 00:55 05/14/24 00:55 05/14/24 00:00 BiPAP 05/14/24 00:00 05/13/24 23:30 05/13/24 23:00 BiPAP 05/13/24 23:00 BiPAP 05/13/24 22:00 45 05/13/24 22:00 BiPAP 05/13/24 21:26 BiPAP 05/13/24 19:52 45 05/13/24 17:57 Nasal Cannula 3 Intake and Output 05/13/24 05/14/24 05/14/24 23:59 07:59 15:59 Intake Total 300 / 540 240 / 540 Balance 300 / 540 240 / 540 Intake: Intake, Oral Amount 240 / 240 Intake, Total IV Amount 300 / 300 Cefepime HCl 1 gm In 0.9 % 50 / 50 Sodium Chloride 50 ml @ 100 mls /hr IV Q12H [facility] Rx#:[id number] Doxycycline Hyclate 100 mg In 0 250 / 250 .9 % Sodium Chloride 250 ml @ 166.667 mls/hr IV Q12H [facility] Rx#: [id number] Other: Number of Unmeasured Voids 1 Weight 136.078 kg 136 kg Patient Weight 05/14/24 23:59 Weight 136 kg Laboratory Results - last 24 hr 05/13/24 18:14: WBC 31.6 H*, RBC 4.73, Hgb 11.4 L, Hct 39.7, MCV 83.9, MCH 24.1 L, MCHC 28.7 L, RDW 16.5, Plt Count 304, MPV 12.2 H, Neut % (Auto) 87.6 H, Lymph % (Auto) 6.8 L, Waldo % (Auto) 3.3, Eos % (Auto) 1.3, Baso % (Auto) 0.4, Neut # (Auto) 27.7 H, Lymph # (Auto) 2.2, [place] # (Auto) 1.1 H, Eos # (Auto) 0.4, Baso # (Auto) 0.1, Total Counted 100, Neutrophils % (Manual) 82 H, Band Neutrophils % 6.0, Lymphocytes % (Manual) 7 L, Monocytes % (Manual) 4, Eosinophils % (Manual) 1, Platelet Estimate Normal, RBC Morphology Normal, D-Dimer 1.11 H, Sodium 142, Potassium 5.4 H, Chloride 100, Carbon Dioxide 36 H, Anion Gap 11.4, BUN 29 H, Creatinine 1.00, Estimated GFR 55 L, Est GFR ( Amer) 66, Glucose 112 H, Calcium 9.1, Total Bilirubin 0.5, AST 35, ALT 20, Alkaline Phosphatase 65, Troponin I < 0.01, NT-Pro-B Natriuret Pep 112, Total Protein 7.5, Albumin 3.8, Globulin 3.7 H, Albumin/Globulin Ratio 1.0 L 05/13/24 18:30: VBG pH 7.31, VBG pCO2 66.8 H, VBG pO2 27.7 L, VBG HCO3 33.0 H, VBG Total CO2 35.1 H, VBG O2 Saturation 49.5 L, VBG Base Excess 6.8 H, VBG Lactic Acid 2.7 H 12/25/24 18:32: Urine Color Yellow, Urine Appearance Sl cloudy, Urine pH 6.0, Ur Specific [place] 1.020, Urine Protein Negative, Urine Glucose (UA) 2+, Urine Ketones Negative, Urine Blood Negative, Urine Nitrate Negative, Urine Bilirubin Negative, Urine Urobilinogen 0.2, Ur Leukocyte Esterase 1+ A, Urine RBC None, Urine WBC 5-10, Ur Squamous Epith Cells 3-5, Urine Bacteria Trace, Urine Opiates Screen Negative, Urine Methadone Screen Negative, Ur Barbituates Screen Negative, Ur Phencyclidine Scrn Negative, Ur Amphetamines Screen Negative, U Benzodiazepines Scrn Negative, Urine Cocaine Screen Negative, U Marijuana (THC) Screen Negative 05/13/24 18:41: Chlamy pneumoniae PCR Not detected, Adenovirus (PCR) Not detected, B. pertussis DNA (PCR) Not detected, Coronavirus OC43 (PCR) Not detected, Coronavirus HKU1 (PCR) Not detected, Coronavirus 229E (PCR) Not d etected, SARS-CoV-2 (PCR) Not detected 05/13/24 18:41: SARS-CoV-2 (PCR) Not detected, Coronavirus NL63 (PCR) Not detected, Human Metapneumovir PCR Not detected, Influenza A (H1) PCR Not detected, Influ A (H1N1/09) PCR Not detected, Influenza A (H3) PCR Not detected, Influenza Type A (PCR) Not detected, Influenza A Untype (PCR) Not detected, Influenza Type B (PCR) Not detected 05/13/24 18:41: Influenza Type B (PCR) Not detected, M. pneumoniae (PCR) Not detected, Parainfluenza 1 (PCR) Not detected, Parainfluenza 2 (PCR) Not detected, Parainfluenza 3 (PCR) Not detected, Parainfluenza 4 (PCR) Not detected, RSV (PCR) Not detected, Entero/Rhino (PCR) Not detected 05/13/24 18:56: Ammonia < 9 L 05/13/24 20:14: Troponin I < 0.01 05/13/24 20:21: VBG pH 7.32, VBG pCO2 59.8 H, VBG pO2 31.1, VBG HCO3 30.0, VBG Total CO2 31.9 H, VBG O2 Saturation 57.2, VBG Base Excess 3.9 H, VBG Lactic Acid 2.0 05/13/24 22:08: Lactate 2.2 H 05/14/24 00:30: Lactate 1.1, Troponin I < 0.01, Procalcitonin 0.086 05/14/24 01:00: Specimen Source Right radial, O2 % 45% bipap 18/8, ABG pH 7.37, ABG pCO2 54.2 H, ABG pO2 101.5 H, ABG HCO3 30.6 H, ABG Total CO2 32.3 H, ABG O2 Saturation 98, ABG Base Excess 5.3 H, Alberto Test Acceptable, Vent Rate 18 05/14/24 05:31: POC Glucose 197 H 05/14/24 05:40: WBC 22.9 H* D, RBC 4.48, Hgb 10.7 L, Hct 37.4, MCV 83.5, MCH 23.9 L, MCHC 28.6 L, RDW 16.8, Plt Count 220 D, MPV 11.8 H, Neut % (Auto) 92.8 H, Lymph % (Auto) 6.1 L, [place] % (Auto) 0.4 L, Eos % (Auto) 0.0 L, Baso % (Auto) 0.2, Neut # (Auto) 21.3 H, Lymph # (Auto) 1.4, [place] # (Auto) 0.1, Eos # (Auto) 0.0, Baso # (Auto) 0.0, Total Counted 100, Neutrophils % (Manual) 95 H, Lymphocytes % (Manual) 4 L, Eosinophils % (Manual) 1, Platelet Estimate Normal, Hypochromasia 3+, Sodium 139, Potassium 5.1, Chloride 107, Carbon Dioxide 31 H, Anion Gap 6.1, BUN 26 H, Creatinine 0.90, Estimated Creat Clear 41, Estimated GFR 62, Est GFR ( Amer) 75, Glucose 172 H D, Hemoglobin A1c 6.3 H, Calcium 8.9, Magnesium 2.2, Troponin I < 0.01 I & O for Labs for Last 24 Hours: Intake & Output 05/11/24 05/12/24 05/13/24 05/14/24 23:59 23:59 23:59 23:59 Intake Total 540 / 540 Balance 540 / 540 Weight 136.078 kg 136 kg Microbiology Reports for the Last 24 Hours: Microbiology 05/13/24 18:32 Urine,Catheterized Urine Culture - Preliminary Constitutional: Present mild distress, morbidly obese, chronically ill appearing and cooperative Head: Present atraumatic and normocephalic ENT: Present normal exam Comment:: Small skin tear left cheek Respiratory: Present prolonged expiratory phase and crackles (Left lower lung); Absent accessory muscle use, rhonchi or wheezes Cardiac: Present Reg Rate and Rhythm GI: Present soft and normal bowel sounds; Absent distention or tenderness Extremities: Present normal inspection, full ROM and edema (Trace in bilateral lower extremities, stasis changes in legs) Skin: Present intact and rash; Absent erythema Neuro: Present Grossly Intact, alert, awake and moves all extremities Assessment and Plan *Assessment and plan (1) Acute exacerbation of chronic obstructive pulmonary disease: Status: Acute Category: Medical Code(s): J44.1 - Chronic obstructive pulmonary disease with (acute) exacerbation (2) Left lower lobe pneumonia: Status: Acute Category: Medical Code(s): J18.9 - Pneumonia, unspecified organism (3) Acute on chronic respiratory failure with hypoxia and hypercapnia: Status: Acute Category: Medical Code(s): J96.21 - Acute and chronic respiratory failure with hypoxia; J96.22 - Acute and chronic respiratory failure with hypercapnia (4) AAA (abdominal aortic aneurysm): Status: Acute Category: Medical Code(s): I71.40 - Abdominal aortic aneurysm, without rupture, unspecified (5) HTN (hypertension): Status: Acute Category: Medical Code(s): I10 - Essential (primary) hypertension (6) Congestive heart failure: Status: Acute Category: Medical Code(s): I50.9 - Heart failure, unspecified (7) Diabetes mellitus: Status: Acute Category: Medical Code(s): E11.9 - Type 2 diabetes mellitus without complications (8) Morbid obesity due to excess calories: Status: Acute Category: Medical Code(s): E66.01 - Morbid (severe) obesity due to excess calories (9) Overactive bladder: Status: Acute Category: Medical Code(s): N32.81 - Overactive bladder (10) Acute hypercapnic respiratory failure: Status: Acute Category: Medical Code(s): J96.02 - Acute respiratory failure with hypercapnia Plan 69-year-old with past medical history of AAA, COPD, CHF, hypertension, diabetes. Patient presents from custodial complaining of lethargy, SOB, and low O2 sat. patient admitted for acute on chronic respiratory failure. She improved this morning. Off BiPAP. Has left lower lobe pneumonia on chest imaging. Continues to require inpatient management. Problems addressed as follows: Left lower lobe pneumonia Acute on chronic respiratory failure secondary to COPD exacerbation: ? DuoNebs 3 mL inhaled Q6 while awake, albuterol 2.5 mg inhaled every 4 as needed shortness of breath, incentive spirometer every 2 hours while awake, Solu-Medrol 40 IV every 8 -Wean off BiPAP, supplemental oxygen as needed. Currently on 3 L - Cefepime 1 g IV every 12, vancomycin, doxycycline 100 mg twice daily - morphine 2 mg IV every 4 as needed moderate pain. Morphine 4 mg IV every 4 as needed severe pain. No pulmonary embolus noted on CTA chest. -White count down from 31-22. Repeat CBC, CMP, magnesium for the morning. -Chest x-ray showing left lower lobe airspace disease per my review. Questionable mastoiditis: Incidental finding noted on CT brain. Antibiotics as listed above and COPD exacerbation section. CHF not in exacerbation: ?Reviewed 02/25/2024 echocardiogram noting normal LV function with diastolic dysfunction. Patient does not appear to show signs of decompensated heart failure. Continue home Entresto 1 tab p.o. twice daily, Coreg 25 mg p.o. twice daily, aspirin 81 mg p.o. daily, spironolactone 50 mg p.o. daily. Serial troponins during hospitalization. First 2 sets of troponins in emergency room negative. Hypertension: As above in CHF section. Diabetes: A1c 6.3. Glucose 172 on morning labs. Continue sliding scale insulin with fingersticks ACHS. Continue Jardiance 10 mg daily. Full code Lovenox 40 mg subcu daily Full liquid diet
[2024-05-14 16:39] LABS: POC Glucose,Bedside 146 (70-110)
--- NOTE | 2024-05-14 17:28 | PC.NURSE ---
PT HAS DONE WELL THIS SHIFT. SHE IS ON HER 3L THAT SHE WEARS AT THE LONGTERM. VOIDING PER PUREWICK. SHE HAS CRACKLES TO HER RIGHT LOWER LOBE. SHE IS ALERT TO SELF. PLEASANT. NO C/O PAIN.
[2024-05-14] MEDS: PANTOPRAZOLE 40MG TABLET 40 MG PO (21:27)
--- NOTE | 2024-05-14 22:55 | PC.NURSE ---
RESPIRATORY CARE NOTE: pt refused bipap at 2230.
[2024-05-15] VITALS (11 sets, daily range): BP systolic 94–163; BP diastolic 51–74; PULSE 60–80; RESP 16–22; TEMP 36.6–37.1; O2SAT 92–100; BMI 47.4
[2024-05-15] MEDS: DOXYCYCLINE HYCLATE 100 MG in 0.9 % SODIUM CHLORIDE 250 ML 166.667 MG IV ×2 (01:09→14:08)
--- NOTE | 2024-05-15 04:59 | PC.NURSE ---
Alert to self and place, no complaints throughout the night. IV Abx throughout night. Pitting edema to BLE and BUE. Purewick in place. ACHS FS, treated per jul. 3L NC, O2 sat >90%, lung sounds diminished. Bed alarm on. Call light in reach.
[2024-05-15] MEDS: IPRATROPIUM/ALBUTEROL 3 ML NEB IH ×3 (06:01→11:22)
[2024-05-15] MEDS: METHYLPREDNISOLONE SOD SUCC 40MG VIAL 40 MG IV ×2 (06:46→16:01)
[2024-05-15 06:47] LABS: POC Glucose,Bedside 144 (70-110)
[2024-05-15 07:11] LABS: Basophils % 0.1 % (0.1-2.0); Hematocrit 33.5 % (37.0-47.0); Hemoglobin 9.7 g/dL (12.2-16.2); Lymphocytes # 1.9 K/mm3 (0.7-4.5); Lymphocytes % 8.6 % (10-50); Mean Corpuscular Hemoglobin 23.5 pg (27.0-31.2); Mean Corpuscular Volume 81.3 fl (81-99); Mean Platelet Volume 12.1 fl (7.4-10.4); Monocytes # 0.6 K/mm3 (0.1-1.0); Monocytes % 2.6 % (1.7-9.3); Neutrophils # 19.9 K/mm3 (1.8-7.8); Neutrophils % 88.1 % (37.0-80.0); Platelet Count 198 K/mm3 (142-424); Red Blood Count 4.12 M/mm3 (4.20-5.40); White Blood Count 22.6 K/mm3 (4.8-10.8)
[2024-05-15 07:17] LABS: MANUAL DIFFERENTIAL MANUAL DIFFERENTIAL (MANUAL DIFF)
[2024-05-15 07:29] LABS: Red Cell Distribution Width 16.5 % (11.5-17.5)
[2024-05-15 07:30] LABS: Chloride 103 mmol/L (98-107); Potassium 5.2 mmoL/L (3.5-5.1); Sodium 135 mmol/L (136-145)
[2024-05-15 07:33] LABS: Anion Gap 11.2 mEq/L (5-15); Blood Urea Nitrogen 26 mg/dl (7-17); Calcium 8.6 mg/dl (8.4-10.2); Carbon Dioxide 26 mmol/L (22.0-30.0); Creatinine Clearance Estimated 41 mL/min (50-200); Estimated Glomerular Filt Rate 71 ml/min (>60); GFR (African American) 86 ML/MIN (>60); Glucose 156 mg/dl (74-100); Magnesium 2.2 mg/dl (1.6-2.3)
[2024-05-15] MEDS: ENOXAPARIN 60MG/0.6ML SYRINGE 60 MG SUBCUT ×2 (08:22→20:05)
[2024-05-15] MEDS: ASPIRIN 81MG CHEWABLE TABLET 81 MG PO (08:23)
[2024-05-15] MEDS: EMPAGLIFLOZIN 10MG TABLET 10 MG PO (08:23)
[2024-05-15] MEDS: CARVEDILOL 25MG TABLET 25 MG PO ×2 (08:23→20:07)
[2024-05-15] MEDS: ASCORBIC ACID 500MG TAB 500 MG PO (08:23)
[2024-05-15] MEDS: SACUBITRIL/VALSARTAN 24-26MG TABLET 1 EACH PO ×2 (08:23→20:07)
[2024-05-15] MEDS: SPIRONOLACTONE 25MG TABLET 50 MG PO (08:23)
[2024-05-15] MEDS: VANCOMYCIN HCL 2,000 MG in 0.9 % SODIUM CHLORIDE 250 ML 125 MG IV (08:23)
[2024-05-15] MEDS: FUROSEMIDE 40 MG TABLET PO (08:23)
[2024-05-15 09:18] LABS: Lymphocytes % 10 % (10-50); Monocytes % 1 % (2-9); Neutrophils % 89 % (42-76); Total Cells Counted 100
[2024-05-15 09:19] LABS: Hypochromasia 1+; Platelet Estimate Normal
[2024-05-15] MEDS: humaLOG 100 UNITS/ML 10ML VIAL (SSI) SUBCUT ×3 (11:15→20:05)
[2024-05-15 11:18] LABS: POC Glucose,Bedside 165 (70-110)
[2024-05-15] MEDS: CEFEPIME HCL 2 GM in 0.9 % SODIUM CHLORIDE 100 ML IV ×2 (12:46→22:37)
--- NOTE | 2024-05-15 14:00 | DIET.NUTRFU ---
Diet verified at nursing was MSOFT ground with thin liquids, CCD-A. Her appetite had been good, with wt gain since admit in February. Currently on full liquids will advance when medically feasible.
[2024-05-15 16:14] LABS: POC Glucose,Bedside 200 (70-110)
--- NOTE | 2024-05-15 16:31 | PC.NURSE ---
patient is a/o x2, remains on 3 LNC o2 sats above 95% when awake. drops to low 90% when resting. abx given through shift. she has been sitting up in the chair for majority of the shift. purewick remains in place. BLE and BUE edema remains, see bio. blood glucose treated per JUL. no further requests at this time. call light within reach
--- NOTE | 2024-05-15 19:35 | EXP.ACUTE.PN ---
Subjective *Date: 05/15/24 *Time: 20:45 Interval history: Patient feeling better today. Getting up to bedside chair with staff. On 3 L oxygen. Afebrile. Still quite weak. No nausea or vomiting. Medical Exam Vital signs and Labs for Last 24 Hours: Vital Signs Temp Pulse Pulse Resp BP Pulse Ox O2 Del Method 05/15/24 18:59 95 Nasal Cannula 05/15/24 18:35 Nasal Cannula 05/15/24 17:00 Nasal Cannula 05/15/24 16:00 60 05/15/24 16:00 98.7 F 80 22 94/74 L 97 Nasal Cannula 05/15/24 15:00 Nasal Cannula 05/15/24 13:00 Nasal Cannula 05/15/24 12:00 60 05/15/24 12:00 98.4 F 63 22 110/56 L 100 Nasal Cannula 05/15/24 11:23 64 05/15/24 11:23 67 05/15/24 11:23 96 Nasal Cannula 05/15/24 11:00 Nasal Cannula 05/15/24 09:00 Nasal Cannula 05/15/24 08:00 70 05/15/24 08:00 Nasal Cannula 05/15/24 08:00 98.1 F 67 18 120/63 100 Nasal Cannula 05/15/24 06:49 Nasal Cannula 05/15/24 06:02 65 05/15/24 06:02 66 05/15/24 06:02 92 L Nasal Cannula 05/15/24 04:50 Nasal Cannula 05/15/24 04:00 70 05/15/24 03:52 98.3 F 65 16 163/62 H 96 Nasal Cannula 05/15/24 03:00 Nasal Cannula 05/15/24 01:00 Nasal Cannula 05/15/24 00:00 70 05/15/24 00:00 98.3 F 67 20 101/54 L 94 L Nasal Cannula 05/15/24 00:00 69 05/15/24 00:00 70 05/15/24 00:00 94 L Nasal Cannula 05/14/24 23:00 Nasal Cannula 05/14/24 21:00 Nasal Cannula 05/14/24 20:00 70 05/14/24 20:00 Nasal Cannula 05/14/24 20:00 98.1 F 68 18 116/64 97 Nasal Cannula O2 Flow Rate 05/15/24 18:59 3 05/15/24 18:35 05/15/24 17:00 05/15/24 16:00 05/15/24 16:00 3 05/15/24 15:00 05/15/24 13:00 3 05/15/24 12:00 05/15/24 12:00 3 05/15/24 11:23 05/15/24 11:23 05/15/24 11:23 3 05/15/24 11:00 3 05/15/24 09:00 05/15/24 08:00 05/15/24 08:00 05/15/24 08:00 3 05/15/24 06:49 3 05/15/24 06:02 05/15/24 06:02 05/15/24 06:02 3 05/15/24 04:50 3 05/15/24 04:00 05/15/24 03:52 3 05/15/24 03:00 3 05/15/24 01:00 3 05/15/24 00:00 05/15/24 00:00 3 05/15/24 00:00 05/15/24 00:00 05/15/24 00:00 3 05/14/24 23:00 3 05/14/24 21:00 3 05/14/24 20:00 05/14/24 20:00 3 05/14/24 20:00 3 Intake and Output 05/15/24 05/15/24 05/15/24 07:59 15:59 23:59 Intake Total 900 / 2665 975 / 2665 790 / 2665 Output Total 1300 / 1800 500 / 1800 Balance 900 / 865 -325 / 865 290 / 865 Intake: Intake, Oral Amount 600 / 1815 975 / 1815 240 / 1815 Intake, Total IV Amount 300 / 850 550 / 850 Cefepime HCl 1 gm In 0.9 % 50 / 100 50 / 100 Sodium Chloride 50 ml @ 100 mls /hr IV Q12H [facility] Rx#:[id number] Doxycycline Hyclate 100 mg In 0 250 / 500 250 / 500 .9 % Sodium Chloride 250 ml @ 166.667 mls/hr IV Q12H [facility] Rx#: [id number] Vancomycin HCl 2,000 mg In 0.9 250 / 250 % Sodium Chloride 250 ml @ 125 mls/hr IV Q18H [facility] Rx#:[id number] Output: Output, Urine Amount 1300 / 1800 500 / 1800 Other: Number of Unmeasured Voids 1 0 0 Weight 121.381 kg 121.38 kg Patient Weight 05/15/24 23:59 Weight 121.38 kg Laboratory Results - last 24 hr 05/13/24 18:32: Urine Color Yellow, Urine Appearance Sl cloudy, Urine pH 6.0, Ur Specific [place] 1.020, Urine Protein Negative, Urine Glucose (UA) 2+, Urine Ketones Negative, Urine Blood Negative, Urine Nitrate Negative, Urine Bilirubin Negative, Urine Urobilinogen 0.2, Ur Leukocyte Esterase 1+ A, Urine RBC None, Urine WBC 5-10, Ur Squamous Epith Cells 3-5, Urine Bacteria Trace 05/15/24 05:37: WBC 22.6 H*, RBC 4.12 L, Hgb 9.7 L, Hct 33.5 L, MCV 81.3, MCH 23.5 L, MCHC 29.0 L, RDW 16.5, Plt Count 198, MPV 12.1 H, Neut % (Auto) 88.1 H, Lymph % (Auto) 8.6 L, [place] % (Auto) 2.6, Eos % (Auto) 0.0 L, Baso % (Auto) 0.1, Neut # (Auto) 19.9 H, Lymph # (Auto) 1.9, [place] # (Auto) 0.6, Eos # (Auto) 0.0, Baso # (Auto) 0.0, Total Counted 100, Neutrophils % (Manual) 89 H, Lymphocytes % (Manual) 10, Monocytes % (Manual) 1 L, Platelet Estimate Normal, Hypochromasia 1+, Sodium 135 L, Potassium 5.2 H, Chloride 103, Carbon Dioxide 26, Anion Gap 11.2, BUN 26 H, Creatinine 0.80, Estimated Creat Clear 41, Estimated GFR 71, Est GFR ( Amer) 86, Glucose 156 H, Calcium 8.6, Magnesium 2.2 05/15/24 06:28: POC Glucose 144 H 05/15/24 11:08: POC Glucose 165 H 05/15/24 16:06: POC Glucose 200 H I & O for Labs for Last 24 Hours: Intake & Output 05/12/24 05/13/24 05/14/24 05/15/24 23:59 23:59 23:59 23:59 Intake Total 780 / 1680 2665 / 2665 Output Total 500 / 500 1800 / 1800 Balance 280 / 1180 865 / 865 Weight 136.078 kg 136 kg 121.38 kg Microbiology Reports for the Last 24 Hours: Microbiology 05/13/24 18:24 Blood Blood Culture - Preliminary NO GROWTH AFTER 48 HOURS 05/13/24 18:14 Blood Blood Culture - Preliminary NO GROWTH AFTER 48 HOURS 05/13/24 18:32 Urine,Catheterized Urine Culture - Preliminary Gram Negative Rods Constitutional: Present mild distress, morbidly obese, chronically ill appearing and cooperative Head: Present atraumatic and normocephalic ENT: Present normal exam Comment:: Small skin tear left cheek Respiratory: Present prolonged expiratory phase and crackles (Left lower lung); Absent accessory muscle use, rhonchi or wheezes Cardiac: Present Reg Rate and Rhythm GI: Present soft and normal bowel sounds; Absent distention or tenderness Extremities: Present normal inspection, full ROM and edema (Trace in bilateral lower extremities, stasis changes in legs) Skin: Present intact and rash; Absent erythema Neuro: Present Grossly Intact, alert, awake and moves all extremities Assessment and Plan *Assessment and plan (1) Acute exacerbation of chronic obstructive pulmonary disease: Status: Acute Category: Medical Code(s): J44.1 - Chronic obstructive pulmonary disease with (acute) exacerbation (2) Left lower lobe pneumonia: Status: Acute Category: Medical Code(s): J18.9 - Pneumonia, unspecified organism (3) Acute on chronic respiratory failure with hypoxia and hypercapnia: Status: Acute Category: Medical Code(s): J96.21 - Acute and chronic respiratory failure with hypoxia; J96.22 - Acute and chronic respiratory failure with hypercapnia (4) AAA (abdominal aortic aneurysm): Status: Acute Category: Medical Code(s): I71.40 - Abdominal aortic aneurysm, without rupture, unspecified (5) HTN (hypertension): Status: Acute Category: Medical Code(s): I10 - Essential (primary) hypertension (6) Congestive heart failure: Status: Acute Category: Medical Code(s): I50.9 - Heart failure, unspecified (7) Diabetes mellitus: Status: Acute Category: Medical Code(s): E11.9 - Type 2 diabetes mellitus without complications (8) Morbid obesity due to excess calories: Status: Acute Category: Medical Code(s): E66.01 - Morbid (severe) obesity due to excess calories (9) Overactive bladder: Status: Acute Category: Medical Code(s): N32.81 - Overactive bladder (10) Acute hypercapnic respiratory failure: Status: Acute Category: Medical Code(s): J96.02 - Acute respiratory failure with hypercapnia Plan 69-year-old with past medical history of AAA, COPD, CHF, hypertension, diabetes. Patient presents from retirement complaining of lethargy, SOB, and low O2 sat. patient admitted for acute on chronic respiratory failure. Stable on 3 L for 24 hours. Alert and oriented at baseline. Still quite weak. White count remains elevated at 22. Anticipate discharge in the next day or 2. Continues to require inpatient management. Problems addressed as follows: Left lower lobe pneumonia Acute on chronic respiratory failure secondary to COPD exacerbation: ? DuoNebs 3 mL inhaled Q6 while awake, albuterol 2.5 mg inhaled every 4 as needed shortness of breath, incentive spirometer every 2 hours while awake, Transition to prednisone 40 mg p.o. daily -Goal sats greater than 90%, currently on 3 L - Cefepime 1 g IV every 12, doxycycline 100 mg twice daily - morphine 2 mg IV every 4 as needed moderate pain. Morphine 4 mg IV every 4 as needed severe pain. No pulmonary embolus noted on CTA chest. -White count down stable 22. Hemoglobin 9.7. repeat CBC, CMP, magnesium for the morning. Questionable mastoiditis: Incidental finding noted on CT brain. Antibiotics as listed above and COPD exacerbation section. CHF not in exacerbation: ?Reviewed 02/25/2024 echocardiogram noting normal LV function with diastolic dysfunction. Patient does not appear to show signs of decompensated heart failure. Continue home Entresto 1 tab p.o. twice daily, Coreg 25 mg p.o. twice daily, aspirin 81 mg p.o. daily, spironolactone 50 mg p.o. daily -Continue Lasix 40 mg IV daily Hypertension: As above in CHF section. Diabetes: A1c 6.3. Glucose 156 on morning labs. Continue sliding scale insulin with fingersticks ACHS. Continue Jardiance 10 mg daily. Full code Lovenox 40 mg subcu daily Full liquid diet
[2024-05-15 20:01] LABS: POC Glucose,Bedside 267 (70-110)
[2024-05-15] MEDS: PANTOPRAZOLE 40MG TABLET 40 MG PO (20:05)
[2024-05-16] VITALS (8 sets, daily range): BP systolic 109–122; BP diastolic 49–65; PULSE 51–78; RESP 17–20; TEMP 36.6–37; O2SAT 92–100
[2024-05-16] MEDS: PHA TO NURSING INSTRUCTION 1 EACH NOTAPPLIC
[2024-05-16] MEDS: IPRATROPIUM/ALBUTEROL 3 ML NEB IH ×3 (00:36→11:29)
[2024-05-16] MEDS: DOXYCYCLINE HYCLATE 100 MG in 0.9 % SODIUM CHLORIDE 250 ML 166.667 MG IV (01:19)
[2024-05-16 01:29] LABS: Vancomycin,Trough 16.6 ug/mL (5.0-10.0)
--- NOTE | 2024-05-16 02:09 | PC.NURSE ---
Spoke with Jacinto at [facility] to report Vanc trough, Jacinto approves to infuse [phone] Vanc.
[2024-05-16] MEDS: VANCOMYCIN HCL 2,000 MG in 0.9 % SODIUM CHLORIDE 250 ML 125 MG IV (02:53)
[2024-05-16] MEDS: humaLOG 100 UNITS/ML 10ML VIAL (SSI) SUBCUT ×2 (05:22→11:35)
[2024-05-16 05:27] LABS: POC Glucose,Bedside 247 (70-110)
--- NOTE | 2024-05-16 07:08 | EXP.DC.SUM ---
General Admission date:: 05/13/24 Discharge date: 05/16/24 HPI HPI HPI: 69-year-old with past medical history of AAA, COPD on 3 L oxygen at baseline, CHF, hypertension, diabetes. Patient presents from detention complaining of lethargy, SOB, and low O2 sat. Patient admitted for acute on chronic respiratory failure. Patient hypoxic in emergency room with O2 sat 84% on room air. Patient extremely lethargic on BiPAP during my interview with patient, and unable to answer simple questions without difficulty. Patient seen previously at this institution, and required previous intubation. At detention, patient reportedly extremely lethargic and hypoxic and sent to emergency room via EMS. Denies chest pain, abdominal pain, known sick contacts. Unable to characterize for shortness of breath/dyspnea secondary to respiratory distress concerns. Patient's VBG improved after 2 hours observation in emergency room. pH 7.31 ->7.32, pCO2 66.8 ->59.8, LA 2.7->2.0. WBC 31.6. Hospital Course Hospital Course Hospital Course: 69-year-old with past medical history of AAA, COPD, CHF, hypertension, diabetes. Patient presents from detention complaining of lethargy, SOB, and low O2 sat. patient admitted for acute on chronic respiratory failure. Patient was able to wean from BiPAP to 3 L oxygen. Tolerating 2 L by day of discharge. This appears to be her baseline requirement. Still remains quite weak but significant leukocytosis has improved from 31k to 14k by day of discharge. Tolerating p.o. intake. Afebrile. Still will discharge back to her detention for continued antibiotic therapy. Problems addressed as follows: Left lower lobe pneumonia Acute on chronic respiratory failure secondary to COPD exacerbation: ? Presented with respiratory failure. Initially required DuoNebs but able to wean to nasal cannula oxygen. Tolerating 2 to 3 L by day of discharge. Recommend continuing nebulizer and inhaler. Antibiotics initially with cefepime and azithromycin and doxycycline, transitioned to cefdinir and doxycycline to complete empiric course for pneumonia (as well as for UTI, see below). Would benefit from repeat labs in 1 week to monitor resolution of white count. Tolerating p.o. intake. No acute distress. Of note, chest x-ray on admission showed concern for left lower lobe airspace disease. -Continue Trelegy daily -2 more days of prednisone orally for COPD exacerbation component Questionable mastoiditis: Incidental finding noted on CT brain. Antibiotics as listed above and COPD exacerbation section. CHF not in exacerbation: ?Reviewed 02/25/2024 echocardiogram noting normal LV function with diastolic dysfunction. Patient does not appear to show signs of decompensated heart failure. Continue home Entresto 1 tab p.o. twice daily, Coreg 25 mg p.o. twice daily, aspirin 81 mg p.o. daily, spironolactone 50 mg p.o. daily -Initiated on Lasix with good response and negative volume status of at least 1 L during admission. Continue Lasix 40 mg p.o. daily. Bacteriuria: Urine culture positive for E. coli 30-40,000 CFU's. Cefdinir as above should cover based on sensitivities. Hypertension: Continue home regimen. See med rec for full details Diabetes: A1c 6.3. Glucose 156 on morning labs. Treated with sliding scale insulin during admission. Resume manage including Jardiance and metformin Total time spent on discharge 32 minutes in counseling, documentation, chart review, and direct care with patient. Exam Data for Last 24 hours Vital signs and Labs for Last 24 Hours: Temp Pulse Resp BP Pulse Ox O2 Del Method O2 Flow Rate 97.8 F 51 L 20 116/59 L 100 Nasal Cannula 2 05/16/24 04:00 05/16/24 06:06 05/16/24 04:00 05/16/24 04:00 05/16/24 06:06 05/16/24 06:55 05/16/24 06:55 FiO2 45 05/14/24 06:01 Laboratory Results - last 24 hr 05/13/24 18:32: Urine Color Yellow, Urine Appearance Sl cloudy, Urine pH 6.0, Ur Specific [place] 1.020, Urine Protein Negative, Urine Glucose (UA) 2+, Urine Ketones Negative, Urine Blood Negative, Urine Nitrate Negative, Urine Bilirubin Negative, Urine Urobilinogen 0.2, Ur Leukocyte Esterase 1+ A, Urine RBC None, Urine WBC 5-10, Ur Squamous Epith Cells 3-5, Urine Bacteria Trace 05/15/24 05:37: WBC 22.6 H*, RBC 4.12 L, Hgb 9.7 L, Hct 33.5 L, MCV 81.3, MCH 23.5 L, MCHC 29.0 L, RDW 16.5, Plt Count 198, MPV 12.1 H, Neut % (Auto) 88.1 H, Lymph % (Auto) 8.6 L, [place] % (Auto) 2.6, Eos % (Auto) 0.0 L, Baso % (Auto) 0.1, Neut # (Auto) 19.9 H, Lymph # (Auto) 1.9, [place] # (Auto) 0.6, Eos # (Auto) 0.0, Baso # (Auto) 0.0, Total Counted 100, Neutrophils % (Manual) 89 H, Lymphocytes % (Manual) 10, Monocytes % (Manual) 1 L, Platelet Estimate Normal, Hypochromasia 1+, Sodium 135 L, Potassium 5.2 H, Chloride 103, Carbon Dioxide 26, Anion Gap 11.2, BUN 26 H, Creatinine 0.80, Estimated Creat Clear 41, Estimated GFR 71, Est GFR ( Amer) 86, Glucose 156 H, Calcium 8.6, Magnesium 2.2 05/15/24 11:08: POC Glucose 165 H 05/15/24 16:06: POC Glucose 200 H 05/15/24 19:55: POC Glucose 267 H 05/16/24 00:57: Vancomycin Trough 16.6 H 05/16/24 05:20: POC Glucose 247 H I & O for Last 24 hours: Intake & Output 05/13/24 05/14/24 05/15/24 05/16/24 23:59 23:59 23:59 23:59 Intake Total 780 / 1680 2665 / 2715 50 / 50 Output Total 500 / 500 2500 / 3500 1600 / 1600 Balance 280 / 1180 165 / -785 -1550 / -1550 Weight 136.078 kg 136 kg 121.38 kg Microbiology Reports for the Last 24 Hours: Microbiology 05/13/24 18:24 Blood Blood Culture - Preliminary NO GROWTH AFTER 48 HOURS 05/13/24 18:14 Blood Blood Culture - Preliminary NO GROWTH AFTER 48 HOURS 05/13/24 18:32 Urine,Catheterized Urine Culture - Preliminary Gram Negative Rods Constitutional Constitutional: no acute distress, morbidly obese, chronically ill appearing and cooperative *Routine HEENT Exam Head: Present normocephalic Eye: Present EOMI and PERRL ENT: Present mucous membranes moist *Routine Neck Exam Neck: Present supple; Absent lymphadenopathy *Routine Respiratory Exam Respiratory: Present CTA bilaterally and prolonged expiratory phase; Absent rhonchi, wheezes or crackles *Routine Cardiovascular Exam Cardiovascular: Present RRR *Routine Abdominal Exam Abdominal: Present soft and normoactive bowel sounds; Absent tenderness *Routine Rectal Exam Patient deferred: visual exam *Routine Exam Patient deferred: external exam *Routine Extremities Exam Extremities: Present edema (Trace lower extremity); Absent cyanosis or clubbing *Routine Skin Exam Skin: Present intact and warm; Absent rash *Routine Neurological Exam Neurological: Present alert, oriented X3 and moving all extremities; Absent altered mental status Results Data Completed and Pending Labs on day of discharge: Labs from last 24 hours 05/16/24 05/16/24 05/15/24 05:20 00:57 19:55 WBC RBC Hgb Hct MCV MCH MCHC RDW Plt Count MPV Neut % (Auto) Lymph % (Auto) [place] % (Auto) Eos % (Auto) Baso % (Auto) Neut # (Auto) Lymph # (Auto) [place] # (Auto) Eos # (Auto) Baso # (Auto) Total Counted Neutrophils % (Manual) Lymphocytes % (Manual) Monocytes % (Manual) Platelet Estimate Hypochromasia Sodium Potassium Chloride Carbon Dioxide Anion Gap BUN Creatinine Estimated Creat Clear Estimated GFR Est GFR ( Amer) Glucose POC Glucose 247 H 267 H Calcium Magnesium Urine Color Urine Appearance Urine pH Ur Specific [place] Urine Protein Urine Glucose (UA) Urine Ketones Urine Blood Urine Nitrate Urine Bilirubin Urine Urobilinogen Ur Leukocyte Esterase Urine RBC Urine WBC Ur Squamous Epith Cells Urine Bacteria Vancomycin Trough 16.6 H 05/15/24 05/15/24 05/15/24 16:06 11:08 05:37 WBC 22.6 H* RBC 4.12 L Hgb 9.7 L Hct 33.5 L MCV 81.3 MCH 23.5 L MCHC 29.0 L RDW 16.5 Plt Count 198 MPV 12.1 H Neut % (Auto) 88.1 H Lymph % (Auto) 8.6 L [place] % (Auto) 2.6 Eos % (Auto) 0.0 L Baso % (Auto) 0.1 Neut # (Auto) 19.9 H Lymph # (Auto) 1.9 [place] # (Auto) 0.6 Eos # (Auto) 0.0 Baso # (Auto) 0.0 Total Counted 100 Neutrophils % (Manual) 89 H Lymphocytes % (Manual) 10 Monocytes % (Manual) 1 L Platelet Estimate Normal Hypochromasia 1+ Sodium 135 L Potassium 5.2 H Chloride 103 Carbon Dioxide 26 Anion Gap 11.2 BUN 26 H Creatinine 0.80 Estimated Creat Clear 41 Estimated GFR 71 Est GFR ( Amer) 86 Glucose 156 H POC Glucose 200 H 165 H Calcium 8.6 Magnesium 2.2 Urine Color Urine Appearance Urine pH Ur Specific [place] Urine Protein Urine Glucose (UA) Urine Ketones Urine Blood Urine Nitrate Urine Bilirubin Urine Urobilinogen Ur Leukocyte Esterase Urine RBC Urine WBC Ur Squamous Epith Cells Urine Bacteria Vancomycin Trough 05/13/24 18:32 WBC RBC Hgb Hct MCV MCH MCHC RDW Plt Count MPV Neut % (Auto) Lymph % (Auto) [place] % (Auto) Eos % (Auto) Baso % (Auto) Neut # (Auto) Lymph # (Auto) [place] # (Auto) Eos # (Auto) Baso # (Auto) Total Counted Neutrophils % (Manual) Lymphocytes % (Manual) Monocytes % (Manual) Platelet Estimate Hypochromasia Sodium Potassium Chloride Carbon Dioxide Anion Gap BUN Creatinine Estimated Creat Clear Estimated GFR Est GFR ( Amer) Glucose POC Glucose Calcium Magnesium Urine Color Yellow Urine Appearance Sl cloudy Urine pH 6.0 Ur Specific [place] 1.020 Urine Protein Negative Urine Glucose (UA) 2+ Urine Ketones Negative Urine Blood Negative Urine Nitrate Negative Urine Bilirubin Negative Urine Urobilinogen 0.2 Ur Leukocyte Esterase 1+ A Urine RBC None Urine WBC 5-10 Ur Squamous Epith Cells 3-5 Urine Bacteria Trace Vancomycin Trough Preliminary micro results at discharge 05/13/24 18:24 Blood Culture - Preliminary Blood NO GROWTH AFTER 48 HOURS 05/13/24 18:14 Blood Culture - Preliminary Blood NO GROWTH AFTER 48 HOURS 05/13/24 18:32 Urine Culture - Preliminary Urine,Catheterized Gram Negative Rods DS: Diagnosis Discharge Diagnosis (1) Acute exacerbation of chronic obstructive pulmonary disease: Status: Acute Code(s): J44.1 - Chronic obstructive pulmonary disease with (acute) exacerbation (2) Left lower lobe pneumonia: Status: Acute Code(s): J18.9 - Pneumonia, unspecified organism (3) Acute on chronic respiratory failure with hypoxia and hypercapnia: Status: Acute Code(s): J96.21 - Acute and chronic respiratory failure with hypoxia; J96.22 - Acute and chronic respiratory failure with hypercapnia (4) AAA (abdominal aortic aneurysm): Status: Acute Code(s): I71.40 - Abdominal aortic aneurysm, without rupture, unspecified (5) HTN (hypertension): Status: Acute Code(s): I10 - Essential (primary) hypertension (6) Congestive heart failure: Status: Acute Code(s): I50.9 - Heart failure, unspecified (7) Diabetes mellitus: Status: Acute Code(s): E11.9 - Type 2 diabetes mellitus without complications (8) Morbid obesity due to excess calories: Status: Acute Code(s): E66.01 - Morbid (severe) obesity due to excess calories (9) Overactive bladder: Status: Acute Code(s): N32.81 - Overactive bladder (10) Acute hypercapnic respiratory failure: Status: Acute Code(s): J96.02 - Acute respiratory failure with hypercapnia Meds Home Medications and Allergies Home Medications ?Medication ?Instructions ?Recorded ?Confirmed ?Type acetaminophen 500 mg tablet 1,000 mg PO Q6HP PRN Mild Pain 02/25/24 05/14/24 History (Scale Score 1-4) albuterol sulfate 90 mcg/actuation 2 inh inhalation QIDP PRN 02/25/24 05/14/24 History breath activated powder inhaler Shortness Of Breath Or Wheezing apixaban 5 mg tablet (Eliquis) 5 mg PO BID 02/25/24 05/14/24 History ascorbic acid (vitamin C) 500 mg 500 mg PO DAILY 02/25/24 05/14/24 History tablet aspirin 81 mg chewable tablet 81 mg PO DAILY 02/25/24 05/14/24 History dextran 70-hypromellose (PF) 0.1 1 drp ophthalmic (eye) QID 02/25/24 05/14/24 History %-0.3 % eye drops in a dropperette (Artificial Tears (PF)) docusate sodium 100 mg capsule 100 mg PO HS 02/25/24 05/14/24 History empagliflozin 10 mg tablet 10 mg PO DAILY 02/25/24 05/14/24 History (Jardiance) ergocalciferol (vitamin D2) 1,250 1,250 mcg PO TU 02/25/24 05/14/24 History mcg (50,000 unit) capsule furosemide 40 mg tablet 40 mg PO DAILY 02/25/24 05/14/24 History metformin 1,000 mg tablet 1,000 mg PO BID 02/25/24 05/14/24 History omeprazole 20 mg capsule,delayed 20 mg PO DAILY 02/25/24 05/14/24 History release ondansetron HCl 4 mg tablet 4 mg PO Q6HP PRN Nausea 02/25/24 05/14/24 History sacubitril 24 mg-valsartan 26 mg 1 tab PO BID 02/25/24 05/14/24 History tablet (Entresto) spironolactone 50 mg tablet 50 mg PO DAILY 02/25/24 05/14/24 History tizanidine 2 mg capsule 2 mg PO Q8HP PRN MUSCLE SPASMS 02/25/24 05/14/24 History vibegron 75 mg tablet 75 mg PO DAILY 02/25/24 05/14/24 History fluticasone fur. 100 mcg-umeclid 1 inh inhalation DAILY 30 days #60 02/29/24 05/14/24 Rx 62.5 mcg-vilant 25 mcg ea inhalat.powder (Trelegy Ellipta) carvedilol 25 mg tablet 25 mg PO BID 05/14/24 05/14/24 History cyanocobalamin (vitamin B-12) 500 500 mcg PO DAILY 05/14/24 05/14/24 History mcg tablet ipratropium 0.5 mg-albuterol 3 mg 3 ml inhalation Q6HP PRN Shortness 05/14/24 05/14/24 History (2.5 mg base)/3 mL nebulization Of Breath soln cefdinir 300 mg capsule 300 mg PO BID 4 days #8 caps 05/16/24 Rx doxycycline hyclate 100 mg capsule 100 mg PO BID 2 days #4 caps 05/16/24 Rx prednisone 20 mg tablet 40 mg (2 x 20 mg) PO DAILY 2 days 05/16/24 Rx #4 tabs New Prescriptions to Start Prescriptions: Feliz Griggs doxycycline hyclate Feliz Green prednisone Feliz Green Allergies Allergy/AdvReac Type Severity Reaction Status Date / Time Penicillins Allergy Intermediate Verified 08/01/23 16:12 Sulfa (Sulfonamide Allergy Intermediate Verified 08/01/23 16:13 Antibiotics) Discharge Plan Disposition Patient Disposition: [facility] Condition: Fair Discharge Order Discharge Orders: Discharge Order (Routine); Ordered 05/16/24 Ordered By: Feliz Green Follow up Plan Prescriptions/Medication Reconciliation: New prednisone 20 mg Tablet 40 mg PO DAILY 2 Days Qty: 4 0RF doxycycline hyclate 100 mg capsule 100 mg PO BID 2 Days Qty: 4 0RF Rx Instructions: due evening of 05/16/24 cefdinir 300 mg capsule 300 mg PO BID 4 Days Qty: 8 0RF Rx Instructions: due evening of 05/16/24 Continued furosemide 40 mg tablet 40 mg PO DAILY ergocalciferol (vitamin D2) 1,250 mcg (50,000 unit) capsule 1,250 mcg PO TU ondansetron HCl 4 mg Tablet 4 mg PO Q6HP PRN (Reason: Nausea) acetaminophen 500 mg Tablet 1,000 mg PO Q6HP PRN (Reason: Mild Pain (Scale Score 1-4)) ascorbic acid (vitamin C) 500 mg Tablet 500 mg PO DAILY metformin 1,000 mg Tablet 1,000 mg PO BID docusate sodium 100 mg Capsule 100 mg PO HS omeprazole 20 mg Capsule,Delayed Release(Dr/Ec) 20 mg PO DAILY aspirin 81 mg Tablet,Chewable 81 mg PO DAILY spironolactone 50 mg Tablet 50 mg PO DAILY tizanidine 2 mg Capsule 2 mg PO Q8HP PRN (Reason: MUSCLE SPASMS) Artificial Tears (PF) 0.1-0.3 % Dropperette 1 drp OPHTHALMIC (EYE) QID Eliquis 5 mg Tablet 5 mg PO BID albuterol sulfate 90 mcg/actuation Aerosol Powdr Breath Activated 2 inh INHALATION QIDP PRN (Reason: Shortness Of Breath Or Wheezing) sacubitril-valsartan [Entresto] 24-26 mg Tablet 1 tab PO BID vibegron 75 mg Tablet 75 mg PO DAILY Trelegy Ellipta 100-62.5-25 mcg Blister With Device 1 inh inhalation DAILY 30 Days Qty: 60 0RF carvedilol 25 mg tablet 25 mg PO BID cyanocobalamin (vitamin B-12) 500 mcg tablet 500 mcg PO DAILY ipratropium-albuterol 0.5 mg-3 mg(2.5 mg base)/3 mL solution for nebulization 3 ml INHALATION Q6HP PRN (Reason: Shortness Of Breath) Held Jardiance 10 mg Tablet 10 mg PO DAILY Hold Instructions: for 1 week due to bacteriuria Problem Reconciliation Problems Reviewed?: Yes Patient Discharge Instructions ACTIVITY: Continue current activity DIET: continue same diet Patient Instructions: DI for Chronic Obstructive Pulmonary Disease, DI for Pneumonia -- Adult, DI for Aortic Aneurysm Print Language: Sami Providers Primary Care Provider: Joshua Don Admit Provider: Efrain Peña Attending Provider: Efrain Peña
[2024-05-16] MEDS: SPIRONOLACTONE 25MG TABLET 50 MG PO (08:27)
[2024-05-16] MEDS: EMPAGLIFLOZIN 10MG TABLET 10 MG PO (08:27)
[2024-05-16] MEDS: ENOXAPARIN 60MG/0.6ML SYRINGE 60 MG SUBCUT (08:27)
[2024-05-16] MEDS: ASPIRIN 81MG CHEWABLE TABLET 81 MG PO (08:27)
[2024-05-16] MEDS: CARVEDILOL 25MG TABLET 25 MG PO (08:27)
[2024-05-16] MEDS: FUROSEMIDE 40 MG TABLET PO (08:27)
[2024-05-16] MEDS: SACUBITRIL/VALSARTAN 24-26MG TABLET 1 EACH PO (08:27)
[2024-05-16] MEDS: ASCORBIC ACID 500MG TAB 500 MG PO (08:27)
[2024-05-16] MEDS: METFORMIN 500MG TABLET 1000 MG PO (09:42)
[2024-05-16] MEDS: predniSONE 20MG TAB 40 MG PO (09:43)
[2024-05-16 11:03] LABS: POC Glucose,Bedside 199 (70-110)
--- NOTE | 2024-05-16 11:38 | EXP.PHA.CONS ---
Pharmacy Consult Date: 05/16/24 Time: 11:38 Referring provider: DR. LEE Reason for Consult:: VANCOMYCIN TROUGH LEVEL Allergies Allergy/AdvReac Type Severity Reaction Status Date / Time Penicillins Allergy Intermediate Verified 08/01/23 16:12 Sulfa (Sulfonamide Allergy Intermediate Verified 08/01/23 16:13 Antibiotics) Home Medications ?Medication ?Instructions ?Recorded ?Confirmed ?Type acetaminophen 500 mg tablet 1,000 mg PO Q6HP PRN Mild Pain 02/25/24 05/14/24 History (Scale Score 1-4) albuterol sulfate 90 mcg/actuation 2 inh inhalation QIDP PRN 02/25/24 05/14/24 History breath activated powder inhaler Shortness Of Breath Or Wheezing apixaban 5 mg tablet (Eliquis) 5 mg PO BID 02/25/24 05/14/24 History ascorbic acid (vitamin C) 500 mg 500 mg PO DAILY 02/25/24 05/14/24 History tablet aspirin 81 mg chewable tablet 81 mg PO DAILY 02/25/24 05/14/24 History dextran 70-hypromellose (PF) 0.1 1 drp ophthalmic (eye) QID 02/25/24 05/14/24 History %-0.3 % eye drops in a dropperette (Artificial Tears (PF)) docusate sodium 100 mg capsule 100 mg PO HS 02/25/24 05/14/24 History empagliflozin 10 mg tablet 10 mg PO DAILY 02/25/24 05/14/24 History (Jardiance) ergocalciferol (vitamin D2) 1,250 1,250 mcg PO TU 02/25/24 05/14/24 History mcg (50,000 unit) capsule furosemide 40 mg tablet 40 mg PO DAILY 02/25/24 05/14/24 History metformin 1,000 mg tablet 1,000 mg PO BID 02/25/24 05/14/24 History omeprazole 20 mg capsule,delayed 20 mg PO DAILY 02/25/24 05/14/24 History release ondansetron HCl 4 mg tablet 4 mg PO Q6HP PRN Nausea 02/25/24 05/14/24 History sacubitril 24 mg-valsartan 26 mg 1 tab PO BID 02/25/24 05/14/24 History tablet (Entresto) spironolactone 50 mg tablet 50 mg PO DAILY 02/25/24 05/14/24 History tizanidine 2 mg capsule 2 mg PO Q8HP PRN MUSCLE SPASMS 02/25/24 05/14/24 History vibegron 75 mg tablet 75 mg PO DAILY 02/25/24 05/14/24 History fluticasone fur. 100 mcg-umeclid 1 inh inhalation DAILY 30 days #60 02/29/24 05/14/24 Rx 62.5 mcg-vilant 25 mcg ea inhalat.powder (Trelegy Ellipta) carvedilol 25 mg tablet 25 mg PO BID 05/14/24 05/14/24 History cyanocobalamin (vitamin B-12) 500 500 mcg PO DAILY 05/14/24 05/14/24 History mcg tablet ipratropium 0.5 mg-albuterol 3 mg 3 ml inhalation Q6HP PRN Shortness 05/14/24 05/14/24 History (2.5 mg base)/3 mL nebulization Of Breath soln prednisone 20 mg tablet 40 mg (2 x 20 mg) PO DAILY 2 days 05/16/24 Rx #4 tabs New Prescriptions to Start Prescriptions: prednisone Feliz Lee Height: 1.6 m Weight: 121.38 kg Laboratory Results:: Laboratory Results - last 24 hr 05/15/24 16:06: POC Glucose 200 H 05/15/24 19:55: POC Glucose 267 H 05/16/24 00:57: Vancomycin Trough 16.6 H 05/16/24 05:20: POC Glucose 247 H 05/16/24 10:55: POC Glucose 199 H Medical History: Medical History (Updated 05/14/24 @ 22:56 by Feliz Lee MD) Femur fracture, right Overactive bladder Morbid obesity due to excess calories Diabetes mellitus Congestive heart failure PVD (peripheral vascular disease) History of thrombosis History of embolism Venous insufficiency (chronic) (peripheral) Functional quadriplegia HTN (hypertension) Vitamin D deficiency COPD (chronic obstructive pulmonary disease) Shock On mechanically assisted ventilation Acute hypercapnic respiratory failure Assessment and Plan Assessment and plan all Dx Assessment and Plan for all problems:: PATIENT'S VANCOMYCIN TROUGH LEVEL WAS 16.6 MCG/ML THIS AM. RECOMMEND CONTINUING WITH VANCOMYCIN 2500 MG Q18H AT THIS TIME.
[2024-05-16 13:33] LABS: Chloride 102 mmol/L (98-107); Sodium 135 mmol/L (136-145)
[2024-05-16 13:34] LABS: Potassium 4.7 mmoL/L (3.5-5.1)
[2024-05-16 13:35] LABS: Basophils # 0.1 K/mm3 (0-0.2); Basophils % 0.4 % (0.1-2.0); Eosinophils % 0.1 % (0.1-12.0); Hematocrit 39.8 % (37.0-47.0); Hemoglobin 11.6 g/dL (12.2-16.2); Lymphocytes # 2.4 K/mm3 (0.7-4.5); Lymphocytes % 17.2 % (10-50); Mean Corpuscular HGB Conc 29.1 g/dL (31.8-35.4); Mean Corpuscular Hemoglobin 24.2 pg (27.0-31.2); Mean Corpuscular Volume 82.9 fl (81-99); Mean Platelet Volume 11.6 fl (7.4-10.4); Monocytes # 0.8 K/mm3 (0.1-1.0); Monocytes % 5.6 % (1.7-9.3); Neutrophils # 10.6 K/mm3 (1.8-7.8); Neutrophils % 75.6 % (37.0-80.0); Platelet Count 232 K/mm3 (142-424); Red Cell Distribution Width 16.9 % (11.5-17.5)
[2024-05-16 13:37] LABS: Anion Gap 8.7 mEq/L (5-15); Blood Urea Nitrogen 25 mg/dl (7-17); Calcium 9.2 mg/dl (8.4-10.2); Carbon Dioxide 29 mmol/L (22.0-30.0); Creatinine Clearance Estimated 41 mL/min (50-200); Estimated Glomerular Filt Rate 71 ml/min (>60); GFR (African American) 86 ML/MIN (>60); Glucose 166 mg/dl (74-100); Magnesium 2.1 mg/dl (1.6-2.3)
[2024-05-16 14:04] LABS: Vancomycin,Peak 21.2 ug/ml (11-39)
[2024-05-16] MEDS: CEFDINIR 300MG CAPSULE 300 MG PO (16:50)
[2024-05-16] MEDS: DOXYCYCLINE HYCL 100 MG TABLET PO (16:51)
[2024-05-16 17:02] LABS: POC Glucose,Bedside 190 (70-110)
--- NOTE | 2024-05-16 20:38 | PC.NURSE ---
pt left with ems at this time
--- NOTE | 2024-05-17 00:07 | PC.NURSE ---
05/16/242037: Pt. sitting up in cahir on 1 liter [place] oxygen. EMS here to transport patient back to [facility]. Pt.assisted up from chair and pivot onto EMS stretcher. Assisted x 2. Pt. discharged in good condition. VSS. Pt. at baseline mentation. Report was call to [facility] from day shift nurse at time of ambulance arrangements were made.
== END 2024-05-16 20:38 | DRG 189 ==
LOC: ER 20:45 → 2ND 21:58
PROVIDERS: Internal Medicine Adolescent Medicine; Admitting Provider Internal Medicine; Emergency Provider Emergency Medicine; PCP Internal Medicine Adolescent Medicine; Visit Provider Internal Medicine
DX: J96.21 Acute and chronic respiratory failure with hypoxia (principal); J44.1 Chronic obstructive pulmonary disease with (acute) exacerbation; Z68.42 Body mass index [BMI] 45.0-49.9, adult; J96.22 Acute and chronic respiratory failure with hypercapnia; I71.40 Abdominal aortic aneurysm, without rupture, unspecified; I50.9 Heart failure, unspecified; E11.9 Type 2 diabetes mellitus without complications; E66.01 Morbid (severe) obesity due to excess calories; N32.81 Overactive bladder; J44.9 Chronic obstructive pulmonary disease, unspecified; Z99.81 Dependence on supplemental oxygen; I11.0 Hypertensive heart disease with heart failure
CPT/HCPCS: 36415; 70450; 71045; 71275; 74177; 80048; 80053; 80202; 80307; 81001; 82140; 82803; 82962; 83036; 83605; 83735; 83880; 84145; 84484; 85007; 85025; 85378; 87040; 87070; 87086; 87088; 87186; 87205; 87633; 87636; 93005; 94640; 94660; 94761; 99291; J0692; J1650; J2543; J2919; J3370; J7030; J7620; Q9967

== ENCOUNTER 2024-11-04 10:09 | Outpatient (CLI) | payer MEDICARE, MEDICAID, SELFPAY ==
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
[2024-11-04 11:55] LABS: Albumin Level 4.2 g/dl (3.5-5.0); Chloride 102 mmol/L (98-107); Potassium 5.5 mmoL/L (3.5-5.1); Sodium 142 mmol/L (136-145)
[2024-11-04 11:58] LABS: Alanine Aminotransferase 17 U/L (12-78); Albumin/Globulin Ratio 1.1 (1.1-1.8); Alkaline Phosphatase 73 U/L (38-126); Anion Gap 12.5 mEq/L (5-15); Aspartate Amino Transferase 24 U/L (14-36); Bilirubin,Total 0.2 mg/dl (0.2-1.3); Blood Urea Nitrogen 25 mg/dl (7-17); Calcium 9.5 mg/dl (8.4-10.2); Carbon Dioxide 33 mmol/L (22.0-30.0); Estimated Glomerular Filt Rate 55 ml/min (>60); GFR (African American) 66 ML/MIN (>60); Globulin 3.7 g/dL (1.3-3.2); Glucose 164 mg/dl (74-100); Iron 58 ug/dL (37-170); Total Protein,Serum 7.9 g/dl (6.3-8.2)
[2024-11-04 12:09] LABS: Total Iron Binding Capacity 374 ug/dL (265-497)
[2024-11-04 12:10] LABS: Basophils # 0.1 K/mm3 (0-0.2); Basophils % 0.7 % (0.1-2.0); Eosinophils # 0.5 Kmm3 (0.0-0.4); Eosinophils % 3.1 % (0.1-12.0); Hematocrit 38.8 % (37.0-47.0); Hemoglobin 11.3 g/dL (12.2-16.2); Immature Granulocytes # 0.06 10^3uL; Immature Granulocytes % 0.4 %; Lymphocytes # 2.5 K/mm3 (0.7-4.5); Lymphocytes % 15.8 % (10-50); Mean Corpuscular HGB Conc 29.1 g/dL (31.8-35.4); Mean Corpuscular Hemoglobin 24.5 pg (27.0-31.2); Mean Platelet Volume 13.1 fl (7.4-10.4); Monocytes # 0.9 K/mm3 (0.1-1.0); Monocytes % 5.4 % (1.7-9.3); Neutrophils % 74.6 % (37.0-80.0); Nucleated Red Blood Cells # 0 10^3/uL; Nucleated Red Blood Cells % 0 %; Platelet Count 277 K/mm3 (142-424); Red Blood Count 4.62 M/mm3 (4.20-5.40); Red Cell Distribution Width 17.3 % (11.5-17.5); Red Cell Distribution Width-SD 52.5 fL
[2024-11-04 12:33] LABS: Ferritin 17.4 ng/ml (11.1-264)
[2024-11-04 12:38] LABS: Lactate Dehydrogenase 202 U/L (313-618)
[2024-11-04 13:29] LABS: Vitamin B12 946 pg/mL (239-931)
[2024-11-04 16:19] LABS: Folate 9.51 ng/mL
[2024-11-05 08:13] LABS: Haptoglobin 376 mg/dL (37-355)
== END 2024-11-04 23:59 | disposition home or self-care (01) ==
LOC: LAB 10:10
PROVIDERS: PCP Internal Medicine Adolescent Medicine; Visit Provider Internal Medicine Medical Oncology
DX: D64.9 Anemia, unspecified (principal); D72.829 Elevated white blood cell count, unspecified
CPT/HCPCS: 80053; 82607; 82728; 82746; 83010; 83540; 83550; 83615; 85025; 85044; 86880

== ENCOUNTER 2025-02-09 11:01 | Outpatient (CLI) | payer MEDICARE, MEDICAID, SELFPAY ==
--- OUTSIDE RECORDS SUMMARY | 2025-02-09 11:14 | XMS_ITS | Clinical Summary ---
Author Organization [facility] Address [address] [place] [address] Care Team Providers Care Coordinator Hotels Name Role Phone Karol Amy Sarika RETANA Primary Care Provider [phone] Allergies Active Allergy Reactions Criticality Noted Date [...] Repeat MBS in 5-7 days from 08/05 Toe ulcer, right 08/04/2023 Overview (08/04/2023): Pain [...] with runoff permorned OR with Ortho 08/01 [facility] Anterolisthesis of cervical spine 08/02/2023 Overview (08/02/2023): [...] Problem Noted Date Diagnosed Date Resolved Date Cellulitis 08/04/2023 02/07/2025 Overview (08/04/2023): Doxycycline BID x 5 days Wound care: wash anterior RLE ramos with soap and water daily, cover with xeroform, cover with kerlex or cotton gauze dressing, change daily or when saturated. Oropharyngeal dysphagia 06/22/2021 03/0 09/2021 Hypertensive urgency [...] Date Smoking Tobacco: Every Day Cigarettes 1 61.7 Started: 1964 Smokeless Tobacco: Never Tobacco Cessation:Ready [...] place to sleep or slept in a assisted (including now)? No 08/05/2023 CAGE ASSESSMENT Answer [...] drink first t giana in the morning (EYE-LATEX CASTER) to steady your nerves or to get rid of a hangover? 0 08/02/2023 CAGE Questionnaire Score 0 024 Utilities Answer Date Recorded In the past 12 months has th e [employer], gas, oil, or water company threatened to shut off services in your [...] Screening 1954 [facility]icare Annual Wellness (AWV) 1954 [facility]-/Child/Adol SDOH Screenings 1954 Diabetes: Dental Exam 1964 [facility]- SDOH Screenings 1972 [facility]-Adult SDOH Screenings 1972 [facility]-DTaP,Tdap,and Td Vaccines (1 - Tdap) 1973 [facility]-Pneumococcal Vaccine: 50+ Years (1 of 2 - PCV) 1973 CT Colonography 1999 Colonoscopy 1999 FIT-DNA 1999 FIT 1999 FOBT 1999 Sigmoidoscopy 1999 [facility]-Colorectal Cancer Screening 1999 [facility]-Breast Cancer Screening 2004 [facility]-Lung Cancer Screening 2004 [facility]-Zoster Vaccines (1 of 2) 2004 [facility]-RSV Vaccine: 60+ Years or (1 - Risk 60-74 years 1-dose series) 2014 [facility]-Diabetes: Hemoglobin A1C 01/30/2024, 10/12/2021, 07/05/2021, Additional history exists [id number]-19 Vaccine ( season) 2025 10/30/2021, 10/23/2021, 08/08/2021, Additional history exists [facility]-Influenza Vaccine (#1) 2025 03/11/2023, [facility]-Hepatitis C Screening Completed 12/14/2022, [facility]-Obesity Intervention [...] this topic Medical Devices Implanted Type Area Production Broacher Device Identifier Shelf Expiration Date Model / Serial / Lot Screw Locking T2 D5xl75 - [id number] Implanted:Qty: 1 on 08/02/2023 by Obey Bowie MD at [facility] Screw Right: [employer] ([facility])-[id number] 8 04/18/2033 2360-5075S / / [id number] Screw Locking T2 D5x35 - [id number] Implanted:Qty: 1 on 08/02/2023 by Obey Bowie MD at [facility] Screw Right: [employer] ([facility])-[id number] 8 06/19/2033 2360-5035S / / [id number] Screw Locking T2 D5x40 - [id number] Implanted:Qty: 1 on 08/02/2023 by Obey Bowie MD at [facility] Screw Right: [employer]ur [employer] ([facility])-[id number] 06/19/2033 2360-5040S / / [id number] Screw Locking T2 D5xl57.5 - Sna - [id number] Implanted:Qty: 1 on 08/02/2023 by Obey Bowie MD at [facility] Screw Right: [employer] ([facility][id number] 10/17/2032 2360-5057S / NA / NA Screw Locking Adv T2 T2 D5xl75 - [id number] Implanted:Qty: 1 on 08/02/2023 by Miah Weber MD at [facility] Screw Right: [employer] ([facility])-[id number] 8 03/19/2033 2361-5075S / / [id number] Screw Locking Adv T2 T2 D5xl65 - [id number] Implanted:Qty: 1 on 08/02/2023 by Obey Bowie MD at [facility] Screw Right: [employer] ([facility])-[id number] 8 04/18/2033 2361-5065S / / [id number] Screw Locking T2 D5xl75 - [id number] Implanted:Qty: 1 on 08/02/2023 by Obey Bowie MD at [facility] Screw Right: [employer] ([facility])-[id number] 8 11/16/2032 2360-5075S / / [id number] Screw Locking T2 D5x35 - Sna - [id number] Implanted:Qty: 1 on 08/02/2023 by Obey Bowie MD at [facility] Right: [employer] ([facility])-[id number] 8 06/19/2033 2360-5035S / NA / [id number] Nail Femoral Retro T2 Alpha 10mm X 360mm - [id number] Implanted:Qty: 1 on 08/02/2023 by Obey Bowie MD at [facility] Right: [employer] ([facility])-[id number] 8 05/19/2033 2339-1036S / / [id number] Screw Locking T2 D5xl42.5 - [id number] Implanted:Qty: 1 on 08/02/2023 by Obey Bowie MD at [facility] Right: [employer] [facility][id number] 8 05/19/2033 2360-5042S / / [id number] Screw Locking T2 D5xl45 - [id number] Implanted:Qty: 1 on 08/02/2023 by Obey Bowie MD at [facility] Right: [employer] [facility][id number] 8 06/19/2033 2360-5045S / / [id number] Screw Locking T2 D5xl42.5 - [id number] Implanted:Qty: 1 on 08/02/2023 by bOey Bowie MD at [facility] Right: [employer] [facility][id number] 8 05/19/2033 2360-5042S / / [id number] Procedures Procedure Name Priority Date/Time Associated Diagnosis Comments HEMOGLOBIN A1C STAT Add-on 08/02/2023 1:50 AM EDT HEPATITIS C ANTIBODY - ED W/REFLEX TO HCV QUANT PCR STAT 12/14/2022 9:24 AM EDT from Last 3 Months or Most Recently Relevant to Health Maintenance Results * (ABNORMAL) Hemoglobin A1c (08/02/2023 1:50 AM EDT) Hemoglobin A1c 6.7(H) <5.7 % 08/02/2023 3:45 AM EDT [facility] Blood Venous blood specimen / Unknown [...] Adults <6.0% Children and Adolescents <7.5% Source: [place] [employer]. Standards of medical care in diabetes,2017. Diabetes Care.2017:40 (suppl 1):S1-S135. HbA1c assay performed by an ion-exchange chromatography method that is certified traceable to the [facility]. us Brody Marques MD LAB BLOOD ORDERABLES Final Resu lt Performing Organization Address City/[facility]/ZIP Co de Phone Number [facility] [address] [place] [address] * Hepatitis C Antibody - ED (12/14/2022 9:24 AM EDT) Hepatitis C Antibody Negative Negative 12/14/2022 10:28 AM EDT [facility] Blood Venous blood specimen / Unknown Venipuncture / Unknown 12/14/2022 9:24 AM EDT 12/14/2022 9:48 AM EDT Nichelle Hall DO LAB BLOOD ORDERABLES Final Re sult Performing Organization Address City/[facility] Co de Phone Number [facility] [address] [place] [address] from Last 3 Months or Most Recently Relevant to Health Maintenance [place] Advance Directives * Full Code [...] Patient has decision-making capacity? Yes Care Teams Coordinator Hotels Relationship Specialty Start Date End Date Amy Roberson DO [address] [place] [address] PCP - General 09/30/20
[2025-02-09 11:52] LABS: Hematocrit 39.6 % (37.0-47.0); Hemoglobin 11.1 g/dL (12.2-16.2); Immature Granulocytes % 0.4 %; Mean Corpuscular HGB Conc 28.0 g/dL (31.8-35.4); Mean Corpuscular Hemoglobin 23.8 pg (27.0-31.2); Mean Corpuscular Volume 85.0 fl (81-99); Nucleated Red Blood Cells % 0 %; Platelet Count 271 K/mm3 (142-424); Red Blood Count 4.66 M/mm3 (4.20-5.40); Red Cell Distribution Width-SD 52.6 fL; White Blood Count 14.1 K/mm3 (4.8-10.8)
== END 2025-02-09 23:59 | disposition home or self-care (01) ==
LOC: LAB 11:03
PROVIDERS: PCP Internal Medicine Adolescent Medicine; Visit Provider Internal Medicine Medical Oncology
DX: D72.829 Elevated white blood cell count, unspecified (principal)
CPT/HCPCS: 36415; 85025